=== PATIENT | male | born 1955 | race Caucasian/White ===

== ENCOUNTER 2016-09-04 14:04 | Inpatient (IN) | payer OTHER, BC ==
[~2016-09-04] VITALS: Ht 188 cm; Wt 97.8 kg
[~2016-09-04 14:04] MED LIST: ALLO1TAB51 PO; ASPI1TAB83 PO; BENZ100C7 PO; GLIM4TAB2 PO; GUAI1TAB68 PO; HYDR-3714 PO; LACT1CAP6 PO; LISI-729 PO; LVQ500 PO; METO50TA16 PO; MULT-506 PO; NPHA OP; PRD10 PO; PRLSR20 PO; SEVE800T7 PO; VNTHFA/IN INH; ZOLP10TA PO
[2016-09-04] MEDS ORDERED: METHYLPREDNISOLONE 125 MG VIAL IV STA (14:36)
[2016-09-04] MEDS ORDERED: LEVAQUIN 500MG / 100ML D5W IV ONE (14:45)
[2016-09-04] MEDS ORDERED: SODIUM CHLORIDE 0.9% 1000ML 1,000 ML IV ONE (14:45)
[2016-09-04] MEDS: ALBUT/IPRATROP 3MG/0.5MG NEB 3 ML VIAL INH SCH ×2 (16:14→20:00)
[2016-09-04 16:15] VITALS: PULSE 92; O2SAT 98
[2016-09-04] MEDS ORDERED: LEVOFLOXACIN / D5W 250 MG in PREMIXED IN D5W 50 ML IV ONE (17:30)
[2016-09-04] MEDS ORDERED: GUAI100S6 PO (17:53)
[2016-09-04] MEDS ORDERED: CALC1CAP36 PO (17:53)
[2016-09-04] MEDS ORDERED: CINA90TA PO (17:53)
[2016-09-04 18:36] LABS: COMPLETE YES; EOS % 0.3 %; HEMATOCRIT 32.1 % (42-52); IG% 0.2 %; LYMPH % 4.8 %; LYMPH ABS # 0.31 K/uL (1.2-3.4); MEAN CELL VOLUME 97.3 fL (80-100); MEAN CORPUSCULAR HEMOGLOBIN 31.5 pg (25-34); MEAN CORPUSCULAR HGB CONC 32.4 g/dl (32-36); MEAN PLATELET VOLUME 10.6 fL (7.4-10.4); MONO % 1.8 %; NEUT % 92.9 %; PLATELET COUNT 102 K/uL (130-400)
[2016-09-04 18:48] LABS: VEN BLD GAS O2 SATURATION < 60.0 %; VEN BLOOD GAS BASE EXCESS 1.6 mmol/L; VENOUS BLOOD GAS PCO2 58 mmHg (38.0-50.0); VENOUS BLOOD GAS PO2 23 mmHg
--- NOTE | 2016-09-04 18:59 | DIAGNOSTIC IMAGING REPORT ---
CHEST 2 VIEWS ROUTINE CLINICAL HISTORY: Cough. Left side crackles. ATYPICAL CHEST PAIN COMPARISON STUDY: 08/12/2016 FINDINGS: The heart is enlarged. There are improving bilateral interstitial pulmonary opacities. There is a more focal right basal airspace opacities suspicious for a pneumonitis. Clinical radiographic follow-up is recommended. There are no significant pleural fusions.[ IMPRESSION: 1. Generalized improvement in the previous described bilateral interstitial opacities 2. New 4 cm right lower lobe airspace opacity, suspicious for a pneumonitis. Clinical and imaging follow-up is recommended Electronically signed by: Ever Zamarripa M.D. 09/04/2016 6:57 PM Dictated Date/Time: 09/04/2016 6:56 PM
[2016-09-04 19:16] LABS: ALB/GLOB RATIO 0.6 (0.9-2); BUN/CREATININE RATIO 7.8 (10-20); CALCIUM 8.3 mg/dl (8.5-10.1); CREATININE 8.8 mg/dl (0.60-1.40); MAGNESIUM 1.3 mg/dl (1.8-2.4)
--- NOTE | 2016-09-04 20:15 | EMERGENCY ROOM VISIT NOTE ---
ED Visit Note First contact with patient: 14:29 I did evaluate and examine this patient myself. I did guide management for the patient. I agree with the PA's assessment as discussed. Please see the PAs dictation for further details. I did independently review the x-rays, twelve- lead EKG and blood work. The patient was assessed by Dr. Friedman who recommended patient be hospitalized.
[2016-09-04] MEDS ORDERED: POTASSIUM CHLORIDE 10 MEQ / 100ML WTR IV STA (20:18)
[2016-09-04] MEDS ORDERED: ACETAMINOPHEN 325 MG TAB PO PRN (21:00)
[2016-09-04] MEDS ORDERED: NITROGLYCERIN 0.4 MG SL PER TAB CHARGE SL PRN (21:00)
[2016-09-04] MEDS ORDERED: LEVOFLOXACIN / D5W 500 MG in PREMIXED IN D5W 100 ML IV SCH (21:15)
[2016-09-04] MEDS ORDERED: NAPHAZOLIN/PHENIRAMIN OPH SOLN 75 DROPS/5 ML BTL OP PRN (21:15)
[2016-09-04] MEDS ORDERED: POTASSIUM CHLORIDE 10 MEQ TABCR PO STA (21:16)
--- NOTE | 2016-09-04 21:50 | HISTORY & PHYSICAL EXAMINATION ---
DATE OF ADMISSION: 09/04/2016 PRIMARY CARE PHYSICIAN: Dr. Feliciano. CHIEF COMPLAINT: Cough with increasing shortness of breath and unable to sleep for the last 3 days. HISTORY OF PRESENT COMPLAINT: He is a 61-year-old male, obese with significant past medical history including diabetes type 2 with neuropathy, chronic kidney disease on peritoneal dialysis, hypertension, osteoarthritis, and also testicular hypofunction, apparently has been complaining of increasing cough for the last 3 days. The cough has been so bad that he has not been sleeping for the last 3 days. He has been using oxygen at home with some improvement of his saturation. He did have some pain in the lower chest that is most likely secondary to coughing, but the condition got worse this morning and he came to the Emergency Room for further evaluation. He denies to have any palpitations, any nausea or vomiting with it, no fever, chills, or rigors. No problem with urine and/or bowel habit. He does have leg swelling, which has been increasing. He does not have any arthritis involving any of the joint and no rash and/or enlargement of lymph nodes. He was in [facility] recently with respiratory symptoms and was evaluated by Dr Friedman. Admitted with Acute respiratory failure and CT of the chest showed diffuse interstitial and nodular changes in both the lungs.Has had a Bronchoscopy without any definite diagnosis and may need repeat bronchoscopy this time.In Er CXR showed new pneumonitis RLL PAST MEDICAL HISTORY: Significant for diabetes type 2 with neuropathy; chronic kidney disease, on peritoneal dialysis, he was on hemodialysis about 4 months ago; hypertension, past tobacco abuse without any diagnosis of COPD, gout, osteoarthritis, and testicular hypofunction. PAST SURGICAL HISTORY: Significant for AV fistula on the left forearm, tonsillectomy as a child, cataract surgery, left total hip replacement, and vasectomy. FAMILY HISTORY: Mother had macular degeneration. Father had hypertension. Mother had thyroid disorder too. SOCIAL HISTORY: He is . He has 4 children. He quit smoking in 2003 with a [id number] history of smoking. He drinks alcohol occasionally. He has been reasonably ambulant. ALLERGIES: NKDA. MEDICATIONS: He has been on Ventolin 2-4 puffs q. 6 hourly as needed, allopurinol 100 mg twice daily, aspirin 81 mg daily, calcitriol 0.25 mg daily, gabapentin as directed, lisinopril 5 mg b.i.d., Lopressor 50 mg twice daily, multivitamin 1 tablet daily, Naphcon-A 15 mL solution 1-2 drops OP q.i.d., prednisone 60 mg as directed, Ambien 10 mg daily, Sensipar 90 mg at night, glimepiride 4 mg daily, Prilosec 20 mg daily, Renvela 800 mg 2 tablets with snacks and Renvela 3 tablets p.o. b.i.d. REVIEW OF SYSTEMS: Other systemic review unremarkable. PHYSICAL EXAMINATION: GENERAL: On examination in the Emergency Room, he was having minimal shortness of breath at rest. VITAL SIGNS: Temperature 36.8, pulse was 110, blood pressure 112/71, saturation 94% on room air. HEENT: Unremarkable. NECK: Supple. No JVD, no bruit. CHEST: Decreased breath sounds at bases with crackles at both bases, more on the right than the left. HEART: S1, S2 regular, no murmur. ABDOMEN: Soft, benign, mildly tender. Bowel sounds present. PD catheter in place. EXTREMITIES: 1+ edema bilaterally. MUSCULOSKELETAL SYSTEM: Did not show any acute arthritis involving any joint. CENTRAL NERVOUS SYSTEM: Alert, awake, oriented x3, no focal sensory and/or motor deficit appreciated. LABORATORY DATA: Noted today - white count was 6.50, H\T\H 10.4/32.1, platelet was 102. Blood gas - pH 7.32, pCO2 58, pO2 23, bicarbonate was 29. Sodium 138, potassium 3.0, chloride 95, BUN 56 and creatinine 0.80, random glucose 138. Magnesium 1.3. LFTs unremarkable except alkaline phosphatase 127. Troponin was 0.182. IMAGING DATA: Chest x-ray reported as generalized improvement in the previous described bilateral interstitial opacities, but new 4 cm right lower lobe airspace opacity, suspicious for pneumonitis. EKG was in sinus rhythm, rate of 94 per minute, normal axis and minor nonspecific ST-T wave changes. IMPRESSION AND PLAN: 1. Pneumonitis/pneumoniae involving the right lower lobe. The patient has bibasilar opacities, new pneumonitis 4 cm in the right lower lobe. Blood culture has been taken. We will start with intravenous Levaquin and pulmonary consultation for further management.Recent admission to [facility] with Acute Respiratory failure ,underwent Bronchoscopy and may need Bronchoscopy during this admission 2. Past history of tobacco abuse, may have a component of chronic obstructive pulmonary disease, but not documented in the chart. Will give intravenous Solu-Medrol and nebulized bronchodilator and oxygen as needed. He has been on Home Oxygen since last hospitalization. 3. Increased troponin, may be secondary to renal failure. Does have some chest pain and shortness of breath. Will cycle cardiac enzymes and put the patient to telemetry unit. 4. End-stage renal disease of Unknown cause, on peritoneal dialysis. He was on HD before and has AV fistula in left forearm.Recently started on PD, continue with peritoneal dialysis. Nephrology consultation while in the hospital. 5. Hypertension. Continue with current medications. 6. Diabetes with neuropathy. We will hold glipizide and put him on sliding scale coverage in the hospital and continue other medications. Check hemoglobin A1c. 7. Gastrointestinal prophylaxis with proton pump inhibitor. 8. Deep venous thrombosis prophylaxis with subcutaneous heparin. 9. Code status: He will be a full code. In my clinical judgment, the beneficiary meets criteria as per CMS for 2-midnight stay in the hospital. MTDPilar
--- NOTE | 2016-09-04 22:43 | EMERGENCY ROOM VISIT NOTE ---
History First contact with patient: 14:29 Chief Complaint: RESPIRATORY PROBLEMS Stated Complaint: CHESTPAIN,COUGH Nursing Triage Summary: Pt came in today for difficulty breathing. Pt was just in for the same issue 2 weeks ago. The pt was placed on home O2 2lpm at that time. Pt states that he has been coughing nonstop since then. Pt feels SOB and his chest hurts. Pt states his cough is productive with a scant amount of white sputum. History of Present Illness The patient is a 61 year old male who presents to the Emergency Room with complaints of cough and shortness of breath worsening over the past 3 days. The patient has a history of long-standing pulmonary disease, and was admitted one month ago with similar symptoms. He is on home oxygen since that last visit and had been doing well for about 3 weeks. The patient states he has had decreased sleep because at night he has a somewhat productive cough that causes him post tussive chest pain. The patient states the pain is worse today as he is also developing some shortness of breath. He does not report fever or chills. No new dyspnea on exertion. The patient does follow with pulmonology, Dr Friedman, and he evidently had a bronchoscopy within the past month. The patient does have a history of tobacco use, but no distinct diagnosis of COPD. He is diabetic and on dialysis for chronic kidney disease. He last had peritoneal dialysis this morning. He rates his current discomfort a 7/10. Review of Systems More than 10 systems were reviewed and otherwise negative with the exception of history of present illness. Past Medical/Surgical History Medical Problems: (1) BPH (benign prostatic hyperplasia) (2) C. difficile colitis (3) Diabetes mellitus, type II (4) Dyslipidemia (5) Elevated troponin (6) ESRD (end stage renal disease) on dialysis (7) ESRD on peritoneal dialysis (8) Gout (9) HTN (hypertension) (10) Obesity (BMI 30.0-34.9) (11) Pneumonia (12) Pneumonitis (13) Respiratory failure, acute (14) Restless leg syndrome Surgical Problems: (1) H/O cataract removal with insertion of prosthetic lens (2) H/O vasectomy (3) History of tonsillectomy and adenoidectomy (4) History of total hip arthroplasty Family History Asthma Hypertension FATHER MOTHER Social History Smoking Status: Former Smoker Alcohol Use: none Housing Status: lives with family Current/Historical Medications Scheduled Allopurinol (Allopurinol), 100 MG PO BID Aspirin (Aspirin), 81 MG PO QAM Calcitriol (Calcitriol), 0.25 MG PO DAILY Cinecalcet (Sensipar), 90 MG PO HS Glimepiride (Glimepiride), 4 MG PO QAM Guaifenesin (Organ-I Nr), 200 MG PO Q8H Lisinopril (Prinivil), 5 MG PO BID Metoprolol Tartrate (Lopressor) (Lopressor), 50 MG PO BID Multivitamin (Multivitamin), 1 TAB PO QAM Omeprazole (Prilosec), 20 MG PO QAM Prednisone (Prednisone), 60 MG PO UD Sevelamer Carbonate (Renvela), 3 TAB PO BID Sevelamer Carbonate (Renvela), 2 TAB PO with snacks Scheduled PRN Albuterol Hfa (Ventolin Hfa), 2-4 PUFFS INH Q6H PRN for SOB/Wheezing Guaifenesin-Codeine (Guaifenesin/Codeine), 5-10 ML PO HS PRN for Cough Naphazoline/Pheniramine (Naphcon-A), 1-2 DROPS OP QID PRN for Itching Zolpidem Tartrate (Ambien), 10 MG PO HS PRN for Sleep Allergies Coded Allergies: No Known Allergies (Unverified , 09/04/16) Physical Exam Vital Signs Date Time Temp Pulse Resp B/P Pulse Ox O2 Delivery O2 Flow Rate FiO2 09/04/16 22:23 93 20 153/84 93 09/04/16 20:29 92 20 143/81 93 Room Air 09/04/16 18:12 110 18 112/71 94 Room Air 09/04/16 16:24 93 20 151/82 100 Nebulizer 7.0 09/04/16 16:15 92 24 98 Nasal Cannula 2.0 09/04/16 16:12 92 09/04/16 14:24 90 Room Air 09/04/16 14:06 36.8 56 19 169/93 93 Room Air Pain Rating (0-10): 4.0 Physical Exam VITALS: Vitals are noted on the nurse's note and reviewed by myself. Vital signs with tachycardia and decreased O2 saturation GENERAL: Well-developed, well-nourished, white male who is coughing throughout the examination. He is able to speak in 4-5 word sentences. HEAD: Normocephalic atraumatic. MOUTH: Mucous membranes moist. Tonsils are not enlarged. Pharynx without erythema, blood, or exudate. Uvula midline. Airway patent. NECK: Supple without nuchal rigidity. No lymphadenopathy. No thyromegaly. Cervical spine is nontender. HEART: Regular rate and rhythm without murmurs gallops or rubs. LUNGS: Diffuse wheezing and rhonchi throughout. Crackles are noted on the left side lung arnold. ABDOMEN: Positive normal bowel sounds x 4. Soft, nontender, without masses or organomegaly. No guarding or rebound tenderness. MUSCULOSKELETAL: 2+ pretibial edema bilateral. Full range of motion without joint tenderness in all extremities. NEURO: Patient was alert and oriented to person place and time. CN II through XII grossly intact. Medical Decision & Procedures ER Provider Diagnostic Interpretation: CHEST 2 VIEWS ROUTINE CLINICAL HISTORY: Cough. Left side crackles. ATYPICAL CHEST PAIN COMPARISON STUDY: 08/12/2016 FINDINGS: The heart is enlarged. There are improving bilateral interstitial pulmonary opacities. There is a more focal right basal airspace opacities suspicious for a pneumonitis. Clinical radiographic follow-up is recommended. There are no significant pleural fusions.[ IMPRESSION: 1. Generalized improvement in the previous described bilateral interstitial opacities 2. New 4 cm right lower lobe airspace opacity, suspicious for a pneumonitis. Clinical and imaging follow-up is recommended Electronically signed by: Ever Zamarripa M.D. 09/04/2016 6:57 PM Laboratory Results 09/04/16 18:25 Red Blood Count 3.30, Mean Corpuscular Volume 97.3, Mean Corpuscular Hemoglobin 31.5, Mean Corpuscular Hemoglobin Concent 32.4, Mean Platelet Volume 10.6, Neutrophils (%) (Auto) 92.9, Lymphocytes (%) (Auto) 4.8, Monocytes (%) (Auto) 1.8, Eosinophils (%) (Auto) 0.3, Basophils (%) (Auto) 0.0, Neutrophils # (Auto) 6.04, Lymphocytes # (Auto) 0.31, Monocytes # (Auto) 0.12, Eosinophils # (Auto) 0.02, Basophils # (Auto) 0.00 09/04/16 18:25 Test 09/04/16 18:25 White Blood Count 6.50 K/uL (4.8-10.8) Red Blood Count 3.30 M/uL (4.7-6.1) Hemoglobin 10.4 g/dL (14.0-18.0) Hematocrit 32.1 % (42-52) Mean Corpuscular Volume 97.3 fL (80-100) Mean Corpuscular Hemoglobin 31.5 pg (25-34) Mean Corpuscular Hemoglobin Concent 32.4 g/dl (32-36) Platelet Count 102 K/uL (130-400) Mean Platelet Volume 10.6 fL (7.4-10.4) Neutrophils (%) (Auto) 92.9 % Lymphocytes (%) (Auto) 4.8 % Monocytes (%) (Auto) 1.8 % Eosinophils (%) (Auto) 0.3 % Basophils (%) (Auto) 0.0 % Neutrophils # (Auto) 6.04 K/uL (1.4-6.5) Lymphocytes # (Auto) 0.31 K/uL (1.2-3.4) Monocytes # (Auto) 0.12 K/uL (0.11-0.59) Eosinophils # (Auto) 0.02 K/uL (0-0.5) Basophils # (Auto) 0.00 K/uL (0-0.2) RDW Standard Deviation 55.3 fL (36.4-46.3) RDW Coefficient of Variation 15.5 % (11.5-14.5) Immature Granulocyte % (Auto) 0.2 % Immature Granulocyte # (Auto) 0.01 K/uL (0.00-0.02) Venous Blood pH 7.32 (7.36-7.41) Venous Blood Partial Pressure CO2 58 mmHg (38.0-50.0) Venous Blood Partial Pressure O2 23 mmHg Venous Blood HCO3 29 mmol/L Venous Blood Oxygen Saturation < 60.0 % Venous Blood Base Excess 1.6 mmol/L Anion Gap 15.0 mmol/L (3-11) Est Creatinine Clear Calc Drug Dose 11.9 ml/min Estimated GFR () 6.8 Estimated GFR (Non- 5.8 BUN/Creatinine Ratio 7.8 (10-20) Calcium Level 8.3 mg/dl (8.5-10.1) Magnesium Level 1.3 mg/dl (1.8-2.4) Total Bilirubin 0.5 mg/dl (0.2-1) Aspartate Amino Transf (AST/SGOT) 26 U/L (15-37) Alanine Aminotransferase (ALT/SGPT) 57 U/L (12-78) Alkaline Phosphatase 127 U/L (45-117) Troponin I 0.182 ng/ml (0-0.045) Total Protein 6.1 gm/dl (6.4-8.2) Albumin 2.4 gm/dl (3.4-5.0) Globulin 3.7 gm/dl (2.5-4.0) Albumin/Globulin Ratio 0.6 (0.9-2) Medications Administered Medications (Trade) Dose Ordered Sig/Daysi Route Start Time Stop Time Status Last Admin Dose Admin Methylprednisolone Sodium Succinate 125 mg 125 mg NOW STAT IV 09/04/16 14:36 09/04/16 14:41 DC 09/04/16 16:19 125 MG Sodium Chloride (Nss 1000ml) 1,000 ml @ 200 mls/hr Q5H ONCE IV 09/04/16 14:45 09/04/16 19:44 DC 09/04/16 14:45 200 MLS/HR Albuterol/ Ipratropium (Duoneb) 12 ml QIDR INH 09/04/16 16:00 10/04/16 15:59 09/04/16 16:14 12 ML Levofloxacin 500 mg 500 mg NOW ONCE IV 09/04/16 14:45 09/04/16 14:46 DC 09/04/16 14:45 500 MG Levofloxacin/Prmx (Levaquin / D5W/ Premixed D5W) 50 ml @ 50 mls/hr NOW ONCE IV 09/04/16 17:30 09/04/16 18:29 DC 09/04/16 18:01 50 MLS/HR Potassium Chloride (Kcl 10 Meq / Wtr) 10 meq NOW STAT IV 09/04/16 20:18 09/04/16 20:19 DC 09/04/16 21:24 10 MEQ ED Course Physical exam and history were performed. Nursing notes and EMR were reviewed. Patient appears to have shortness of breath and cough with a history of pulmonary disease. The patient's O2 saturation on room air was 90 on initial presentation. The patient was immediately placed on 4 L nasal cannula, and this immediately improved his saturation to 96%. The patient does have a cough here in the department. His lungs are with diffuse wheezing and rhonchi. IV access was established and labs were obtained. Chest x-ray was ordered. The patient was given IV Solu-Medrol 125 mg, as well as a one-hour DuoNeb. He was placed on the superintendent container terminal. EKG was normal sinus rhythm at 94 bpm with incomplete right bundle branch block. No evidence of ischemia. EKG is without significant change from 07/09/2016. The patient proved to be a very difficult blood draw, and the acquisition of labs was delayed because of this. We were able to establish an IV and obtain blood cultures. X-ray was performed and the patient does have what appears to be a new pneumonitis compared to previous imaging studies. The patient did have some improvement of his breathing and decrease of his cough after steroids and a DuoNeb. I discussed the case with Dr Friedman, the patient's investor relations director. Dr Friedman was kind enough to discuss the patient with me here in the emergency department. Evidently the patient has a currently undiagnosed pulmonary issue. He has some components of sarcoidosis, but also has some components of an allergic pneumonitis. The recommendation was for 750 mg IV Levaquin as well as high-dose steroids. These were provided. Dr Friedman felt that with the patient's immunocompromise status from his dialysis as well as underlying pulmonary disease with hypoxia he will be a candidate for discharge home at this time. Dr. Friedman indicated a willingness to further evaluate the patient as an inpatient if we and the hospitalist felt this was appropriate. After some time we were able to draw labs. The patient does not have a significantly elevated white blood cell count. He is mildly anemic, however this appears stable. His potassium is 3.0 and this was repleted through the IV. His BUN/creatinine are significantly elevated, however this is felt to be consistent with his chronic kidney disease, and the labs are actually improved from previous blood draws over the past few months. The patient's troponin 1 is mildly elevated. I suspect this is also from his chronic kidney disease as his troponin is essentially always mildly elevated. I discussed the case with my attending physician, Dr. Sears, who also independently evaluated the patient. We do not feel comfortable discharging the patient as he has underlying pulmonary disease with hypoxia. He is with chronic kidney disease and an elevated troponin. He has what seems to be a new pneumonitis, which could be contributing to her symptoms. [facility] to evaluate the patient here in the department. Please see their dictation for further patient course, plan , and disposition. The chart was completed utilizing [employer] Voice Recognition Software. Grammatical errors, random word insertions, pronoun errors, and incomplete sentences are an occasional consequence of this system due to software limitations, ambient noise, and hardware issues. Any formal questions or concerns about the content, text, or information contained within the body of this dictation should be directly addressed to the provider for clarification. . Medical Decision Differential diagnosis includes, but is not limited to: Myocardial infarction, dysrhythmia, pericarditis, pneumothorax, aortic aneurysm/dissection, DVT/PE, anxiety, GERD, PUD, electrolyte imbalance, thyroid disorder, pneumonia, bronchitis, pancreatitis, and others Impression Primary Impression: Respiratory failure, acute Additional Impressions: Elevated troponin ESRD on peritoneal dialysis Departure Information Referrals Chu Feliciano MD (PCP) Patient Instructions My [facility] Problem Qualifiers
[2016-09-04 22:58] VITALS: BP 147/86; PULSE 108; TEMP 36.8; O2SAT 98; Ht 188 cm; Wt 97.8 kg
[2016-09-04] MEDS ORDERED: LEVOFLOXACIN CONSULT ACTIVE PRN (23:00)
[2016-09-04] MEDS ORDERED: MAGNESIUM SULFATE 1GM / D5W 1 GM in PREMIXED IN D5W 100 ML IV SCH (23:00)
[2016-09-04] MEDS: HYDROCODONE/HOMATROPINE SYRUP 5MG/1.5MG 5ML UDP PO PRN (23:26)
[2016-09-04] MEDS: HYDROCODONE/ACETAMOPHEN 5/325MG TAB PO PRN (23:27)
[2016-09-04] MEDS: ZOLPIDEM TARTRATE 10 MG TAB PO PRN (23:27)
[2016-09-04] MEDS: METHYLPREDNISOLONE IV 60 MG in SYRINGE 0 ML IV SCH (23:27)
[2016-09-05] VITALS (26 sets, daily range): BP systolic 135–189; BP diastolic 65–110; PULSE 89–113; TEMP 36.4–37; O2SAT 91–96
[2016-09-05] MEDS: LEVALBUTEROL 0.31MG/3 ML VIAL INH SCH ×3 (01:48→13:51)
[2016-09-05] MEDS: HEPARIN SOD 5000 UNIT/0.5 ML CARP SQ SCH ×3 (06:23→21:12)
[2016-09-05] MEDS ORDERED: SEVELAMER HYDROCH 800 MG TAB PO PRN (07:30)
[2016-09-05] MEDS: METHYLPREDNISOLONE IV 60 MG in SYRINGE 0 ML IV SCH ×2 (08:12→18:01)
[2016-09-05] MEDS: MULTIVITAMIN TAB PO SCH (08:12)
[2016-09-05] MEDS: SEVELAMER HYDROCH 800 MG TAB PO SCH ×2 (08:12→18:01)
[2016-09-05] MEDS: CALCITRIOL 0.25 MCG CAP PO SCH (08:13)
[2016-09-05] MEDS: LISINOPRIL 5 MG TAB PO SCH ×2 (08:13→21:10)
[2016-09-05] MEDS: METOPROLOL TARTRATE 50 MG TAB PO SCH ×2 (08:13→21:10)
[2016-09-05] MEDS: ALLOPURINOL 100 MG TAB PO SCH ×2 (08:14→21:10)
[2016-09-05] MEDS: ASPIRIN 81 MG ECTAB PO SCH (08:14)
[2016-09-05] MEDS: PANTOprazole SOD 40 MG TAB PO SCH (08:14)
[2016-09-05 09:29] LABS: MEAN CELL VOLUME 94.6 fL (80-100); MEAN CORPUSCULAR HEMOGLOBIN 31.5 pg (25-34); MEAN CORPUSCULAR HGB CONC 33.3 g/dl (32-36); MEAN PLATELET VOLUME 11.3 fL (7.4-10.4); PLATELET COUNT 114 K/uL (130-400); RED BLOOD COUNT 3.17 M/uL (4.7-6.1); WHITE BLOOD COUNT 5.43 K/uL (4.8-10.8)
--- NOTE | 2016-09-05 09:41 | Nephrology Consultation ---
Nephrology Consultation Date of Consultation: Sep 05, 2016. Attending Physician: Dr Pinedo Requesting Physician: Dr Franco Reason for Consultation: ESRD History of Present Illness 61 year old male w/ ESRD on PD and w/ recurrent admissions here past 3 mos for volume problems (both overload and volume depletion), respiratory issues came to ED yesterday d/t progressive edema, dyspnea. Follows w/ Dr. Friedman for suspected hypersensitivity pneumonitis, though dx not definitive; also Mycoplasma + last month. Also under the care of Dr Jimenez [facility]. He has a chronic cough which worsened w/ increased wheezing starting 72 hrs prior to presentation. He had worsening orthopnea to the point where he had to do his PD exchanges sitting up. He states that he had been doing mostly all 2.5% bags w/ PD and did one night of all 4.25% bags but then went back to 2.5%. States he did this b/c was told he was back to/ at his dry weight. No diarrhea, nausea , abd pain, decreased po, presyncopal sx. No concerns about PD exchanges. He had breathing txs here ON w/ improvement in cough; did get a few hours of rest. Does endorse some dietary indiscretion/ higher Na diet d/t food insecurity/ cost. No change in daily UOP which is small amount. Past Medical/Surgical History Medical Problems: (1) Anemia Status: Acute (2) Anemia Status: Acute (3) Chronic renal failure Status: Acute (4) Elevated troponin Status: Acute (5) Hypotension Status: Acute (6) Hypoxemia Status: Acute (7) Vomiting Status: Acute (8) Weakness Status: Acute -End-stage renal disease under care of Dr. Jimenez at [facility], does PD but has mature AVF as well -type 2 diabetes -HTN -concern for hypersensitivity pneumonitis s/p bronch 07/2016 -Mycoplasma + 08/10/16 -[facility] admission 08/01-: hypovolemia with cough -admissions [facility] w/ recurrent diarrhea (07/01-: C-diff); (06/15-: diarrhea/hypovolemia) -possible hemochromatosis -demand ischemia noted at past admissions -s/p PD catheter and tunnelled dialysis catheter and AVF creation -s/p vasectomy -s/p hip replacement -s/p tonsillectomy -s/p cataract surgery Family History Asthma Hypertension FATHER MOTHER Social History Smoking Status: Former Smoker Alcohol Use: none Drug Use: none Marital Status: Housing Status: lives with family Occupation Status: disabled Allergies Coded Allergies: No Known Allergies (Unverified , 09/04/16) Medications Current Inpatient Medications Medications (Trade) Dose Ordered Sig/Daysi Route Start Time Stop Time Status Last Admin Dose Admin Acetaminophen (Tylenol Tab) 650 mg Q4H PRN PO 09/04/16 21:00 10/04/16 20:59 Zolpidem Tartrate (Ambien Tab) 5 mg HSZ PRN PO 09/04/16 21:00 10/04/16 20:59 Nitroglycerin (Nitrostat Tab) 0.4 mg UD PRN SL 09/04/16 21:00 10/04/16 20:59 Albuterol (Ventolin Hfa Inhaler) 2 puffs Q6H PRN INH 09/04/16 21:15 10/04/16 21:14 Allopurinol (Zyloprim Tab) 100 mg BID PO 09/05/16 09:00 10/05/16 08:59 09/05/16 08:14 100 MG Aspirin (Ecotrin Tab) 81 mg QAM PO 09/05/16 09:00 10/05/16 08:59 09/05/16 08:14 81 MG Calcitriol (Rocaltrol Cap) 0.25 mcg DAILY PO 09/05/16 09:00 10/05/16 08:59 09/05/16 08:13 0.25 MCG Lisinopril (Zestril Tab) 5 mg BID PO 09/05/16 09:00 10/05/16 08:59 09/05/16 08:13 5 MG Metoprolol Tartrate (Lopressor Tab) 50 mg BID PO 09/05/16 09:00 10/05/16 08:59 09/05/16 08:13 50 MG Multivitamins (Multivitamin Tab) 1 tab QAM PO 09/05/16 09:00 10/05/16 08:59 09/05/16 08:12 1 TAB Naphazoline HCl/ Pheniramine Maleate (Visine-A Oph Soln) 2 drops QID PRN OP 09/04/16 21:15 10/04/16 21:14 Zolpidem Tartrate (Ambien Tab) 10 mg HS PRN PO 09/04/16 21:15 10/04/16 21:14 09/04/16 23:27 10 MG Cinacalcet (Sensipar) 90 mg HS PO 09/05/16 21:00 10/05/16 20:59 Pantoprazole Sodium (Protonix Tab) 40 mg QAM PO 09/05/16 09:00 10/05/16 08:59 09/05/16 08:14 40 MG Sevelamer HCl (Renagel Tab) 1,600 mg TIDM PRN PO 09/05/16 07:30 10/05/16 07:29 Sevelamer HCl 2400 mg 2,400 mg BIDM PO 09/05/16 07:30 10/05/16 07:29 09/05/16 08:12 2,400 MG Methylprednisolone Sodium Succinate/ Syringe (Solu-Medrol IV/ Syringe) 0.96 ml @ 1.5 mls/min Q8H IV 09/05/16 00:00 10/05/16 00:00 09/05/16 08:12 1.5 MLS/MIN Levalbuterol (Xopenex 0.31MG/ 3ML Neb) 0.31 mg Q6R INH 09/05/16 03:00 10/05/16 02:59 09/05/16 06:59 0.31 MG Hydrocodone Bit/ Homatropine Methylb (Hycodan Syrup) 5 ml Q6H PRN PO 09/04/16 21:15 09/18/16 21:14 09/04/16 23:26 5 ML Heparin Sodium (Porcine) (Heparin Sq 5000 Unit/0.5ml) 5,000 unit Q8 SQ 09/05/16 06:00 10/05/16 05:59 09/05/16 06:23 5,000 UNIT Levofloxacin 1 ea 1 ea UD PRN N/A 09/04/16 23:00 10/04/16 22:59 Levofloxacin/Prmx (Levaquin / D5W/ Premixed D5W) 100 ml @ 100 mls/hr Q2D@1100 IV 09/06/16 11:00 09/13/16 10:59 Acetaminophen/ Hydrocodone Bitart ([place] 5/325 Tab) 1 tab Q4H PRN PO 09/04/16 23:15 09/18/16 23:14 09/04/16 23:27 1 TAB Home Meds and Scripts Medications Dose Route/Sig Max Daily Dose Days Date Category Dose Instructions Calcitriol 0.25 Mcg Cap 0.25 Mg PO DAILY 09/04/16 Reported Sensipar (Cinecalcet) 90 Mg Tab 90 Mg PO HS 09/04/16 Reported Guaifenesin/Codeine (Guaifenesin-Codeine) 1 Tanvi Tanvi 5-10 Ml PO HS PRN 4 09/04/16 Reported Prednisone 10 Mg Tab 60 Mg PO UD 42 08/15/16 Rx Take 60 mg daily x 7 days and than taper by 10 mg every week. Organ-I Nr (Guaifenesin) 200 Mg Tab 200 Mg PO Q8H 10 08/04/16 Rx Ventolin Hfa (Albuterol) 200 Puffs/33759 Mcg Aers 2-4 Puffs INH Q6H PRN 08/01/16 Reported Prinivil (Lisinopril) 5 Mg Tab 5 Mg PO BID 07/16/16 Reported Lopressor (Metoprolol Tartrate) 50 Mg Tab 50 Mg PO BID 04/17/16 Reported Renvela (Sevelamer Carbonate) 800 Mg Tab 2 Tab PO WITH SNACKS 90 07/02/15 Reported Renvela (Sevelamer Carbonate) 800 Mg Tab 3 Tab PO BID 90 07/02/15 Reported Ambien (Zolpidem Tartrate) 10 Mg Tab 10 Mg PO HS PRN 07/02/15 Reported Naphcon-A (Naphazoline HCl/Pheniramine Maleate) 15 Ml Soln 1-2 Drops OP QID PRN 10/25/14 Reported Glimepiride 4 Mg Tab 4 Mg PO QAM 10/23/14 Reported Prilosec (Omeprazole) 20 Mg Capcr 20 Mg PO QAM 10/23/14 Reported Allopurinol 100 Mg Tab 100 Mg PO BID 10/23/14 Reported Aspirin 81 Mg Tab 81 Mg PO QAM 10/23/14 Reported Multivitamin (Multivitamins) Tab 1 Tab PO QAM 10/23/14 Reported Review of Systems Constitutional: + fatigue, + weakness, No chills, No fever Eyes: No worsening of vision ENT: No hearing loss Respiratory: + cough, + dyspnea at rest, + dyspnea on exertion, + see HPI, + wheezing, No hemoptysis Cardiac: + edema, + orthopnea, No chest pain, No palpitations Abdomen: No constipation, No diarrhea, No nausea, No pain, No vomiting Musculoskeletal: No joint pain, No muscle pain Male : + see HPI Neuro: + weakness, No balance problems Psych: No anxiety, No depression symptoms Heme: No abnormal bleeding/bruising Endo: + fatigue Skin: No rash Physical Exam Date Time Temp Pulse Resp B/P Pulse Ox O2 Delivery O2 Flow Rate FiO2 09/05/16 08:27 36.5 104 20 156/86 95 Room Air 09/05/16 08:00 Room Air 09/05/16 06:59 106 16 93 Room Air 09/05/16 04:00 Room Air 09/05/16 03:01 37.0 105 19 160/93 92 Room Air 09/05/16 01:49 108 16 91 Room Air 09/04/16 23:59 Room Air 09/04/16 22:58 36.8 108 19 147/86 98 Room Air 09/04/16 22:23 93 20 153/84 93 09/04/16 20:29 92 20 143/81 93 Room Air 09/04/16 18:12 110 18 112/71 94 Room Air 09/04/16 16:24 93 20 151/82 100 Nebulizer 7.0 09/04/16 16:15 92 24 98 Nasal Cannula 2.0 09/04/16 16:12 92 09/04/16 14:24 90 Room Air 09/04/16 14:06 36.8 56 19 169/93 93 Room Air 24-Hour Column 09/05/16 08:00 Intake Total 300 ml Balance 300 ml General Appearance: WD/WN, + mild distress (sitting up on side of bed reading newspaper; on RA; dyspneic w/ full sentence) Eyes: EOMI ENT: hearing grossly normal Neck: supple Respiratory/Chest: no accessory muscle use, + decreased breath sounds, + crackles Cardiovascular: + tachycardia (regularly spaced beats in 90s; distant), + pertinent finding (edema) Abdomen: normal bowel sounds, non tender, soft, + pertinent finding (PD cath RLQ) Extremities: + pedal edema (3+ and 3+ BLE as well), + pertinent finding (L AVF + t/b) Neurologic/Psych: alert, normal mood/affect, oriented x 3 Skin: no jaundice, warm/dry, no rash Diagnostics Last 24 Hours Test 09/04/16 18:25 09/05/16 02:56 09/05/16 08:56 09/05/16 09:13 White Blood Count 6.50 K/uL 5.43 K/uL Red Blood Count 3.30 M/uL 3.17 M/uL Hemoglobin 10.4 g/dL 10.0 g/dL Hematocrit 32.1 % 30.0 % Mean Corpuscular Volume 97.3 fL 94.6 fL Mean Corpuscular Hemoglobin 31.5 pg 31.5 pg Mean Corpuscular Hemoglobin Concent 32.4 g/dl 33.3 g/dl Platelet Count 102 K/uL 114 K/uL Mean Platelet Volume 10.6 fL 11.3 fL Neutrophils (%) (Auto) 92.9 % Lymphocytes (%) (Auto) 4.8 % Monocytes (%) (Auto) 1.8 % Eosinophils (%) (Auto) 0.3 % Basophils (%) (Auto) 0.0 % Neutrophils # (Auto) 6.04 K/uL Lymphocytes # (Auto) 0.31 K/uL Monocytes # (Auto) 0.12 K/uL Eosinophils # (Auto) 0.02 K/uL Basophils # (Auto) 0.00 K/uL RDW Standard Deviation 55.3 fL 52.8 fL RDW Coefficient of Variation 15.5 % 15.3 % Immature Granulocyte % (Auto) 0.2 % Immature Granulocyte # (Auto) 0.01 K/uL Venous Blood pH 7.32 Venous Blood Partial Pressure CO2 58 mmHg Venous Blood Partial Pressure O2 23 mmHg Venous Blood HCO3 29 mmol/L Venous Blood Oxygen Saturation < 60.0 % Venous Blood Base Excess 1.6 mmol/L Sodium Level 138 mmol/L Potassium Level 3.0 mmol/L Chloride Level 95 mmol/L Carbon Dioxide Level 28 mmol/L Anion Gap 15.0 mmol/L Blood Urea Nitrogen 69 mg/dl Creatinine 8.80 mg/dl Est Creatinine Clear Calc Drug Dose 11.9 ml/min Estimated GFR () 6.8 Estimated GFR (Non- 5.8 BUN/Creatinine Ratio 7.8 Random Glucose 138 mg/dl Calcium Level 8.3 mg/dl Magnesium Level 1.3 mg/dl Total Bilirubin 0.5 mg/dl Aspartate Amino Transf (AST/SGOT) 26 U/L Alanine Aminotransferase (ALT/SGPT) 57 U/L Alkaline Phosphatase 127 U/L Troponin I 0.182 ng/ml Total Protein 6.1 gm/dl Albumin 2.4 gm/dl Globulin 3.7 gm/dl Albumin/Globulin Ratio 0.6 Creatine Kinase MB Ratio Diagnostic Radiology: cxr which I have personally reviewed 1. Generalized improvement in bilateral interstitial opacities 2. New 4 cm right lower lobe airspace opacity, suspicious for a pneumonitis. 3. Cardiomegaly EKG: ECG > NSR, prolonged QT, unchanged from prior this admission Assessment & Plan 61 y/o M w/ ESRD and suspected hypersensitivity pneumonitis admitted with volume overload, worsening cough, presumed demand ischemia ESRD w/ HTN, volume overload hypertensive, edematous which should improve w/ HD -plan HD today and tomorrow for 2-3 L UF each tx as tolerated -mini heparin w/ txs -will hold off on PD for now; no indication to do PD fluid studies at this time -continue sevelamer, cinacalcet -ensure <2gm daily Na diet and fluid limit 1.2L Anemia of chronic disease -w/ reported hx of hemocrhomatosis, will hold off on epo or iron at this time but may need some epo this admission Hypokalemia -4k bath today; also pt had 40 mEq x 1 of K Pneumonitis, Mycoplasma IgG+ 07/2016 -on levaquin > QT prolongation noted and would monitor Demand ischemia small troponin elevation at prior admissions; troponins slightly higher this time; no events on monitor, no chest pain w/o coughing; f/u repeat troponins Appreciate consult; will follow with you
[2016-09-05] MEDS ORDERED: HEPARIN SOD (PORCINE) 1000 UNIT/ML 10 ML VIAL IV SCH (09:45)
--- NOTE | 2016-09-05 10:18 | Pulmonary Consultation ---
History General Date of Service: Sep 05, 2016. Stated Complaint: Elevated Troponin, Esrd On Peritoneal Dialysis HPI The patient is a 61 year old male who presents to [facility] with complaints of Elevated Troponin, Esrd On Peritoneal Dialysis. The patient' s primary care provider is Chu Feliciano MD. The patient was admitted to [facility] from August 08 --2015. He was admitted for acute hypoxic respiratory insufficiency possible hypersensitivity pneumonitis and elevated troponin with demand ischemia. Chronically is on dialysis for end-stage renal disease required HD in house and notably on PD at home. He presented yesterday to the ED with progressive SOB and productive cough (white sputum) over the last few days. I last him in clinic on 08/29/16 and the patient was doing well at that time. He was on a steroid elsi and off antibiotics. Current Treatment: 1. Levaquin 750mg IV QD 2. Heparin SC 5,000 Q8 3. Xopenex MEB Q6 4. Methyprednisolone 60mg IV Q8 Recent ABX Treatment 1) Levaquin 500mg Work-UP during This Admission: VBG(09/04/16) 7.32/58Convert to ABG---7.35/48 WBC 6.50 PLT: 102 D-dimer: 690 CXR (09/04/16) RLL diffuse infiltrate compared to 08/12/16 CT thorax (08/08/16) Diffuse Go with some [place] and notable consolidation for the LLL Previous Work-Up: 08/10/16: Mycoplasma Pneumonia IgG: >>2.17 08/10/16: Mycoplasma Pneumonia IgM: negative 129 08/15/16: [place] Dropping and Bird Droppings IgG positive 11/06/15: IgM16 low 08/12/16: Viral Specimen: Pending 08/10/2016: Legionella UA: not detected 08/12/16: CMV Culture Pending 08/12/16: HSV Culture Pending 08/10/16: [id number] 08/10/16: ANCA-negative 08/08/16: DVT study--negative Microbiology: Bronchoscopy (08/12/16) Cytology Brushing: Atypical Cells Tbbx: benign tissue with moderate sings of chronic inflammation/ no signs of malignancy TTNA: reactive lymphocytes/no signs of malignancy CD4/CD8 ratio: 7.6 PFT (11/13/15) FEV1/FVC: 75 FEV1: 3.09/73% (no reversibility) FVC: 4.09/77% (no reversibility) T.02/92% VC: 4.09/77% RV: 2.93/111% DLCO: 82% DL/VA: 95% CTA (10/25/14) o No PE o Scattered discoid atelectasis o Prominent mediastinal hilar adenopathy Review of Systems Constitutional: reports: malaise, weakness Eyes: reports: no symptoms ENT: reports: no symptoms Cardiovascular: reports: chest tightness, edema Respiratory: reports: SOARES, cough, shortness of breath Gastrointestinal: reports: no symptoms Genitourinary - Male: reports: no symptoms Musculoskeletal: reports: myalgias Integumentary: reports: no symptoms Neurologic: reports: no symptoms Psychiatric: reports: no symptoms Endocrine: no symptoms Hematologic / Lymphatic: no symptoms Allergic / Immunologic: no symptoms Past Medical History Past Medical History: 1) DM 2) HTN 3) Tobacco abuse 4) ESRD on PD 5) Chronic anemia 6) A-V fistula 7) Sleep disorder 8) COPD mild 9) Possible Hemochromatosis Past Surgical History: 1) HD port 2) PD abd 3) Vasectomy 4) cataract 5) tonsillectomy 6) adenoidectomy 7) hip surgery Family History Asthma Hypertension FATHER MOTHER Social History Hx Tobacco Use In Past Year?: No Smoking Status: Former Smoker Alcohol: no current use Drug Use: none Housing status: lives with significant other Immunizations History of Influenza Vaccine: Yes Influenza Vaccine Date: May 13, 2016 History of Tetanus Vaccine?: Yes Tetanus Immunization Date: Jan 29, 2011 History of Pneumococcal: Yes Pneumococcal Date: Jul 11, 2014 History of MDRO History of MDRO: No Allergies Coded Allergies: No Known Allergies (Unverified , 09/04/16) Current Medications Reported Home Medications Medications Dose Route/Sig Max Daily Dose Days Date Category Dose Instructions Calcitriol 0.25 Mcg Cap 0.25 Mg PO DAILY 09/04/16 Reported Sensipar (Cinecalcet) 90 Mg Tab 90 Mg PO HS 09/04/16 Reported Guaifenesin/Codeine (Guaifenesin-Codeine) 1 Tanvi Tanvi 5-10 Ml PO HS PRN 4 09/04/16 Reported Prednisone 10 Mg Tab 60 Mg PO UD 42 08/15/16 Rx Take 60 mg daily x 7 days and than taper by 10 mg every week. Organ-I Nr (Guaifenesin) 200 Mg Tab 200 Mg PO Q8H 10 08/04/16 Rx Ventolin Hfa (Albuterol) 200 Puffs/[id number] Mcg Aers 2-4 Puffs INH Q6H PRN 08/01/16 Reported Prinivil (Lisinopril) 5 Mg Tab 5 Mg PO BID 07/16/16 Reported Lopressor (Metoprolol Tartrate) 50 Mg Tab 50 Mg PO BID 04/17/16 Reported Renvela (Sevelamer Carbonate) 800 Mg Tab 2 Tab PO WITH SNACKS 90 07/02/15 Reported Renvela (Sevelamer Carbonate) 800 Mg Tab 3 Tab PO BID 90 07/02/15 Reported Ambien (Zolpidem Tartrate) 10 Mg Tab 10 Mg PO HS PRN 07/02/15 Reported Naphcon-A (Naphazoline HCl/Pheniramine Maleate) 15 Ml Soln 1-2 Drops OP QID PRN 10/25/14 Reported Glimepiride 4 Mg Tab 4 Mg PO QAM 10/23/14 Reported Prilosec (Omeprazole) 20 Mg Capcr 20 Mg PO QAM 10/23/14 Reported Allopurinol 100 Mg Tab 100 Mg PO BID 10/23/14 Reported Aspirin 81 Mg Tab 81 Mg PO QAM 10/23/14 Reported Multivitamin (Multivitamins) Tab 1 Tab PO QAM 10/23/14 Reported Physical Physical Exam Vital Signs: Date Time Temp Pulse Resp B/P Pulse Ox O2 Delivery O2 Flow Rate FiO2 09/05/16 08:27 36.5 104 20 156/86 95 Room Air 09/05/16 08:00 Room Air 09/05/16 06:59 106 16 93 Room Air 09/05/16 04:00 Room Air 09/05/16 03:01 37.0 105 19 160/93 92 Room Air 09/05/16 01:49 108 16 91 Room Air 09/04/16 23:59 Room Air 09/04/16 22:58 36.8 108 19 147/86 98 Room Air 09/04/16 22:23 93 20 153/84 93 09/04/16 20:29 92 20 143/81 93 Room Air 09/04/16 18:12 110 18 112/71 94 Room Air 09/04/16 16:24 93 20 151/82 100 Nebulizer 7.0 09/04/16 16:15 92 24 98 Nasal Cannula 2.0 09/04/16 16:12 92 09/04/16 14:24 90 Room Air 09/04/16 14:06 36.8 56 19 169/93 93 Room Air General Appearance: mild distress Head: NORMOCEPHALIC Eyes: PERRLA, NO DISCHARGE, EOMI ENT: NORMAL EAR EXAM, NORMAL NASAL EXAM, NORMAL MOUTH EXAM, NORMAL THROAT EXAM Neck: NORMAL RANGE OF MOTION, NO TENDERNESS, TRACHEA MIDLINE, NO STRIDOR Respiratory: rales, rhonchi, wheezing Cardiovasular: REGULAR RATE/RHYTHM, NORMAL S1S2, NO M/G/R, NO MURMUR, NO GALLOP Abdomen: NON TENDER, NORMAL BOWEL SOUNDS, NO REBOUND, NO MASSES, NO GUARDING, other (clean PD ports) Genitourinary - Male: EXTERNAL GENITALIA NORMAL Back: NORMAL INSPECTION, NO MIDLINE TENDERNESS, NO CVA TENDERNESS Lower Extremities: NO EDEMA Edema: Bilateral LE (2+) Pulses: carotid (R) (2+), carotid (L) (2+), dorsalis pedis (R) (1+), dorsalis pedis (L) (1+) Neuro: ALERT, ORIENTED x 3, NORMAL MOTOR EXAM, NORMAL SENSATION Reflexes: biceps (R) (2+), bicpes (L) (2+) Babinski Testing: right (downgoing), left (downgoing) Psychiatric: flat affect Diagnostics Labs Results Past 24 Hours Test 09/04/16 18:25 09/05/16 02:56 09/05/16 08:56 09/05/16 09:13 Range/Units White Blood Count 6.50 5.43 4.8-10.8 K/uL Red Blood Count 3.30 3.17 4.7-6.1 M/uL Hemoglobin 10.4 10.0 14.0-18.0 g/dL Hematocrit 32.1 30.0 42-52 % Mean Corpuscular Volume 97.3 94.6 80-100 fL Mean Corpuscular Hemoglobin 31.5 31.5 25-34 pg Mean Corpuscular Hemoglobin Concent 32.4 33.3 32-36 g/dl Platelet Count 102 114 130-400 K/uL Mean Platelet Volume 10.6 11.3 7.4-10.4 fL Neutrophils (%) (Auto) 92.9 % Lymphocytes (%) (Auto) 4.8 % Monocytes (%) (Auto) 1.8 % Eosinophils (%) (Auto) 0.3 % Basophils (%) (Auto) 0.0 % Neutrophils # (Auto) 6.04 1.4-6.5 K/uL Lymphocytes # (Auto) 0.31 1.2-3.4 K/uL Monocytes # (Auto) 0.12 0.11-0.59 K/uL Eosinophils # (Auto) 0.02 0-0.5 K/uL Basophils # (Auto) 0.00 0-0.2 K/uL RDW Standard Deviation 55.3 52.8 36.4-46.3 fL RDW Coefficient of Variation 15.5 15.3 11.5-14.5 % Immature Granulocyte % (Auto) 0.2 % Immature Granulocyte # (Auto) 0.01 0.00-0.02 K/uL Venous Blood pH 7.32 7.36-7.41 Venous Blood Partial Pressure CO2 58 38.0-50.0 mmHg Venous Blood Partial Pressure O2 23 mmHg Venous Blood HCO3 29 mmol/L Venous Blood Oxygen Saturation < 60.0 % Venous Blood Base Excess 1.6 mmol/L Sodium Level 138 136-145 mmol/L Potassium Level 3.0 3.5-5.1 mmol/L Chloride Level 95 98-107 mmol/L Carbon Dioxide Level 28 21-32 mmol/L Anion Gap 15.0 3-11 mmol/L Blood Urea Nitrogen 69 7-18 mg/dl Creatinine 8.80 0.60-1.40 mg/dl Est Creatinine Clear Calc Drug Dose 11.9 ml/min Estimated GFR () 6.8 Estimated GFR (Non- 5.8 BUN/Creatinine Ratio 7.8 10-20 Random Glucose 138 70-99 mg/dl Calcium Level 8.3 8.5-10.1 mg/dl Magnesium Level 1.3 1.8-2.4 mg/dl Total Bilirubin 0.5 0.2-1 mg/dl Aspartate Amino Transf (AST/SGOT) 26 15-37 U/L Alanine Aminotransferase (ALT/SGPT) 57 12-78 U/L Alkaline Phosphatase 127 45-117 U/L Troponin I 0.182 0-0.045 ng/ml Total Protein 6.1 6.4-8.2 gm/dl Albumin 2.4 3.4-5.0 gm/dl Globulin 3.7 2.5-4.0 gm/dl Albumin/Globulin Ratio 0.6 0.9-2 Creatine Kinase MB Ratio 0-3.0 Microbiology Results 09/04/16 Blood Culture, Received Pending 09/04/16 Blood Culture, Received Pending 09/04/16 MRSA DNA Surveillance Screen - Final, Complete Specimen Negative for MRSA by DNA Probe Diagnostic Radiology CXR (09/04/16) RLL diffuse infiltrate compared to 08/12/16 EKG Interpretation: NORMAL EKG Impression Assessment and Plan 61 y/o presenting with SOD/SOARES and signs of volume overload: 1) Hypersensitivity Pneumonitis: At this time definitive diagnosis of hypersensitivity pneumonitis cannot be made as the criteria for diagnosis are not meet. There are 3 different sets of criteria but as some of the studies on the recent bronchoscopies degraded only 2 out of 3 of the inclusion criteria in any one of the sets cannot be meeting at this time. It most likely will require repeat bronchoscopy or allergen testing when patient is off steroids. 2) Mycoplasma Pneumonia IgG is positive now from 08/10/16 but is IgM is negative but we need to remember he also has an overall low IgM level tested back on 11/06/15. It is possible is recent episodes of SOB are associated with undertreating mycoplasma pneumonia but his current dose of Levaquin 750mg for 5 days should cover this. 3) COPD: Per ATS criteria patient has mild OVD. We should continue our current medical regimen. Prior to D/C will start 4) CRF: Patient on PD with signs of volume overload. Nephrology to see today and decide on further treatment. His volume state is adding to his current condition.
--- NOTE | 2016-09-05 11:01 | Clinical Documentation Query ---
CLINICAL DOCUMENTATION QUERY 61 year old male who presents to the Emergency Room with complaints of cough and shortness of breath. AM 1/13 progress note from nephrology that this patient has volume overload. This is evidenced by decreased breath sounds, crackles, and edema. In your clinical opinion is this patient being managed for: ( ) Acute diastolic (preserved EF) heart failure POA ( ) Acute diastolic (preserved EF) heart failure occurring day #2 of admission. ( X ) Other explanation of clinical findings (volume overload from ESRD) ( ) Unable to determine (Please Define) ( ) Need to Discuss ( ) Not Agree The medical record reflects the following clinical findings, treatment, and risk factors. Clinical Indicators: As above, +Troponin, Treatment: Hemodialysis Risk Factors: Age, ESRD, underlying pneumonia Please clarify and document your clinical opinion in the progress notes and discharge summary. Terms such as "probable", "suspected", "likely", "questionable", "possible", or "still to be ruled out" are acceptable. IF IN AGREEMENT, YOU MUST DOCUMENT ABOVE DIAGNOSTIC STATEMENT IN DAILY PROGRESS NOTES AND DISCHARGE SUMMARY. This document is not part of the patient's record. Thank You, Juan F Lambert, RN [phone]
[2016-09-05] MEDS ORDERED: GLUCOSE 40% GEL 15 GM TUBE PO PRN (11:45)
[2016-09-05] MEDS ORDERED: DEXTROSE 50% 50 ML SYR IV PRN (11:45)
[2016-09-05] MEDS ORDERED: GLUCOSE 10 TABS/TUBE PO PRN (11:45)
[2016-09-05] MEDS ORDERED: GLUCAGON FOR INJ 1 MG VIAL SQ PRN (11:45)
[2016-09-05] MEDS: ALBUTEROL HFA 8 GM INHALER INH PRN (11:52)
[2016-09-05] MEDS ORDERED: ALBUT/IPRATROP 3MG/0.5MG NEB 3 ML VIAL INH PRN (13:00)
--- NOTE | 2016-09-05 17:50 | Progress Note ---
Medicine Progress Note Date & Time of Visit: Sep 05, 2016 at 17:37. Subjective Patient seen and examined. Feels a little worse today than yesterday. +non-productive cough. Objective Last 8 Hrs Date Time Temp Pulse Resp B/P Pulse Ox O2 Delivery O2 Flow Rate FiO2 09/05/16 16:32 98 160/88 09/05/16 16:15 96 171/95 09/05/16 16:00 96 141/94 09/05/16 15:45 96 154/95 09/05/16 15:30 96 163/100 09/05/16 15:15 97 157/90 09/05/16 15:00 98 164/93 09/05/16 14:45 93 169/83 09/05/16 14:30 94 155/92 09/05/16 14:15 95 171/98 09/05/16 14:00 94 160/96 09/05/16 13:51 106 12 93 Room Air 09/05/16 13:45 91 164/96 09/05/16 13:30 95 177/105 09/05/16 13:15 98 174/99 09/05/16 13:02 94 177/103 09/05/16 12:55 36.8 94 181/103 09/05/16 12:15 36.5 96 20 189/110 95 Room Air 09/05/16 12:00 Room Air Physical Exam: General-awake; alert; NAD Eyes-EOMI; no scleral icterus Neck-no stridor; large circumference Lungs-coarse breath sounds with rubs throughout Heart-RRR; no m/r/g Abdomen-soft; NT; nBS; PD catheter c/d/i Extremities-2+ pitting edema bilateral LE; no deformity Neuro-no gross focal deficits Laboratory Results: Last 24 Hours Test 09/04/16 18:25 09/05/16 02:56 09/05/16 07:12 09/05/16 09:13 White Blood Count 6.50 K/uL 5.43 K/uL Red Blood Count 3.30 M/uL 3.17 M/uL Hemoglobin 10.4 g/dL 10.0 g/dL Hematocrit 32.1 % 30.0 % Mean Corpuscular Volume 97.3 fL 94.6 fL Mean Corpuscular Hemoglobin 31.5 pg 31.5 pg Mean Corpuscular Hemoglobin Concent 32.4 g/dl 33.3 g/dl Platelet Count 102 K/uL 114 K/uL Mean Platelet Volume 10.6 fL 11.3 fL Neutrophils (%) (Auto) 92.9 % Lymphocytes (%) (Auto) 4.8 % Monocytes (%) (Auto) 1.8 % Eosinophils (%) (Auto) 0.3 % Basophils (%) (Auto) 0.0 % Neutrophils # (Auto) 6.04 K/uL Lymphocytes # (Auto) 0.31 K/uL Monocytes # (Auto) 0.12 K/uL Eosinophils # (Auto) 0.02 K/uL Basophils # (Auto) 0.00 K/uL RDW Standard Deviation 55.3 fL 52.8 fL RDW Coefficient of Variation 15.5 % 15.3 % Immature Granulocyte % (Auto) 0.2 % Immature Granulocyte # (Auto) 0.01 K/uL Venous Blood pH 7.32 Venous Blood Partial Pressure CO2 58 mmHg Venous Blood Partial Pressure O2 23 mmHg Venous Blood HCO3 29 mmol/L Venous Blood Oxygen Saturation < 60.0 % Venous Blood Base Excess 1.6 mmol/L Sodium Level 138 mmol/L Potassium Level 3.0 mmol/L Chloride Level 95 mmol/L Carbon Dioxide Level 28 mmol/L Anion Gap 15.0 mmol/L Blood Urea Nitrogen 69 mg/dl Creatinine 8.80 mg/dl Est Creatinine Clear Calc Drug Dose 11.9 ml/min Estimated GFR () 6.8 Estimated GFR (Non- 5.8 BUN/Creatinine Ratio 7.8 Random Glucose 138 mg/dl Calcium Level 8.3 mg/dl Magnesium Level 1.3 mg/dl Total Bilirubin 0.5 mg/dl Aspartate Amino Transf (AST/SGOT) 26 U/L Alanine Aminotransferase (ALT/SGPT) 57 U/L Alkaline Phosphatase 127 U/L Troponin I 0.182 ng/ml 0.140 ng/ml Total Protein 6.1 gm/dl Albumin 2.4 gm/dl Globulin 3.7 gm/dl Albumin/Globulin Ratio 0.6 Creatine Kinase MB Ratio 15.0 Bedside Glucose 355 mg/dl Total Creatine Kinase 22 U/L Creatine Kinase MB 3.3 ng/ml Test 09/05/16 11:38 Bedside Glucose 334 mg/dl Date/Time Source Procedure Growth Status 09/04/16 23:37 Nasal MRSA DNA Surveillance Screen - Final Specimen Negative for MRSA by DNA Probe Complete Assessment & Plan Possible mycoplasma pneumonia - Pulmonary consulted - continue renally dosed levofloxacin (monitor QTc) - continue methylprednisolone - continue nebulizers - unable to make diagnosis of hypersensitivity pneumonitis ESRD - Nephrology consulted - patient appears volume overloaded - plan for HD while inpatient - continue calcitriol, cinacalcet, sevelamer Elevated troponin - patient denies chest pain - likely related to underlying ESRD - EKG without ischemic changes - downtrended - continue aspirin Hyperglycemia - related to steroid use - SSI HTN - continue lisinopril and metoprolol DVT prophylaxis with heparin sq Consultants: Pulmonary Nephrology Current Inpatient Medications: Current Inpatient Medications Medications (Trade) Dose Ordered Sig/Daysi Route Start Time Stop Time Status Last Admin Dose Admin Acetaminophen (Tylenol Tab) 650 mg Q4H PRN PO 09/04/16 21:00 10/04/16 20:59 Zolpidem Tartrate (Ambien Tab) 5 mg HSZ PRN PO 09/04/16 21:00 10/04/16 20:59 Nitroglycerin (Nitrostat Tab) 0.4 mg UD PRN SL 09/04/16 21:00 10/04/16 20:59 Albuterol (Ventolin Hfa Inhaler) 2 puffs Q6H PRN INH 09/04/16 21:15 10/04/16 21:14 Allopurinol (Zyloprim Tab) 100 mg BID PO 09/05/16 09:00 10/05/16 08:59 09/05/16 08:14 100 MG Aspirin (Ecotrin Tab) 81 mg QAM PO 09/05/16 09:00 10/05/16 08:59 09/05/16 08:14 81 MG Calcitriol (Rocaltrol Cap) 0.25 mcg DAILY PO 09/05/16 09:00 10/05/16 08:59 09/05/16 08:13 0.25 MCG Lisinopril (Zestril Tab) 5 mg BID PO 09/05/16 09:00 10/05/16 08:59 09/05/16 08:13 5 MG Metoprolol Tartrate (Lopressor Tab) 50 mg BID PO 09/05/16 09:00 10/05/16 08:59 09/05/16 08:13 50 MG Multivitamins (Multivitamin Tab) 1 tab QAM PO 09/05/16 09:00 10/05/16 08:59 09/05/16 08:12 1 TAB Naphazoline HCl/ Pheniramine Maleate (Visine-A Oph Soln) 2 drops QID PRN OP 09/04/16 21:15 10/04/16 21:14 Zolpidem Tartrate (Ambien Tab) 10 mg HS PRN PO 09/04/16 21:15 10/04/16 21:14 09/04/16 23:27 10 MG Cinacalcet (Sensipar) 90 mg HS PO 09/05/16 21:00 10/05/16 20:59 Pantoprazole Sodium (Protonix Tab) 40 mg QAM PO 09/05/16 09:00 10/05/16 08:59 09/05/16 08:14 40 MG Sevelamer HCl (Renagel Tab) 1,600 mg TIDM PRN PO 09/05/16 07:30 10/05/16 07:29 Sevelamer HCl 2400 mg 2,400 mg BIDM PO 09/05/16 07:30 10/05/16 07:29 09/05/16 08:12 2,400 MG Methylprednisolone Sodium Succinate/ Syringe (Solu-Medrol IV/ Syringe) 0.96 ml @ 1.5 mls/min Q8H IV 09/05/16 00:00 10/05/16 00:00 09/05/16 08:12 1.5 MLS/MIN Hydrocodone Bit/ Homatropine Methylb (Hycodan Syrup) 5 ml Q6H PRN PO 09/04/16 21:15 09/18/16 21:14 09/04/16 23:26 5 ML Heparin Sodium (Porcine) (Heparin Sq 5000 Unit/0.5ml) 5,000 unit Q8 SQ 09/05/16 06:00 10/05/16 05:59 09/05/16 06:23 5,000 UNIT Levofloxacin 1 ea 1 ea UD PRN N/A 09/04/16 23:00 10/04/16 22:59 Levofloxacin/Prmx (Levaquin / D5W/ Premixed D5W) 100 ml @ 100 mls/hr Q2D@1100 IV 09/06/16 11:00 09/13/16 10:59 Acetaminophen/ Hydrocodone Bitart ([place] 5/325 Tab) 1 tab Q4H PRN PO 09/04/16 23:15 09/18/16 23:14 09/04/16 23:27 1 TAB Heparin Sodium (Porcine) (Heparin Iv Bolus) 1,000 unit TODAY@0945 IV 09/05/16 09:45 09/05/16 18:00 Heparin Sodium (Porcine) (Heparin Iv Bolus) 400 unit TODAY@0945,1045,1145 IV 09/05/16 09:45 09/05/16 18:00 Heparin Sodium (Porcine) (Heparin Iv Bolus) 1,000 unit TODAY@0800 IV 09/06/16 08:00 09/06/16 18:00 Heparin Sodium (Porcine) (Heparin Iv Bolus) 400 unit TODAY@0800,0900,1000 IV 09/06/16 08:00 09/06/16 18:00 Insulin Aspart (novoLOG ASPART) SLIDING SCALE If C... ACHS SC 09/05/16 16:15 10/05/16 16:14 Glucose (Glucose 40% Gel) 15-30 GRAMS 15 GRAMS... UD PRN PO 09/05/16 11:45 10/05/16 11:44 Glucose (Glucose Chew Tab) 4-8 Tablets 4 Tabl... UD PRN PO 09/05/16 11:45 10/05/16 11:44 Dextrose (Dextrose 50% 50ML Syringe) 25-50ML OF 50% DW IV FOR... UD PRN IV 09/05/16 11:45 10/05/16 11:44 Glucagon (Glucagon Inj) 1 mg UD PRN SQ 09/05/16 11:45 10/05/16 11:44 Docusate Sodium (coLACE CAP) 100 mg BID PO 09/05/16 21:00 10/05/16 20:59 Albuterol/ Ipratropium (Duoneb) 3 ml QIDR INH 09/05/16 16:00 10/05/16 15:59 Albuterol/ Ipratropium (Duoneb) 3 ml Q2H PRN INH 09/05/16 13:00 10/05/16 12:59
[2016-09-05] MEDS: INSULIN ASPART 100 UNITS/ML 3 ML PEN SC SCH ×2 (18:03→21:11)
[2016-09-05] MEDS: HEPARIN SOD (PORCINE) 1000 UNIT/ML 10 ML VIAL IV SCH ×2 (19:13→19:14)
[2016-09-05] MEDS: ALBUT/IPRATROP 3MG/0.5MG NEB 3 ML VIAL INH SCH (19:26)
[2016-09-05] MEDS: DOCUSATE SODIUM 100 MG CAP PO SCH (21:00)
[2016-09-05] MEDS: HYDROCODONE/HOMATROPINE SYRUP 5MG/1.5MG 5ML UDP PO PRN (21:07)
[2016-09-05] MEDS: ZOLPIDEM TARTRATE 5 MG TAB PO PRN (21:08)
[2016-09-05] MEDS: CINACALCET 30 MG TAB PO SCH (21:10)
[2016-09-05] MEDS: HYDROCODONE/ACETAMOPHEN 5/325MG TAB PO PRN (21:53)
[2016-09-06] VITALS (24 sets, daily range): BP systolic 142–177; BP diastolic 78–97; PULSE 73–104; TEMP 36.4–36.9; O2SAT 92–97
[2016-09-06] MEDS: METHYLPREDNISOLONE IV 60 MG in SYRINGE 0 ML IV SCH ×2 (00:25→09:58)
[2016-09-06] MEDS: ALBUTEROL HFA 8 GM INHALER INH PRN (00:25)
[2016-09-06] MEDS: ALBUT/IPRATROP 3MG/0.5MG NEB 3 ML VIAL INH SCH ×6 (01:44→20:47)
[2016-09-06] MEDS: HEPARIN SOD 5000 UNIT/0.5 ML CARP SQ SCH ×3 (06:23→21:17)
[2016-09-06 06:31] LABS: MEAN CELL VOLUME 97.6 fL (80-100); MEAN CORPUSCULAR HEMOGLOBIN 31.4 pg (25-34); MEAN CORPUSCULAR HGB CONC 32.1 g/dl (32-36); RED BLOOD COUNT 2.87 M/uL (4.7-6.1); WHITE BLOOD COUNT 5.82 K/uL (4.8-10.8)
[2016-09-06 06:55] LABS: MEAN PLATELET VOLUME 11.3 fL (7.4-10.4); PLATELET COUNT 85 K/uL (130-400)
[2016-09-06 06:58] LABS: PLT ESTIMATE DECREASED
[2016-09-06 07:44] LABS: BUN/CREATININE RATIO 8.2 (10-20); CALCIUM 8.2 mg/dl (8.5-10.1); CREATININE 6.3 mg/dl (0.60-1.40); MAGNESIUM 1.9 mg/dl (1.8-2.4); PHOSPHORUS 5.3 mg/dl (2.5-4.9)
[2016-09-06 07:45] LABS: POTASSIUM 4.8 mmol/L (3.5-5.1)
[2016-09-06] MEDS ORDERED: HEPARIN SOD (PORCINE) 1000 UNIT/ML 10 ML VIAL IV SCH (08:00)
[2016-09-06] MEDS: ALLOPURINOL 100 MG TAB PO SCH ×2 (08:05→21:13)
[2016-09-06] MEDS: ASPIRIN 81 MG ECTAB PO SCH (08:05)
[2016-09-06] MEDS: MULTIVITAMIN TAB PO SCH (08:06)
[2016-09-06] MEDS: METOPROLOL TARTRATE 50 MG TAB PO SCH ×2 (08:06→21:12)
[2016-09-06] MEDS: LISINOPRIL 5 MG TAB PO SCH ×2 (08:06→21:12)
[2016-09-06] MEDS: SEVELAMER HYDROCH 800 MG TAB PO SCH ×2 (08:06→21:11)
[2016-09-06] MEDS: PANTOprazole SOD 40 MG TAB PO SCH (08:07)
[2016-09-06] MEDS: CALCITRIOL 0.25 MCG CAP PO SCH (08:07)
[2016-09-06] MEDS: INSULIN ASPART 100 UNITS/ML 3 ML PEN SC SCH ×4 (08:12→21:19)
[2016-09-06] MEDS: DOCUSATE SODIUM 100 MG CAP PO SCH ×2 (09:58→20:40)
[2016-09-06] MEDS: LEVOFLOXACIN 500MG / D5W IV SCH (09:58)
[2016-09-06] MEDS ORDERED: EPOETIN ALFA 10,000 UNITS/ML VIAL IV. ONE (10:00)
--- NOTE | 2016-09-06 10:09 | Nephrology Progress Note ---
Nephrology Progress Note Date of Service: Sep 06, 2016. Subjective 61 yo male with esrd and volume overload who was on pd for the last couple of months but has had a tumultuous course. has had four hospitilizations of varying reasons from cdiff, to volume depletion to bronchitis and now with volume overload. pt is on the cycler at home but does not completely understand how to measure the uf removed. pt starting to feel better. had dialysis treatment yesterday and trying to remove fluid aggressively. Objective Date Time Temp Pulse Resp B/P Pulse Ox O2 Delivery O2 Flow Rate FiO2 09/06/16 08:00 Room Air 09/06/16 07:55 36.7 104 18 147/81 94 Room Air 09/06/16 07:20 94 16 94 Room Air 09/06/16 04:00 Room Air 09/06/16 03:17 36.7 95 20 172/96 96 Room Air 09/06/16 01:44 90 16 96 Room Air 09/06/16 00:00 Room Air 09/05/16 23:34 36.7 89 20 135/65 94 Room Air 09/05/16 20:00 Room Air 09/05/16 19:26 112 18 96 Room Air 09/05/16 19:24 36.8 113 20 168/85 93 Room Air 09/05/16 17:46 Room Air 09/05/16 17:14 36.4 97 172/97 09/05/16 16:32 98 160/88 09/05/16 16:15 96 171/95 09/05/16 16:00 96 141/94 09/05/16 15:45 96 154/95 09/05/16 15:30 96 163/100 09/05/16 15:15 97 157/90 09/05/16 15:00 98 164/93 09/05/16 14:45 93 169/83 09/05/16 14:30 94 155/92 09/05/16 14:15 95 171/98 09/05/16 14:00 94 160/96 09/05/16 13:51 106 12 93 Room Air 09/05/16 13:45 91 164/96 09/05/16 13:30 95 177/105 09/05/16 13:15 98 174/99 09/05/16 13:02 94 177/103 09/05/16 12:55 36.8 94 181/103 09/05/16 12:15 36.5 96 20 189/110 95 Room Air 09/05/16 12:00 Room Air Physical Exam: General-aaox3 Eyes-no scleral icterus ENT-mmm Neck-supple Lungs-decreased breath sounds Heart-rrr Abdomen-bs+, s/nt/nd Extremities-+3 edema Neuro-nonfocal Current Inpatient Medications Medications (Trade) Dose Ordered Sig/Daysi Route Start Time Stop Time Status Last Admin Dose Admin Acetaminophen (Tylenol Tab) 650 mg Q4H PRN PO 09/04/16 21:00 10/04/16 20:59 Zolpidem Tartrate (Ambien Tab) 5 mg HSZ PRN PO 09/04/16 21:00 10/04/16 20:59 09/05/16 21:08 5 MG Nitroglycerin (Nitrostat Tab) 0.4 mg UD PRN SL 09/04/16 21:00 10/04/16 20:59 Albuterol (Ventolin Hfa Inhaler) 2 puffs Q6H PRN INH 09/04/16 21:15 10/04/16 21:14 09/06/16 00:25 2 PUFFS Allopurinol (Zyloprim Tab) 100 mg BID PO 09/05/16 09:00 10/05/16 08:59 09/06/16 08:05 100 MG Aspirin (Ecotrin Tab) 81 mg QAM PO 09/05/16 09:00 10/05/16 08:59 09/06/16 08:05 81 MG Calcitriol (Rocaltrol Cap) 0.25 mcg DAILY PO 09/05/16 09:00 10/05/16 08:59 09/06/16 08:07 0.25 MCG Lisinopril (Zestril Tab) 5 mg BID PO 09/05/16 09:00 10/05/16 08:59 09/06/16 08:06 5 MG Metoprolol Tartrate (Lopressor Tab) 50 mg BID PO 09/05/16 09:00 10/05/16 08:59 09/06/16 08:06 50 MG Multivitamins (Multivitamin Tab) 1 tab QAM PO 09/05/16 09:00 10/05/16 08:59 09/06/16 08:06 1 TAB Naphazoline HCl/ Pheniramine Maleate (Visine-A Oph Soln) 2 drops QID PRN OP 09/04/16 21:15 10/04/16 21:14 Zolpidem Tartrate (Ambien Tab) 10 mg HS PRN PO 09/04/16 21:15 10/04/16 21:14 09/04/16 23:27 10 MG Cinacalcet (Sensipar) 90 mg HS PO 09/05/16 21:00 10/05/16 20:59 09/05/16 21:10 90 MG Pantoprazole Sodium (Protonix Tab) 40 mg QAM PO 09/05/16 09:00 10/05/16 08:59 09/06/16 08:07 40 MG Sevelamer HCl (Renagel Tab) 1,600 mg TIDM PRN PO 09/05/16 07:30 10/05/16 07:29 Sevelamer HCl 2400 mg 2,400 mg BIDM PO 09/05/16 07:30 10/05/16 07:29 09/06/16 08:06 2,400 MG Methylprednisolone Sodium Succinate/ Syringe (Solu-Medrol IV/ Syringe) 0.96 ml @ 1.5 mls/min Q8H IV 09/05/16 00:00 10/05/16 00:00 09/06/16 09:58 1.5 MLS/MIN Hydrocodone Bit/ Homatropine Methylb (Hycodan Syrup) 5 ml Q6H PRN PO 09/04/16 21:15 09/18/16 21:14 09/05/16 21:07 5 ML Heparin Sodium (Porcine) (Heparin Sq 5000 Unit/0.5ml) 5,000 unit Q8 SQ 09/05/16 06:00 10/05/16 05:59 09/06/16 06:23 5,000 UNIT Levofloxacin 1 ea 1 ea UD PRN N/A 09/04/16 23:00 10/04/16 22:59 Levofloxacin/Prmx (Levaquin / D5W/ Premixed D5W) 100 ml @ 100 mls/hr Q2D@1100 IV 09/06/16 11:00 09/13/16 10:59 09/06/16 09:58 100 MLS/HR Acetaminophen/ Hydrocodone Bitart ([place] 5/325 Tab) 1 tab Q4H PRN PO 09/04/16 23:15 09/18/16 23:14 09/05/16 21:53 1 TAB Heparin Sodium (Porcine) (Heparin Iv Bolus) 1,000 unit TODAY@0800 IV 09/06/16 08:00 09/06/16 18:00 Heparin Sodium (Porcine) (Heparin Iv Bolus) 400 unit TODAY@0800,0900,1000 IV 09/06/16 08:00 09/06/16 18:00 Insulin Aspart (novoLOG ASPART) SLIDING SCALE If C... ACHS SC 09/05/16 16:15 10/05/16 16:14 09/06/16 08:12 8 UNITS Glucose (Glucose 40% Gel) 15-30 GRAMS 15 GRAMS... UD PRN PO 09/05/16 11:45 10/05/16 11:44 Glucose (Glucose Chew Tab) 4-8 Tablets 4 Tabl... UD PRN PO 09/05/16 11:45 10/05/16 11:44 Dextrose (Dextrose 50% 50ML Syringe) 25-50ML OF 50% DW IV FOR... UD PRN IV 09/05/16 11:45 10/05/16 11:44 Glucagon (Glucagon Inj) 1 mg UD PRN SQ 09/05/16 11:45 10/05/16 11:44 Docusate Sodium (coLACE CAP) 100 mg BID PO 09/05/16 21:00 10/05/16 20:59 09/06/16 09:58 100 MG Albuterol/ Ipratropium (Duoneb) 3 ml QIDR INH 09/05/16 16:00 10/05/16 15:59 09/06/16 07:20 3 ML Albuterol/ Ipratropium (Duoneb) 3 ml Q2H PRN INH 09/05/16 13:00 10/05/16 12:59 Insulin Glargine (Lantus Solostar Pen) 10 unit QPM SC 09/06/16 21:00 10/06/16 20:59 UNV Last 24 Hours Test 09/05/16 11:38 09/05/16 17:58 09/05/16 20:08 09/06/16 05:16 Bedside Glucose 334 mg/dl 233 mg/dl 282 mg/dl White Blood Count 5.82 K/uL Red Blood Count 2.87 M/uL Hemoglobin 9.0 g/dL Hematocrit 28.0 % Mean Corpuscular Volume 97.6 fL Mean Corpuscular Hemoglobin 31.4 pg Mean Corpuscular Hemoglobin Concent 32.1 g/dl RDW Standard Deviation 55.3 fL RDW Coefficient of Variation 15.5 % Platelet Count 85 K/uL Mean Platelet Volume 11.3 fL Platelet Estimate DECREASED Sodium Level 137 mmol/L Potassium Level 4.8 mmol/L Chloride Level 97 mmol/L Carbon Dioxide Level 27 mmol/L Anion Gap 13.0 mmol/L Blood Urea Nitrogen 52 mg/dl Creatinine 6.30 mg/dl Est Creatinine Clear Calc Drug Dose 16.4 ml/min Estimated GFR () 10.1 Estimated GFR (Non- 8.7 BUN/Creatinine Ratio 8.2 Random Glucose 244 mg/dl Calcium Level 8.2 mg/dl Phosphorus Level 5.3 mg/dl Magnesium Level 1.9 mg/dl Test 09/06/16 06:54 Bedside Glucose 266 mg/dl Assessment & Plan ESRD-pt has not been doing well on pd. will currently switch to hemodialysis. plan on dialysis daily to help remove fluid. have contacted dialysis unit-will switch from pd to hd. pt grossly volume overloaded.
--- NOTE | 2016-09-06 16:43 | Progress Note ---
Medicine Progress Note Date & Time of Visit: Sep 06, 2016 at 16:39. Subjective Patient seen and examined in dialysis unit. Feeling better today. Feels that his breathing has improved. Objective Last 8 Hrs Date Time Temp Pulse Resp B/P Pulse Ox O2 Delivery O2 Flow Rate FiO2 09/06/16 16:03 36.7 96 20 163/88 96 Room Air 09/06/16 15:33 76 16 92 Room Air 09/06/16 12:00 Room Air 09/06/16 11:48 36.6 84 18 165/97 95 Room Air 09/06/16 11:26 94 16 96 Room Air Physical Exam: General-awake; alert; NAD Eyes-EOMI; no scleral icterus Neck-no stridor; large circumference Lungs-coarse breath sounds anteriorly but improved from yesterday Heart-RRR; no m/r/g Abdomen-soft; NT; nBS; PD catheter c/d/i Extremities-2+ pitting edema bilateral LE; no deformity Neuro-no gross focal deficits Laboratory Results: Last 24 Hours Test 09/05/16 17:58 09/05/16 20:08 09/06/16 05:16 09/06/16 06:54 Bedside Glucose 233 mg/dl 282 mg/dl 266 mg/dl White Blood Count 5.82 K/uL Red Blood Count 2.87 M/uL Hemoglobin 9.0 g/dL Hematocrit 28.0 % Mean Corpuscular Volume 97.6 fL Mean Corpuscular Hemoglobin 31.4 pg Mean Corpuscular Hemoglobin Concent 32.1 g/dl RDW Standard Deviation 55.3 fL RDW Coefficient of Variation 15.5 % Platelet Count 85 K/uL Mean Platelet Volume 11.3 fL Platelet Estimate DECREASED Sodium Level 137 mmol/L Potassium Level 4.8 mmol/L Chloride Level 97 mmol/L Carbon Dioxide Level 27 mmol/L Anion Gap 13.0 mmol/L Blood Urea Nitrogen 52 mg/dl Creatinine 6.30 mg/dl Est Creatinine Clear Calc Drug Dose 16.4 ml/min Estimated GFR () 10.1 Estimated GFR (Non- 8.7 BUN/Creatinine Ratio 8.2 Random Glucose 244 mg/dl Calcium Level 8.2 mg/dl Phosphorus Level 5.3 mg/dl Magnesium Level 1.9 mg/dl Test 09/06/16 11:18 Bedside Glucose 356 mg/dl Assessment & Plan Possible mycoplasma pneumonia - Pulmonary consulted - continue renally dosed levofloxacin (monitor QTc) - start date 09/06; for 5 days - transition methylprednisolone to prednisone and plan for slow taper over 10- 14 days - continue nebulizers - unable to definitively make diagnosis of hypersensitivity pneumonitis ESRD - Nephrology consulted - patient appears volume overloaded - HD while inpatient - plan for HD upon discharge as well - continue calcitriol, cinacalcet, sevelamer Elevated troponin - patient denies chest pain - likely related to underlying ESRD - EKG without ischemic changes - downtrended - continue aspirin Hyperglycemia - related to steroid use - continue insulin therapy HTN - continue lisinopril and metoprolol DVT prophylaxis with heparin sq Consultants: Pulmonary Nephrology Current Inpatient Medications: Current Inpatient Medications Medications (Trade) Dose Ordered Sig/Daysi Route Start Time Stop Time Status Last Admin Dose Admin Acetaminophen (Tylenol Tab) 650 mg Q4H PRN PO 09/04/16 21:00 10/04/16 20:59 Zolpidem Tartrate (Ambien Tab) 5 mg HSZ PRN PO 09/04/16 21:00 10/04/16 20:59 09/05/16 21:08 5 MG Nitroglycerin (Nitrostat Tab) 0.4 mg UD PRN SL 09/04/16 21:00 10/04/16 20:59 Albuterol (Ventolin Hfa Inhaler) 2 puffs Q6H PRN INH 09/04/16 21:15 10/04/16 21:14 09/06/16 00:25 2 PUFFS Allopurinol (Zyloprim Tab) 100 mg BID PO 09/05/16 09:00 10/05/16 08:59 09/06/16 08:05 100 MG Aspirin (Ecotrin Tab) 81 mg QAM PO 09/05/16 09:00 10/05/16 08:59 09/06/16 08:05 81 MG Calcitriol (Rocaltrol Cap) 0.25 mcg DAILY PO 09/05/16 09:00 10/05/16 08:59 09/06/16 08:07 0.25 MCG Lisinopril (Zestril Tab) 5 mg BID PO 09/05/16 09:00 10/05/16 08:59 09/06/16 08:06 5 MG Metoprolol Tartrate (Lopressor Tab) 50 mg BID PO 09/05/16 09:00 10/05/16 08:59 09/06/16 08:06 50 MG Multivitamins (Multivitamin Tab) 1 tab QAM PO 09/05/16 09:00 10/05/16 08:59 09/06/16 08:06 1 TAB Naphazoline HCl/ Pheniramine Maleate (Visine-A Oph Soln) 2 drops QID PRN OP 09/04/16 21:15 10/04/16 21:14 Zolpidem Tartrate (Ambien Tab) 10 mg HS PRN PO 09/04/16 21:15 10/04/16 21:14 09/04/16 23:27 10 MG Cinacalcet (Sensipar) 90 mg HS PO 09/05/16 21:00 10/05/16 20:59 09/05/16 21:10 90 MG Pantoprazole Sodium (Protonix Tab) 40 mg QAM PO 09/05/16 09:00 10/05/16 08:59 09/06/16 08:07 40 MG Sevelamer HCl (Renagel Tab) 1,600 mg TIDM PRN PO 09/05/16 07:30 10/05/16 07:29 Sevelamer HCl 2400 mg 2,400 mg BIDM PO 09/05/16 07:30 10/05/16 07:29 09/06/16 08:06 2,400 MG Methylprednisolone Sodium Succinate/ Syringe (Solu-Medrol IV/ Syringe) 0.96 ml @ 1.5 mls/min Q8H IV 09/05/16 00:00 10/05/16 00:00 09/06/16 09:58 1.5 MLS/MIN Hydrocodone Bit/ Homatropine Methylb (Hycodan Syrup) 5 ml Q6H PRN PO 09/04/16 21:15 09/18/16 21:14 09/05/16 21:07 5 ML Heparin Sodium (Porcine) (Heparin Sq 5000 Unit/0.5ml) 5,000 unit Q8 SQ 09/05/16 06:00 10/05/16 05:59 09/06/16 06:23 5,000 UNIT Levofloxacin 1 ea 1 ea UD PRN N/A 09/04/16 23:00 10/04/16 22:59 Levofloxacin/Prmx (Levaquin / D5W/ Premixed D5W) 100 ml @ 100 mls/hr Q2D@1100 IV 09/06/16 11:00 09/13/16 10:59 09/06/16 09:58 100 MLS/HR Acetaminophen/ Hydrocodone Bitart ([place] 5/325 Tab) 1 tab Q4H PRN PO 09/04/16 23:15 09/18/16 23:14 09/05/16 21:53 1 TAB Heparin Sodium (Porcine) (Heparin Iv Bolus) 1,000 unit TODAY@0800 IV 09/06/16 08:00 09/06/16 18:00 Heparin Sodium (Porcine) (Heparin Iv Bolus) 400 unit TODAY@0800,0900,1000 IV 09/06/16 08:00 09/06/16 18:00 Insulin Aspart (novoLOG ASPART) SLIDING SCALE If C... ACHS SC 09/05/16 16:15 10/05/16 16:14 09/06/16 11:53 12 UNITS Glucose (Glucose 40% Gel) 15-30 GRAMS 15 GRAMS... UD PRN PO 09/05/16 11:45 10/05/16 11:44 Glucose (Glucose Chew Tab) 4-8 Tablets 4 Tabl... UD PRN PO 09/05/16 11:45 10/05/16 11:44 Dextrose (Dextrose 50% 50ML Syringe) 25-50ML OF 50% DW IV FOR... UD PRN IV 09/05/16 11:45 10/05/16 11:44 Glucagon (Glucagon Inj) 1 mg UD PRN SQ 09/05/16 11:45 10/05/16 11:44 Docusate Sodium (coLACE CAP) 100 mg BID PO 09/05/16 21:00 10/05/16 20:59 09/06/16 09:58 100 MG Albuterol/ Ipratropium (Duoneb) 3 ml QIDR INH 09/05/16 16:00 10/05/16 15:59 09/06/16 15:33 3 ML Albuterol/ Ipratropium (Duoneb) 3 ml Q2H PRN INH 09/05/16 13:00 10/05/16 12:59 Insulin Glargine (Lantus Solostar Pen) 10 unit QPM SC 09/06/16 21:00 10/06/16 20:59
[2016-09-06] MEDS: HEPARIN SOD (PORCINE) 1000 UNIT/ML 10 ML VIAL IV SCH ×3 (17:15→18:29)
[2016-09-06] MEDS: HYDROCODONE/ACETAMOPHEN 5/325MG TAB PO PRN ×3 (17:50→21:09)
[2016-09-06] MEDS: HYDROCODONE/HOMATROPINE SYRUP 5MG/1.5MG 5ML UDP PO PRN (21:08)
[2016-09-06] MEDS: ZOLPIDEM TARTRATE 5 MG TAB PO PRN (21:09)
[2016-09-06] MEDS: CINACALCET 30 MG TAB PO SCH (21:13)
[2016-09-06] MEDS: INSULIN GLARGINE SOLOSTAR 100 UNITS/ML 3 ML PEN SC SCH (21:18)
[2016-09-07] VITALS (24 sets, daily range): BP systolic 124–163; BP diastolic 70–94; PULSE 71–102; TEMP 36.4–36.7; O2SAT 94–99
[2016-09-07] MEDS ORDERED: COUGH DROP (SUGAR FREE) LOZ 24 LOZ/1 BOX ONE (00:52)
[2016-09-07] MEDS: HEPARIN SOD 5000 UNIT/0.5 ML CARP SQ SCH ×3 (06:00→21:29)
[2016-09-07 06:10] LABS: HEMATOCRIT 28.9 % (42-52); MEAN CELL VOLUME 97.6 fL (80-100); MEAN CORPUSCULAR HEMOGLOBIN 30.4 pg (25-34); MEAN CORPUSCULAR HGB CONC 31.1 g/dl (32-36); MEAN PLATELET VOLUME 10.9 fL (7.4-10.4); PLATELET COUNT 114 K/uL (130-400); RED BLOOD COUNT 2.96 M/uL (4.7-6.1); WHITE BLOOD COUNT 7.25 K/uL (4.8-10.8)
[2016-09-07 06:55] LABS: BUN/CREATININE RATIO 8.6 (10-20); CREATININE 5.4 mg/dl (0.60-1.40); MAGNESIUM 1.9 mg/dl (1.8-2.4); PHOSPHORUS 4.5 mg/dl (2.5-4.9); POTASSIUM 4.1 mmol/L (3.5-5.1)
[2016-09-07] MEDS: ALBUT/IPRATROP 3MG/0.5MG NEB 3 ML VIAL INH SCH ×5 (07:14→23:57)
[2016-09-07] MEDS: LISINOPRIL 5 MG TAB PO SCH ×2 (08:00→21:21)
[2016-09-07] MEDS: SEVELAMER HYDROCH 800 MG TAB PO SCH ×2 (08:01→16:44)
[2016-09-07] MEDS: METOPROLOL TARTRATE 50 MG TAB PO SCH ×2 (08:01→21:20)
[2016-09-07] MEDS: PANTOprazole SOD 40 MG TAB PO SCH (08:01)
[2016-09-07] MEDS: DOCUSATE SODIUM 100 MG CAP PO SCH ×2 (08:02→21:19)
[2016-09-07] MEDS: CALCITRIOL 0.25 MCG CAP PO SCH (08:02)
[2016-09-07] MEDS: ALLOPURINOL 100 MG TAB PO SCH ×2 (08:02→21:22)
[2016-09-07] MEDS: MULTIVITAMIN TAB PO SCH (08:02)
[2016-09-07] MEDS: ASPIRIN 81 MG ECTAB PO SCH (08:02)
[2016-09-07] MEDS: INSULIN ASPART 100 UNITS/ML 3 ML PEN SC SCH ×4 (08:14→21:29)
[2016-09-07] MEDS: HYDROCODONE/HOMATROPINE SYRUP 5MG/1.5MG 5ML UDP PO PRN ×3 (09:01→23:31)
[2016-09-07] MEDS: HYDROCODONE/ACETAMOPHEN 5/325MG TAB PO PRN ×2 (09:01→18:38)
--- NOTE | 2016-09-07 12:10 | Dialysis Progress Note ---
Nephrology Dialysis Note Date of Service: Sep 07, 2016. Subjective 61 yo male with esrd and volume overload who was on pd for the last couple of months but has had a tumultuous course. has had four hospitilizations of varying reasons from cdiff, to volume depletion to bronchitis and now with volume overload. pt seen on hemodialysis today. tolerated dialysis well yesterday and tolerating it well today. bp is stable. access working well. no cramping. Objective Date Time Temp Pulse Resp B/P Pulse Ox O2 Delivery O2 Flow Rate FiO2 09/07/16 10:45 71 124/78 09/07/16 10:30 80 141/81 09/07/16 10:15 79 139/79 09/07/16 10:00 85 147/87 09/07/16 09:47 88 138/80 09/07/16 09:41 36.6 85 145/84 09/07/16 08:00 Room Air 09/07/16 07:37 36.6 88 18 163/94 94 Room Air 09/07/16 07:12 88 16 97 Room Air 09/07/16 04:26 36.7 90 18 138/93 95 Room Air 09/07/16 04:00 Room Air 09/07/16 00:00 Room Air 09/06/16 23:26 36.8 95 18 145/78 95 Room Air 09/06/16 20:47 91 18 95 Room Air 09/06/16 20:00 Room Air 09/06/16 19:46 36.9 99 22 166/93 97 Room Air 09/06/16 19:46 36.5 92 154/95 09/06/16 19:00 73 177/93 09/06/16 18:45 90 160/90 09/06/16 18:30 93 148/82 09/06/16 18:15 93 150/86 09/06/16 18:00 96 154/90 09/06/16 17:45 94 142/82 09/06/16 17:30 100 150/93 09/06/16 17:15 95 153/82 09/06/16 17:00 97 149/85 09/06/16 16:45 95 158/80 09/06/16 16:30 97 153/85 09/06/16 16:15 99 162/90 09/06/16 16:03 36.7 96 20 163/88 96 Room Air 09/06/16 16:00 Room Air 09/06/16 15:59 36.4 101 162/91 09/06/16 15:33 76 16 92 Room Air Physical Exam: General-aaox3 Eyes-no scleral icterus ENT-mmm Neck-supple Lungs-decreased breath sounds Heart-regular Abdomen-bs+, s/nt/nd Extremities-+3 edema Neuro-nonfocal Current Inpatient Medications Medications (Trade) Dose Ordered Sig/Daysi Route Start Time Stop Time Status Last Admin Dose Admin Acetaminophen (Tylenol Tab) 650 mg Q4H PRN PO 09/04/16 21:00 10/04/16 20:59 Zolpidem Tartrate (Ambien Tab) 5 mg HSZ PRN PO 09/04/16 21:00 10/04/16 20:59 09/06/16 21:09 5 MG Nitroglycerin (Nitrostat Tab) 0.4 mg UD PRN SL 09/04/16 21:00 10/04/16 20:59 Albuterol (Ventolin Hfa Inhaler) 2 puffs Q6H PRN INH 09/04/16 21:15 10/04/16 21:14 09/06/16 00:25 2 PUFFS Allopurinol (Zyloprim Tab) 100 mg BID PO 09/05/16 09:00 10/05/16 08:59 09/07/16 08:02 100 MG Aspirin (Ecotrin Tab) 81 mg QAM PO 09/05/16 09:00 10/05/16 08:59 09/07/16 08:02 81 MG Calcitriol (Rocaltrol Cap) 0.25 mcg DAILY PO 09/05/16 09:00 10/05/16 08:59 09/07/16 08:02 0.25 MCG Lisinopril (Zestril Tab) 5 mg BID PO 09/05/16 09:00 10/05/16 08:59 09/07/16 08:00 5 MG Metoprolol Tartrate (Lopressor Tab) 50 mg BID PO 09/05/16 09:00 10/05/16 08:59 09/07/16 08:01 50 MG Multivitamins (Multivitamin Tab) 1 tab QAM PO 09/05/16 09:00 10/05/16 08:59 09/07/16 08:02 1 TAB Naphazoline HCl/ Pheniramine Maleate (Visine-A Oph Soln) 2 drops QID PRN OP 09/04/16 21:15 10/04/16 21:14 Zolpidem Tartrate (Ambien Tab) 10 mg HS PRN PO 09/04/16 21:15 10/04/16 21:14 09/04/16 23:27 10 MG Cinacalcet (Sensipar) 90 mg HS PO 09/05/16 21:00 10/05/16 20:59 09/06/16 21:13 90 MG Pantoprazole Sodium (Protonix Tab) 40 mg QAM PO 09/05/16 09:00 10/05/16 08:59 09/07/16 08:01 40 MG Sevelamer HCl (Renagel Tab) 1,600 mg TIDM PRN PO 09/05/16 07:30 10/05/16 07:29 Sevelamer HCl (Renagel Tab) 2,400 mg BIDM PO 09/05/16 07:30 10/05/16 07:29 09/07/16 08:01 2,400 MG Hydrocodone Bit/ Homatropine Methylb (Hycodan Syrup) 5 ml Q6H PRN PO 09/04/16 21:15 09/18/16 21:14 09/07/16 09:01 5 ML Heparin Sodium (Porcine) (Heparin Sq 5000 Unit/0.5ml) 5,000 unit Q8 SQ 09/05/16 06:00 10/05/16 05:59 09/06/16 21:17 5,000 UNIT Levofloxacin 1 ea 1 ea UD PRN N/A 09/04/16 23:00 10/04/16 22:59 Levofloxacin/Prmx (Levaquin / D5W/ Premixed D5W) 100 ml @ 100 mls/hr Q2D@1100 IV 09/06/16 11:00 09/13/16 10:59 09/06/16 09:58 100 MLS/HR Acetaminophen/ Hydrocodone Bitart ([place] 5/325 Tab) 1 tab Q4H PRN PO 09/04/16 23:15 09/18/16 23:14 09/07/16 09:01 1 TAB Insulin Aspart (novoLOG ASPART) SLIDING SCALE If C... ACHS SC 09/05/16 16:15 10/05/16 16:14 09/07/16 08:14 3 UNITS Glucose (Glucose 40% Gel) 15-30 GRAMS 15 GRAMS... UD PRN PO 09/05/16 11:45 10/05/16 11:44 Glucose (Glucose Chew Tab) 4-8 Tablets 4 Tabl... UD PRN PO 09/05/16 11:45 10/05/16 11:44 Dextrose (Dextrose 50% 50ML Syringe) 25-50ML OF 50% DW IV FOR... UD PRN IV 09/05/16 11:45 10/05/16 11:44 Glucagon (Glucagon Inj) 1 mg UD PRN SQ 09/05/16 11:45 10/05/16 11:44 Docusate Sodium (coLACE CAP) 100 mg BID PO 09/05/16 21:00 10/05/16 20:59 09/07/16 08:02 100 MG Albuterol/ Ipratropium (Duoneb) 3 ml QIDR INH 09/05/16 16:00 10/05/16 15:59 09/07/16 07:14 3 ML Albuterol/ Ipratropium (Duoneb) 3 ml Q2H PRN INH 09/05/16 13:00 10/05/16 12:59 Insulin Glargine (Lantus Solostar Pen) 10 unit QPM SC 09/06/16 21:00 10/06/16 20:59 09/06/16 21:18 10 UNIT Prednisone (PredniSONE TAB) 50 mg DAILY PO 09/07/16 09:00 10/07/16 08:59 09/07/16 08:03 50 MG Last 24 Hours Test 09/06/16 19:41 09/07/16 05:25 09/07/16 06:36 Bedside Glucose 190 mg/dl 87 mg/dl White Blood Count 7.25 K/uL Red Blood Count 2.96 M/uL Hemoglobin 9.0 g/dL Hematocrit 28.9 % Mean Corpuscular Volume 97.6 fL Mean Corpuscular Hemoglobin 30.4 pg Mean Corpuscular Hemoglobin Concent 31.1 g/dl RDW Standard Deviation 55.6 fL RDW Coefficient of Variation 15.6 % Platelet Count 114 K/uL Mean Platelet Volume 10.9 fL Sodium Level 140 mmol/L Potassium Level 4.1 mmol/L Chloride Level 99 mmol/L Carbon Dioxide Level 30 mmol/L Anion Gap 11.0 mmol/L Blood Urea Nitrogen 47 mg/dl Creatinine 5.40 mg/dl Est Creatinine Clear Calc Drug Dose 19.1 ml/min Estimated GFR () 12.2 Estimated GFR (Non- 10.5 BUN/Creatinine Ratio 8.6 Random Glucose 92 mg/dl Calcium Level 8.0 mg/dl Phosphorus Level 4.5 mg/dl Magnesium Level 1.9 mg/dl Assessment & Plan ESRD-switching to hemodialysis as an outpt and spoke to outpt unit yesterday. will continue dialysis daily to help remove fluid. despite daily dialysis, pt still has significant volume issues. also found to have chicken feather pillows which he got 4 months ago which raises possibility of hypersentitivity pneumonitis. greatly appreciate pulmonary help. would like to remove a significant amount of fluid prior to discharge which will take several days of daily dialysis.
--- NOTE | 2016-09-07 14:13 | Pulmonology Progress Note ---
Pulmonary Progress Note Date of Service Sep 07, 2016. Attending Dr. Hugo Friedman Subjective Patient is doing better today less dyspnea on exertion and no shortness of breath at rest Objective Had a full conversation with the patient is he showed no signs of increased work of breathing: Vital signs reviewed: I/O: -6.7L SaO2: 94-97 on room air Respiratory: Patient gave minimal effort clear to auscultation Cardiac: S1-S2 regular rate and rhythm Patient and noted there were multiple. Feathers throughout their house: Pillows, dream catchers, and other objects Assessment & Plan 61-year-old gentleman with chronic renal disease admitted for increasing respiratory insufficiency with volume overload: #1: Respiratory: Previous hypersensitivity panel was elevated and notably positive for bird feathers. At this time the patient and his noted to have multiple heard feathers throughout the house ranging from pillows to drinking catchers. Per his all this has been removed. Also patient has been diuresed via hemodialysis 6.7 L. I believe at this time patient's most likely etiologies for shortness of breath or volume overload from inadequate. 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 Most importantly in the future for patient's respiratory status and only pertinent that we control volume status and decrease exposure to bird feathers. I suggest we taper his steroids over the next 2 weeks. #2: ID: Patient is currently treated with Levaquin for community-acquired pneumonia. He recently has had mycoplasma pneumonia positive findings but also treated with Levaquin in the past. At this time patient's respiratory insufficiency most likely's from etiology stated above. I suggest though as the patient is mildly immunosuppressed secondary to dialysis dependent that we finish off 5 day course of Levaquin. #3: Follow-up: Patient will be followed up in the [place] pulmonary [facility] 2 weeks after his discharge. #4 sign off: I do not believe pulmonary can add anymore to the patient at this time. We will sign off Dr. Daniel Vizcaino will be in the hospital next week please reconsult if necessary. Data Medications: Current Inpatient Medications Medications (Trade) Dose Ordered Sig/Daysi Route Start Time Stop Time Status Last Admin Dose Admin Acetaminophen (Tylenol Tab) 650 mg Q4H PRN PO 09/04/16 21:00 10/04/16 20:59 Zolpidem Tartrate (Ambien Tab) 5 mg HSZ PRN PO 09/04/16 21:00 10/04/16 20:59 09/06/16 21:09 5 MG Nitroglycerin (Nitrostat Tab) 0.4 mg UD PRN SL 09/04/16 21:00 10/04/16 20:59 Albuterol (Ventolin Hfa Inhaler) 2 puffs Q6H PRN INH 09/04/16 21:15 10/04/16 21:14 09/06/16 00:25 2 PUFFS Allopurinol (Zyloprim Tab) 100 mg BID PO 09/05/16 09:00 10/05/16 08:59 09/07/16 08:02 100 MG Aspirin (Ecotrin Tab) 81 mg QAM PO 09/05/16 09:00 10/05/16 08:59 09/07/16 08:02 81 MG Calcitriol (Rocaltrol Cap) 0.25 mcg DAILY PO 09/05/16 09:00 10/05/16 08:59 09/07/16 08:02 0.25 MCG Lisinopril (Zestril Tab) 5 mg BID PO 09/05/16 09:00 10/05/16 08:59 09/07/16 08:00 5 MG Metoprolol Tartrate (Lopressor Tab) 50 mg BID PO 09/05/16 09:00 10/05/16 08:59 09/07/16 08:01 50 MG Multivitamins (Multivitamin Tab) 1 tab QAM PO 09/05/16 09:00 10/05/16 08:59 09/07/16 08:02 1 TAB Naphazoline HCl/ Pheniramine Maleate (Visine-A Oph Soln) 2 drops QID PRN OP 09/04/16 21:15 10/04/16 21:14 Zolpidem Tartrate (Ambien Tab) 10 mg HS PRN PO 09/04/16 21:15 10/04/16 21:14 09/04/16 23:27 10 MG Cinacalcet (Sensipar) 90 mg HS PO 09/05/16 21:00 10/05/16 20:59 09/06/16 21:13 90 MG Pantoprazole Sodium (Protonix Tab) 40 mg QAM PO 09/05/16 09:00 10/05/16 08:59 09/07/16 08:01 40 MG Sevelamer HCl (Renagel Tab) 1,600 mg TIDM PRN PO 09/05/16 07:30 10/05/16 07:29 09/07/16 13:35 1,600 MG Sevelamer HCl (Renagel Tab) 2,400 mg BIDM PO 09/05/16 07:30 10/05/16 07:29 09/07/16 08:01 2,400 MG Hydrocodone Bit/ Homatropine Methylb (Hycodan Syrup) 5 ml Q6H PRN PO 09/04/16 21:15 09/18/16 21:14 09/07/16 09:01 5 ML Heparin Sodium (Porcine) (Heparin Sq 5000 Unit/0.5ml) 5,000 unit Q8 SQ 09/05/16 06:00 10/05/16 05:59 09/06/16 21:17 5,000 UNIT Levofloxacin 1 ea 1 ea UD PRN N/A 09/04/16 23:00 10/04/16 22:59 Levofloxacin/Prmx (Levaquin / D5W/ Premixed D5W) 100 ml @ 100 mls/hr Q2D@1100 IV 09/06/16 11:00 09/13/16 10:59 09/06/16 09:58 100 MLS/HR Acetaminophen/ Hydrocodone Bitart ([place] 5/325 Tab) 1 tab Q4H PRN PO 09/04/16 23:15 09/18/16 23:14 09/07/16 09:01 1 TAB Insulin Aspart (novoLOG ASPART) SLIDING SCALE If C... ACHS SC 09/05/16 16:15 10/05/16 16:14 09/07/16 08:14 3 UNITS Glucose (Glucose 40% Gel) 15-30 GRAMS 15 GRAMS... UD PRN PO 09/05/16 11:45 10/05/16 11:44 Glucose (Glucose Chew Tab) 4-8 Tablets 4 Tabl... UD PRN PO 09/05/16 11:45 10/05/16 11:44 Dextrose (Dextrose 50% 50ML Syringe) 25-50ML OF 50% DW IV FOR... UD PRN IV 09/05/16 11:45 10/05/16 11:44 Glucagon (Glucagon Inj) 1 mg UD PRN SQ 09/05/16 11:45 10/05/16 11:44 Docusate Sodium (coLACE CAP) 100 mg BID PO 09/05/16 21:00 10/05/16 20:59 09/07/16 08:02 100 MG Albuterol/ Ipratropium (Duoneb) 3 ml QIDR INH 09/05/16 16:00 10/05/16 15:59 09/07/16 07:14 3 ML Albuterol/ Ipratropium (Duoneb) 3 ml Q2H PRN INH 09/05/16 13:00 10/05/16 12:59 Insulin Glargine (Lantus Solostar Pen) 10 unit QPM SC 09/06/16 21:00 10/06/16 20:59 09/06/16 21:18 10 UNIT Prednisone (PredniSONE TAB) 50 mg DAILY PO 09/07/16 09:00 10/07/16 08:59 09/07/16 08:03 50 MG I & O: 24-Hour Column 09/07/16 08:00 Intake Total 1040 ml Output Total 3000 ml Balance -1960 ml Vital Signs: Date Time Temp Pulse Resp B/P Pulse Ox O2 Delivery O2 Flow Rate FiO2 09/07/16 13:28 36.5 76 127/73 09/07/16 12:30 73 126/77 09/07/16 12:15 73 125/83 09/07/16 12:00 Room Air 09/07/16 12:00 77 154/91 09/07/16 11:45 75 141/81 09/07/16 11:30 73 131/79 09/07/16 11:15 73 132/70 09/07/16 11:00 78 147/88 09/07/16 10:45 71 124/78 09/07/16 10:30 80 141/81 09/07/16 10:15 79 139/79 09/07/16 10:00 85 147/87 09/07/16 09:47 88 138/80 09/07/16 09:41 36.6 85 145/84 09/07/16 08:00 Room Air 09/07/16 07:37 36.6 88 18 163/94 94 Room Air 09/07/16 07:12 88 16 97 Room Air 09/07/16 04:26 36.7 90 18 138/93 95 Room Air 09/07/16 04:00 Room Air 09/07/16 00:00 Room Air 09/06/16 23:26 36.8 95 18 145/78 95 Room Air 09/06/16 20:47 91 18 95 Room Air 09/06/16 20:00 Room Air 09/06/16 19:46 36.9 99 22 166/93 97 Room Air 09/06/16 19:46 36.5 92 154/95 09/06/16 19:00 73 177/93 09/06/16 18:45 90 160/90 09/06/16 18:30 93 148/82 09/06/16 18:15 93 150/86 09/06/16 18:00 96 154/90 09/06/16 17:45 94 142/82 09/06/16 17:30 100 150/93 09/06/16 17:15 95 153/82 09/06/16 17:00 97 149/85 09/06/16 16:45 95 158/80 09/06/16 16:30 97 153/85 09/06/16 16:15 99 162/90 09/06/16 16:03 36.7 96 20 163/88 96 Room Air 09/06/16 16:00 Room Air 09/06/16 15:59 36.4 101 162/91 09/06/16 15:33 76 16 92 Room Air Laboratory Results: Last 24 Hours Test 09/06/16 19:41 09/07/16 05:25 09/07/16 06:36 09/07/16 13:29 Bedside Glucose 190 mg/dl 87 mg/dl 127 mg/dl White Blood Count 7.25 K/uL Red Blood Count 2.96 M/uL Hemoglobin 9.0 g/dL Hematocrit 28.9 % Mean Corpuscular Volume 97.6 fL Mean Corpuscular Hemoglobin 30.4 pg Mean Corpuscular Hemoglobin Concent 31.1 g/dl RDW Standard Deviation 55.6 fL RDW Coefficient of Variation 15.6 % Platelet Count 114 K/uL Mean Platelet Volume 10.9 fL Sodium Level 140 mmol/L Potassium Level 4.1 mmol/L Chloride Level 99 mmol/L Carbon Dioxide Level 30 mmol/L Anion Gap 11.0 mmol/L Blood Urea Nitrogen 47 mg/dl Creatinine 5.40 mg/dl Est Creatinine Clear Calc Drug Dose 19.1 ml/min Estimated GFR () 12.2 Estimated GFR (Non- 10.5 BUN/Creatinine Ratio 8.6 Random Glucose 92 mg/dl Calcium Level 8.0 mg/dl Phosphorus Level 4.5 mg/dl Magnesium Level 1.9 mg/dl
--- NOTE | 2016-09-07 17:31 | Progress Note ---
Medicine Progress Note Date & Time of Visit: Sep 07, 2016 at 17:27. Subjective Patient seen and examined. Still with non-productive cough. Breathing slowly improving. Objective Last 8 Hrs Date Time Temp Pulse Resp B/P Pulse Ox O2 Delivery O2 Flow Rate FiO2 09/07/16 16:00 Room Air 09/07/16 15:38 36.6 85 22 125/73 99 Room Air 09/07/16 15:26 36.4 81 18 139/82 95 Room Air 09/07/16 15:17 102 18 94 Room Air 09/07/16 13:28 36.5 76 127/73 09/07/16 12:30 73 126/77 09/07/16 12:15 73 125/83 09/07/16 12:00 Room Air 09/07/16 12:00 77 154/91 09/07/16 11:45 75 141/81 09/07/16 11:30 73 131/79 09/07/16 11:15 73 132/70 09/07/16 11:00 78 147/88 09/07/16 10:45 71 124/78 09/07/16 10:30 80 141/81 09/07/16 10:15 79 139/79 09/07/16 10:00 85 147/87 09/07/16 09:47 88 138/80 09/07/16 09:41 36.6 85 145/84 Physical Exam: General-awake; alert; NAD Eyes-EOMI; no scleral icterus Neck-no stridor; large circumference Lungs-coarse breath sounds and scattered rubs throughout Heart-RRR; no m/r/g Abdomen-soft; NT; nBS; PD catheter c/d/i Extremities-2+ pitting edema bilateral LE; no deformity Neuro-no gross focal deficits Laboratory Results: Last 24 Hours Test 09/06/16 19:41 09/07/16 05:25 09/07/16 06:36 09/07/16 13:29 Bedside Glucose 190 mg/dl 87 mg/dl 127 mg/dl White Blood Count 7.25 K/uL Red Blood Count 2.96 M/uL Hemoglobin 9.0 g/dL Hematocrit 28.9 % Mean Corpuscular Volume 97.6 fL Mean Corpuscular Hemoglobin 30.4 pg Mean Corpuscular Hemoglobin Concent 31.1 g/dl RDW Standard Deviation 55.6 fL RDW Coefficient of Variation 15.6 % Platelet Count 114 K/uL Mean Platelet Volume 10.9 fL Sodium Level 140 mmol/L Potassium Level 4.1 mmol/L Chloride Level 99 mmol/L Carbon Dioxide Level 30 mmol/L Anion Gap 11.0 mmol/L Blood Urea Nitrogen 47 mg/dl Creatinine 5.40 mg/dl Est Creatinine Clear Calc Drug Dose 19.1 ml/min Estimated GFR () 12.2 Estimated GFR (Non- 10.5 BUN/Creatinine Ratio 8.6 Random Glucose 92 mg/dl Calcium Level 8.0 mg/dl Phosphorus Level 4.5 mg/dl Magnesium Level 1.9 mg/dl Test 09/07/16 16:04 Bedside Glucose 283 mg/dl Assessment & Plan Possible mycoplasma pneumonia - Pulmonary consulted - continue renally dosed levofloxacin (monitor QTc) - start date 09/06; for 5 days - transitioned methylprednisolone to prednisone and plan for slow taper over 10- 14 days - continue nebulizers - unable to definitively make diagnosis of hypersensitivity pneumonitis ESRD - Nephrology consulted - patient appears volume overloaded - HD while inpatient - plan for HD upon discharge as well - continue calcitriol, cinacalcet, sevelamer Elevated troponin - patient denies chest pain - likely related to underlying ESRD - EKG without ischemic changes - downtrended - continue aspirin Hyperglycemia - related to steroid use - continue insulin therapy HTN - continue lisinopril and metoprolol DVT prophylaxis with heparin sq Consultants: Pulmonary Nephrology Current Inpatient Medications: Current Inpatient Medications Medications (Trade) Dose Ordered Sig/Daysi Route Start Time Stop Time Status Last Admin Dose Admin Acetaminophen (Tylenol Tab) 650 mg Q4H PRN PO 09/04/16 21:00 10/04/16 20:59 Zolpidem Tartrate (Ambien Tab) 5 mg HSZ PRN PO 09/04/16 21:00 10/04/16 20:59 09/06/16 21:09 5 MG Nitroglycerin (Nitrostat Tab) 0.4 mg UD PRN SL 09/04/16 21:00 10/04/16 20:59 Albuterol (Ventolin Hfa Inhaler) 2 puffs Q6H PRN INH 09/04/16 21:15 10/04/16 21:14 09/06/16 00:25 2 PUFFS Allopurinol (Zyloprim Tab) 100 mg BID PO 09/05/16 09:00 10/05/16 08:59 09/07/16 08:02 100 MG Aspirin (Ecotrin Tab) 81 mg QAM PO 09/05/16 09:00 10/05/16 08:59 09/07/16 08:02 81 MG Calcitriol (Rocaltrol Cap) 0.25 mcg DAILY PO 09/05/16 09:00 10/05/16 08:59 09/07/16 08:02 0.25 MCG Lisinopril (Zestril Tab) 5 mg BID PO 09/05/16 09:00 10/05/16 08:59 09/07/16 08:00 5 MG Metoprolol Tartrate (Lopressor Tab) 50 mg BID PO 09/05/16 09:00 10/05/16 08:59 09/07/16 08:01 50 MG Multivitamins (Multivitamin Tab) 1 tab QAM PO 09/05/16 09:00 10/05/16 08:59 09/07/16 08:02 1 TAB Naphazoline HCl/ Pheniramine Maleate (Visine-A Oph Soln) 2 drops QID PRN OP 09/04/16 21:15 10/04/16 21:14 Zolpidem Tartrate (Ambien Tab) 10 mg HS PRN PO 09/04/16 21:15 10/04/16 21:14 09/04/16 23:27 10 MG Cinacalcet (Sensipar) 90 mg HS PO 09/05/16 21:00 10/05/16 20:59 09/06/16 21:13 90 MG Pantoprazole Sodium (Protonix Tab) 40 mg QAM PO 09/05/16 09:00 10/05/16 08:59 09/07/16 08:01 40 MG Sevelamer HCl (Renagel Tab) 1,600 mg TIDM PRN PO 09/05/16 07:30 10/05/16 07:29 09/07/16 13:35 1,600 MG Sevelamer HCl (Renagel Tab) 2,400 mg BIDM PO 09/05/16 07:30 10/05/16 07:29 09/07/16 16:44 2,400 MG Hydrocodone Bit/ Homatropine Methylb (Hycodan Syrup) 5 ml Q6H PRN PO 09/04/16 21:15 09/18/16 21:14 09/07/16 16:43 5 ML Heparin Sodium (Porcine) (Heparin Sq 5000 Unit/0.5ml) 5,000 unit Q8 SQ 09/05/16 06:00 10/05/16 05:59 09/06/16 21:17 5,000 UNIT Levofloxacin 1 ea 1 ea UD PRN N/A 09/04/16 23:00 10/04/16 22:59 Levofloxacin/Prmx (Levaquin / D5W/ Premixed D5W) 100 ml @ 100 mls/hr Q2D@1100 IV 09/06/16 11:00 09/13/16 10:59 09/06/16 09:58 100 MLS/HR Acetaminophen/ Hydrocodone Bitart ([place] 5/325 Tab) 1 tab Q4H PRN PO 09/04/16 23:15 09/18/16 23:14 09/07/16 09:01 1 TAB Insulin Aspart (novoLOG ASPART) SLIDING SCALE If C... ACHS SC 09/05/16 16:15 10/05/16 16:14 09/07/16 16:51 10 UNITS Glucose (Glucose 40% Gel) 15-30 GRAMS 15 GRAMS... UD PRN PO 09/05/16 11:45 10/05/16 11:44 Glucose (Glucose Chew Tab) 4-8 Tablets 4 Tabl... UD PRN PO 09/05/16 11:45 10/05/16 11:44 Dextrose (Dextrose 50% 50ML Syringe) 25-50ML OF 50% DW IV FOR... UD PRN IV 09/05/16 11:45 10/05/16 11:44 Glucagon (Glucagon Inj) 1 mg UD PRN SQ 09/05/16 11:45 10/05/16 11:44 Docusate Sodium (coLACE CAP) 100 mg BID PO 09/05/16 21:00 10/05/16 20:59 09/07/16 08:02 100 MG Albuterol/ Ipratropium (Duoneb) 3 ml QIDR INH 09/05/16 16:00 10/05/16 15:59 09/07/16 15:17 3 ML Albuterol/ Ipratropium (Duoneb) 3 ml Q2H PRN INH 09/05/16 13:00 10/05/16 12:59 Insulin Glargine (Lantus Solostar Pen) 10 unit QPM SC 09/06/16 21:00 10/06/16 20:59 09/06/16 21:18 10 UNIT Prednisone (PredniSONE TAB) 50 mg DAILY PO 09/07/16 09:00 10/07/16 08:59 09/07/16 08:03 50 MG
[2016-09-07] MEDS: CINACALCET 30 MG TAB PO SCH (21:21)
[2016-09-07] MEDS: INSULIN GLARGINE SOLOSTAR 100 UNITS/ML 3 ML PEN SC SCH (21:27)
[2016-09-07] MEDS: ZOLPIDEM TARTRATE 5 MG TAB PO PRN (23:32)
[2016-09-08] VITALS (29 sets, daily range): BP systolic 122–170; BP diastolic 68–98; PULSE 76–103; TEMP 36.6–36.8; O2SAT 93–98
[2016-09-08] MEDS: HEPARIN SOD 5000 UNIT/0.5 ML CARP SQ SCH ×3 (05:11→20:06)
[2016-09-08] MEDS: ALBUT/IPRATROP 3MG/0.5MG NEB 3 ML VIAL INH SCH ×7 (05:19→21:51)
[2016-09-08 05:50] LABS: HEMATOCRIT 29.9 % (42-52); MEAN CELL VOLUME 97.1 fL (80-100); MEAN CORPUSCULAR HEMOGLOBIN 30.8 pg (25-34); MEAN CORPUSCULAR HGB CONC 31.8 g/dl (32-36); MEAN PLATELET VOLUME 10.9 fL (7.4-10.4); PLATELET COUNT 108 K/uL (130-400); RED BLOOD COUNT 3.08 M/uL (4.7-6.1); WHITE BLOOD COUNT 6.12 K/uL (4.8-10.8)
[2016-09-08 06:28] LABS: BUN/CREATININE RATIO 7.6 (10-20); CALCIUM 7.4 mg/dl (8.5-10.1); POTASSIUM 4.1 mmol/L (3.5-5.1)
[2016-09-08] MEDS ORDERED: EPOETIN ALFA 10,000 UNITS/ML VIAL IV. SCH (07:15)
[2016-09-08] MEDS: ASPIRIN 81 MG ECTAB PO SCH (07:27)
[2016-09-08] MEDS: PANTOprazole SOD 40 MG TAB PO SCH (07:27)
[2016-09-08] MEDS: SEVELAMER HYDROCH 800 MG TAB PO SCH ×2 (07:27→17:41)
[2016-09-08] MEDS: ALLOPURINOL 100 MG TAB PO SCH ×2 (07:27→20:00)
[2016-09-08] MEDS: LISINOPRIL 5 MG TAB PO SCH ×2 (07:28→20:07)
[2016-09-08] MEDS: CALCITRIOL 0.25 MCG CAP PO SCH (07:29)
[2016-09-08] MEDS: MULTIVITAMIN TAB PO SCH (07:29)
[2016-09-08] MEDS: METOPROLOL TARTRATE 50 MG TAB PO SCH ×2 (07:30→20:07)
[2016-09-08] MEDS: DOCUSATE SODIUM 100 MG CAP PO SCH ×2 (07:30→20:00)
[2016-09-08] MEDS: INSULIN ASPART 100 UNITS/ML 3 ML PEN SC SCH ×4 (07:37→20:05)
--- NOTE | 2016-09-08 07:39 | Nephrology Progress Note ---
Nephrology Progress Note Date of Service: Sep 08, 2016. Subjective 61 yo male with esrd and volume overload who was on pd for the last couple of months but has had a tumultuous course. has had four hospitilizations of varying reasons from cdiff, to volume depletion to bronchitis and now with volume overload. pt is thirsty and eating ice but trying to restrict fluids. removing about 3 liters with each dialysis treatment. however still with sob and rales and edema in legs. Objective Date Time Temp Pulse Resp B/P Pulse Ox O2 Delivery O2 Flow Rate FiO2 09/08/16 05:19 93 18 93 Room Air 09/08/16 04:04 94 Room Air 09/08/16 03:41 36.6 89 18 145/78 94 Room Air 09/08/16 00:08 94 Room Air 09/08/16 00:00 36.8 91 18 164/84 96 09/07/16 23:57 87 16 97 Room Air 09/07/16 20:00 94 Room Air 09/07/16 19:40 36.7 98 20 140/90 94 Room Air 09/07/16 19:05 97 16 96 Room Air 09/07/16 16:00 Room Air 09/07/16 15:38 36.6 85 22 125/73 99 Room Air 09/07/16 15:26 36.4 81 18 139/82 95 Room Air 09/07/16 15:17 102 18 94 Room Air 09/07/16 13:28 36.5 76 127/73 09/07/16 12:30 73 126/77 09/07/16 12:15 73 125/83 09/07/16 12:00 Room Air 09/07/16 12:00 77 154/91 09/07/16 11:45 75 141/81 09/07/16 11:30 73 131/79 09/07/16 11:15 73 132/70 09/07/16 11:00 78 147/88 09/07/16 10:45 71 124/78 09/07/16 10:30 80 141/81 09/07/16 10:15 79 139/79 09/07/16 10:00 85 147/87 09/07/16 09:47 88 138/80 09/07/16 09:41 36.6 85 145/84 09/07/16 08:00 Room Air 09/07/16 07:37 36.6 88 18 163/94 94 Room Air Physical Exam: General-aaox3 Eyes-no scleral icterus ENT-mmm Neck-supple Lungs-basilar rales Heart-regular Abdomen-bs+, s/nt/nd Extremities-+3 edema Neuro-nonfocal Current Inpatient Medications Medications (Trade) Dose Ordered Sig/Daysi Route Start Time Stop Time Status Last Admin Dose Admin Acetaminophen (Tylenol Tab) 650 mg Q4H PRN PO 09/04/16 21:00 10/04/16 20:59 Zolpidem Tartrate (Ambien Tab) 5 mg HSZ PRN PO 09/04/16 21:00 10/04/16 20:59 09/07/16 23:32 5 MG Nitroglycerin (Nitrostat Tab) 0.4 mg UD PRN SL 09/04/16 21:00 10/04/16 20:59 Albuterol (Ventolin Hfa Inhaler) 2 puffs Q6H PRN INH 09/04/16 21:15 10/04/16 21:14 09/06/16 00:25 2 PUFFS Allopurinol (Zyloprim Tab) 100 mg BID PO 09/05/16 09:00 10/05/16 08:59 09/08/16 07:27 100 MG Aspirin (Ecotrin Tab) 81 mg QAM PO 09/05/16 09:00 10/05/16 08:59 09/08/16 07:27 81 MG Calcitriol (Rocaltrol Cap) 0.25 mcg DAILY PO 09/05/16 09:00 10/05/16 08:59 09/08/16 07:29 0.25 MCG Lisinopril (Zestril Tab) 5 mg BID PO 09/05/16 09:00 10/05/16 08:59 09/08/16 07:28 5 MG Metoprolol Tartrate (Lopressor Tab) 50 mg BID PO 09/05/16 09:00 10/05/16 08:59 09/08/16 07:30 50 MG Multivitamins (Multivitamin Tab) 1 tab QAM PO 09/05/16 09:00 10/05/16 08:59 09/08/16 07:29 1 TAB Naphazoline HCl/ Pheniramine Maleate (Visine-A Oph Soln) 2 drops QID PRN OP 09/04/16 21:15 10/04/16 21:14 Zolpidem Tartrate (Ambien Tab) 10 mg HS PRN PO 09/04/16 21:15 10/04/16 21:14 09/04/16 23:27 10 MG Pantoprazole Sodium (Protonix Tab) 40 mg QAM PO 09/05/16 09:00 10/05/16 08:59 09/08/16 07:27 40 MG Sevelamer HCl (Renagel Tab) 1,600 mg TIDM PRN PO 09/05/16 07:30 10/05/16 07:29 09/07/16 13:35 1,600 MG Sevelamer HCl (Renagel Tab) 2,400 mg BIDM PO 09/05/16 07:30 10/05/16 07:29 09/08/16 07:27 2,400 MG Hydrocodone Bit/ Homatropine Methylb (Hycodan Syrup) 5 ml Q6H PRN PO 09/04/16 21:15 09/18/16 21:14 09/07/16 23:31 5 ML Heparin Sodium (Porcine) (Heparin Sq 5000 Unit/0.5ml) 5,000 unit Q8 SQ 09/05/16 06:00 10/05/16 05:59 09/08/16 05:11 5,000 UNIT Levofloxacin 1 ea 1 ea UD PRN N/A 09/04/16 23:00 10/04/16 22:59 Levofloxacin/Prmx (Levaquin / D5W/ Premixed D5W) 100 ml @ 100 mls/hr Q2D@1100 IV 09/06/16 11:00 09/13/16 10:59 09/06/16 09:58 100 MLS/HR Acetaminophen/ Hydrocodone Bitart ([place] 5/325 Tab) 1 tab Q4H PRN PO 09/04/16 23:15 09/18/16 23:14 09/07/16 18:38 1 TAB Insulin Aspart (novoLOG ASPART) SLIDING SCALE If C... ACHS SC 09/05/16 16:15 10/05/16 16:14 09/07/16 21:29 2 UNITS Glucose (Glucose 40% Gel) 15-30 GRAMS 15 GRAMS... UD PRN PO 09/05/16 11:45 10/05/16 11:44 Glucose (Glucose Chew Tab) 4-8 Tablets 4 Tabl... UD PRN PO 09/05/16 11:45 10/05/16 11:44 Dextrose (Dextrose 50% 50ML Syringe) 25-50ML OF 50% DW IV FOR... UD PRN IV 09/05/16 11:45 10/05/16 11:44 Glucagon (Glucagon Inj) 1 mg UD PRN SQ 09/05/16 11:45 10/05/16 11:44 Docusate Sodium (coLACE CAP) 100 mg BID PO 09/05/16 21:00 10/05/16 20:59 09/08/16 07:30 100 MG Albuterol/ Ipratropium (Duoneb) 3 ml QIDR INH 09/05/16 16:00 10/05/16 15:59 09/08/16 05:19 3 ML Albuterol/ Ipratropium (Duoneb) 3 ml Q2H PRN INH 09/05/16 13:00 10/05/16 12:59 Insulin Glargine (Lantus Solostar Pen) 10 unit QPM SC 09/06/16 21:00 10/06/16 20:59 09/07/16 21:27 10 UNIT Prednisone (PredniSONE TAB) 40 mg DAILY PO 09/08/16 09:00 10/08/16 08:59 09/08/16 07:29 40 MG Epoetin Ruiz (Procrit Inj) 10,000 units TODAY@0715 IV. 09/08/16 07:15 09/08/16 18:00 Last 24 Hours Test 09/07/16 13:29 09/07/16 16:04 09/07/16 20:11 09/08/16 05:26 Bedside Glucose 127 mg/dl 283 mg/dl 210 mg/dl White Blood Count 6.12 K/uL Red Blood Count 3.08 M/uL Hemoglobin 9.5 g/dL Hematocrit 29.9 % Mean Corpuscular Volume 97.1 fL Mean Corpuscular Hemoglobin 30.8 pg Mean Corpuscular Hemoglobin Concent 31.8 g/dl RDW Standard Deviation 54.8 fL RDW Coefficient of Variation 15.6 % Platelet Count 108 K/uL Mean Platelet Volume 10.9 fL Sodium Level 140 mmol/L Potassium Level 4.1 mmol/L Chloride Level 101 mmol/L Carbon Dioxide Level 29 mmol/L Anion Gap 10.0 mmol/L Blood Urea Nitrogen 46 mg/dl Creatinine 6.00 mg/dl Est Creatinine Clear Calc Drug Dose 17.2 ml/min Estimated GFR () 10.7 Estimated GFR (Non- 9.3 BUN/Creatinine Ratio 7.6 Random Glucose 134 mg/dl Calcium Level 7.4 mg/dl Test 09/08/16 06:49 Bedside Glucose 128 mg/dl Assessment & Plan ESRD-switching to hemodialysis as an outpt and spoke to outpt unit. plan on daily dialysis to help remove fluid. believe he may be drinking and eating liquids "ice", so not making much headway with fluid removal. will continue to diurese but will need more uf on dialysis. will plan on four liters today and see how he tolerates it. hypocalcemia-calcium levels are trending down. will stop the sensipar for now.
[2016-09-08] MEDS: HYDROCODONE/ACETAMOPHEN 5/325MG TAB PO PRN ×2 (07:44→19:57)
[2016-09-08] MEDS: LEVOFLOXACIN 500MG / D5W IV SCH (12:45)
[2016-09-08] MEDS: HYDROCODONE/HOMATROPINE SYRUP 5MG/1.5MG 5ML UDP PO PRN ×2 (14:44→19:57)
--- NOTE | 2016-09-08 15:43 | Progress Note ---
Medicine Progress Note Date & Time of Visit: Sep 08, 2016 at 15:39. Subjective Patient seen and examined. Still with cough, worse with lying down. Breathing stable. Excited to take a shower today. Objective Last 8 Hrs Date Time Temp Pulse Resp B/P Pulse Ox O2 Delivery O2 Flow Rate FiO2 09/08/16 14:16 99 18 96 Room Air 09/08/16 13:05 36.8 97 18 122/68 95 Room Air 09/08/16 13:00 Room Air 09/08/16 12:30 36.7 91 137/74 09/08/16 11:45 89 139/86 09/08/16 11:30 81 138/86 09/08/16 11:15 83 128/80 09/08/16 11:00 76 122/74 09/08/16 10:45 79 148/86 09/08/16 10:30 87 146/85 09/08/16 10:15 76 151/79 09/08/16 10:00 76 144/84 09/08/16 09:56 36.6 92 18 94 09/08/16 09:45 78 148/82 09/08/16 09:30 89 135/81 09/08/16 09:15 83 127/73 09/08/16 09:00 84 139/78 09/08/16 08:44 92 149/83 09/08/16 08:30 36.6 85 145/84 09/08/16 08:00 36.7 92 18 170/98 94 Room Air 09/08/16 08:00 94 Room Air 09/08/16 07:40 92 18 95 Room Air Physical Exam: General-awake; alert; NAD Eyes-EOMI; no scleral icterus Neck-no stridor; large circumference Lungs-coarse breath sounds and scattered rubs throughout Heart-RRR; no m/r/g Abdomen-soft; NT; nBS; PD catheter c/d/i Extremities-2+ pitting edema bilateral LE; no deformity Neuro-no gross focal deficits Laboratory Results: Last 24 Hours Test 09/07/16 16:04 09/07/16 20:11 09/08/16 05:26 09/08/16 06:49 Bedside Glucose 283 mg/dl 210 mg/dl 128 mg/dl White Blood Count 6.12 K/uL Red Blood Count 3.08 M/uL Hemoglobin 9.5 g/dL Hematocrit 29.9 % Mean Corpuscular Volume 97.1 fL Mean Corpuscular Hemoglobin 30.8 pg Mean Corpuscular Hemoglobin Concent 31.8 g/dl RDW Standard Deviation 54.8 fL RDW Coefficient of Variation 15.6 % Platelet Count 108 K/uL Mean Platelet Volume 10.9 fL Sodium Level 140 mmol/L Potassium Level 4.1 mmol/L Chloride Level 101 mmol/L Carbon Dioxide Level 29 mmol/L Anion Gap 10.0 mmol/L Blood Urea Nitrogen 46 mg/dl Creatinine 6.00 mg/dl Est Creatinine Clear Calc Drug Dose 17.2 ml/min Estimated GFR () 10.7 Estimated GFR (Non- 9.3 BUN/Creatinine Ratio 7.6 Random Glucose 134 mg/dl Calcium Level 7.4 mg/dl Test 09/08/16 12:38 Bedside Glucose 196 mg/dl Assessment & Plan Possible mycoplasma pneumonia - Pulmonary consulted - continue renally dosed levofloxacin (monitor QTc) - start date 09/06; for 5 days - transitioned methylprednisolone to prednisone and plan for slow taper over 10- 14 days (currently on prednisone 40mg which started 09/08/16) - continue nebulizers - unable to definitively make diagnosis of hypersensitivity pneumonitis ESRD - Nephrology consulted - patient appears volume overloaded - HD while inpatient --> plan for daily HD until possibly Thursday - plan for HD upon discharge as well - continue calcitriol, sevelamer - cinacalcet on hold given hypocalcemia Elevated troponin - patient denies chest pain - likely related to underlying ESRD - EKG without ischemic changes - downtrended - continue aspirin Hyperglycemia - related to steroid use - continue insulin therapy HTN - continue lisinopril and metoprolol DVT prophylaxis with heparin sq Consultants: Pulmonary Nephrology Current Inpatient Medications: Current Inpatient Medications Medications (Trade) Dose Ordered Sig/Daysi Route Start Time Stop Time Status Last Admin Dose Admin Acetaminophen (Tylenol Tab) 650 mg Q4H PRN PO 09/04/16 21:00 10/04/16 20:59 Zolpidem Tartrate (Ambien Tab) 5 mg HSZ PRN PO 09/04/16 21:00 10/04/16 20:59 09/07/16 23:32 5 MG Nitroglycerin (Nitrostat Tab) 0.4 mg UD PRN SL 09/04/16 21:00 10/04/16 20:59 Albuterol (Ventolin Hfa Inhaler) 2 puffs Q6H PRN INH 09/04/16 21:15 10/04/16 21:14 09/06/16 00:25 2 PUFFS Allopurinol (Zyloprim Tab) 100 mg BID PO 09/05/16 09:00 10/05/16 08:59 09/08/16 07:27 100 MG Aspirin (Ecotrin Tab) 81 mg QAM PO 09/05/16 09:00 10/05/16 08:59 09/08/16 07:27 81 MG Calcitriol (Rocaltrol Cap) 0.25 mcg DAILY PO 09/05/16 09:00 10/05/16 08:59 09/08/16 07:29 0.25 MCG Lisinopril (Zestril Tab) 5 mg BID PO 09/05/16 09:00 10/05/16 08:59 09/08/16 07:28 5 MG Metoprolol Tartrate (Lopressor Tab) 50 mg BID PO 09/05/16 09:00 10/05/16 08:59 09/08/16 07:30 50 MG Multivitamins (Multivitamin Tab) 1 tab QAM PO 09/05/16 09:00 10/05/16 08:59 09/08/16 07:29 1 TAB Naphazoline HCl/ Pheniramine Maleate (Visine-A Oph Soln) 2 drops QID PRN OP 09/04/16 21:15 10/04/16 21:14 Zolpidem Tartrate (Ambien Tab) 10 mg HS PRN PO 09/04/16 21:15 10/04/16 21:14 09/04/16 23:27 10 MG Pantoprazole Sodium (Protonix Tab) 40 mg QAM PO 09/05/16 09:00 10/05/16 08:59 09/08/16 07:27 40 MG Sevelamer HCl (Renagel Tab) 1,600 mg TIDM PRN PO 09/05/16 07:30 10/05/16 07:29 09/07/16 13:35 1,600 MG Sevelamer HCl (Renagel Tab) 2,400 mg BIDM PO 09/05/16 07:30 10/05/16 07:29 09/08/16 07:27 2,400 MG Hydrocodone Bit/ Homatropine Methylb (Hycodan Syrup) 5 ml Q6H PRN PO 09/04/16 21:15 09/18/16 21:14 09/08/16 14:44 5 ML Heparin Sodium (Porcine) (Heparin Sq 5000 Unit/0.5ml) 5,000 unit Q8 SQ 09/05/16 06:00 10/05/16 05:59 09/08/16 14:55 5,000 UNIT Levofloxacin 1 ea 1 ea UD PRN N/A 09/04/16 23:00 09/08/16 23:59 Levofloxacin/Prmx (Levaquin / D5W/ Premixed D5W) 100 ml @ 100 mls/hr Q2D@1100 IV 09/06/16 11:00 09/08/16 23:59 09/08/16 12:45 100 MLS/HR Acetaminophen/ Hydrocodone Bitart ([place] 5/325 Tab) 1 tab Q4H PRN PO 09/04/16 23:15 09/18/16 23:14 09/08/16 07:44 1 TAB Insulin Aspart (novoLOG ASPART) SLIDING SCALE If C... ACHS SC 09/05/16 16:15 10/05/16 16:14 09/08/16 12:44 7 UNITS Glucose (Glucose 40% Gel) 15-30 GRAMS 15 GRAMS... UD PRN PO 09/05/16 11:45 10/05/16 11:44 Glucose (Glucose Chew Tab) 4-8 Tablets 4 Tabl... UD PRN PO 09/05/16 11:45 10/05/16 11:44 Dextrose (Dextrose 50% 50ML Syringe) 25-50ML OF 50% DW IV FOR... UD PRN IV 09/05/16 11:45 10/05/16 11:44 Glucagon (Glucagon Inj) 1 mg UD PRN SQ 09/05/16 11:45 10/05/16 11:44 Docusate Sodium (coLACE CAP) 100 mg BID PO 09/05/16 21:00 10/05/16 20:59 09/08/16 07:30 100 MG Albuterol/ Ipratropium (Duoneb) 3 ml QIDR INH 09/05/16 16:00 10/05/16 15:59 09/08/16 14:15 3 ML Albuterol/ Ipratropium (Duoneb) 3 ml Q2H PRN INH 09/05/16 13:00 10/05/16 12:59 Insulin Glargine (Lantus Solostar Pen) 10 unit QPM SC 09/06/16 21:00 10/06/16 20:59 09/07/16 21:27 10 UNIT Prednisone (PredniSONE TAB) 40 mg DAILY PO 09/08/16 09:00 10/08/16 08:59 09/08/16 07:29 40 MG Epoetin Ruiz (Procrit Inj) 10,000 units TODAY@0715 IV. 09/08/16 07:15 09/08/16 18:00 09/08/16 11:01 10,000 UNITS
[2016-09-08] MEDS: INSULIN GLARGINE SOLOSTAR 100 UNITS/ML 3 ML PEN SC SCH (20:05)
[2016-09-08] MEDS: ZOLPIDEM TARTRATE 5 MG TAB PO PRN (22:18)
[2016-09-09] VITALS (29 sets, daily range): BP systolic 92–159; BP diastolic 56–96; PULSE 85–120; TEMP 36.4–37; O2SAT 91–97
[2016-09-09] MEDS: ALBUT/IPRATROP 3MG/0.5MG NEB 3 ML VIAL INH SCH ×6 (04:24→23:25)
[2016-09-09] MEDS: HEPARIN SOD 5000 UNIT/0.5 ML CARP SQ SCH ×3 (06:00→21:02)
[2016-09-09 07:22] LABS: MEAN CELL VOLUME 98.1 fL (80-100); MEAN CORPUSCULAR HEMOGLOBIN 31.1 pg (25-34); MEAN CORPUSCULAR HGB CONC 31.7 g/dl (32-36); MEAN PLATELET VOLUME 10.9 fL (7.4-10.4); PLATELET COUNT 132 K/uL (130-400); RED BLOOD COUNT 3.67 M/uL (4.7-6.1); WHITE BLOOD COUNT 6.82 K/uL (4.8-10.8)
[2016-09-09 08:00] LABS: BUN/CREATININE RATIO 6.9 (10-20); CALCIUM 8.4 mg/dl (8.5-10.1); CREATININE 5.9 mg/dl (0.60-1.40); MAGNESIUM 1.8 mg/dl (1.8-2.4); PHOSPHORUS 4.4 mg/dl (2.5-4.9); POTASSIUM 3.7 mmol/L (3.5-5.1)
[2016-09-09] MEDS ORDERED: EPOETIN ALFA 10,000 UNITS/ML VIAL IV. SCH (08:30)
[2016-09-09] MEDS: INSULIN ASPART 100 UNITS/ML 3 ML PEN SC SCH ×4 (09:00→21:07)
[2016-09-09] MEDS: HYDROCODONE/ACETAMOPHEN 5/325MG TAB PO PRN ×2 (09:02→22:01)
[2016-09-09] MEDS: DOCUSATE SODIUM 100 MG CAP PO SCH ×2 (14:04→21:03)
[2016-09-09] MEDS: METOPROLOL TARTRATE 50 MG TAB PO SCH ×2 (14:05→21:02)
[2016-09-09] MEDS: ASPIRIN 81 MG ECTAB PO SCH (14:05)
[2016-09-09] MEDS: MULTIVITAMIN TAB PO SCH (14:05)
[2016-09-09] MEDS: CALCITRIOL 0.25 MCG CAP PO SCH (14:06)
[2016-09-09] MEDS: SEVELAMER HYDROCH 800 MG TAB PO SCH ×2 (14:06→18:17)
[2016-09-09] MEDS: PANTOprazole SOD 40 MG TAB PO SCH (14:06)
[2016-09-09] MEDS: ALLOPURINOL 100 MG TAB PO SCH ×2 (14:07→21:00)
[2016-09-09] MEDS: LISINOPRIL 5 MG TAB PO SCH ×2 (14:07→21:02)
--- NOTE | 2016-09-09 14:33 | Nephrology Progress Note ---
Nephrology Progress Note Date of Service: Sep 09, 2016. Subjective 61 yo male with esrd and volume overload who was on pd for the last couple of months but has had a tumultuous course. Has had four hospitalizations of varying reasons from c. diff, volume depletion, and bronchitis and now with volume overload. Patient is on fluid restriction. still eating a lot of ice. reports feeling thirsty but trying to restrict fluids. Unable to dialyze off intended UF today at dialysis and got 2.4L. Still with SOB, rales and edema in legs. patient states that he is feeling better. Appetite is poor per patient. no chest pain. no nausea/vomiting. Objective Date Time Temp Pulse Resp B/P Pulse Ox O2 Delivery O2 Flow Rate FiO2 09/09/16 14:14 36.6 120 20 143/90 95 09/09/16 11:45 103 126/76 09/09/16 11:30 104 124/75 09/09/16 11:15 111 133/82 09/09/16 11:00 110 126/79 09/09/16 10:53 109 18 92 Room Air 09/09/16 10:45 105 134/81 09/09/16 10:30 105 138/85 09/09/16 10:23 110 129/78 09/09/16 10:14 36.7 106 129/62 09/09/16 08:32 36.8 106 20 159/96 94 09/09/16 08:00 Room Air 09/09/16 06:33 101 18 95 Room Air 09/09/16 04:24 88 18 91 Room Air 09/09/16 00:22 36.8 91 18 145/88 96 Room Air 09/09/16 00:05 97 Room Air 09/08/16 21:51 91 18 95 Room Air 09/08/16 20:05 103 125/86 09/08/16 20:05 97 Room Air 09/08/16 18:22 101 18 97 Room Air 09/08/16 15:40 36.8 102 16 124/78 98 Room Air Physical Exam: General-aaox3 Eyes-no scleral icterus ENT-mmm Neck-supple Lungs-basilar rales +wheezing Heart-regular Abdomen-bs+, s/nt/nd Extremities-+2 edema Neuro-nonfocal Current Inpatient Medications Medications (Trade) Dose Ordered Sig/Daysi Route Start Time Stop Time Status Last Admin Dose Admin Acetaminophen (Tylenol Tab) 650 mg Q4H PRN PO 09/04/16 21:00 10/04/16 20:59 Zolpidem Tartrate (Ambien Tab) 5 mg HSZ PRN PO 09/04/16 21:00 10/04/16 20:59 09/08/16 22:18 5 MG Nitroglycerin (Nitrostat Tab) 0.4 mg UD PRN SL 09/04/16 21:00 10/04/16 20:59 Albuterol (Ventolin Hfa Inhaler) 2 puffs Q6H PRN INH 09/04/16 21:15 10/04/16 21:14 09/06/16 00:25 2 PUFFS Allopurinol (Zyloprim Tab) 100 mg BID PO 09/05/16 09:00 10/05/16 08:59 09/09/16 14:07 100 MG Aspirin (Ecotrin Tab) 81 mg QAM PO 09/05/16 09:00 10/05/16 08:59 09/09/16 14:05 81 MG Calcitriol (Rocaltrol Cap) 0.25 mcg DAILY PO 09/05/16 09:00 10/05/16 08:59 09/09/16 14:06 0.25 MCG Lisinopril (Zestril Tab) 5 mg BID PO 09/05/16 09:00 10/05/16 08:59 09/09/16 14:07 5 MG Metoprolol Tartrate (Lopressor Tab) 50 mg BID PO 09/05/16 09:00 10/05/16 08:59 09/09/16 14:05 50 MG Multivitamins (Multivitamin Tab) 1 tab QAM PO 09/05/16 09:00 10/05/16 08:59 09/09/16 14:05 1 TAB Naphazoline HCl/ Pheniramine Maleate (Visine-A Oph Soln) 2 drops QID PRN OP 09/04/16 21:15 10/04/16 21:14 Zolpidem Tartrate (Ambien Tab) 10 mg HS PRN PO 09/04/16 21:15 10/04/16 21:14 09/04/16 23:27 10 MG Pantoprazole Sodium (Protonix Tab) 40 mg QAM PO 09/05/16 09:00 10/05/16 08:59 09/09/16 14:06 40 MG Sevelamer HCl (Renagel Tab) 1,600 mg TIDM PRN PO 09/05/16 07:30 10/05/16 07:29 09/07/16 13:35 1,600 MG Sevelamer HCl (Renagel Tab) 2,400 mg BIDM PO 09/05/16 07:30 10/05/16 07:29 09/09/16 14:06 2,400 MG Hydrocodone Bit/ Homatropine Methylb (Hycodan Syrup) 5 ml Q6H PRN PO 09/04/16 21:15 09/18/16 21:14 09/08/16 19:57 5 ML Heparin Sodium (Porcine) (Heparin Sq 5000 Unit/0.5ml) 5,000 unit Q8 SQ 09/05/16 06:00 10/05/16 05:59 09/08/16 20:06 5,000 UNIT Acetaminophen/ Hydrocodone Bitart ([place] 5/325 Tab) 1 tab Q4H PRN PO 09/04/16 23:15 09/18/16 23:14 09/09/16 09:02 1 TAB Insulin Aspart (novoLOG ASPART) SLIDING SCALE If C... ACHS SC 09/05/16 16:15 10/05/16 16:14 09/09/16 09:00 3 UNITS Glucose (Glucose 40% Gel) 15-30 GRAMS 15 GRAMS... UD PRN PO 09/05/16 11:45 10/05/16 11:44 Glucose (Glucose Chew Tab) 4-8 Tablets 4 Tabl... UD PRN PO 09/05/16 11:45 10/05/16 11:44 Dextrose (Dextrose 50% 50ML Syringe) 25-50ML OF 50% DW IV FOR... UD PRN IV 09/05/16 11:45 10/05/16 11:44 Glucagon (Glucagon Inj) 1 mg UD PRN SQ 09/05/16 11:45 10/05/16 11:44 Docusate Sodium (coLACE CAP) 100 mg BID PO 09/05/16 21:00 10/05/16 20:59 09/09/16 14:04 100 MG Albuterol/ Ipratropium (Duoneb) 3 ml QIDR INH 09/05/16 16:00 10/05/16 15:59 09/09/16 10:53 3 ML Albuterol/ Ipratropium (Duoneb) 3 ml Q2H PRN INH 09/05/16 13:00 10/05/16 12:59 Insulin Glargine (Lantus Solostar Pen) 10 unit QPM SC 09/06/16 21:00 10/06/16 20:59 09/08/16 20:05 10 UNIT Prednisone (PredniSONE TAB) 40 mg DAILY PO 09/08/16 09:00 10/08/16 08:59 09/09/16 14:05 40 MG Epoetin Ruiz (Procrit Inj) 10,000 units 0830 IV. 09/09/16 08:30 09/09/16 23:59 09/09/16 12:03 10,000 UNITS Last 24 Hours Test 09/08/16 16:46 09/08/16 19:57 09/09/16 06:52 09/09/16 08:19 Bedside Glucose 265 mg/dl 176 mg/dl 98 mg/dl White Blood Count 6.82 K/uL Red Blood Count 3.67 M/uL Hemoglobin 11.4 g/dL Hematocrit 36.0 % Mean Corpuscular Volume 98.1 fL Mean Corpuscular Hemoglobin 31.1 pg Mean Corpuscular Hemoglobin Concent 31.7 g/dl RDW Standard Deviation 55.3 fL RDW Coefficient of Variation 15.6 % Platelet Count 132 K/uL Mean Platelet Volume 10.9 fL Sodium Level 139 mmol/L Potassium Level 3.7 mmol/L Chloride Level 99 mmol/L Carbon Dioxide Level 30 mmol/L Anion Gap 10.0 mmol/L Blood Urea Nitrogen 40 mg/dl Creatinine 5.90 mg/dl Est Creatinine Clear Calc Drug Dose 17.1 ml/min Estimated GFR () 11.0 Estimated GFR (Non- 9.5 BUN/Creatinine Ratio 6.9 Random Glucose 107 mg/dl Calcium Level 8.4 mg/dl Phosphorus Level 4.4 mg/dl Magnesium Level 1.8 mg/dl Other Studies: 09/07/16 09/08/16 09/09/16 08:00 08:00 08:00 Intake Total 1040 ml 1115 ml 825 ml Output Total 3000 ml 3300 ml 4000 ml Balance -1960 ml -2185 ml -3175 ml Assessment & Plan ESRD-Plan is to continue with hemodialysis as an outpt. outpt unit aware. continue with daily dialysis to help with removal of fluid. may add on albumin to help mobilize fluid in legs. He is still consuming enough ice with fluid restriction to maintain high IDWG between treatments but may be getting close to intended dry weight. potassium is good at 3.7. Encouraged patient to restrict fluids and avoid ice. hypocalcemia-Improved at 8.4. continue to hold sensipar and monitor for now. This patient was seen and treated with direct collaboration with Dr. Jimenez. Thank you for the opportunity to participate in this patient's care. Appreciate the Consult. ATTENDING NOTE: I performed a history and physical examination of the patient, including specifically on history- pt continues to have cough and sob, on physical exam-+ 1 edema and end expiratory wheeze, and my impression and plan are ESRD-continue dialysis, will use albumin tomorrow. I have discussed the patient's management with Nikki Slade PA-C, Please refer to above note for the documented findings and plan of care. Herbert Jimenez DO
[2016-09-09] MEDS: HYDROCODONE/HOMATROPINE SYRUP 5MG/1.5MG 5ML UDP PO PRN (16:21)
--- NOTE | 2016-09-09 18:43 | Progress Note ---
Medicine Progress Note Date & Time of Visit: Sep 09, 2016 at 18:33. Subjective Pt was seen and examined Lying in bed comfortable watching TV with no distress Pt said that his breathing slightly improved he said that he still having sob on exertion denies any chest pain, palpitation and dizziness Objective Last 8 Hrs Date Time Temp Pulse Resp B/P Pulse Ox O2 Delivery O2 Flow Rate FiO2 09/09/16 18:29 102 18 93 Room Air 09/09/16 15:30 85 18 93 Room Air 09/09/16 14:58 36.4 107 18 126/59 96 09/09/16 14:14 36.6 120 20 143/90 95 09/09/16 13:45 37.0 116 136/95 09/09/16 13:15 104 128/83 09/09/16 13:00 105 124/85 09/09/16 12:45 104 130/84 09/09/16 12:30 102 110/72 09/09/16 12:19 104 117/65 09/09/16 12:15 86 92/56 09/09/16 12:00 104 110/73 09/09/16 11:45 103 126/76 09/09/16 11:30 104 124/75 09/09/16 11:15 111 133/82 09/09/16 11:00 110 126/79 09/09/16 10:53 109 18 92 Room Air 09/09/16 10:45 105 134/81 Physical Exam: General- No acute distress Head- atraumatic Eyes- PERRL, EOMI ENT- oropharynx clear Neck- supple, no JVD Lungs- clear to auscultation and percussion Heart- no murmur Abdomen- normal bowel sounds, sof Extremities- no calf tenderness, + edema Neuro- alert, oriented x 3; PERRL, EOMI Skin- warm & dry Laboratory Results: Last 24 Hours Test 09/08/16 19:57 09/09/16 06:52 09/09/16 08:19 09/09/16 14:06 Bedside Glucose 176 mg/dl 98 mg/dl 123 mg/dl White Blood Count 6.82 K/uL Red Blood Count 3.67 M/uL Hemoglobin 11.4 g/dL Hematocrit 36.0 % Mean Corpuscular Volume 98.1 fL Mean Corpuscular Hemoglobin 31.1 pg Mean Corpuscular Hemoglobin Concent 31.7 g/dl RDW Standard Deviation 55.3 fL RDW Coefficient of Variation 15.6 % Platelet Count 132 K/uL Mean Platelet Volume 10.9 fL Sodium Level 139 mmol/L Potassium Level 3.7 mmol/L Chloride Level 99 mmol/L Carbon Dioxide Level 30 mmol/L Anion Gap 10.0 mmol/L Blood Urea Nitrogen 40 mg/dl Creatinine 5.90 mg/dl Est Creatinine Clear Calc Drug Dose 17.1 ml/min Estimated GFR () 11.0 Estimated GFR (Non- 9.5 BUN/Creatinine Ratio 6.9 Random Glucose 107 mg/dl Calcium Level 8.4 mg/dl Phosphorus Level 4.4 mg/dl Magnesium Level 1.8 mg/dl Test 09/09/16 16:06 Bedside Glucose 198 mg/dl Assessment & Plan Possible mycoplasma pneumonia - Pulmonary consulted - continue renally dosed levofloxacin (monitor QTc) - start date 09/06; for 5 days - Continue prednisone and will taper slowly over 10-14 days (currently on prednisone 40mg which started 09/08/16) - continue breathing treatment ESRD - Nephrology consulted -HD done today - As per nephro might consider to continue HD daily until Thursday - Nephro will arrange for HD as an outpatient - cinacalcet on hold given hypocalcemia Elevated troponin - likely related to underlying ESRD - EKG did not show any significant ST changes - Asymptomatic - continue aspirin Hyperglycemia - related to steroid use - continue insulin therapy HTN - continue lisinopril and metoprolol DVT prophylaxis with heparin sq Disposition Possible discharge on Thursday Daily HD Nephro will arrange for outpatient HD Consultants: Pulmonary Nephrology Current Inpatient Medications: Current Inpatient Medications Medications (Trade) Dose Ordered Sig/Daysi Route Start Time Stop Time Status Last Admin Dose Admin Acetaminophen (Tylenol Tab) 650 mg Q4H PRN PO 09/04/16 21:00 10/04/16 20:59 Zolpidem Tartrate (Ambien Tab) 5 mg HSZ PRN PO 09/04/16 21:00 10/04/16 20:59 09/08/16 22:18 5 MG Nitroglycerin (Nitrostat Tab) 0.4 mg UD PRN SL 09/04/16 21:00 10/04/16 20:59 Albuterol (Ventolin Hfa Inhaler) 2 puffs Q6H PRN INH 09/04/16 21:15 10/04/16 21:14 09/06/16 00:25 2 PUFFS Allopurinol (Zyloprim Tab) 100 mg BID PO 09/05/16 09:00 10/05/16 08:59 09/09/16 14:07 100 MG Aspirin (Ecotrin Tab) 81 mg QAM PO 09/05/16 09:00 10/05/16 08:59 09/09/16 14:05 81 MG Calcitriol (Rocaltrol Cap) 0.25 mcg DAILY PO 09/05/16 09:00 10/05/16 08:59 09/09/16 14:06 0.25 MCG Lisinopril (Zestril Tab) 5 mg BID PO 09/05/16 09:00 10/05/16 08:59 09/09/16 14:07 5 MG Metoprolol Tartrate (Lopressor Tab) 50 mg BID PO 09/05/16 09:00 10/05/16 08:59 09/09/16 14:05 50 MG Multivitamins (Multivitamin Tab) 1 tab QAM PO 09/05/16 09:00 10/05/16 08:59 09/09/16 14:05 1 TAB Naphazoline HCl/ Pheniramine Maleate (Visine-A Oph Soln) 2 drops QID PRN OP 09/04/16 21:15 10/04/16 21:14 Zolpidem Tartrate (Ambien Tab) 10 mg HS PRN PO 09/04/16 21:15 10/04/16 21:14 09/04/16 23:27 10 MG Pantoprazole Sodium (Protonix Tab) 40 mg QAM PO 09/05/16 09:00 10/05/16 08:59 09/09/16 14:06 40 MG Sevelamer HCl (Renagel Tab) 1,600 mg TIDM PRN PO 09/05/16 07:30 10/05/16 07:29 09/07/16 13:35 1,600 MG Sevelamer HCl (Renagel Tab) 2,400 mg BIDM PO 09/05/16 07:30 10/05/16 07:29 09/09/16 18:17 2,400 MG Hydrocodone Bit/ Homatropine Methylb (Hycodan Syrup) 5 ml Q6H PRN PO 09/04/16 21:15 09/18/16 21:14 09/09/16 16:21 5 ML Heparin Sodium (Porcine) (Heparin Sq 5000 Unit/0.5ml) 5,000 unit Q8 SQ 09/05/16 06:00 10/05/16 05:59 09/08/16 20:06 5,000 UNIT Acetaminophen/ Hydrocodone Bitart ([place] 5/325 Tab) 1 tab Q4H PRN PO 09/04/16 23:15 09/18/16 23:14 09/09/16 09:02 1 TAB Insulin Aspart (novoLOG ASPART) SLIDING SCALE If C... ACHS SC 09/05/16 16:15 10/05/16 16:14 09/09/16 18:15 6 UNITS Glucose (Glucose 40% Gel) 15-30 GRAMS 15 GRAMS... UD PRN PO 09/05/16 11:45 10/05/16 11:44 Glucose (Glucose Chew Tab) 4-8 Tablets 4 Tabl... UD PRN PO 09/05/16 11:45 10/05/16 11:44 Dextrose (Dextrose 50% 50ML Syringe) 25-50ML OF 50% DW IV FOR... UD PRN IV 09/05/16 11:45 10/05/16 11:44 Glucagon (Glucagon Inj) 1 mg UD PRN SQ 09/05/16 11:45 10/05/16 11:44 Docusate Sodium (coLACE CAP) 100 mg BID PO 09/05/16 21:00 10/05/16 20:59 09/09/16 14:04 100 MG Albuterol/ Ipratropium (Duoneb) 3 ml QIDR INH 09/05/16 16:00 10/05/16 15:59 09/09/16 18:30 3 ML Albuterol/ Ipratropium (Duoneb) 3 ml Q2H PRN INH 09/05/16 13:00 10/05/16 12:59 Insulin Glargine (Lantus Solostar Pen) 10 unit QPM SC 09/06/16 21:00 10/06/16 20:59 09/08/16 20:05 10 UNIT Prednisone (PredniSONE TAB) 40 mg DAILY PO 09/08/16 09:00 2/15/17 08:59 09/09/16 14:05 40 MG Epoetin Ruiz (Procrit Inj) 10,000 units 0830 IV. 09/09/16 08:30 09/09/16 23:59 09/09/16 12:03 10,000 UNITS Epoetin Ruiz (Procrit Inj) 10,000 units TODAY@0800 IV. 09/10/16 08:00 09/10/16 23:59 Albumin Human (Albumin 25%) 12.5 gm TODAY@0800,0900 IV 09/10/16 08:00 09/10/16 23:59
[2016-09-09 19:28] LABS: HEMATOCRIT 32.4 % (42-52); MEAN CELL VOLUME 100.9 fL (80-100); MEAN CORPUSCULAR HEMOGLOBIN 31.2 pg (25-34); MEAN CORPUSCULAR HGB CONC 30.9 g/dl (32-36); MEAN PLATELET VOLUME 11.5 fL (7.4-10.4); PLATELET COUNT 111 K/uL (130-400); RED BLOOD COUNT 3.21 M/uL (4.7-6.1); WHITE BLOOD COUNT 5.37 K/uL (4.8-10.8)
[2016-09-09 20:08] LABS: BUN/CREATININE RATIO 5.1 (10-20); CALCIUM 8.4 mg/dl (8.5-10.1)
[2016-09-09 20:09] LABS: POTASSIUM 5.1 mmol/L (3.5-5.1)
[2016-09-09 20:29] LABS: BETA-HYDROXYBUTYRATE 1.49 mg/dL (0.2-2.81)
[2016-09-09] MEDS: INSULIN GLARGINE SOLOSTAR 100 UNITS/ML 3 ML PEN SC SCH (21:07)
[2016-09-09] MEDS: ZOLPIDEM TARTRATE 5 MG TAB PO PRN (22:01)
[2016-09-10] VITALS (7 sets, daily range): BP systolic 127–167; BP diastolic 66–85; PULSE 87–107; TEMP 36.7–36.9; O2SAT 91–96
[2016-09-10] MEDS: HEPARIN SOD 5000 UNIT/0.5 ML CARP SQ SCH ×4 (05:57→21:27)
[2016-09-10] MEDS: ALBUT/IPRATROP 3MG/0.5MG NEB 3 ML VIAL INH SCH ×4 (07:58→19:35)
[2016-09-10] MEDS ORDERED: EPOETIN ALFA 10,000 UNITS/ML VIAL IV. SCH (08:00)
[2016-09-10] MEDS: CALCITRIOL 0.25 MCG CAP PO SCH (08:22)
[2016-09-10] MEDS: MULTIVITAMIN TAB PO SCH (08:22)
[2016-09-10] MEDS: PANTOprazole SOD 40 MG TAB PO SCH (08:23)
[2016-09-10] MEDS: SEVELAMER HYDROCH 800 MG TAB PO SCH ×2 (08:23→17:41)
[2016-09-10] MEDS: DOCUSATE SODIUM 100 MG CAP PO SCH ×2 (08:23→20:29)
[2016-09-10] MEDS: LISINOPRIL 5 MG TAB PO SCH ×2 (08:23→20:29)
[2016-09-10] MEDS: ASPIRIN 81 MG ECTAB PO SCH (08:23)
[2016-09-10] MEDS: ALLOPURINOL 100 MG TAB PO SCH ×2 (08:23→20:29)
[2016-09-10] MEDS: METOPROLOL TARTRATE 50 MG TAB PO SCH ×2 (08:24→20:29)
[2016-09-10] MEDS: INSULIN ASPART 100 UNITS/ML 3 ML PEN SC SCH ×4 (08:29→21:47)
[2016-09-10 08:31] LABS: HEMATOCRIT 32.5 % (42-52); MEAN CELL VOLUME 97.9 fL (80-100); MEAN CORPUSCULAR HGB CONC 31.7 g/dl (32-36); MEAN PLATELET VOLUME 11.4 fL (7.4-10.4); PLATELET COUNT 127 K/uL (130-400); RED BLOOD COUNT 3.32 M/uL (4.7-6.1); WHITE BLOOD COUNT 5.26 K/uL (4.8-10.8)
[2016-09-10 09:11] LABS: BUN/CREATININE RATIO 6.2 (10-20); CALCIUM 8.9 mg/dl (8.5-10.1); CREATININE 6.1 mg/dl (0.60-1.40); POTASSIUM 4.3 mmol/L (3.5-5.1)
--- NOTE | 2016-09-10 09:25 | Nephrology Progress Note ---
Nephrology Progress Note Date of Service: Sep 10, 2016. Subjective 61 yo male with esrd and volume overload who was on pd for the last couple of months but has had a tumultuous course. Has had four hospitalizations of varying reasons from c. diff, volume depletion, and bronchitis and now with volume overload. Patient is on fluid restriction. Patient has requested to not have dialysis today. He states that he feels exhausted and would like a break for today. continues to be thirsty and eats a lot of ice. states that breathing has improved and was able to sit back without coughing last night. edema is worsened from yesterday. appetite is improved. no chest pain. no nausea/ vomiting. Objective Date Time Temp Pulse Resp B/P Pulse Ox O2 Delivery O2 Flow Rate FiO2 09/10/16 07:58 107 18 96 Room Air 09/10/16 07:41 36.8 96 20 167/85 Room Air 92.0 09/10/16 00:00 Room Air 09/09/16 23:35 37.0 86 20 142/82 94 Room Air 09/09/16 23:25 94 18 95 Room Air 09/09/16 18:29 102 18 93 Room Air 09/09/16 16:02 93 Room Air 09/09/16 15:30 85 18 93 Room Air 09/09/16 14:58 36.4 107 18 126/59 96 09/09/16 14:14 36.6 120 20 143/90 95 09/09/16 13:45 37.0 116 136/95 09/09/16 13:15 104 128/83 09/09/16 13:00 105 124/85 09/09/16 12:45 104 130/84 09/09/16 12:30 102 110/72 09/09/16 12:19 104 117/65 09/09/16 12:15 86 92/56 09/09/16 12:00 104 110/73 09/09/16 11:45 103 126/76 09/09/16 11:30 104 124/75 09/09/16 11:15 111 133/82 09/09/16 11:00 110 126/79 09/09/16 10:53 109 18 92 Room Air 09/09/16 10:45 105 134/81 09/09/16 10:30 105 138/85 1/17/17 10:23 110 129/78 09/09/16 10:14 36.7 106 129/62 Physical Exam: General-aaox3 Eyes-no scleral icterus ENT-mmm Neck-supple Lungs-crackles/rales Left Base>right base Heart-regular Abdomen-bs+, s/nt/nd Extremities-+2 edema b/l LE from foot to knee Neuro-nonfocal Current Inpatient Medications Medications (Trade) Dose Ordered Sig/Daysi Route Start Time Stop Time Status Last Admin Dose Admin Acetaminophen (Tylenol Tab) 650 mg Q4H PRN PO 09/04/16 21:00 10/04/16 20:59 Zolpidem Tartrate (Ambien Tab) 5 mg HSZ PRN PO 09/04/16 21:00 10/04/16 20:59 09/09/16 22:01 5 MG Nitroglycerin (Nitrostat Tab) 0.4 mg UD PRN SL 09/04/16 21:00 10/04/16 20:59 Albuterol (Ventolin Hfa Inhaler) 2 puffs Q6H PRN INH 09/04/16 21:15 10/04/16 21:14 09/06/16 00:25 2 PUFFS Allopurinol (Zyloprim Tab) 100 mg BID PO 09/05/16 09:00 10/05/16 08:59 09/10/16 08:23 100 MG Aspirin (Ecotrin Tab) 81 mg QAM PO 09/05/16 09:00 10/05/16 08:59 09/10/16 08:23 81 MG Calcitriol (Rocaltrol Cap) 0.25 mcg DAILY PO 09/05/16 09:00 10/05/16 08:59 09/10/16 08:22 0.25 MCG Lisinopril (Zestril Tab) 5 mg BID PO 09/05/16 09:00 10/05/16 08:59 09/10/16 08:23 5 MG Metoprolol Tartrate (Lopressor Tab) 50 mg BID PO 09/05/16 09:00 10/05/16 08:59 09/10/16 08:24 50 MG Multivitamins (Multivitamin Tab) 1 tab QAM PO 09/05/16 09:00 10/05/16 08:59 09/10/16 08:22 1 TAB Naphazoline HCl/ Pheniramine Maleate (Visine-A Oph Soln) 2 drops QID PRN OP 09/04/16 21:15 10/04/16 21:14 Zolpidem Tartrate (Ambien Tab) 10 mg HS PRN PO 09/04/16 21:15 10/04/16 21:14 09/04/16 23:27 10 MG Pantoprazole Sodium (Protonix Tab) 40 mg QAM PO 09/05/16 09:00 10/05/16 08:59 09/10/16 08:23 40 MG Sevelamer HCl (Renagel Tab) 1,600 mg TIDM PRN PO 09/05/16 07:30 10/05/16 07:29 09/07/16 13:35 1,600 MG Sevelamer HCl (Renagel Tab) 2,400 mg BIDM PO 09/05/16 07:30 10/05/16 07:29 09/10/16 08:23 2,400 MG Hydrocodone Bit/ Homatropine Methylb (Hycodan Syrup) 5 ml Q6H PRN PO 09/04/16 21:15 09/18/16 21:14 09/09/16 16:21 5 ML Heparin Sodium (Porcine) (Heparin Sq 5000 Unit/0.5ml) 5,000 unit Q8 SQ 09/05/16 06:00 10/05/16 05:59 09/08/16 20:06 5,000 UNIT Acetaminophen/ Hydrocodone Bitart ([place] 5/325 Tab) 1 tab Q4H PRN PO 09/04/16 23:15 09/18/16 23:14 09/09/16 22:01 1 TAB Insulin Aspart (novoLOG ASPART) SLIDING SCALE If C... ACHS SC 09/05/16 16:15 10/05/16 16:14 09/10/16 08:29 6 UNITS Glucose (Glucose 40% Gel) 15-30 GRAMS 15 GRAMS... UD PRN PO 09/05/16 11:45 10/05/16 11:44 Glucose (Glucose Chew Tab) 4-8 Tablets 4 Tabl... UD PRN PO 09/05/16 11:45 10/05/16 11:44 Dextrose (Dextrose 50% 50ML Syringe) 25-50ML OF 50% DW IV FOR... UD PRN IV 09/05/16 11:45 10/05/16 11:44 Glucagon (Glucagon Inj) 1 mg UD PRN SQ 09/05/16 11:45 10/05/16 11:44 Docusate Sodium (coLACE CAP) 100 mg BID PO 09/05/16 21:00 10/05/16 20:59 09/10/16 08:23 100 MG Albuterol/ Ipratropium (Duoneb) 3 ml QIDR INH 09/05/16 16:00 10/05/16 15:59 09/10/16 07:58 3 ML Albuterol/ Ipratropium (Duoneb) 3 ml Q2H PRN INH 09/05/16 13:00 10/05/16 12:59 Insulin Glargine (Lantus Solostar Pen) 10 unit QPM SC 09/06/16 21:00 10/06/16 20:59 09/09/16 21:07 10 UNIT Prednisone (PredniSONE TAB) 40 mg DAILY PO 09/08/16 09:00 10/08/16 08:59 09/10/16 08:23 40 MG Epoetin Ruiz (Procrit Inj) 10,000 units TODAY@0800 IV. 09/10/16 08:00 09/10/16 23:59 Albumin Human (Albumin 25%) 12.5 gm TODAY@0800,0900 IV 09/10/16 08:00 09/10/16 23:59 Last 24 Hours Test 09/09/16 14:06 09/09/16 16:06 09/09/16 19:00 09/09/16 20:52 Bedside Glucose 123 mg/dl 198 mg/dl 307 mg/dl White Blood Count 5.37 K/uL Red Blood Count 3.21 M/uL Hemoglobin 10.0 g/dL Hematocrit 32.4 % Mean Corpuscular Volume 100.9 fL Mean Corpuscular Hemoglobin 31.2 pg Mean Corpuscular Hemoglobin Concent 30.9 g/dl RDW Standard Deviation 58.3 fL RDW Coefficient of Variation 16.0 % Platelet Count 111 K/uL Mean Platelet Volume 11.5 fL Sodium Level 137 mmol/L Potassium Level 5.1 mmol/L Chloride Level 99 mmol/L Carbon Dioxide Level 28 mmol/L Anion Gap 10.0 mmol/L Blood Urea Nitrogen 26 mg/dl Creatinine 5.00 mg/dl Est Creatinine Clear Calc Drug Dose 19.9 ml/min Estimated GFR () 13.4 Estimated GFR (Non- 11.6 BUN/Creatinine Ratio 5.1 Random Glucose 333 mg/dl Calcium Level 8.4 mg/dl Beta-Hydroxybutyric Acid 1.49 mg/dL Chemistry Specimen Hemolysis Test 09/10/16 07:58 09/10/16 08:12 Bedside Glucose 182 mg/dl White Blood Count 5.26 K/uL Red Blood Count 3.32 M/uL Hemoglobin 10.3 g/dL Hematocrit 32.5 % Mean Corpuscular Volume 97.9 fL Mean Corpuscular Hemoglobin 31.0 pg Mean Corpuscular Hemoglobin Concent 31.7 g/dl RDW Standard Deviation 55.4 fL RDW Coefficient of Variation 15.7 % Platelet Count 127 K/uL Mean Platelet Volume 11.4 fL Sodium Level 139 mmol/L Potassium Level 4.3 mmol/L Chloride Level 101 mmol/L Carbon Dioxide Level 26 mmol/L Anion Gap 12.0 mmol/L Blood Urea Nitrogen 38 mg/dl Creatinine 6.10 mg/dl Est Creatinine Clear Calc Drug Dose 16.3 ml/min Estimated GFR () 10.5 Estimated GFR (Non- 9.1 BUN/Creatinine Ratio 6.2 Random Glucose 182 mg/dl Calcium Level 8.9 mg/dl Other Studies: 09/08/16 09/09/16 09/10/16 08:00 08:00 08:00 Intake Total 1115 ml 825 ml 860 ml Output Total 3300 ml 4000 ml 2728 ml Balance -2185 ml -3175 ml -1868 ml Assessment & Plan ESRD-will hold on dialysis today and restart tomorrow. strongly cautioned patient to restrict fluids and amount of ice he is eating. may benefit from albumin to help mobilize fluid in legs. potassium ok at 4.7. will have patient continue hd as outpt. hypocalcemia-Improved at 8.9. continue to hold sensipar and monitor. This patient was seen and treated with direct collaboration with Dr. Jimenez. Thank you for the opportunity to participate in this patient's care. Appreciate the Consult. ATTENDING NOTE: I performed a history and physical examination of the patient, including specifically on history- pt is tired and exhausted. wants a day off from dialysis, on physical exam-continues to have significant edema, and my impression and plan are ESRD-continues to be fluid overloaded but did have cramping yesterday on dialysis. was tentatively going to use albumin today but pt is tired and needs a day off from dialysis. I have discussed the patient's management with Nikki Slade PA-C, Please refer to above note for the documented findings and plan of care. Herbert Oncu DO
[2016-09-10] MEDS: ALBUMIN HUMAN 25% 12.5 GM/50 ML VIAL IV SCH ×2 (09:40→10:45)
--- NOTE | 2016-09-10 15:36 | Progress Note ---
Medicine Progress Note Date & Time of Visit: Sep 10, 2016 at 15:26. Subjective Pt was seen and examined sitting in bed comfortable with no distress with at beside Pt said that he is feeling a little better he said that this morning he was feeling tired and exhausted that was the reason he did not want to HD he said that he feels his breathing his getting better denies any chest pain, palpitation, dizziness an sob Objective Last 8 Hrs Date Time Temp Pulse Resp B/P Pulse Ox O2 Delivery O2 Flow Rate FiO2 09/10/16 15:24 36.9 102 20 150/80 91 Room Air 09/10/16 11:19 93 18 92 Room Air 09/10/16 08:00 Room Air 09/10/16 07:58 107 18 96 Room Air 09/10/16 07:41 36.8 96 20 167/85 Room Air 92.0 Physical Exam: General- No acute distress Head- atraumatic Eyes- PERRL, EOMI ENT- oropharynx clear Neck- supple, no JVD Lungs- clear to auscultation and percussion Heart- no murmur Abdomen- normal bowel sounds, soft Extremities- no calf tenderness, + edema Neuro- alert, oriented x 3; PERRL, EOMI Skin- warm & dry Laboratory Results: Last 24 Hours Test 09/09/16 16:06 09/09/16 19:00 09/09/16 20:52 09/10/16 07:58 Bedside Glucose 198 mg/dl 307 mg/dl 182 mg/dl White Blood Count 5.37 K/uL Red Blood Count 3.21 M/uL Hemoglobin 10.0 g/dL Hematocrit 32.4 % Mean Corpuscular Volume 100.9 fL Mean Corpuscular Hemoglobin 31.2 pg Mean Corpuscular Hemoglobin Concent 30.9 g/dl RDW Standard Deviation 58.3 fL RDW Coefficient of Variation 16.0 % Platelet Count 111 K/uL Mean Platelet Volume 11.5 fL Sodium Level 137 mmol/L Potassium Level 5.1 mmol/L Chloride Level 99 mmol/L Carbon Dioxide Level 28 mmol/L Anion Gap 10.0 mmol/L Blood Urea Nitrogen 26 mg/dl Creatinine 5.00 mg/dl Est Creatinine Clear Calc Drug Dose 19.9 ml/min Estimated GFR () 13.4 Estimated GFR (Non- 11.6 BUN/Creatinine Ratio 5.1 Random Glucose 333 mg/dl Calcium Level 8.4 mg/dl Beta-Hydroxybutyric Acid 1.49 mg/dL Chemistry Specimen Hemolysis Test 09/10/16 08:12 09/10/16 11:33 White Blood Count 5.26 K/uL Red Blood Count 3.32 M/uL Hemoglobin 10.3 g/dL Hematocrit 32.5 % Mean Corpuscular Volume 97.9 fL Mean Corpuscular Hemoglobin 31.0 pg Mean Corpuscular Hemoglobin Concent 31.7 g/dl RDW Standard Deviation 55.4 fL RDW Coefficient of Variation 15.7 % Platelet Count 127 K/uL Mean Platelet Volume 11.4 fL Sodium Level 139 mmol/L Potassium Level 4.3 mmol/L Chloride Level 101 mmol/L Carbon Dioxide Level 26 mmol/L Anion Gap 12.0 mmol/L Blood Urea Nitrogen 38 mg/dl Creatinine 6.10 mg/dl Est Creatinine Clear Calc Drug Dose 16.3 ml/min Estimated GFR () 10.5 Estimated GFR (Non- 9.1 BUN/Creatinine Ratio 6.2 Random Glucose 182 mg/dl Calcium Level 8.9 mg/dl Bedside Glucose 151 mg/dl Assessment & Plan Possible mycoplasma pneumonia - Pulmonary consulted - continue renally dosed levofloxacin (monitor QTc) - start date 09/06; for 5 days - Continue prednisone and will taper slowly over 10-14 days (currently on prednisone 40mg which started 09/08/16) - Will taper to 30mg tomorrow - continue breathing treatment ESRD - Nephrology consulted -refuse HD today because he was feeling tired due to daily HD - As per nephro will resume HD tomorrow. - Anticipate last day of HD on Thursday - Nephro will arrange for HD as an outpatient - cinacalcet on hold given hypocalcemia Elevated troponin - likely related to underlying ESRD - EKG did not show any significant ST changes - Asymptomatic - continue aspirin Hyperglycemia - related to steroid use - continue insulin therapy - continue monitor BS HTN - continue lisinopril and metoprolol - Continue monitor BP DVT prophylaxis with heparin sq Disposition Possible discharge on Thursday Daily HD Nephro will arrange for outpatient HD Consultants: Pulmonary Nephrology Current Inpatient Medications: Current Inpatient Medications Medications (Trade) Dose Ordered Sig/Daysi Route Start Time Stop Time Status Last Admin Dose Admin Acetaminophen (Tylenol Tab) 650 mg Q4H PRN PO 09/04/16 21:00 10/04/16 20:59 Zolpidem Tartrate (Ambien Tab) 5 mg HSZ PRN PO 09/04/16 21:00 10/04/16 20:59 09/09/16 22:01 5 MG Nitroglycerin (Nitrostat Tab) 0.4 mg UD PRN SL 09/04/16 21:00 10/04/16 20:59 Albuterol (Ventolin Hfa Inhaler) 2 puffs Q6H PRN INH 09/04/16 21:15 10/04/16 21:14 09/06/16 00:25 2 PUFFS Allopurinol (Zyloprim Tab) 100 mg BID PO 09/05/16 09:00 10/05/16 08:59 09/10/16 08:23 100 MG Aspirin (Ecotrin Tab) 81 mg QAM PO 09/05/16 09:00 10/05/16 08:59 09/10/16 08:23 81 MG Calcitriol (Rocaltrol Cap) 0.25 mcg DAILY PO 09/05/16 09:00 10/05/16 08:59 09/10/16 08:22 0.25 MCG Lisinopril (Zestril Tab) 5 mg BID PO 09/05/16 09:00 10/05/16 08:59 09/10/16 08:23 5 MG Metoprolol Tartrate (Lopressor Tab) 50 mg BID PO 09/05/16 09:00 10/05/16 08:59 09/10/16 08:24 50 MG Multivitamins (Multivitamin Tab) 1 tab QAM PO 09/05/16 09:00 10/05/16 08:59 09/10/16 08:22 1 TAB Naphazoline HCl/ Pheniramine Maleate (Visine-A Oph Soln) 2 drops QID PRN OP 09/04/16 21:15 10/04/16 21:14 Zolpidem Tartrate (Ambien Tab) 10 mg HS PRN PO 09/04/16 21:15 10/04/16 21:14 09/04/16 23:27 10 MG Pantoprazole Sodium (Protonix Tab) 40 mg QAM PO 09/05/16 09:00 10/05/16 08:59 09/10/16 08:23 40 MG Sevelamer HCl (Renagel Tab) 1,600 mg TIDM PRN PO 09/05/16 07:30 10/05/16 07:29 09/07/16 13:35 1,600 MG Sevelamer HCl (Renagel Tab) 2,400 mg BIDM PO 09/05/16 07:30 10/05/16 07:29 09/10/16 08:23 2,400 MG Hydrocodone Bit/ Homatropine Methylb (Hycodan Syrup) 5 ml Q6H PRN PO 09/04/16 21:15 09/18/16 21:14 09/09/16 16:21 5 ML Heparin Sodium (Porcine) (Heparin Sq 5000 Unit/0.5ml) 5,000 unit Q8 SQ 09/05/16 06:00 10/05/16 05:59 09/08/16 20:06 5,000 UNIT Acetaminophen/ Hydrocodone Bitart ([place] 5/325 Tab) 1 tab Q4H PRN PO 09/04/16 23:15 09/18/16 23:14 09/09/16 22:01 1 TAB Insulin Aspart (novoLOG ASPART) SLIDING SCALE If C... ACHS SC 09/05/16 16:15 10/05/16 16:14 09/10/16 13:15 4 UNITS Glucose (Glucose 40% Gel) 15-30 GRAMS 15 GRAMS... UD PRN PO 09/05/16 11:45 10/05/16 11:44 Glucose (Glucose Chew Tab) 4-8 Tablets 4 Tabl... UD PRN PO 09/05/16 11:45 10/05/16 11:44 Dextrose (Dextrose 50% 50ML Syringe) 25-50ML OF 50% DW IV FOR... UD PRN IV 09/05/16 11:45 10/05/16 11:44 Glucagon (Glucagon Inj) 1 mg UD PRN SQ 09/05/16 11:45 10/05/16 11:44 Docusate Sodium (coLACE CAP) 100 mg BID PO 09/05/16 21:00 10/05/16 20:59 09/10/16 08:23 100 MG Albuterol/ Ipratropium (Duoneb) 3 ml QIDR INH 09/05/16 16:00 10/05/16 15:59 09/10/16 11:18 3 ML Albuterol/ Ipratropium (Duoneb) 3 ml Q2H PRN INH 09/05/16 13:00 10/05/16 12:59 Insulin Glargine (Lantus Solostar Pen) 10 unit QPM SC 09/06/16 21:00 10/06/16 20:59 09/09/16 21:07 10 UNIT Prednisone (PredniSONE TAB) 40 mg DAILY PO 09/08/16 09:00 10/08/16 08:59 09/10/16 08:23 40 MG Epoetin Ruiz (Procrit Inj) 10,000 units TODAY@0800 IV. 09/10/16 08:00 09/10/16 23:59 Albumin Human (Albumin 25%) 12.5 gm TODAY@0800,0900 IV 09/10/16 08:00 09/10/16 23:59
[2016-09-10] MEDS: HYDROCODONE/ACETAMOPHEN 5/325MG TAB PO PRN (21:29)
[2016-09-10] MEDS: INSULIN GLARGINE SOLOSTAR 100 UNITS/ML 3 ML PEN SC SCH (21:45)
[2016-09-10] MEDS: ZOLPIDEM TARTRATE 10 MG TAB PO PRN (22:09)
[2016-09-10] MEDS: HYDROCODONE/HOMATROPINE SYRUP 5MG/1.5MG 5ML UDP PO PRN (22:09)
[2016-09-11] VITALS (25 sets, daily range): BP systolic 116–183; BP diastolic 56–94; PULSE 62–106; TEMP 36–37.1; O2SAT 91–97
[2016-09-11] MEDS: ALBUT/IPRATROP 3MG/0.5MG NEB 3 ML VIAL INH SCH ×7 (00:07→20:18)
[2016-09-11 06:14] LABS: HEMATOCRIT 30.4 % (42-52); MEAN CELL VOLUME 98.7 fL (80-100); MEAN CORPUSCULAR HEMOGLOBIN 30.8 pg (25-34); MEAN CORPUSCULAR HGB CONC 31.3 g/dl (32-36); MEAN PLATELET VOLUME 10.3 fL (7.4-10.4); PLATELET COUNT 127 K/uL (130-400); RED BLOOD COUNT 3.08 M/uL (4.7-6.1); WHITE BLOOD COUNT 5.64 K/uL (4.8-10.8)
[2016-09-11 06:53] LABS: BUN/CREATININE RATIO 6.8 (10-20); CALCIUM 8.5 mg/dl (8.5-10.1); CARBON DIOXIDE 26 mmol/L (21-32); CHLORIDE 102 mmol/L (98-107); GLUCOSE 134 mg/dl (70-99); PHOSPHORUS 6.3 mg/dl (2.5-4.9); SODIUM 140 mmol/L (136-145)
[2016-09-11 07:05] LABS: BLOOD UREA NITROGEN 59 mg/dl (7-18)
[2016-09-11] MEDS ORDERED: EPOETIN ALFA 10,000 UNITS/ML VIAL IV. SCH (08:00)
[2016-09-11] MEDS: PANTOprazole SOD 40 MG TAB PO SCH (08:05)
[2016-09-11] MEDS: DOCUSATE SODIUM 100 MG CAP PO SCH ×2 (08:05→20:00)
[2016-09-11] MEDS: ASPIRIN 81 MG ECTAB PO SCH (08:05)
[2016-09-11] MEDS: SEVELAMER HYDROCH 800 MG TAB PO SCH ×2 (08:05→17:05)
[2016-09-11] MEDS: MULTIVITAMIN TAB PO SCH (08:05)
[2016-09-11] MEDS: ALLOPURINOL 100 MG TAB PO SCH ×2 (08:05→20:43)
[2016-09-11] MEDS: LISINOPRIL 5 MG TAB PO SCH ×2 (08:06→20:43)
[2016-09-11] MEDS: METOPROLOL TARTRATE 50 MG TAB PO SCH ×2 (08:06→20:44)
[2016-09-11] MEDS: CALCITRIOL 0.25 MCG CAP PO SCH (08:06)
[2016-09-11 08:40] LABS: POTASSIUM 4.7 mmol/L (3.5-5.1)
[2016-09-11] MEDS: INSULIN ASPART 100 UNITS/ML 3 ML PEN SC SCH ×4 (09:00→20:41)
[2016-09-11] MEDS: HYDROCODONE/HOMATROPINE SYRUP 5MG/1.5MG 5ML UDP PO PRN ×2 (09:13→21:35)
[2016-09-11] MEDS: ALBUMIN HUMAN 25% 12.5 GM/50 ML VIAL IV SCH ×2 (10:00→11:00)
[2016-09-11] MEDS: HEPARIN SOD 5000 UNIT/0.5 ML CARP SQ SCH ×2 (13:07→20:43)
--- NOTE | 2016-09-11 16:15 | Nephrology Progress Note ---
Nephrology Progress Note Date of Service: Sep 11, 2016. Subjective 61 yo male with esrd and volume overload who was on pd for the last couple of months but has had a tumultuous course. Has had four hospitalizations of varying reasons from c. diff, volume depletion, and bronchitis and now with volume overload. Patient is on fluid restriction. Patient had dialysis earlier today and tolerated it well. volume status looks unchanged since last seen. tolerated 4L UF today. states that SOB/cough is unchanged for now. Edema is the same. no chest pain. no nausea/vomiting. Objective Date Time Temp Pulse Resp B/P Pulse Ox O2 Delivery O2 Flow Rate FiO2 09/11/16 15:26 37.0 106 16 116/56 93 09/11/16 14:14 106 16 92 Room Air 09/11/16 12:58 36.0 88 131/76 09/11/16 12:15 83 132/74 09/11/16 12:00 78 124/75 09/11/16 11:45 83 134/80 09/11/16 11:30 87 128/78 09/11/16 11:15 87 136/69 09/11/16 11:00 78 142/77 09/11/16 10:45 86 135/86 09/11/16 10:37 36.9 89 162/89 09/11/16 10:30 79 132/81 09/11/16 10:23 162/ 09/11/16 10:15 80 129/76 09/11/16 10:00 82 140/82 09/11/16 09:45 85 148/82 09/11/16 09:30 80 139/87 09/11/16 09:00 91 Room Air 09/11/16 07:47 106 16 92 Room Air 09/11/16 07:16 37.1 103 20 183/94 91 Room Air 09/11/16 05:11 94 18 95 Room Air 09/11/16 00:07 94 18 95 Room Air 09/11/16 00:00 Room Air 09/10/16 23:53 36.7 87 20 127/66 95 Room Air 09/10/16 20:00 Room Air 09/10/16 19:35 101 18 93 Room Air Physical Exam: General-aaox3 Eyes-no scleral icterus ENT-mmm Neck-supple Lungs-crackles/rales Left Base>right base Heart-regular Abdomen-bs+, s/nt/nd Extremities-+2 edema b/l LE from foot to knee Neuro-nonfocal Current Inpatient Medications Medications (Trade) Dose Ordered Sig/Daysi Route Start Time Stop Time Status Last Admin Dose Admin Acetaminophen (Tylenol Tab) 650 mg Q4H PRN PO 09/04/16 21:00 10/04/16 20:59 Zolpidem Tartrate (Ambien Tab) 5 mg HSZ PRN PO 09/04/16 21:00 10/04/16 20:59 09/09/16 22:01 5 MG Nitroglycerin (Nitrostat Tab) 0.4 mg UD PRN SL 09/04/16 21:00 10/04/16 20:59 Albuterol (Ventolin Hfa Inhaler) 2 puffs Q6H PRN INH 09/04/16 21:15 10/04/16 21:14 09/06/16 00:25 2 PUFFS Allopurinol (Zyloprim Tab) 100 mg BID PO 09/05/16 09:00 10/05/16 08:59 09/11/16 08:05 100 MG Aspirin (Ecotrin Tab) 81 mg QAM PO 09/05/16 09:00 10/05/16 08:59 09/11/16 08:05 81 MG Calcitriol (Rocaltrol Cap) 0.25 mcg DAILY PO 09/05/16 09:00 10/05/16 08:59 09/11/16 08:06 0.25 MCG Lisinopril (Zestril Tab) 5 mg BID PO 09/05/16 09:00 10/05/16 08:59 09/11/16 08:06 5 MG Metoprolol Tartrate (Lopressor Tab) 50 mg BID PO 09/05/16 09:00 10/05/16 08:59 09/11/16 08:06 50 MG Multivitamins (Multivitamin Tab) 1 tab QAM PO 09/05/16 09:00 10/05/16 08:59 09/11/16 08:05 1 TAB Naphazoline HCl/ Pheniramine Maleate (Visine-A Oph Soln) 2 drops QID PRN OP 09/04/16 21:15 10/04/16 21:14 Zolpidem Tartrate (Ambien Tab) 10 mg HS PRN PO 09/04/16 21:15 10/04/16 21:14 09/10/16 22:09 10 MG Pantoprazole Sodium (Protonix Tab) 40 mg QAM PO 09/05/16 09:00 10/05/16 08:59 09/11/16 08:05 40 MG Sevelamer HCl (Renagel Tab) 1,600 mg TIDM PRN PO 09/05/16 07:30 10/05/16 07:29 09/07/16 13:35 1,600 MG Sevelamer HCl (Renagel Tab) 2,400 mg BIDM PO 09/05/16 07:30 10/05/16 07:29 09/11/16 08:05 2,400 MG Hydrocodone Bit/ Homatropine Methylb (Hycodan Syrup) 5 ml Q6H PRN PO 09/04/16 21:15 09/18/16 21:14 09/11/16 09:13 5 ML Heparin Sodium (Porcine) (Heparin Sq 5000 Unit/0.5ml) 5,000 unit Q8 SQ 09/05/16 06:00 10/05/16 05:59 09/08/16 20:06 5,000 UNIT Acetaminophen/ Hydrocodone Bitart ([place] 5/325 Tab) 1 tab Q4H PRN PO 09/04/16 23:15 09/18/16 23:14 09/10/16 21:29 1 TAB Insulin Aspart (novoLOG ASPART) SLIDING SCALE If C... ACHS SC 09/05/16 16:15 10/05/16 16:14 09/11/16 13:09 6 UNITS Glucose (Glucose 40% Gel) 15-30 GRAMS 15 GRAMS... UD PRN PO 09/05/16 11:45 10/05/16 11:44 Glucose (Glucose Chew Tab) 4-8 Tablets 4 Tabl... UD PRN PO 09/05/16 11:45 10/05/16 11:44 Dextrose (Dextrose 50% 50ML Syringe) 25-50ML OF 50% DW IV FOR... UD PRN IV 09/05/16 11:45 10/05/16 11:44 Glucagon (Glucagon Inj) 1 mg UD PRN SQ 09/05/16 11:45 10/05/16 11:44 Docusate Sodium (coLACE CAP) 100 mg BID PO 09/05/16 21:00 10/05/16 20:59 09/11/16 08:05 100 MG Albuterol/ Ipratropium (Duoneb) 3 ml QIDR INH 09/05/16 16:00 10/05/16 15:59 09/11/16 14:14 3 ML Albuterol/ Ipratropium (Duoneb) 3 ml Q2H PRN INH 09/05/16 13:00 10/05/16 12:59 Insulin Glargine (Lantus Solostar Pen) 10 unit QPM SC 09/06/16 21:00 10/06/16 20:59 09/10/16 21:45 10 UNIT Prednisone (PredniSONE TAB) 40 mg DAILY PO 09/08/16 09:00 10/08/16 08:59 09/11/16 08:05 40 MG Epoetin Ruiz (Procrit Inj) 10,000 units TODAY@0800 IV. 09/11/16 08:00 09/11/16 23:59 09/11/16 11:45 10,000 UNITS Albumin Human (Albumin 25%) 12.5 gm TODAY@1000,1100 IV 09/11/16 10:00 09/11/16 23:59 Last 24 Hours Test 09/10/16 16:50 09/10/16 20:15 09/11/16 06:04 09/11/16 07:04 Bedside Glucose 327 mg/dl 282 mg/dl White Blood Count 5.64 K/uL Red Blood Count 3.08 M/uL Hemoglobin 9.5 g/dL Hematocrit 30.4 % Mean Corpuscular Volume 98.7 fL Mean Corpuscular Hemoglobin 30.8 pg Mean Corpuscular Hemoglobin Concent 31.3 g/dl RDW Standard Deviation 56.5 fL RDW Coefficient of Variation 16.0 % Platelet Count 127 K/uL Mean Platelet Volume 10.3 fL Sodium Level 140 mmol/L Potassium Level mmol/L 4.7 mmol/L Chloride Level 102 mmol/L Carbon Dioxide Level 26 mmol/L Anion Gap 12.0 mmol/L Blood Urea Nitrogen 59 mg/dl Creatinine 8.60 mg/dl Est Creatinine Clear Calc Drug Dose 11.6 ml/min Estimated GFR () 7.0 Estimated GFR (Non- 6.0 BUN/Creatinine Ratio 6.8 Random Glucose 134 mg/dl Calcium Level 8.5 mg/dl Phosphorus Level 6.3 mg/dl Magnesium Level mg/dl 2.0 mg/dl Test 09/11/16 07:58 09/11/16 13:05 Bedside Glucose 113 mg/dl 250 mg/dl Assessment & Plan ESRD-Patient tolerated dialysis well today. no cramping. potassium adequate at 4.7. plan to dialyze tomorrow with albumin to help with fluid mobilization. will have patient continue hd as outpt. hypocalcemia-last calcium 8.5. continue to hold sensipar and monitor. Hyperphosphatemia: Phosphorus increased. to give phosphate binders with meals. This patient was seen and treated with direct collaboration with Dr. Jimenez. Thank you for the opportunity to participate in this patient's care. Appreciate the Consult. ATTENDING NOTE: I performed a history and physical examination of the patient, including specifically on history- continues to have cough and swelling but wants to go home tomorrow, on physical exam-+2 edema, and my impression and plan are ESRD- appears to tolerate fluid removal with albumin and will plan on dialysis again tomorrow with albumin to try to help mobilize the extra fluid to help with his breathing. I have discussed the patient's management with Nikki Slade PA-C, Please refer to above note for the documented findings and plan of care. Herbert Jimenez DO
[2016-09-11] MEDS: HYDROCODONE/ACETAMOPHEN 5/325MG TAB PO PRN (18:49)
--- NOTE | 2016-09-11 19:09 | Progress Note ---
Medicine Progress Note Date & Time of Visit: Sep 11, 2016 at 19:03. Subjective Pt was seen and examined Sitting in bed with mild respiratory distress Pt said that today after HD he feels very weak and tired He said that he developed SOB he had a breathing treatment and was placed on oxygen he denies any chest pain and palpitation Objective Last 8 Hrs Date Time Temp Pulse Resp B/P Pulse Ox O2 Delivery O2 Flow Rate FiO2 09/11/16 15:26 37.0 106 16 116/56 93 09/11/16 14:14 106 16 92 Room Air 09/11/16 12:58 36.0 88 131/76 09/11/16 12:15 83 132/74 09/11/16 12:00 78 124/75 09/11/16 11:45 83 134/80 09/11/16 11:30 87 128/78 09/11/16 11:15 87 136/69 Physical Exam: General- No acute distress Head- atraumatic Eyes- PERRL, EOMI ENT- oropharynx clear Neck- supple, no JVD Lungs- clear to auscultation and percussion Heart- no murmur Abdomen- normal bowel sounds, soft Extremities- no calf tenderness, + edema Neuro- alert, oriented x 3; PERRL, EOMI Skin- warm & dry Laboratory Results: Last 24 Hours Test 09/10/16 20:15 09/11/16 06:04 09/11/16 07:04 09/11/16 07:58 Bedside Glucose 282 mg/dl 113 mg/dl White Blood Count 5.64 K/uL Red Blood Count 3.08 M/uL Hemoglobin 9.5 g/dL Hematocrit 30.4 % Mean Corpuscular Volume 98.7 fL Mean Corpuscular Hemoglobin 30.8 pg Mean Corpuscular Hemoglobin Concent 31.3 g/dl RDW Standard Deviation 56.5 fL RDW Coefficient of Variation 16.0 % Platelet Count 127 K/uL Mean Platelet Volume 10.3 fL Sodium Level 140 mmol/L Potassium Level mmol/L 4.7 mmol/L Chloride Level 102 mmol/L Carbon Dioxide Level 26 mmol/L Anion Gap 12.0 mmol/L Blood Urea Nitrogen 59 mg/dl Creatinine 8.60 mg/dl Est Creatinine Clear Calc Drug Dose 11.6 ml/min Estimated GFR () 7.0 Estimated GFR (Non- 6.0 BUN/Creatinine Ratio 6.8 Random Glucose 134 mg/dl Calcium Level 8.5 mg/dl Phosphorus Level 6.3 mg/dl Magnesium Level mg/dl 2.0 mg/dl Test 09/11/16 13:05 09/11/16 17:06 Bedside Glucose 250 mg/dl 312 mg/dl Assessment & Plan Possible mycoplasma pneumonia - Pulmonary consulted - continue renally dosed levofloxacin (monitor QTc) - start date 09/06; for 5 days - Continue prednisone and will taper slowly over 10-14 days (currently on prednisone 40mg which started 09/08/16) - Prednisone taper to 30mg - continue breathing treatment -continue oxygen supplement ESRD - Nephrology consulted - HD today - Anticipate last day of HD tomorrow - Nephro will arrange for HD as an outpatient - cinacalcet on hold given hypocalcemia Elevated troponin - likely related to underlying ESRD - EKG did not show any significant ST changes - Asymptomatic - continue aspirin Hyperglycemia - related to steroid use - continue insulin therapy - continue monitor BS HTN - continue lisinopril and metoprolol - Continue monitor BP - Table DVT prophylaxis with heparin sq Disposition Possible discharge on Thursday Daily HD Nephro will arrange for outpatient HD Consultants: Pulmonary Nephrology Current Inpatient Medications: Current Inpatient Medications Medications (Trade) Dose Ordered Sig/Daysi Route Start Time Stop Time Status Last Admin Dose Admin Acetaminophen (Tylenol Tab) 650 mg Q4H PRN PO 09/04/16 21:00 10/04/16 20:59 Zolpidem Tartrate (Ambien Tab) 5 mg HSZ PRN PO 09/04/16 21:00 10/04/16 20:59 09/09/16 22:01 5 MG Nitroglycerin (Nitrostat Tab) 0.4 mg UD PRN SL 09/04/16 21:00 10/04/16 20:59 Albuterol (Ventolin Hfa Inhaler) 2 puffs Q6H PRN INH 09/04/16 21:15 10/04/16 21:14 09/06/16 00:25 2 PUFFS Allopurinol (Zyloprim Tab) 100 mg BID PO 09/05/16 09:00 10/05/16 08:59 09/11/16 08:05 100 MG Aspirin (Ecotrin Tab) 81 mg QAM PO 09/05/16 09:00 10/05/16 08:59 09/11/16 08:05 81 MG Calcitriol (Rocaltrol Cap) 0.25 mcg DAILY PO 09/05/16 09:00 10/05/16 08:59 09/11/16 08:06 0.25 MCG Lisinopril (Zestril Tab) 5 mg BID PO 09/05/16 09:00 10/05/16 08:59 09/11/16 08:06 5 MG Metoprolol Tartrate (Lopressor Tab) 50 mg BID PO 09/05/16 09:00 10/05/16 08:59 09/11/16 08:06 50 MG Multivitamins (Multivitamin Tab) 1 tab QAM PO 09/05/16 09:00 10/05/16 08:59 09/11/16 08:05 1 TAB Naphazoline HCl/ Pheniramine Maleate (Visine-A Oph Soln) 2 drops QID PRN OP 09/04/16 21:15 10/04/16 21:14 Zolpidem Tartrate (Ambien Tab) 10 mg HS PRN PO 09/04/16 21:15 10/04/16 21:14 09/10/16 22:09 10 MG Pantoprazole Sodium (Protonix Tab) 40 mg QAM PO 09/05/16 09:00 10/05/16 08:59 09/11/16 08:05 40 MG Sevelamer HCl (Renagel Tab) 1,600 mg TIDM PRN PO 09/05/16 07:30 10/05/16 07:29 09/07/16 13:35 1,600 MG Sevelamer HCl (Renagel Tab) 2,400 mg BIDM PO 09/05/16 07:30 10/05/16 07:29 09/11/16 17:05 2,400 MG Hydrocodone Bit/ Homatropine Methylb (Hycodan Syrup) 5 ml Q6H PRN PO 09/04/16 21:15 09/18/16 21:14 09/11/16 09:13 5 ML Heparin Sodium (Porcine) (Heparin Sq 5000 Unit/0.5ml) 5,000 unit Q8 SQ 09/05/16 06:00 10/05/16 05:59 09/08/16 20:06 5,000 UNIT Acetaminophen/ Hydrocodone Bitart ([place] 5/325 Tab) 1 tab Q4H PRN PO 09/04/16 23:15 09/18/16 23:14 09/11/16 18:49 1 TAB Insulin Aspart (novoLOG ASPART) SLIDING SCALE If C... ACHS SC 09/05/16 16:15 10/05/16 16:14 09/11/16 18:36 11 UNITS Glucose (Glucose 40% Gel) 15-30 GRAMS 15 GRAMS... UD PRN PO 09/05/16 11:45 10/05/16 11:44 Glucose (Glucose Chew Tab) 4-8 Tablets 4 Tabl... UD PRN PO 09/05/16 11:45 10/05/16 11:44 Dextrose (Dextrose 50% 50ML Syringe) 25-50ML OF 50% DW IV FOR... UD PRN IV 09/05/16 11:45 10/05/16 11:44 Glucagon (Glucagon Inj) 1 mg UD PRN SQ 09/05/16 11:45 10/05/16 11:44 Docusate Sodium (coLACE CAP) 100 mg BID PO 09/05/16 21:00 10/05/16 20:59 09/11/16 08:05 100 MG Albuterol/ Ipratropium (Duoneb) 3 ml QIDR INH 09/05/16 16:00 10/05/16 15:59 09/11/16 14:14 3 ML Albuterol/ Ipratropium (Duoneb) 3 ml Q2H PRN INH 09/05/16 13:00 10/05/16 12:59 Insulin Glargine (Lantus Solostar Pen) 10 unit QPM SC 09/06/16 21:00 10/06/16 20:59 09/10/16 21:45 10 UNIT Prednisone (PredniSONE TAB) 40 mg DAILY PO 09/08/16 09:00 10/08/16 08:59 09/11/16 08:05 40 MG Epoetin Ruiz (Procrit Inj) 10,000 units TODAY@0800 IV. 09/11/16 08:00 09/11/16 23:59 09/11/16 11:45 10,000 UNITS Albumin Human (Albumin 25%) 12.5 gm TODAY@1000,1100 IV 09/11/16 10:00 09/11/16 23:59 Epoetin Ruiz (Procrit Inj) 10,000 units TODAY@0800 IV. 09/12/16 08:00 09/12/16 18:00 Albumin Human (Albumin 25%) 12.5 gm TODAY@0800,0900 IV 09/12/16 08:00 09/12/16 18:00
[2016-09-11] MEDS: INSULIN GLARGINE SOLOSTAR 100 UNITS/ML 3 ML PEN SC SCH (20:42)
[2016-09-11] MEDS: ZOLPIDEM TARTRATE 10 MG TAB PO PRN (20:47)
[2016-09-12] VITALS (23 sets, daily range): BP systolic 112–171; BP diastolic 73–87; PULSE 81–111; TEMP 36.5–36.7; O2SAT 91–98
[2016-09-12] MEDS: ALBUT/IPRATROP 3MG/0.5MG NEB 3 ML VIAL INH SCH ×4 (00:18→11:23)
[2016-09-12] MEDS: HEPARIN SOD 5000 UNIT/0.5 ML CARP SQ SCH ×2 (05:14→13:33)
[2016-09-12 06:30] LABS: HEMATOCRIT 33.9 % (42-52); MEAN CELL VOLUME 99.1 fL (80-100); MEAN CORPUSCULAR HGB CONC 31.3 g/dl (32-36); MEAN PLATELET VOLUME 10.8 fL (7.4-10.4); PLATELET COUNT 126 K/uL (130-400); RED BLOOD COUNT 3.42 M/uL (4.7-6.1); WHITE BLOOD COUNT 5.52 K/uL (4.8-10.8)
[2016-09-12 07:12] LABS: BUN/CREATININE RATIO 6.7 (10-20); CALCIUM 9.5 mg/dl (8.5-10.1); CREATININE 7.5 mg/dl (0.60-1.40); PHOSPHORUS 5.5 mg/dl (2.5-4.9); POTASSIUM 4.8 mmol/L (3.5-5.1)
[2016-09-12] MEDS: INSULIN ASPART 100 UNITS/ML 3 ML PEN SC SCH ×2 (07:26→13:35)
[2016-09-12] MEDS: ASPIRIN 81 MG ECTAB PO SCH (07:27)
[2016-09-12] MEDS: ALLOPURINOL 100 MG TAB PO SCH (07:27)
[2016-09-12] MEDS: PANTOprazole SOD 40 MG TAB PO SCH (07:28)
[2016-09-12] MEDS: SEVELAMER HYDROCH 800 MG TAB PO SCH (07:28)
[2016-09-12] MEDS: DOCUSATE SODIUM 100 MG CAP PO SCH (07:28)
[2016-09-12] MEDS: LISINOPRIL 5 MG TAB PO SCH (07:29)
[2016-09-12] MEDS: MULTIVITAMIN TAB PO SCH (07:29)
[2016-09-12] MEDS: CALCITRIOL 0.25 MCG CAP PO SCH (07:29)
[2016-09-12] MEDS: METOPROLOL TARTRATE 50 MG TAB PO SCH (07:31)
[2016-09-12] MEDS: HYDROCODONE/HOMATROPINE SYRUP 5MG/1.5MG 5ML UDP PO PRN ×2 (07:38→13:31)
[2016-09-12] MEDS ORDERED: EPOETIN ALFA 10,000 UNITS/ML VIAL IV. SCH (08:00)
[2016-09-12] MEDS: ALBUMIN HUMAN 25% 12.5 GM/50 ML VIAL IV SCH ×3 (08:00→13:25)
--- NOTE | 2016-09-12 10:52 | Dialysis Progress Note ---
Nephrology Dialysis Note Date of Service: Sep 12, 2016. Subjective 61 yo male with esrd and volume overload who was on pd for the last couple of months but has had a tumultuous course. Has had four hospitalizations of varying reasons from c. diff, volume depletion, and bronchitis and now with volume overload. Patient was seen and examined while on dialysis today. He denies any nausea, vomiting, chest pain, SOB, cramping, or other symptoms that may be related to dialysis. overall, patient states that he is breathing better with nebulizer treatments but is concerned that breathing symptoms may return upon discharge. access working well. Objective Date Time Temp Pulse Resp B/P Pulse Ox O2 Delivery O2 Flow Rate FiO2 09/12/16 09:49 36.5 90 161/87 09/12/16 09:45 100 130/80 09/12/16 09:30 99 135/81 09/12/16 09:15 99 159/86 09/12/16 08:00 Room Air 09/12/16 07:49 81 16 92 Room Air 09/12/16 07:31 36.7 102 20 171/87 91 Room Air 09/12/16 03:30 100 20 92 Room Air 09/12/16 00:42 36.6 87 16 140/81 97 2.0 09/12/16 00:18 110 20 92 Room Air 09/12/16 00:00 Room Air 09/11/16 20:30 103 20 143/80 97 Nasal Cannula 2.0 09/11/16 20:18 99 18 91 Room Air 09/11/16 16:00 96 Nasal Cannula 2.0 09/11/16 15:26 37.0 106 16 116/56 93 09/11/16 14:14 106 16 92 Room Air 09/11/16 12:58 36.0 88 131/76 09/11/16 12:15 83 132/74 09/11/16 12:00 78 124/75 09/11/16 11:45 83 134/80 09/11/16 11:30 87 128/78 09/11/16 11:15 87 136/69 09/11/16 11:00 78 142/77 09/11/16 10:45 86 135/86 Physical Exam: General-aaox3 Eyes-no scleral icterus ENT-mmm Neck-supple Lungs-crackles/rales Left Base>right base-improved today. +cough Heart-regular Abdomen-bs+, s/nt/nd Extremities-+2 edema b/l LE from foot to knee Neuro-nonfocal Current Inpatient Medications Medications (Trade) Dose Ordered Sig/Daysi Route Start Time Stop Time Status Last Admin Dose Admin Acetaminophen (Tylenol Tab) 650 mg Q4H PRN PO 09/04/16 21:00 10/04/16 20:59 Zolpidem Tartrate (Ambien Tab) 5 mg HSZ PRN PO 09/04/16 21:00 10/04/16 20:59 09/09/16 22:01 5 MG Nitroglycerin (Nitrostat Tab) 0.4 mg UD PRN SL 09/04/16 21:00 10/04/16 20:59 Albuterol (Ventolin Hfa Inhaler) 2 puffs Q6H PRN INH 09/04/16 21:15 10/04/16 21:14 09/06/16 00:25 2 PUFFS Allopurinol (Zyloprim Tab) 100 mg BID PO 09/05/16 09:00 10/05/16 08:59 09/12/16 07:27 100 MG Aspirin (Ecotrin Tab) 81 mg QAM PO 09/05/16 09:00 10/05/16 08:59 09/12/16 07:27 81 MG Calcitriol (Rocaltrol Cap) 0.25 mcg DAILY PO 09/05/16 09:00 10/05/16 08:59 09/12/16 07:29 0.25 MCG Lisinopril (Zestril Tab) 5 mg BID PO 09/05/16 09:00 10/05/16 08:59 09/12/16 07:29 5 MG Metoprolol Tartrate (Lopressor Tab) 50 mg BID PO 09/05/16 09:00 10/05/16 08:59 09/12/16 07:31 50 MG Multivitamins (Multivitamin Tab) 1 tab QAM PO 09/05/16 09:00 10/05/16 08:59 09/12/16 07:29 1 TAB Naphazoline HCl/ Pheniramine Maleate (Visine-A Oph Soln) 2 drops QID PRN OP 09/04/16 21:15 10/04/16 21:14 Zolpidem Tartrate (Ambien Tab) 10 mg HS PRN PO 09/04/16 21:15 10/04/16 21:14 09/11/16 20:47 10 MG Pantoprazole Sodium (Protonix Tab) 40 mg QAM PO 09/05/16 09:00 10/05/16 08:59 09/12/16 07:28 40 MG Sevelamer HCl (Renagel Tab) 1,600 mg TIDM PRN PO 09/05/16 07:30 10/05/16 07:29 09/07/16 13:35 1,600 MG Sevelamer HCl (Renagel Tab) 2,400 mg BIDM PO 09/05/16 07:30 10/05/16 07:29 09/12/16 07:28 2,400 MG Hydrocodone Bit/ Homatropine Methylb (Hycodan Syrup) 5 ml Q6H PRN PO 09/04/16 21:15 09/18/16 21:14 09/12/16 07:38 5 ML Heparin Sodium (Porcine) (Heparin Sq 5000 Unit/0.5ml) 5,000 unit Q8 SQ 09/05/16 06:00 10/05/16 05:59 09/08/16 20:06 5,000 UNIT Acetaminophen/ Hydrocodone Bitart ([place] 5/325 Tab) 1 tab Q4H PRN PO 09/04/16 23:15 09/18/16 23:14 09/11/16 18:49 1 TAB Insulin Aspart (novoLOG ASPART) SLIDING SCALE If C... ACHS SC 09/05/16 16:15 10/05/16 16:14 09/12/16 07:26 4 UNITS Glucose (Glucose 40% Gel) 15-30 GRAMS 15 GRAMS... UD PRN PO 09/05/16 11:45 10/05/16 11:44 Glucose (Glucose Chew Tab) 4-8 Tablets 4 Tabl... UD PRN PO 09/05/16 11:45 10/05/16 11:44 Dextrose (Dextrose 50% 50ML Syringe) 25-50ML OF 50% DW IV FOR... UD PRN IV 09/05/16 11:45 10/05/16 11:44 Glucagon (Glucagon Inj) 1 mg UD PRN SQ 09/05/16 11:45 10/05/16 11:44 Docusate Sodium (coLACE CAP) 100 mg BID PO 09/05/16 21:00 10/05/16 20:59 09/12/16 07:28 100 MG Albuterol/ Ipratropium (Duoneb) 3 ml QIDR INH 09/05/16 16:00 10/05/16 15:59 09/12/16 07:49 3 ML Albuterol/ Ipratropium (Duoneb) 3 ml Q2H PRN INH 09/05/16 13:00 10/05/16 12:59 Insulin Glargine (Lantus Solostar Pen) 10 unit QPM SC 09/06/16 21:00 10/06/16 20:59 09/11/16 20:42 10 UNIT Prednisone (PredniSONE TAB) 40 mg DAILY PO 09/08/16 09:00 10/08/16 08:59 09/12/16 07:28 40 MG Epoetin Ruiz (Procrit Inj) 10,000 units TODAY@0800 IV. 09/12/16 08:00 09/12/16 18:00 Albumin Human (Albumin 25%) 12.5 gm TODAY@0800,0900 IV 09/12/16 08:00 09/12/16 18:00 Last 24 Hours Test 09/11/16 13:05 09/11/16 17:06 09/11/16 20:20 09/12/16 06:00 Bedside Glucose 250 mg/dl 312 mg/dl 244 mg/dl White Blood Count 5.52 K/uL Red Blood Count 3.42 M/uL Hemoglobin 10.6 g/dL Hematocrit 33.9 % Mean Corpuscular Volume 99.1 fL Mean Corpuscular Hemoglobin 31.0 pg Mean Corpuscular Hemoglobin Concent 31.3 g/dl RDW Standard Deviation 57.8 fL RDW Coefficient of Variation 16.1 % Platelet Count 126 K/uL Mean Platelet Volume 10.8 fL Sodium Level 139 mmol/L Potassium Level 4.8 mmol/L Chloride Level 103 mmol/L Carbon Dioxide Level 23 mmol/L Anion Gap 13.0 mmol/L Blood Urea Nitrogen 50 mg/dl Creatinine 7.50 mg/dl Est Creatinine Clear Calc Drug Dose 13.3 ml/min Estimated GFR () 8.2 Estimated GFR (Non- 7.1 BUN/Creatinine Ratio 6.7 Random Glucose 127 mg/dl Calcium Level 9.5 mg/dl Phosphorus Level 5.5 mg/dl Test 09/12/16 06:47 Bedside Glucose 126 mg/dl Assessment & Plan ESRD-Patient was seen and examined while on dialysis. Denies any cramping or chest pain. lungs sound better but edema in legs are unchanged. potassium 4.8. patient is scheduled to undergo outpt dialysis tomorrow at the [facility] unit. will continue with HD until volume status improves and then switch back to PD. hypocalcemia-last calcium 9.5. continue to hold sensipar and monitor. Hyperphosphatemia: continue with phosphate binders with meals and snacks. This patient was seen and treated with direct collaboration with Dr. Jimenez. Thank you for the opportunity to participate in this patient's care. Appreciate the Consult. ATTENDING NOTE: I performed a history and physical examination of the patient, including specifically on history- pt is ready to go home, on physical exam-continues to have edema, and my impression and plan are ESRD-plan on doing hemodialysis t/h/ s and for dialysis tomorrow at the unit-my fear is that he will become fluid overloaded since his mouth is dry and continues to drink liquids. I have discussed the patient's management with Nikki Slade PA-C, Please refer to above note for the documented findings and plan of care. Herbert Jimenez DO
--- NOTE | 2016-09-12 14:39 | Progress Note ---
Medicine Progress Note Date & Time of Visit: Sep 12, 2016 at 14:27. Subjective Pt was seen and examined sitting in bed with no distress Pt just had HD today he said that he feels tired he said that he is breathing at baseline he denies any chest pain, palpitation, dizziness and diarrhea Objective Last 8 Hrs Date Time Temp Pulse Resp B/P Pulse Ox O2 Delivery O2 Flow Rate FiO2 09/12/16 12:28 36.6 97 112/73 09/12/16 12:15 99 09/12/16 12:00 87 121/79 09/12/16 11:45 87 121/79 09/12/16 11:30 87 121/79 09/12/16 11:23 88 16 98 Nasal Cannula 2.0 09/12/16 11:15 87 119/86 09/12/16 11:00 82 126/80 09/12/16 10:45 82 138/75 09/12/16 10:30 84 127/76 09/12/16 10:15 88 126/79 09/12/16 10:00 100 134/78 09/12/16 09:49 36.5 90 161/87 09/12/16 09:45 100 130/80 09/12/16 09:30 99 135/81 09/12/16 09:15 99 159/86 09/12/16 08:00 Room Air 09/12/16 07:49 81 16 92 Room Air 09/12/16 07:31 36.7 102 20 171/87 91 Room Air Physical Exam: General- No acute distress Head- atraumatic Eyes- PERRL, EOMI ENT- oropharynx clear Neck- supple, no JVD Lungs- clear to auscultation and percussion Heart- no murmur Abdomen- normal bowel sounds, soft Extremities- no calf tenderness, + edema in right leg Neuro- alert, oriented x 3; PERRL, EOMI Skin- warm & dry Laboratory Results: Last 24 Hours Test 09/11/16 17:06 09/11/16 20:20 09/12/16 06:00 09/12/16 06:47 Bedside Glucose 312 mg/dl 244 mg/dl 126 mg/dl White Blood Count 5.52 K/uL Red Blood Count 3.42 M/uL Hemoglobin 10.6 g/dL Hematocrit 33.9 % Mean Corpuscular Volume 99.1 fL Mean Corpuscular Hemoglobin 31.0 pg Mean Corpuscular Hemoglobin Concent 31.3 g/dl RDW Standard Deviation 57.8 fL RDW Coefficient of Variation 16.1 % Platelet Count 126 K/uL Mean Platelet Volume 10.8 fL Sodium Level 139 mmol/L Potassium Level 4.8 mmol/L Chloride Level 103 mmol/L Carbon Dioxide Level 23 mmol/L Anion Gap 13.0 mmol/L Blood Urea Nitrogen 50 mg/dl Creatinine 7.50 mg/dl Est Creatinine Clear Calc Drug Dose 13.3 ml/min Estimated GFR () 8.2 Estimated GFR (Non- 7.1 BUN/Creatinine Ratio 6.7 Random Glucose 127 mg/dl Calcium Level 9.5 mg/dl Phosphorus Level 5.5 mg/dl Test 09/12/16 12:45 Bedside Glucose 207 mg/dl Assessment & Plan Possible mycoplasma pneumonia - Pulmonary consulted - continue renally dosed levofloxacin (monitor QTc) - start date 09/06; for 5 days - Continue prednisone and will taper slowly over 10-14 days (currently on prednisone 40mg which started 09/08/16) - continue breathing treatment -continue oxygen supplement - will discharge on prednisone taper -script written for neb ESRD - Nephrology consulted - HD was done today - HD arranged tomorrow as an outpatient - cinacalcet on hold given hypocalcemia Elevated troponin - likely related to underlying ESRD - EKG did not show any significant ST changes - Asymptomatic - continue aspirin Hyperglycemia - related to steroid use - continue insulin therapy - continue monitor BS HTN - continue lisinopril and metoprolol - Continue monitor BP - Table DVT prophylaxis with heparin sq Disposition scheduled tomorrow morning for HD Follow up with pulmonary in 2 weeks. Consultants: Pulmonary Nephrology Current Inpatient Medications: Current Inpatient Medications Medications (Trade) Dose Ordered Sig/Daysi Route Start Time Stop Time Status Last Admin Dose Admin Acetaminophen (Tylenol Tab) 650 mg Q4H PRN PO 09/04/16 21:00 10/04/16 20:59 Zolpidem Tartrate (Ambien Tab) 5 mg HSZ PRN PO 09/04/16 21:00 10/04/16 20:59 09/09/16 22:01 5 MG Nitroglycerin (Nitrostat Tab) 0.4 mg UD PRN SL 09/04/16 21:00 10/04/16 20:59 Albuterol (Ventolin Hfa Inhaler) 2 puffs Q6H PRN INH 09/04/16 21:15 10/04/16 21:14 09/06/16 00:25 2 PUFFS Allopurinol (Zyloprim Tab) 100 mg BID PO 09/05/16 09:00 10/05/16 08:59 09/12/16 07:27 100 MG Aspirin (Ecotrin Tab) 81 mg QAM PO 09/05/16 09:00 10/05/16 08:59 09/12/16 07:27 81 MG Calcitriol (Rocaltrol Cap) 0.25 mcg DAILY PO 09/05/16 09:00 10/05/16 08:59 09/12/16 07:29 0.25 MCG Lisinopril (Zestril Tab) 5 mg BID PO 09/05/16 09:00 10/05/16 08:59 09/12/16 07:29 5 MG Metoprolol Tartrate (Lopressor Tab) 50 mg BID PO 09/05/16 09:00 10/05/16 08:59 09/12/16 07:31 50 MG Multivitamins (Multivitamin Tab) 1 tab QAM PO 09/05/16 09:00 10/05/16 08:59 09/12/16 07:29 1 TAB Naphazoline HCl/ Pheniramine Maleate (Visine-A Oph Soln) 2 drops QID PRN OP 09/04/16 21:15 10/04/16 21:14 Zolpidem Tartrate (Ambien Tab) 10 mg HS PRN PO 09/04/16 21:15 10/04/16 21:14 09/11/16 20:47 10 MG Pantoprazole Sodium (Protonix Tab) 40 mg QAM PO 09/05/16 09:00 10/05/16 08:59 09/12/16 07:28 40 MG Sevelamer HCl (Renagel Tab) 1,600 mg TIDM PRN PO 09/05/16 07:30 10/05/16 07:29 09/07/16 13:35 1,600 MG Sevelamer HCl (Renagel Tab) 2,400 mg BIDM PO 09/05/16 07:30 10/05/16 07:29 09/12/16 07:28 2,400 MG Hydrocodone Bit/ Homatropine Methylb (Hycodan Syrup) 5 ml Q6H PRN PO 09/04/16 21:15 09/18/16 21:14 09/12/16 13:31 5 ML Heparin Sodium (Porcine) (Heparin Sq 5000 Unit/0.5ml) 5,000 unit Q8 SQ 09/05/16 06:00 10/05/16 05:59 09/08/16 20:06 5,000 UNIT Acetaminophen/ Hydrocodone Bitart (Locust 5/325 Tab) 1 tab Q4H PRN PO 09/04/16 23:15 09/18/16 23:14 09/11/16 18:49 1 TAB Insulin Aspart (novoLOG ASPART) SLIDING SCALE If C... ACHS SC 09/05/16 16:15 10/05/16 16:14 09/12/16 13:35 7 UNITS Glucose (Glucose 40% Gel) 15-30 GRAMS 15 GRAMS... UD PRN PO 09/05/16 11:45 10/05/16 11:44 Glucose (Glucose Chew Tab) 4-8 Tablets 4 Tabl... UD PRN PO 09/05/16 11:45 10/05/16 11:44 Dextrose (Dextrose 50% 50ML Syringe) 25-50ML OF 50% DW IV FOR... UD PRN IV 09/05/16 11:45 10/05/16 11:44 Glucagon (Glucagon Inj) 1 mg UD PRN SQ 09/05/16 11:45 10/05/16 11:44 Docusate Sodium (coLACE CAP) 100 mg BID PO 09/05/16 21:00 10/05/16 20:59 09/12/16 07:28 100 MG Albuterol/ Ipratropium (Duoneb) 3 ml QIDR INH 09/05/16 16:00 10/05/16 15:59 09/12/16 11:23 3 ML Albuterol/ Ipratropium (Duoneb) 3 ml Q2H PRN INH 09/05/16 13:00 10/05/16 12:59 09/12/16 14:25 3 ML Insulin Glargine (Lantus Solostar Pen) 10 unit QPM SC 09/06/16 21:00 10/06/16 20:59 09/11/16 20:42 10 UNIT Prednisone (PredniSONE TAB) 40 mg DAILY PO 09/08/16 09:00 10/08/16 08:59 09/12/16 07:28 40 MG Epoetin Ruiz (Procrit Inj) 10,000 units TODAY@0800 IV. 09/12/16 08:00 09/12/16 18:00 Albumin Human (Albumin 25%) 12.5 gm TODAY@0800,0900 IV 09/12/16 08:00 09/12/16 18:00 09/12/16 13:25 12.5 GM
[2016-09-12] MEDS ORDERED: PRED10TA PO ×3 (15:00→15:42)
[2016-09-12] MEDS ORDERED: IPRASOL4 INH ×2 (15:00→17:08)
--- NOTE | 2016-09-12 15:15 | Discharge Instructions ---
Discharge Instructions Admission Reason for Admission: Elevated Troponin, Esrd On Peritoneal Dialysis Discharge Discharge Diagnosis / Problem: ESRD on HR, Elevated troponin, Pneumonia Discharge Goals Goal(s): Decrease discomfort, Improve function, Improve disease control Activity Recommendations Activity Limitations: resume your previous activity (as tolerated) . Instructions / Follow-Up Instructions / Follow-Up Follow up appointment with your primary care provider Dr. Feliciano on Sep 16 at 10:50 am Schedule Follow up appointment with [place] [facility] in 2 weeks Schedule for hemodialysis tomorrow morning (09/13/16) at the [facility]. Complete taper prednisone course script written for nebulizer machine Hold Sensipar for now until resume by nephrology. Current Hospital Diet Patient's current hospital diet: Diabetes Type 2 Diet Discharge Diet Recommended Diet: Diabetes Type 2 Diet, Renal Diet Pending Studies Studies pending at discharge: no Laboratory Results Hemoglobin A1c Test 07/02/16 05:42 Range/Units Estimated Average Glucose 140 mg/dl Hemoglobin A1c 6.5 H 4.5-5.6 % Medical Emergencies . Who to Call and When: Medical Emergencies: If at any time you feel your situation is an emergency, please call 911 immediately. . Non-Emergent Contact Non-Emergency issues call your: Primary Care Provider Call Non-Emergent contact if: you have any medication questions . . "Provider Documentation" section prepared by Cheri Duncan. VTE Core Measure Inpt VTE Proph given/why not?: Unfractionated heparin SQ
--- NOTE | 2016-09-19 14:03 | Discharge Summary ---
Discharge Summary Admission Date: Sep 04, 2016 at 21:39 Discharge Date: Sep 12, 2016 Discharge Disposition: Home Principal Diagnosis: Shortness of breath Secondary Diagnoses/Problems: Elevated Troponin ESRD On Peritoneal Dialysis Pneumonia HTN Hyperglycemia Procedures: CHEST 2 VIEWS ROUTINE CLINICAL HISTORY: Cough. Left side crackles. ATYPICAL CHEST PAIN COMPARISON STUDY: 08/12/2016 FINDINGS: The heart is enlarged. There are improving bilateral interstitial pulmonary opacities. There is a more focal right basal airspace opacities suspicious for a pneumonitis. Clinical radiographic follow-up is recommended. There are no significant pleural fusions.[ IMPRESSION: 1. Generalized improvement in the previous described bilateral interstitial opacities 2. New 4 cm right lower lobe airspace opacity, suspicious for a pneumonitis. Clinical and imaging follow-up is recommended Consultations: Pulmonary Nephrology Medication Reconciliation New Medications: Ipratropium-Albuterol (Duoneb) 3 Ml Nebu 3 ML INH QIDR PRN for SOB/Wheezing for 30 Days, #360 ML Dx SOB/Pneumonia/ Pneumonitis Continued Medications: Albuterol Hfa (Ventolin Hfa) 200 Puffs/82890 Mcg Aers 2-4 PUFFS INH Q6H PRN for SOB/Wheezing, #1 INHALER Allopurinol (Allopurinol) 100 Mg Tab 100 MG PO BID Aspirin (Aspirin) 81 Mg Tab 81 MG PO QAM Calcitriol (Calcitriol) 0.25 Mcg Cap 0.25 MG PO DAILY, #90 Glimepiride (Glimepiride) 4 Mg Tab 4 MG PO QAM Guaifenesin-Codeine (Guaifenesin/Codeine) 1 Tanvi Tanvi 5-10 ML PO HS PRN for Cough for 4 Days, #240 ML Lisinopril (Prinivil) 5 Mg Tab 5 MG PO BID, TAB Metoprolol Tartrate (Lopressor) (Lopressor) 50 Mg Tab 50 MG PO BID, TAB Multivitamin (Multivitamin) Tab 1 TAB PO QAM Naphazoline/Pheniramine (Naphcon-A) 15 Ml Soln 1-2 DROPS OP QID PRN for Itching Omeprazole (Prilosec) 20 Mg Capcr 20 MG PO QAM Sevelamer Carbonate (Renvela) 800 Mg Tab 3 TAB PO BID for 90 Days, #810 TAB 3 Refills Sevelamer Carbonate (Renvela) 800 Mg Tab 2 TAB PO with snacks for 90 Days, #540 TAB 3 Refills Zolpidem Tartrate (Ambien) 10 Mg Tab 10 MG PO HS PRN for Sleep, TAB Discontinued Medications: Cinecalcet (Sensipar) 90 Mg Tab 90 MG PO HS, #30 Guaifenesin (Organ-I Nr) 200 Mg Tab 200 MG PO Q8H for Cough for 10 Days, #30 Prednisone (Prednisone) 10 Mg Tab 60 MG PO UD for 42 Days Take 60 mg daily x 7 days and than taper by 10 mg every week. Admission Information HPI (per Admitting provider): CHIEF COMPLAINT: Cough with increasing shortness of breath and unable to sleep for the last 3 days. HISTORY OF PRESENT COMPLAINT: He is a 61-year-old male, obese with significant past medical history including diabetes type 2 with neuropathy, chronic kidney disease on peritoneal dialysis, hypertension, osteoarthritis, and also testicular hypofunction, apparently has been complaining of increasing cough for the last 3 days. The cough has been so bad that he has not been sleeping for the last 3 days. He has been using oxygen at home with some improvement of his saturation. He did have some pain in the lower chest that is most likely secondary to coughing, but the condition got worse this morning and he came to the Emergency Room for further evaluation. He denies to have any palpitations, any nausea or vomiting with it, no fever, chills, or rigors. No problem with urine and/or bowel habit. He does have leg swelling, which has been increasing. He does not have any arthritis involving any of the joint and no rash and/or enlargement of lymph nodes. He was in [facility] recently with respiratory symptoms and was evaluated by Dr Friedman. Admitted with Acute respiratory failure and CT of the chest showed diffuse interstitial and nodular changes in both the lungs.Has had a Bronchoscopy without any definite diagnosis and may need repeat bronchoscopy this time.In Er CXR showed new pneumonitis RLL Physical Exam (per Admitting): PHYSICAL EXAMINATION: GENERAL: On examination in the Emergency Room, he was having minimal shortness of breath at rest. VITAL SIGNS: Temperature 36.8, pulse was 110, blood pressure 112/71, saturation 94% on room air. HEENT: Unremarkable. NECK: Supple. No JVD, no bruit. CHEST: Decreased breath sounds at bases with crackles at both bases, more on the right than the left. HEART: S1, S2 regular, no murmur. ABDOMEN: Soft, benign, mildly tender. Bowel sounds present. PD catheter in place. EXTREMITIES: 1+ edema bilaterally. MUSCULOSKELETAL SYSTEM: Did not show any acute arthritis involving any joint. CENTRAL NERVOUS SYSTEM: Alert, awake, oriented x3, no focal sensory and/or motor deficit appreciated. Hospital Course Possible mycoplasma pneumonia - Pulmonary consulted - continue renally dosed levofloxacin (monitor QTc) - start date 09/06; for 5 days - Continue prednisone and will taper slowly over 10-14 days (currently on prednisone 40mg which started 09/08/16) - continue breathing treatment -continue oxygen supplement - will discharge on prednisone taper -script written for neb ESRD - Nephrology consulted - HD was done today - HD arranged tomorrow as an outpatient - cinacalcet on hold given hypocalcemia Elevated troponin - likely related to underlying ESRD - EKG did not show any significant ST changes - Asymptomatic - continue aspirin Hyperglycemia - related to steroid use - continue insulin therapy - continue monitor BS HTN - continue lisinopril and metoprolol - Continue monitor BP - Table DVT prophylaxis with heparin sq Disposition scheduled tomorrow morning for HD Follow up with pulmonary in 2 weeks. Total time spent on discharge = 35 minutes This includes examination of the patient, discharge planning, medication reconciliation, and communication with other providers. Discharge Instructions Discharge Instructions Admission Reason for Admission: Elevated Troponin, Esrd On Peritoneal Dialysis Discharge Discharge Diagnosis / Problem: ESRD on HR, Elevated troponin, Pneumonia Discharge Goals Goal(s): Decrease discomfort, Improve function, Improve disease control Activity Recommendations Activity Limitations: resume your previous activity (as tolerated) . Instructions / Follow-Up Instructions / Follow-Up Follow up appointment with your primary care provider Dr. Feliciano on Sep 16 at 10:50 am Schedule Follow up appointment with [place] [facility] in 2 weeks Schedule for hemodialysis tomorrow morning (09/13/16) at the [facility]. Complete taper prednisone course script written for nebulizer machine Hold Sensipar for now until resume by nephrology. Current Hospital Diet Patient's current hospital diet: Diabetes Type 2 Diet Discharge Diet Recommended Diet: Diabetes Type 2 Diet, Renal Diet Pending Studies Studies pending at discharge: no Laboratory Results Hemoglobin A1c Test 07/02/16 05:42 Range/Units Estimated Average Glucose 140 mg/dl Hemoglobin A1c 6.5 H 4.5-5.6 % Medical Emergencies . Who to Call and When: Medical Emergencies: If at any time you feel your situation is an emergency, please call 911 immediately. . Non-Emergent Contact Non-Emergency issues call your: Primary Care Provider Call Non-Emergent contact if: you have any medication questions . . "Provider Documentation" section prepared by Cheri Duncan. VTE Core Measure Inpt VTE Proph given/why not?: Unfractionated heparin SQ Additional Copies To Chu Feliciano MD
[2016-09-20] MEDS ORDERED: ZFRI4 IV (13:25)
[2016-09-20] MEDS ORDERED: RBTUDL10 PO (13:25)
[2016-09-20] MEDS ORDERED: AMB5 PO (13:25)
[2016-09-20] MEDS ORDERED: HPRIS5M SQ (13:25)
[2016-09-20] MEDS ORDERED: METO50TA16 PO (13:25)
[2016-09-20] MEDS ORDERED: HYDR-5688 PO (13:25)
[2016-09-20] MEDS ORDERED: NUTR-1049 PO (13:25)
[2016-09-20] MEDS ORDERED: [UNRECOGNIZED DRUG - CODE] IV (13:25)
[2016-09-20] MEDS ORDERED: NVLGIPEN SC (13:25)
[2016-09-20] MEDS ORDERED: NTRSLP4 SL (13:25)
[2016-09-20] MEDS ORDERED: IPRASOL4 INH (13:25)
[2016-09-20] MEDS ORDERED: FAMO20TA12 PO (13:25)
[2016-09-20] MEDS ORDERED: TYL325X PO (13:25)
[2016-10-16] MEDS ORDERED: ATOR-26 PO (09:49)
[2016-10-16] MEDS ORDERED: WARF-237 PO (09:50)
[2016-10-16] MEDS ORDERED: INSDGI SC (09:52)
[2016-10-16] MEDS ORDERED: PRED10TA PO (09:56)
[2016-10-16] MEDS ORDERED: SPRIN/30 INH (09:57)
[2016-10-16] MEDS ORDERED: ADVIN25/60 INH (09:59)
[2016-10-16] MEDS ORDERED: BUME2TAB3 PO (10:01)
[2016-10-16] MEDS ORDERED: DOCU-94 PO (10:03)
[2016-10-16] MEDS ORDERED: lovenox SQ (10:04)
[2016-10-16] MEDS ORDERED: METO50TA16 PO (10:05)
[2016-10-16] MEDS ORDERED: saline nasal spray NAE (10:08)
[2016-10-16] MEDS ORDERED: IPRASOL4 INH (10:13)
[2016-10-16] MEDS ORDERED: ACET-1311 PO (10:15)
[2016-10-16] MEDS ORDERED: ZOLP10TA6 PO (10:20)
[2016-10-16] MEDS ORDERED: NTRGSL/4 UT (10:23)
[2016-10-16] MEDS ORDERED: OXYCODONE HCL PO (12:52)
== END 2016-09-12 16:10 | disposition home or self-care (01) | DRG 193 ==
LOC: ENRESERVDT → ENRESERVTM → C.EDB 14:05 → C.2E 21:39 → UNDOADMIN 21:39 → C.MS4W 09-08 10:30
PROVIDERS: ADMIT Internal Medicine; ATTEND Internal Medicine
DX: J15.7 Pneumonia due to Mycoplasma pneumoniae (principal); N18.6 End stage renal disease; J96.00 Acute respiratory failure, unspecified whether with hypoxia or hypercapnia; I24.8 Other forms of acute ischemic heart disease; I12.0 Hypertensive chronic kidney disease with stage 5 chronic kidney disease or end stage renal disease; Z68.27 Body mass index [BMI] 27.0-27.9, adult; E66.9 Obesity, unspecified; E11.40 Type 2 diabetes mellitus with diabetic neuropathy, unspecified; E11.22 Type 2 diabetes mellitus with diabetic chronic kidney disease; Z99.2 Dependence on renal dialysis; M19.90 Unspecified osteoarthritis, unspecified site; E29.1 Testicular hypofunction; J44.9 Chronic obstructive pulmonary disease, unspecified; Z87.891 Personal history of nicotine dependence; M10.9 Gout, unspecified; Z96.642 Presence of left artificial hip joint; Z98.52 Vasectomy status; Z84.89 Family history of other specified conditions; Z82.49 Family history of ischemic heart disease and other diseases of the circulatory system; Z79.82 Long term (current) use of aspirin; Z79.899 Other long term (current) drug therapy; Z79.52 Long term (current) use of systemic steroids; Z82.5 Family history of asthma and other chronic lower respiratory diseases; E87.6 Hypokalemia; D63.8 Anemia in other chronic diseases classified elsewhere; E11.65 Type 2 diabetes mellitus with hyperglycemia; E83.51 Hypocalcemia; E83.39 Other disorders of phosphorus metabolism

== ENCOUNTER 2016-09-17 15:49 | Inpatient (IN) | payer OTHER, BC ==
[2016-09-17] VITALS (13 sets, daily range): BP systolic 98–142; BP diastolic 55–70; PULSE 72–111; TEMP 36.6–37.1; O2SAT 90–96; Ht 188 cm; Wt 93.5 kg
[~2016-09-17] VITALS: Ht 188 cm; Wt 93.5 kg
[~2016-09-17 15:49] MED LIST changes: -BENZ100C7 PO; +CALC1CAP36 PO; +GUAI100S6 PO; -GUAI1TAB68 PO; -HYDR-3714 PO; +IPRASOL4 INH; -LACT1CAP6 PO; -LVQ500 PO; -PRD10 PO; +PRED10TA PO
--- NOTE | 2016-09-17 16:30 | EMERGENCY ROOM VISIT NOTE ---
History Report prepared by Winston: Yusef Ferrer Under the Supervision of: Dr. Franklyn Tavares M.D. First contact with patient: 16:04 Chief Complaint: SHORTNESS OF BREATH Stated Complaint: FALL, BACK & LEG PAIN, SOB History of Present Illness The patient is a 61 year old male who presents to the Emergency Room via ambulance with complaints of constant bilateral hip pain due to a fall beginning one day prior to arrival. He states he was coming out of his dialysis appointment yesterday, when he went to bend down and on the way up he fell to his knees. The patient notes two nurses helped him get up. He associates a cough and fatigue with today's symptoms. The patient states his hip pain worsens with walking. He notes he could not get off of his recliner since he was brought home yesterday. The patient states he is on oxygen at home as needed and has puffers and a nebulizer, as well. He notes he is currently on steroids for pneumonia he was diagnosed with on September 12. The patient states he makes little urine on his own. He notes he did not take his morning medication today but did take a few Tylenol. The patient denies hitting his head during his fall. He denies fever, vomiting, and diarrhea. As per nurse, the patient's initial stat was in the 70s on room air. She notes the patient received one Duoneb in the ambulance. Source of History: patient Onset: one day [employer] Position: pelvis Timing: constant Modifying Factors (Worsening): other (walking) Associated Symptoms: + cough, + fatigue, No diarrhea, No fevers, No vomiting Review of Systems See HPI for pertinent positives & negatives. A total of 10 systems reviewed and were otherwise negative. Past Medical & Surgical Medical Problems: (1) BPH (benign prostatic hyperplasia) (2) C. difficile colitis (3) Diabetes mellitus, type II (4) Dyslipidemia (5) ESRD (end stage renal disease) on dialysis (6) Gout (7) HTN (hypertension) (8) Obesity (BMI 30.0-34.9) (9) Restless leg syndrome Surgical Problems: (1) H/O cataract removal with insertion of prosthetic lens (2) H/O vasectomy (3) History of tonsillectomy and adenoidectomy (4) History of total hip arthroplasty Family History Asthma Hypertension FATHER MOTHER Social History Smoking Status: Former Smoker Alcohol Use: none Drug Use: none Marital Status: Housing Status: lives with family Occupation Status: disabled Current/Historical Medications Scheduled Allopurinol (Allopurinol), 100 MG PO BID Aspirin (Aspirin), 81 MG PO QAM Calcitriol (Calcitriol), 0.25 MG PO DAILY Glimepiride (Glimepiride), 4 MG PO QAM Lisinopril (Prinivil), 5 MG PO BID Metoprolol Tartrate (Lopressor) (Lopressor), 50 MG PO BID Multivitamin (Multivitamin), 1 TAB PO QAM Omeprazole (Prilosec), 20 MG PO QAM Prednisone Tab (Prednisone), 10 MG PO UD Sevelamer Carbonate (Renvela), 3 TAB PO BID Sevelamer Carbonate (Renvela), 2 TAB PO with snacks Scheduled PRN Albuterol Hfa (Ventolin Hfa), 2-4 PUFFS INH Q6H PRN for SOB/Wheezing Guaifenesin-Codeine (Guaifenesin/Codeine), 5-10 ML PO HS PRN for Cough Ipratropium-Albuterol (Duoneb), 3 ML INH QIDR PRN for SOB/Wheezing Naphazoline/Pheniramine (Naphcon-A), 1-2 DROPS OP QID PRN for Itching Zolpidem Tartrate (Ambien), 10 MG PO HS PRN for Sleep Allergies Coded Allergies: Chicken Feathers (Unverified Allergy, Intermediate, BREATHING PROBLEMS, ) Physical Exam Vital Signs Date Time Temp Pulse Resp B/P Pulse Ox O2 Delivery O2 Flow Rate FiO2 09/17/16 18:09 100 20 90 Nasal Cannula 4.0 09/17/16 17:52 103 18 117/73 92 Nasal Cannula 4.0 09/17/16 16:55 108 09/17/16 16:44 Nasal Cannula 4.0 09/17/16 16:44 93 Nasal Cannula 4.0 09/17/16 16:10 108 18 120/70 92 Nasal Cannula 4.0 09/17/16 16:04 75 Room Air Physical Exam GENERAL: Patient is in no acute distress. HEENT: No acute trauma, normocephalic atraumatic, mucous membranes moist, no nasal congestion, no scleral icterus. NECK: No stridor, no adenopathy, no meningismus, trachea is midline. LUNGS: Rhonchi bilaterally. No wheezing. Diminished breath sounds bilaterally. HEART: Tachycardic with a regular rhythm, no murmurs. ABDOMEN: Soft, nontender, bowel sounds positive, no hernias, no peritonitis. EXTREMITIES: Patient appears to have no pain with movement of either hip. No cyanosis or edema, full range of motion of all the joints without pain or difficulty, no signs for acute trauma. NEUROLOGIC: Oriented x 3, no acute motor or sensory deficits, no focal weakness. SKIN: No rash, no jaundice, no diaphoresis. Medical Decision & Procedures ER Provider Diagnostic Interpretation: X ray results and stated below per my interpretation and radiologist interpretation. Other radiology results and stated below per my review and radiologist interpretation: SINGLE VIEW PELVIS CLINICAL HISTORY: Fall with leg pain. FINDINGS: 2 AP pelvic radiographs are correlated with pelvic CT dated 08/08/2016. The skeletal structures are osteopenic. Bilateral hip arthroplasties are in near-anatomic alignment. No fracture is identified in the hips or pelvis. Overlying soft tissues are within normal limits. Atherosclerotic calcification is present within the femoral arteries. There is a nonobstructed abdominal bowel gas pattern noting colonic fecal retention. The catheter projects over the pelvis. IMPRESSION: There is no radiographic evidence of fracture in the hips or bony pelvis. Electronically signed by: Franklyn Wallis M.D. 09/17/2016 5:33 PM RIGHT FEMUR 3 VIEWS CLINICAL HISTORY: Fall with right leg pain. FINDINGS: AP, frog-leg, and lateral views of the right femur are correlated with pelvic radiograph performed concurrently on 09/17/2016. The skeletal structures are osteopenic. No right femoral fracture is seen. A right hip arthroplasty is in near-anatomic alignment. No periprosthetic lucency is seen. The imaged right hemipelvis appears preserved. Mild heterotopic bone formation is seen adjacent to the arthroplasty. The overlying soft tissues are within normal limits. There is mild atherosclerotic calcification of the right femoral artery. IMPRESSION: There is no radiographic evidence of right femoral fracture. See above. Electronically signed by: Franklyn Wallis M.D. 09/17/2016 5:56 PM LEFT FEMUR 3 VIEWS CLINICAL HISTORY: Fall with left leg pain. FINDINGS: AP, frog-leg, and lateral views of the left femur are correlated with pelvic radiograph performed concurrently on 09/17/2016. The skeletal structures are osteopenic. No left femoral fracture is seen. A left hip arthroplasty is in near-anatomic alignment. No periprosthetic lucency is seen. The imaged left hemipelvis appears preserved. The overlying soft tissues are within normal limits. There is mild atherosclerotic calcification of the femoral artery. IMPRESSION: There is no radiographic evidence of left femoral fracture. See above. Electronically signed by: Franklyn Wallis M.D. 09/17/2016 5:58 PM SINGLE VIEW CHEST CLINICAL HISTORY: Weakness. Change in mental status. FINDINGS: An AP, portable, upright chest radiograph is compared to study dated 09/04/2016 and correlated with chest CT dated 08/08/2016. The examination is degraded by portable technique and patient rotation. The heart is mildly enlarged and there is atherosclerotic calcification of the thoracic aorta. There is mild prominence of the central pulmonary vessels. Mild diffuse patchy groundglass change and nodularity is similar to prior studies. No lobar consolidation or large pleural effusion is identified. No pneumothorax is seen. The skeletal structures appear osteopenic. The bony thorax is grossly intact. IMPRESSION: 1. Cardiomegaly with prominence of the central pulmonary vessels. Correlate clinically for evidence of mild congestive failure. 2. Diffuse groundglass change and nodularity is similar to prior studies. This likely represents a chronic infectious or inflammatory pneumonitis. Clinical correlation will be required. 3. There is no lobar consolidation or large pleural effusion. Electronically signed by: Franklyn Wallis M.D. 09/17/2016 6:05 PM Laboratory Results 09/17/16 16:36 Red Blood Count 3.38, Mean Corpuscular Volume 96.7, Mean Corpuscular Hemoglobin 30.8, Mean Corpuscular Hemoglobin Concent 31.8, Mean Platelet Volume 11.1, Neutrophils (%) (Auto) 84.5, Lymphocytes (%) (Auto) 9.4, Monocytes (%) (Auto) 4.3, Eosinophils (%) (Auto) 1.0, Basophils (%) (Auto) 0.2, Neutrophils # (Auto) 4.11, Lymphocytes # (Auto) 0.46, Monocytes # (Auto) 0.21, Eosinophils # (Auto) 0.05, Basophils # (Auto) 0.01 09/17/16 16:36 Test 09/17/16 16:36 White Blood Count 4.87 K/uL (4.8-10.8) Red Blood Count 3.38 M/uL (4.7-6.1) Hemoglobin 10.4 g/dL (14.0-18.0) Hematocrit 32.7 % (42-52) Mean Corpuscular Volume 96.7 fL (80-100) Mean Corpuscular Hemoglobin 30.8 pg (25-34) Mean Corpuscular Hemoglobin Concent 31.8 g/dl (32-36) Platelet Count 161 K/uL (130-400) Mean Platelet Volume 11.1 fL (7.4-10.4) Neutrophils (%) (Auto) 84.5 % Lymphocytes (%) (Auto) 9.4 % Monocytes (%) (Auto) 4.3 % Eosinophils (%) (Auto) 1.0 % Basophils (%) (Auto) 0.2 % Neutrophils # (Auto) 4.11 K/uL (1.4-6.5) Lymphocytes # (Auto) 0.46 K/uL (1.2-3.4) Monocytes # (Auto) 0.21 K/uL (0.11-0.59) Eosinophils # (Auto) 0.05 K/uL (0-0.5) Basophils # (Auto) 0.01 K/uL (0-0.2) RDW Standard Deviation 55.5 fL (36.4-46.3) RDW Coefficient of Variation 15.6 % (11.5-14.5) Immature Granulocyte % (Auto) 0.6 % Immature Granulocyte # (Auto) 0.03 K/uL (0.00-0.02) Prothrombin Time 11.1 SECONDS (9.0-12.0) Prothromb Time International Ratio 1.0 (0.9-1.1) Activated Partial Thromboplast Time 25.4 SECONDS (21.0-31.0) Partial Thromboplastin Ratio 1.0 Anion Gap 13.0 mmol/L (3-11) Est Creatinine Clear Calc Drug Dose 13.4 ml/min Estimated GFR () 8.5 Estimated GFR (Non- 7.3 BUN/Creatinine Ratio 7.4 (10-20) Calcium Level 9.8 mg/dl (8.5-10.1) Total Bilirubin 0.7 mg/dl (0.2-1) Aspartate Amino Transf (AST/SGOT) 27 U/L (15-37) Alanine Aminotransferase (ALT/SGPT) 31 U/L (12-78) Alkaline Phosphatase 145 U/L (45-117) Total Creatine Kinase 117 U/L (39-308) Total Protein 6.4 gm/dl (6.4-8.2) Albumin 2.4 gm/dl (3.4-5.0) Globulin 4.0 gm/dl (2.5-4.0) Albumin/Globulin Ratio 0.6 (0.9-2) Thyroid Stimulating Hormone (TSH) 0.286 uIu/ml (0.300-4.500) Laboratory results reviewed by me. Medications Administered Medications (Trade) Dose Ordered Sig/Daysi Route Start Time Stop Time Status Last Admin Dose Admin Levalbuterol (Xopenex 1.25MG/ 0.5ML Neb) 1.25 mg NOW STAT INH 09/17/16 17:50 09/17/16 17:51 DC 09/17/16 18:07 1.25 MG Ipratropium [place] (Atrovent 0.02% 0.5MG/2.5ML Neb) 0.5 mg NOW STAT INH 09/17/16 17:50 09/17/16 17:51 DC 09/17/16 18:07 0.5 MG ECG Indication: SOB/dyspnea Rate (beats per minute): 95 Rhythm: normal sinus Findings: T-wave inversion (Anterior), no ectopy Comparison ECG Date: 09/07/2016 Change: T wave inversions are new. ED Course 1605: The patient was evaluated in room B3B. A complete history and physical exam was performed. 1749: Ordered Ipratropium [place] 0.5 mg INH, Levalbuterol 1.25 mg INH. 1814: I spoke to Destiny Mcclain PA-C, [facility] (Hospitalist) about the patient's case, and she will follow the patient for further evaluation. 1816: Reevaluated the patient at this time, and updated the patient and his . Medical Decision The differential diagnoses include but are not limited to: hip or pelvic fracture, anemia, electrolyte imbalance, CHF, pneumonia, bronchitis, cardiac ischemia. There is no leukocytosis. A mild anemia is present. Renal panel testing demonstrates the need for dialysis--he has a mildly elevated potassium, his creatinine is high. There is no hepatitis. EKG shows a sinus rhythm with some T-wave changes in the anterior leads. These changes were thought new. Cardiac enzyme testing does show an elevation to the cardiac troponin, this elevation is concerning for cardiac strain/injury. Chest film shows some fluid overload, no pneumonia. Bilateral femur films show no fractures. Pelvis film shows no fracture. The patient was given a Xopenex Atrovent neb, he does require O2 to keep his oxygen level above 90%. He had presented hypoxic. The patient is fluid overloaded. I do think admission/observation is warranted. He will likely require dialysis here in the hospital. I talked with the patient, I talked with case management. The on-call hospitalist was consulted. Consults Time Called: 1807 Consulting Physician: Destiny Mcclain PA-C, [facility] (Hospitalist) Returned Call: 1814 I spoke to Destiny Mcclain PA-C, [facility] (Hospitalist) about the patient's case, and she will follow the patient for further evaluation. Impression Primary Impression: Hypoxia Additional Impressions: Elevated troponin Acute electrocardiogram changes Fluid overload Hip pain Fall Scribe Attestation The scribe's documentation has been prepared under my direction and personally reviewed by me in its entirety. I confirm that the note above accurately reflects all work, treatment, procedures, and medical decision making performed by me. Departure Information Dispostion Being Evaluated By Hospitalist (Destiny Mcclain PA-C, [facility] (Hospitalist)) Prescriptions Prednisone Tab (PREDNISONE) 10 Mg Tab 10 MG PO UD for 10 Days, TAB on taper - 3 tabs x 1 day, 2 tabs x 3 days, then 1 tab x 3 days Prov: Destiny Mcclain .USMAN 09/17/16 Referrals Chu Feliciano MD (PCP) Problem Qualifiers
[2016-09-17 17:01] LABS: BASO % 0.2 %; BASO ABS # 0.01 K/uL (0-0.2); COMPLETE YES; HEMATOCRIT 32.7 % (42-52); IG% 0.6 %; LYMPH % 9.4 %; LYMPH ABS # 0.46 K/uL (1.2-3.4); MEAN CELL VOLUME 96.7 fL (80-100); MEAN CORPUSCULAR HEMOGLOBIN 30.8 pg (25-34); MEAN CORPUSCULAR HGB CONC 31.8 g/dl (32-36); MEAN PLATELET VOLUME 11.1 fL (7.4-10.4); MONO % 4.3 %; NEUT % 84.5 %; PLATELET COUNT 161 K/uL (130-400); RED BLOOD COUNT 3.38 M/uL (4.7-6.1); WHITE BLOOD COUNT 4.87 K/uL (4.8-10.8)
[2016-09-17 17:19] LABS: PROTHROMBIN TIME (PATIENT) 11.1 SECONDS (9.0-12.0)
[2016-09-17 17:33] LABS: ALB/GLOB RATIO 0.6 (0.9-2); BUN/CREATININE RATIO 7.4 (10-20); CALCIUM 9.8 mg/dl (8.5-10.1); CREATININE 7.3 mg/dl (0.60-1.40); POTASSIUM 5.7 mmol/L (3.5-5.1); THYROID STIMULATING HORMONE 0.286 uIu/ml (0.300-4.500)
--- NOTE | 2016-09-17 17:35 | DIAGNOSTIC IMAGING REPORT ---
SINGLE VIEW PELVIS CLINICAL HISTORY: Fall with leg pain. FINDINGS: 2 AP pelvic radiographs are correlated with pelvic CT dated 08/08/2016. The skeletal structures are osteopenic. Bilateral hip arthroplasties are in near-anatomic alignment. No fracture is identified in the hips or pelvis. Overlying soft tissues are within normal limits. Atherosclerotic calcification is present within the femoral arteries. There is a nonobstructed abdominal bowel gas pattern noting colonic fecal retention. The catheter projects over the pelvis. IMPRESSION: There is no radiographic evidence of fracture in the hips or bony pelvis. Electronically signed by: Franklyn Wallis M.D. 09/17/2016 5:33 PM Dictated Date/Time: 09/17/2016 5:31 PM
[2016-09-17] MEDS ORDERED: IPRATROPIUM BROMIDE NEB SOLN 0.02% 2.5 ML VIAL INH STA (17:50)
[2016-09-17] MEDS ORDERED: LEVALBUTEROL 1.25MG/0.5ML NEB INH STA (17:50)
--- NOTE | 2016-09-17 17:58 | DIAGNOSTIC IMAGING REPORT ---
RIGHT FEMUR 3 VIEWS CLINICAL HISTORY: Fall with right leg pain. FINDINGS: AP, frog-leg, and lateral views of the right femur are correlated with pelvic radiograph performed concurrently on 09/17/2016. The skeletal structures are osteopenic. No right femoral fracture is seen. A right hip arthroplasty is in near-anatomic alignment. No periprosthetic lucency is seen. The imaged right hemipelvis appears preserved. Mild heterotopic bone formation is seen adjacent to the arthroplasty. The overlying soft tissues are within normal limits. There is mild atherosclerotic calcification of the right femoral artery. IMPRESSION: There is no radiographic evidence of right femoral fracture. See above. Electronically signed by: Franklyn Wallis M.D. 09/17/2016 5:56 PM Dictated Date/Time: 09/17/2016 5:55 PM
--- NOTE | 2016-09-17 17:59 | DIAGNOSTIC IMAGING REPORT ---
LEFT FEMUR 3 VIEWS CLINICAL HISTORY: Fall with left leg pain. FINDINGS: AP, frog-leg, and lateral views of the left femur are correlated with pelvic radiograph performed concurrently on 09/17/2016. The skeletal structures are osteopenic. No left femoral fracture is seen. A left hip arthroplasty is in near-anatomic alignment. No periprosthetic lucency is seen. The imaged left hemipelvis appears preserved. The overlying soft tissues are within normal limits. There is mild atherosclerotic calcification of the femoral artery. IMPRESSION: There is no radiographic evidence of left femoral fracture. See above. Electronically signed by: Franklyn Wallis M.D. 09/17/2016 5:58 PM Dictated Date/Time: 09/17/2016 5:56 PM
--- NOTE | 2016-09-17 18:07 | DIAGNOSTIC IMAGING REPORT ---
SINGLE VIEW CHEST CLINICAL HISTORY: Weakness. Change in mental status. FINDINGS: An AP, portable, upright chest radiograph is compared to study dated 09/04/2016 and correlated with chest CT dated 08/08/2016. The examination is degraded by portable technique and patient rotation. The heart is mildly enlarged and there is atherosclerotic calcification of the thoracic aorta. There is mild prominence of the central pulmonary vessels. Mild diffuse patchy groundglass change and nodularity is similar to prior studies. No lobar consolidation or large pleural effusion is identified. No pneumothorax is seen. The skeletal structures appear osteopenic. The bony thorax is grossly intact. IMPRESSION: 1. Cardiomegaly with prominence of the central pulmonary vessels. Correlate clinically for evidence of mild congestive failure. 2. Diffuse groundglass change and nodularity is similar to prior studies. This likely represents a chronic infectious or inflammatory pneumonitis. Clinical correlation will be required. 3. There is no lobar consolidation or large pleural effusion. Electronically signed by: Franklyn Wallis M.D. 09/17/2016 6:05 PM Dictated Date/Time: 09/17/2016 6:03 PM
[2016-09-17] MEDS ORDERED: ONDANSETRON INJ 2 MG/ML 2 ML VIAL IV PRN (19:00)
[2016-09-17] MEDS ORDERED: NITROGLYCERIN 0.4 MG SL PER TAB CHARGE SL PRN (19:00)
[2016-09-17] MEDS ORDERED: ACETAMINOPHEN 325 MG TAB PO PRN (19:00)
[2016-09-17] MEDS ORDERED: PRED10TA PO (19:04)
[2016-09-17] MEDS ORDERED: GLUCOSE 10 TABS/TUBE PO PRN (19:30)
[2016-09-17] MEDS ORDERED: GLUCAGON FOR INJ 1 MG VIAL SQ PRN (19:30)
[2016-09-17] MEDS ORDERED: GLUCOSE 40% GEL 15 GM TUBE PO PRN (19:30)
[2016-09-17] MEDS ORDERED: DEXTROSE 50% 50 ML SYR IV PRN (19:30)
[2016-09-17 19:31] LABS: ARTERIAL BLD GAS O2 SATURATION 91.1 % (90-95); ARTERIAL BLOOD GAS BASE EXCESS 3.9 mEq/L (-9-1.8); ARTERIAL BLOOD GAS HCO3 30 mmol/L (19-24); ARTERIAL BLOOD GAS PO2 69 mm/Hg (80-95); ARTERIAL BLOOD GAS pH 7.36 (7.35-7.45)
[2016-09-17 19:32] LABS: ALLEN TEST POS (POS); O2 ADMINISTRATION 4 L
[2016-09-17] MEDS: HYDROCODONE/ACETAMOPHEN 5/325MG TAB PO PRN (19:36)
[2016-09-17] MEDS ORDERED: SEVELAMER HYDROCH 800 MG TAB PO PRN (20:30)
--- NOTE | 2016-09-17 20:44 | Progress Note ---
Progress Note Patient presented after a fall during HD yesterday. Notes that he dropped onto his knees. Denied any proceeding symptoms. Did not feel well today and so called his HD center and said that he likely would not be coming into HD tomorrow. He was advised to go to the ED. In the ED, patient was noted to be profoundly hypoxic, saturating in the 70's on room air. Vitals notable for hypoxia. PE: General- awake; alert Eyes- EOMI; no scleral icterus Neck- no stridor; trachea midline Lungs- bilateral crackles; conversational dyspnea Heart- RRR; no m/r/g Abdomen- soft; NTND; nBS; PD catheter c/d/i Back- no gross abnormalities Extremities- no c/c/e; no deformity Neuro- no gross focal deficits Skin- excoriations Labs, imaging and EKG reviewed. Acute hypoxic respiratory failure: Likely multifactorial. Possible volume overload (bilateral crackles) vs underlying pulmonary etiology. Pulmonary consulted. No indication for antibiotics at this time (patient recently completed course of Levofloxacin). Patient had been on steroid taper from recent discharge. Change to methylprednisolone for now. Nebulizers. Continue supplemental oxygen. Renal consulted and plans for HD tonight. Elevated troponin: Denies chest pain. Believe this is related to underlying hypoxia. EKG with new TWI. Trend enzymes. Cardiology consult. Hold on heparin drip at this time. Continue aspirin. ESRD on dialysis: Renal consulted for inpatient HD.
[2016-09-17] MEDS: ALBUT/IPRATROP 3MG/0.5MG NEB 3 ML VIAL INH SCH (20:54)
[2016-09-17] MEDS: METOPROLOL TARTRATE 50 MG TAB PO SCH (21:00)
[2016-09-17] MEDS: LISINOPRIL 5 MG TAB PO SCH (21:00)
[2016-09-17] MEDS ORDERED: HEPARIN SOD 5000 UNIT/0.5 ML CARP SQ SCH (21:00)
--- NOTE | 2016-09-17 21:44 | History and Physical ---
History & Physical Date & Time of Service: Sep 17, 2016 at 21:13 Chief Complaint: Shortness of Breath, Weakness Primary Care Physician: Chu Feliciano MD History of Present Illness 61 year old male who presents to the ER with shortness of breath and generalized weakness. Patient was recently admitted to [facility] 09/04 - 09/12 for shortness of breath which was felt to be multifactorial due to volume overload and possible mycoplasma pneumonia. Patient was treated with dialysis, a course of Levaquin, and steroids. He was discharged on a tapering dose of prednisone. Patient reports feeling unchanged since his discharged. His shortness of breath and cough have continued. His symptoms seem to wax and wane. Yesterday while at dialysis patient suffered a fall. He reports he was bending forward to put his bag down when he fell onto his knees. He denies any associated lightheadedness, dizziness, diaphoresis, or syncope. He then had his complete dialysis treatment. He reports feeling generally weak since that time. He denies chest pain. No abdominal pain, nausea, vomiting, or diarrhea. He denies fever and chills. He spoke with the nurse at dialysis today who advised him to call EMS. When EMS arrived, he was 75% on room air. In the ER, he is requiring 4L to maintain saturations. CXR is showing mild CHF and chronic pneumonitis. Patient was given a neb treatment. Past Medical/Surgical History Medical Problems: (1) BPH (benign prostatic hyperplasia) Permanent Comment: no obstruction Status: Chronic (2) C. difficile colitis Status: Resolved (3) Diabetes mellitus, type II Status: Chronic (4) Dyslipidemia Status: Chronic (5) ESRD (end stage renal disease) on dialysis Status: Chronic (6) Gout Status: Chronic (7) HTN (hypertension) Status: Chronic (8) Obesity (BMI 30.0-34.9) Status: Chronic (9) Restless leg syndrome Status: Chronic Surgical Problems: (1) H/O cataract removal with insertion of prosthetic lens Permanent Comment: R side; 1989 Status: Resolved (2) H/O vasectomy Status: Resolved (3) History of tonsillectomy and adenoidectomy Status: Resolved (4) History of total hip arthroplasty Permanent Comment: bilat; performed by Dr.Dean Torres in 2010 Status: Resolved Family History Asthma Hypertension FATHER MOTHER Social History Smoking Status: Former Smoker Alcohol Use: none Marital Status: Housing status: lives with significant other Immunizations History of Influenza Vaccine: Yes Influenza Vaccine Date: May 13, 2016 History of Tetanus Vaccine?: Yes Tetanus Immunization Date: Jan 29, 2011 History of Pneumococcal: Yes Pneumococcal Date: Jul 11, 2014 Multi-Drug Resistant Organisms History of MDRO: No Allergies Coded Allergies: Chicken Feathers (Unverified Allergy, Intermediate, BREATHING PROBLEMS, ) Home Medications Scheduled Allopurinol (Allopurinol), 100 MG PO BID Aspirin (Aspirin), 81 MG PO QAM Calcitriol (Calcitriol), 0.25 MG PO DAILY Glimepiride (Glimepiride), 4 MG PO QAM Lisinopril (Prinivil), 5 MG PO BID Metoprolol Tartrate (Lopressor) (Lopressor), 50 MG PO BID Multivitamin (Multivitamin), 1 TAB PO QAM Omeprazole (Prilosec), 20 MG PO QAM Prednisone Tab (Prednisone), 10 MG PO UD Sevelamer Carbonate (Renvela), 3 TAB PO BID Sevelamer Carbonate (Renvela), 2 TAB PO with snacks Scheduled PRN Albuterol Hfa (Ventolin Hfa), 2-4 PUFFS INH Q6H PRN for SOB/Wheezing Guaifenesin-Codeine (Guaifenesin/Codeine), 5-10 ML PO HS PRN for Cough Ipratropium-Albuterol (Duoneb), 3 ML INH QIDR PRN for SOB/Wheezing Naphazoline/Pheniramine (Naphcon-A), 1-2 DROPS OP QID PRN for Itching Zolpidem Tartrate (Ambien), 10 MG PO HS PRN for Sleep Review of Systems 10 point review of systems was completed with the pertinent positives and negatives noted per the HPI Physical Exam Vital Signs Date Time Temp Pulse Resp B/P Pulse Ox O2 Delivery O2 Flow Rate FiO2 09/17/16 20:05 94 18 119/75 95 09/17/16 18:09 100 20 90 Nasal Cannula 4.0 09/17/16 17:52 103 18 117/73 92 Nasal Cannula 4.0 09/17/16 16:55 108 09/17/16 16:44 Nasal Cannula 4.0 09/17/16 16:44 93 Nasal Cannula 4.0 09/17/16 16:10 108 18 120/70 92 Nasal Cannula 4.0 09/17/16 16:04 75 Room Air General Appearance: + mild distress (tachypnea, conversational dyspnea) Head: normocephalic Eyes: normal inspection ENT: hearing grossly normal Neck: supple, no JVD Respiratory/Chest: + respiratory distress (mild tachypnea, conversational dyspnea), + decreased breath sounds, + crackles (BL, noted fro mid lungs to bases) Cardiovascular: regular rate, rhythm, + pertinent finding (trace edema BLLE) Abdomen/GI: normal bowel sounds, non tender, soft Extremities/Musculoskelatal: normal inspection, no calf tenderness Neurologic/Psych: no motor/sensory deficits, alert, normal mood/affect, oriented x 3 Skin: normal color, warm/dry Diagnostics Laboratory Results Results Past 24 Hours Test 09/17/16 16:36 09/17/16 19:12 Range/Units White Blood Count 4.87 4.8-10.8 K/uL Red Blood Count 3.38 4.7-6.1 M/uL Hemoglobin 10.4 14.0-18.0 g/dL Hematocrit 32.7 42-52 % Mean Corpuscular Volume 96.7 80-100 fL Mean Corpuscular Hemoglobin 30.8 25-34 pg Mean Corpuscular Hemoglobin Concent 31.8 32-36 g/dl Platelet Count 161 130-400 K/uL Mean Platelet Volume 11.1 7.4-10.4 fL Neutrophils (%) (Auto) 84.5 % Lymphocytes (%) (Auto) 9.4 % Monocytes (%) (Auto) 4.3 % Eosinophils (%) (Auto) 1.0 % Basophils (%) (Auto) 0.2 % Neutrophils # (Auto) 4.11 1.4-6.5 K/uL Lymphocytes # (Auto) 0.46 1.2-3.4 K/uL Monocytes # (Auto) 0.21 0.11-0.59 K/uL Eosinophils # (Auto) 0.05 0-0.5 K/uL Basophils # (Auto) 0.01 0-0.2 K/uL RDW Standard Deviation 55.5 36.4-46.3 fL RDW Coefficient of Variation 15.6 11.5-14.5 % Immature Granulocyte % (Auto) 0.6 % Immature Granulocyte # (Auto) 0.03 0.00-0.02 K/uL Prothrombin Time 11.1 9.0-12.0 SECONDS Prothromb Time International Ratio 1.0 0.9-1.1 Activated Partial Thromboplast Time 25.4 21.0-31.0 SECONDS Partial Thromboplastin Ratio 1.0 Sodium Level 133 136-145 mmol/L Potassium Level 5.7 3.5-5.1 mmol/L Chloride Level 92 98-107 mmol/L Carbon Dioxide Level 28 21-32 mmol/L Anion Gap 13.0 3-11 mmol/L Blood Urea Nitrogen 54 7-18 mg/dl Creatinine 7.30 0.60-1.40 mg/dl Est Creatinine Clear Calc Drug Dose 13.4 ml/min Estimated GFR () 8.5 Estimated GFR (Non- 7.3 BUN/Creatinine Ratio 7.4 10-20 Random Glucose 213 70-99 mg/dl Calcium Level 9.8 8.5-10.1 mg/dl Total Bilirubin 0.7 0.2-1 mg/dl Aspartate Amino Transf (AST/SGOT) 27 15-37 U/L Alanine Aminotransferase (ALT/SGPT) 31 12-78 U/L Alkaline Phosphatase 145 45-117 U/L Total Creatine Kinase 117 39-308 U/L Troponin I 0.343 0-0.045 ng/ml Total Protein 6.4 6.4-8.2 gm/dl Albumin 2.4 3.4-5.0 gm/dl Globulin 4.0 2.5-4.0 gm/dl Albumin/Globulin Ratio 0.6 0.9-2 Thyroid Stimulating Hormone (TSH) 0.286 0.300-4.500 uIu/ml Arterial Blood pH 7.36 7.35-7.45 Arterial Blood Partial Pressure CO2 54 35-46 mmHg Arterial Blood Partial Pressure O2 69 80-95 mm/Hg Arterial Blood HCO3 30 19-24 mmol/L Arterial Blood Oxygen Saturation 91.1 90-95 % Arterial Blood Base Excess 3.9 -9-1.8 mEq/L Arterial Blood Gas Delivery 4 L Sonu Test POS POS Microbiology Results 09/17/16 Blood Culture, Received Pending 09/17/16 Blood Culture, Received Pending Diagnostic Radiology HIP/PELVIS XR IMPRESSION: There is no radiographic evidence of fracture in the hips or bony pelvis. CXR IMPRESSION: 1. Cardiomegaly with prominence of the central pulmonary vessels. Correlate clinically for evidence of mild congestive failure. 2. Diffuse groundglass change and nodularity is similar to prior studies. This likely represents a chronic infectious or inflammatory pneumonitis. Clinical correlation will be required. 3. There is no lobar consolidation or large pleural effusion. Impression Assessment and Plan ACUTE ON CHRONIC HYPOXIC RESPIRATORY FAILURE, LIKELY MULTIFACTORIAL - admit to tele - symptoms likely multifactorial due to volume overload vs chronic underlying pulmonary process - recently admitted for the same; completed Levaquin course and was discharged on steroid taper - check ABG - will get emergent dialysis tonight - hold on antibiotics - currently afebrile, no leukocytosis - will change PO prednisone to IV solu-medrol - consider PE - will re-evaluate once volume removed; had negative BLLE dopplers 07/2016 - pulmonary consult, input appreciated ELEVATED TROP, EKG CHANGES - no reports of chest pain - profound hypoxia and underlying renal disease likely contributing - T-wave inversions noted inferiorly and anteriorly - noted negative dobutamine stress - continue to cycle cardiac enzymes, resting echo - continue beta lance and ASA - cardio consult, input appreciated ESRD ON HD - on HD TuThSa - receiving emergent dialysis tonight for volume overload - continue routine renal meds - nephro consult HTN - BP controlled, continue lisinopril and metoprolol DM - hold oral agents and utilize SSI while hospitalized DVT PROPHYLAXIS - SQ Heparin DISPO - In my clinical judgment this beneficiary meets acute admission criteria, established by [facility], that includes being hospitalized through two midnights. I have seen, examined and discussed this patient with Destiny Mcclain and I agree with the above note. Please see brief progress note for any additional details. VTE Prophylaxis VTE Risk Assessment Done? Y/N: Yes Risk Level: Moderate
[2016-09-17] MEDS: ALLOPURINOL 100 MG TAB PO SCH (23:38)
[2016-09-17] MEDS: METHYLPREDNISOLONE IV 40 MG in SYRINGE 0 ML IV SCH (23:39)
[2016-09-17] MEDS: HEPARIN SOD 5000 UNIT/0.5 ML CARP SQ SCH (23:42)
[2016-09-17] MEDS: INSULIN ASPART 100 UNITS/ML 3 ML PEN SC SCH (23:46)
[2016-09-17] MEDS: ZOLPIDEM TARTRATE 5 MG TAB PO PRN (23:50)
[2016-09-18] VITALS (31 sets, daily range): BP systolic 80–124; BP diastolic 44–86; PULSE 69–119; TEMP 36.3–37.4; O2SAT 79–97
[2016-09-18] MEDS ORDERED: NURSING VERBAL MED ORDER ONE (03:30)
[2016-09-18] MEDS: GUAIFENESIN SUGAR FREE 200 MG/10 ML UDC PO PRN ×2 (04:44→17:47)
[2016-09-18] MEDS: HEPARIN SOD 5000 UNIT/0.5 ML CARP SQ SCH ×3 (05:24→21:15)
[2016-09-18] MEDS: ALBUT/IPRATROP 3MG/0.5MG NEB 3 ML VIAL INH SCH ×4 (07:23→19:30)
[2016-09-18] MEDS: METHYLPREDNISOLONE IV 40 MG in SYRINGE 0 ML IV SCH ×2 (08:04→20:15)
[2016-09-18] MEDS: PANTOprazole SOD 40 MG TAB PO SCH (08:05)
[2016-09-18] MEDS: SEVELAMER HYDROCH 800 MG TAB PO SCH ×2 (08:05→16:29)
[2016-09-18] MEDS: ASPIRIN 81 MG ECTAB PO SCH (08:05)
[2016-09-18] MEDS: MULTIVITAMIN TAB PO SCH (08:06)
[2016-09-18] MEDS: METOPROLOL TARTRATE 50 MG TAB PO SCH (08:06)
[2016-09-18] MEDS: LISINOPRIL 5 MG TAB PO SCH (08:06)
[2016-09-18] MEDS: ALLOPURINOL 100 MG TAB PO SCH ×2 (08:07→20:13)
[2016-09-18] MEDS: INSULIN ASPART 100 UNITS/ML 3 ML PEN SC SCH ×4 (08:09→21:14)
[2016-09-18 08:48] LABS: HEMATOCRIT 34.1 % (42-52); MEAN CELL VOLUME 98.3 fL (80-100); MEAN CORPUSCULAR HEMOGLOBIN 30.8 pg (25-34); MEAN CORPUSCULAR HGB CONC 31.4 g/dl (32-36); MEAN PLATELET VOLUME 10.9 fL (7.4-10.4); PLATELET COUNT 202 K/uL (130-400); RED BLOOD COUNT 3.47 M/uL (4.7-6.1); WHITE BLOOD COUNT 5.98 K/uL (4.8-10.8)
[2016-09-18] MEDS ORDERED: CALCITRIOL 0.25 MCG CAP PO SCH (09:00)
[2016-09-18 09:26] LABS: BLOOD UREA NITROGEN 55 mg/dl (7-18); BUN/CREATININE RATIO 8.1 (10-20); CALCIUM 10.1 mg/dl (8.5-10.1); CARBON DIOXIDE 29 mmol/L (21-32); CHLORIDE 94 mmol/L (98-107); CHOLESTEROL 155 mg/dl (0-200); CHOLESTEROL/HDL RATIO 3.5; GLUCOSE 243 mg/dl (70-99); HDL CHOLESTEROL 44 mg/dl; LDL CHOLESTEROL CALCULATED 79 mg/dl; POTASSIUM 5.7 mmol/L (3.5-5.1); SODIUM 136 mmol/L (136-145); TRIGLYCERIDES 161 mg/dl (0-150); VERY LOW DENSITY LIPOPROT CALC 32 mg/dl
--- NOTE | 2016-09-18 10:51 | PULMONARY CONSULTATION ---
DATE OF CONSULTATION: 09/18/2016 TIME: 09:20 a.m. HISTORY OF PRESENT ILLNESS: The patient was seen in room 244, bed 1. He is a 61-year-old male who is being seen because of hypoxia. He presented to the Emergency Room yesterday. He suffered a fall on September 16. This was outside of dialysis. He went down to his knees. He did not pass out. He has had recurring pain in his hips and legs since then. He has been very weak. The patient has had increasing shortness of breath. He has been found to be hypoxic with oxygen saturations in the 70s on room air when he first presented to the ER yesterday. The patient has been having ongoing pulmonary problems. This has been dating back for almost 2 years. In 2014, he was hospitalized for pneumonia in August and again in October. In June of 2015, he had respiratory failure and sepsis. He was on mechanical ventilation at that time. He was hospitalized for over 2 weeks. In 2015, he has had a number of hospital stays. He was hospitalized from July 01 until July 06 with a C. diff infection. He then was hospitalized with hypotension from July 16 to July 19. In July, he was hospitalized from August 08 to August 15. He had at least 1 bronchoscopy during that hospital stay and the patient states he had 2 bronchoscopies. The first may have been an EBUS and the second a bronchoalveolar lavage. These were done by Dr. Friedman. These were done because of progressive symptoms and CAT scan findings. A CAT scan of the chest done without contrast on 08/08/2016 showed diffuse interstitial and reticular nodular changes especially in the lower lung arnold. Dr. Friedman did biopsies that were negative for acid fast bacilli or for malignancy. He also did lavage that apparently was negative for cultures. His reports stated that the only thing positive was an elevated CD4/CD8 ratio. The patient has had numerous courses of antibiotics and steroids. He will improve somewhat, but not improved to baseline. He had some testing for hypersensitivity reactions that showed positive for pigeon and bird droppings with positive IgG. The patient did have chicken feathers in pillows and some other items at home. These have been removed, but in spite of that, he has not clinically resolved. The other question is could his volume overload from his end-stage renal disease be contributing to his x-ray findings and symptoms. The patient remains hypoxic this morning. This has been getting progressive. He takes his oxygen off to eat. When I came in to see him, his saturations were about 75% on room air. We did put his oxygen back in place. The patient has some cough. The cough is productive of scant mucus. It may be clear and sometimes, it will be slightly brown. He states he has noticed shortness of breath dating back to April of last year. He does have oxygen at home recently and he also was at nebulizer at home recently. He has not had any chills, fevers or sweats. His weight has been stable. SOCIAL HISTORY: The patient smoked over the course of about 25 years, but he had quit for 3 or more years during that interval. His average smoking was a pack per day. He quit smoking in 2000. Alcohol use is none. PAST SURGICAL HISTORY: 1. Right and left total hip replacement. 2. Tonsillectomy and adenoidectomy. 3. Vasectomy. 4. Cataract surgeries on the right eye. PAST MEDICAL HISTORY: 1. Gout. 2. Restless leg syndrome. 3. Hypertension. 4. Obesity. 5. C. diff infection. 6. BPH. 7. End-stage renal disease. 8. Diabetes. 9. Hyperlipidemia. 10. Insomnia. MEDICATIONS: At home, 1. Ventolin inhaler p.r.n. 2. Allopurinol 100 mg b.i.d. 3. Aspirin 81 mg daily. 4. Calcitriol 0.25 mg daily. 5. Glimepiride 4 mg daily. 6. Guaifenesin with codeine p.r.n. 7. DuoNeb q.i.d. p.r.n. 8. Lisinopril 5 mg b.i.d. 9. Metoprolol 50 mg b.i.d. 10. Naphcon-A drops for itch. 11. Omeprazole 20 mg daily. 12. Prednisone 10 mg daily, still working on a taper from previous. 13. Renvela 3 tabs b.i.d. 14. Zolpidem 10 mg at bedtime p.r.n. REVIEW OF SYSTEMS: The patient's energy level is low. He has had a recent fall as noted. He denies syncope or near syncope. The patient states his vision out of the eye that had a prior cataract surgery has not been as good as normal. Denies ENT symptoms. Denies GI symptoms. He has generalized weakness. He is having pain in the pelvis and hip areas. He has very little urine output. No acute rashes. The remainder of review of systems is otherwise negative. Ten systems were reviewed. FAMILY HISTORY: Positive for father being at age 84 and he had COPD. Mother at age 78, had thyroid problems and kidney problems. ALLERGIES: No known medication allergies. PHYSICAL EXAMINATION: GENERAL: The patient is a 61-year-old male who was cooperative, alert and oriented. VITAL SIGNS: He appeared mildly short of breath at rest. Maximum temperature since admission is 37.1. Current temperature 36.9. Blood pressure 102/63. HEENT: Eye exam showed evidence of prior surgery. Nares were mildly congested. Mouth exam showed no acute findings of exudate or erythema. NECK: Palpation of the neck reveals no lymph nodes. Neck veins were not overly distended. HEART: Rate 92 per minute. Extrasystoles were heard periodically. LUNGS: Lung arnold reveals rales bilaterally, greater on the left than the right. This was heard posteriorly and anteriorly. Respiratory rate was 24. Saturations were low as noted above. ABDOMEN: Inspection of the abdomen reveals ecchymosis, which appears to be related to prior subcutaneous injections. Bowel sounds were present. There was no focal tenderness. EXTREMITIES: Showed no cyanosis, clubbing or edema. LABORATORY DATA: White count is 5.98. Hemoglobin 10.7. Platelets 202,000. Coags were normal. Blood gas last evening showed a pH of 7.36 with a pCO2 of 54 and a pO2 of 69 done on 4 liters of oxygen. This reflects a compensated respiratory acidosis. Sodium was 133, potassium was 5.7, chloride 92, and bicarbonate 28. His BUN was 54 with a creatinine of 7.3. Random blood sugar was 213. AST was 27 and ALT was 31. Alkaline phosphatase was 145. Troponin was elevated as high as 0.343. Albumin was 2.4 and globulin was 4.0 with a total protein of 6.4. TSH was 0.286. This would be slightly low. Blood cultures are pending. IMPRESSION: 1. Acute respiratory failure with hypoxia and hypercarbia. 2. Interstitial lung disease of undetermined origin. 3. Chronic obstructive pulmonary disease. 4. End-stage renal disease. RECOMMENDATIONS: The patient is a very complex case. He has had ongoing respiratory problems for 2 years. They have been progressive and more frequent. Bronchoscopy was nondiagnostic. Dr. Friedman had felt that the patient may have hypersensitivity pneumonitis. This was because of the exposure to chicken feathers and the abnormal findings on laboratory for pigeon and bird droppings. However, I think it is unlikely that that is the main problem or even the only problem. His symptoms seemed to have worsened in general since he has gone off of hemodialysis and on to peritoneal dialysis. This occurred a few months ago. Perhaps the peritoneal dialysis is just not effective enough for him. Out suggestion would be to get him reasonably as dry as possible. He did have dialysis last evening, but he only tolerated it for about 2 hours. Apparently, he complained of a lot of pain. He is currently on methylprednisolone 40 mg IV b.i.d. I would certainly continue that. He is on neb treatments q.i.d. He likely needs p.r.n. nebs treatments as well. It appears he is not on an antibiotic at present. I agree with that in light of lack of a focal pneumonic process and that he has had C. diff infection in the relatively recent past. We will attempt to obtain sputum culture if he can bring something up. He has been nondiagnostic after 2 bronchoscopies and I am doubtful another one would be definitively helpful. His blood gases certainly would not make one to do an open lung biopsy for definitive diagnosis at present. I will see how his course proceeds. Thank you for asking me to assist in his care. DENISE
--- NOTE | 2016-09-18 11:40 | NEPHROLOGY CONSULTATION ---
DATE OF CONSULTATION: 09/18/2016 DATE OF CONSULTATION: 09/18/2016. REASON FOR CONSULT: Dialysis patient admitted following a fall and is complaining of shortness of breath. HISTORY OF PRESENT ILLNESS: The patient is a 61-year-old male who has multiple medical problems who presented to the Emergency Department yesterday complaining of knee pain and hip pain following a fall in the dialysis unit earlier in the week. On further questioning, he also was complaining of increasing shortness of breath, generalized weakness. In fact, he was hypoxic with 75% on room air at the time of presentation. He was requiring 5 liters of oxygen to maintain oxygen saturation at 95%. Chest x-ray as well as clinical findings suggested pulmonary edema and we did do about 2 hours of dialysis yesterday. In fact, we wanted to do 3 hours of dialysis but patient shortened the treatment at 2 hours against our medical advice. His normal dialysis days are Thursday, and Thursday. The patient was recently admitted to [facility] on 09/04/2016 to 09/12/2016 for shortness of breath which was felt to be multifactorial due to volume overload as well as mycoplasma pneumonia. The patient was treated with aggressive dialysis, antibiotic and steroid course. He was discharged on a tapering dose of prednisone; however, patient has not been feeling significantly better. His shortness of breath as well as cough has persisted. The patient was also given nebulizer treatment. After dialysis yesterday he does feel slightly better but he is still hypoxic with oxygen saturation of 89-90% on 3 liters oxygen; however, his only complaint is pain in his knee and hip. PAST MEDICAL AND SURGICAL HISTORY: BPH, C. diff colitis, type 2 diabetes, dyslipidemia, end-stage renal disease on dialysis Thursday, , Thursday, gout, hypertension, obesity, restless leg syndrome, cataract surgery, vasectomy, tonsillectomy, adenoidectomy, total hip arthroplasty. FAMILY HISTORY: Asthma and hypertension in father and mother. SOCIAL HISTORY: Former smoker. No alcohol. He is and lives with his significant other. ALLERGIES: CHICKEN FEATHERS. HOME MEDICATION LIST: Was reviewed in detail and includes allopurinol, aspirin, calcitriol, glimepiride, lisinopril, metoprolol, multivitamins, omeprazole, prednisone taper, Renvela with meals. REVIEW OF SYSTEMS: Listed in HPI, all other pertinent positives and negatives. A total of 14 systems was reviewed. PHYSICAL EXAMINATION: GENERAL: Elderly white male who actually looks older than his stated age. He appears to be in mild to moderate respiratory distress. VITAL SIGNS: Blood pressure is 102/63. He is 90% on room air, on 2 liter oxygen pulse rate 92 per minute, temperature 36.9. HEAD, EYES, EARS, NOSE, AND THROAT: Mucous membrane is moist. NECK: Jugular venous distention is not present. CHEST: He does appear to be in mild to moderate respiratory distress, decreased breath sounds and crackles and wheezing bilaterally. CARDIOVASCULAR: Regular rate and rhythm. ABDOMEN: He does have trace to 1+ edema bilateral lower extremities. Abdomen soft, nontender. EXTREMITIES: Shows no calf tenderness. Trace edema. NEUROLOGICAL AND PSYCHIATRIC: No motor sensory deficit noted. He is awake, alert, oriented x3. Normal orientation. Moving all 4 extremities. SKIN: Normal color, no rash noted. LABORATORY TESTS: From this morning shows a hemoglobin of 10.7, platelet count 202. WBC count 5.98. Sodium 136, potassium 5.7, BUN 55, creatinine 6.8. Troponin was also positive. In fact, at the time of admission his troponins were positive at 0.343. ASSESSMENT AND PLAN: A 61-year-old male with end-stage renal disease on hemodialysis Thursday, , Thursday, admitted with complaint of the knee and hip pain following a fall; however, he was noted to have significant medical problems. 1. Shortness of breath. He does have acute on chronic hypoxic respiratory failure multifactorial in etiology. At this time it is both infectious as well as fluid overload related. He did have dialysis yesterday, but we could not do for more than 2 hours. We will do again for today 3-1/2 hours. Will try to take 3-4 kilo off as tolerated by his blood pressure which is already on the lower side. 2. Elevated troponin as per primary service. Hypertension. His blood pressure is in fact somewhat low. I would stop the metoprolol at this time to allow for more aggressive dialysis. I am not sure why he needs calcitriol hemodialysis, patient usually gets hecotral during dialysis. I will stop calcitriol. [facility]
--- NOTE | 2016-09-18 15:12 | CARDIOLOGY CONSULTATION ---
DATE OF CONSULTATION: 09/18/2016 REFERRING PHYSICIAN: Dr. Hawkins. INDICATIONS: Abnormal EKG and cardiac enzymes. HISTORY OF PRESENT ILLNESS: The patient is a complex 61-year-old male whose history is notable for end-stage renal disease, on chronic dialysis replacement, previously on peritoneal dialysis, currently on hemodialysis. His underlying medical problems include diabetes mellitus, hypertension, polyneuropathy, and most recently difficulties with progressive interstitial lung disease. This is his 6th hospitalization since June. Laboratory studies and x-rays have demonstrated progressively worsening hypoxia and increasing interstitial markings. He presents now this admission noting having presented for dialysis yesterday with increasing shortness of breath and a mechanical fall when bending down. He was found to be significantly hypoxic. He is referred for hospitalization. Chest x-ray once again demonstrated diffuse interstitial markings. Concerns were raised regarding the congestive heart failure and volume overload superimposed on chronic interstitial changes. He notes no specific chest pains. Notes no overt dizziness. There was lightheaded last night prior to his fall. Notes no melena, hematochezia, dysuria or hematuria. Weight has been generally trending downward per his own description. Notes no fevers, chills or productive cough. Notes no headache or visual changes. The patient is examined on dialysis, currently is dyspneic by discussion and specifically denies any history of chest pain or discomfort or prior history of cardiac disease. ALLERGIES: CHICKEN FEATHERS. MEDICATIONS PRIOR TO HOSPITALIZATION: Albuterol inhaler, allopurinol 100 mg b.i.d., aspirin 81 mg p.o. every day, calcitriol 0.25 mg p.o. every day, glimepiride 4 mg p.o. every day, DuoNeb nebulizer, lisinopril 5 mg b.i.d., metoprolol tartrate 50 mg b.i.d., multivitamin per day, omeprazole 20 mg q.a.m., prednisone taper, Renvela and Ambien p.r.n. PAST SURGICAL HISTORY: Notable for prior cataract extraction, vasectomy, tonsillectomy, past bilateral total hip arthroplasties. FAMILY HISTORY: Not notable for cardiac disease. SOCIAL HISTORY: The patient is a prior smoker, discontinued greater than 5 years past. He uses no significant alcoholic beverages. He is a retired worker previously at [employer] PHYSICAL EXAMINATION: VITAL SIGNS: Heart rate 69, blood pressure is 105/68. HEENT: Normocephalic, atraumatic. Nares without discharge. Throat was clear. NECK: Supple without thyromegaly, lymphadenopathy, JVD or bruit. The patient examined on dialysis. LUNGS: Reveal scattered crackles basilar. CARDIOVASCULAR: Regular. There is no S3 gallop. ABDOMEN: Mildly obese, soft, nontender. EXTREMITIES: Without cyanosis or clubbing. There are intact distal pulses 2/4. There is no edema on exam. LABORATORY STUDIES: Sodium is 136, potassium is 5.7, chloride is 94, bicarbonate is 29, BUN is 55, creatinine 6.8 this morning. Troponins since admission have been elevated. They are not diagnostic in the setting of chronic renal insufficiency. CK and MB fractions were normal. Cholesterol was 155, LDL was 79. EKG reveals new T-wave inversions across the anterior precordial leads with biphasic lead T waves V2, V3 and V4 suggestive of anterior ischemia. Echocardiogram today demonstrates a very hyperdynamic and severely hypertrophied left ventricle, EF greater than 70% without wall motion abnormality or significant valvular disease. IMPRESSION AND PLAN: Complex 61-year-old male with end-stage renal disease, evidence of progressive interstitial lung disease, currently been evaluated by pulmonology, presents now for worsening respiratory status and fall. EKGs since admission demonstrates concerning ST segment changes suggestive of anterior ischemia, though echocardiogram demonstrates hyperdynamic LV function and no wall motion abnormalities. Troponins are mildly elevated; however, of nondiagnostic significance and have been remaining elevated since October 2014. Discussed findings in detail with the patient, will follow the patient in the hospital as clinical course progresses. The patient will likely benefit from right and left heart catheterization as part of diagnostic testing though at this point in time no indications for proceeding acutely. He is on beta blockers currently on metoprolol 50 mg twice per day. We will titrate that up slightly higher to control heart rate and hopefully increase diastolic filling times given very small hypertrophied left ventricle. Lisinopril has been stopped MTDD
--- NOTE | 2016-09-18 19:44 | Progress Note ---
Medicine Progress Note Date & Time of Visit: Sep 18, 2016 at 19:33. Subjective Patient seen and examined. Still with intermittent SOB. Tolerated a partial session of HD last night and a full session today. Objective Last 8 Hrs Date Time Temp Pulse Resp B/P Pulse Ox O2 Delivery O2 Flow Rate FiO2 09/18/16 19:30 119 16 89 Room Air 09/18/16 19:08 36.3 98 18 95/63 95 Nasal Cannula 3.0 09/18/16 16:05 78 20 97 Room Air 3.0 09/18/16 16:00 90 Room Air 2.0 09/18/16 15:14 37.4 86 102/64 09/18/16 15:13 36.3 85 20 103/71 93 Nasal Cannula 3.0 09/18/16 14:30 79 94/44 09/18/16 14:20 75 80/49 09/18/16 14:15 69 105/68 09/18/16 14:00 74 120/67 09/18/16 13:45 82 109/71 09/18/16 13:30 76 118/62 09/18/16 13:15 70 115/60 09/18/16 13:00 75 110/71 09/18/16 12:45 80 99/65 09/18/16 12:30 69 102/71 09/18/16 12:00 75 110/68 09/18/16 12:00 90 Room Air 2.0 09/18/16 11:45 82 109/77 Physical Exam: General-awake; alert; NAD Eyes-EOMI; no scleral icterus Neck-no stridor; trachea midline Lungs-crackles from bases to mid-lungs bilaterally, improved from yesterday; conversational dyspnea Heart-RRR; no m/r/g Abdomen-soft; NTND; nBS; PD catheter c/d/i Extremities-no c/c/e; no deformity Neuro-no gross focal deficits Laboratory Results: Last 24 Hours Test 09/17/16 22:00 09/17/16 23:42 09/18/16 01:12 09/18/16 04:00 Creatine Kinase MB Ratio Bedside Glucose 258 mg/dl Creatine Kinase MB 1.7 ng/ml Troponin I 0.248 ng/ml Test 09/18/16 06:34 09/18/16 08:40 09/18/16 10:40 09/18/16 16:12 Bedside Glucose 229 mg/dl 249 mg/dl 292 mg/dl White Blood Count 5.98 K/uL Red Blood Count 3.47 M/uL Hemoglobin 10.7 g/dL Hematocrit 34.1 % Mean Corpuscular Volume 98.3 fL Mean Corpuscular Hemoglobin 30.8 pg Mean Corpuscular Hemoglobin Concent 31.4 g/dl RDW Standard Deviation 56.4 fL RDW Coefficient of Variation 15.6 % Platelet Count 202 K/uL Mean Platelet Volume 10.9 fL Sodium Level 136 mmol/L Potassium Level 5.7 mmol/L Chloride Level 94 mmol/L Carbon Dioxide Level 29 mmol/L Anion Gap 13.0 mmol/L Blood Urea Nitrogen 55 mg/dl Creatinine 6.80 mg/dl Est Creatinine Clear Calc Drug Dose 13.3 ml/min Estimated GFR () 9.2 Estimated GFR (Non- 8.0 BUN/Creatinine Ratio 8.1 Random Glucose 243 mg/dl Calcium Level 10.1 mg/dl Creatine Kinase MB 1.4 ng/ml Troponin I 0.194 ng/ml Triglycerides Level 161 mg/dl Cholesterol Level 155 mg/dl HDL Cholesterol 44 mg/dl LDL Cholesterol, Calculated 79 mg/dl VLDL Cholesterol, Calculated 32 mg/dl Cholesterol/HDL Ratio 3.5 Chemistry Specimen Hemolysis Assessment & Plan ACUTE ON CHRONIC HYPOXIC RESPIRATORY FAILURE, LIKELY MULTIFACTORIAL - symptoms likely multifactorial due to volume overload vs chronic underlying pulmonary process - recently admitted for the same; completed Levaquin course and was discharged on steroid taper - hold on antibiotics - currently afebrile, no leukocytosis - continue methylprednisolone and nebulizers - pulmonary consulted ELEVATED TROP, EKG CHANGES - no reports of chest pain - profound hypoxia and underlying renal disease likely contributing - T-wave inversions noted inferiorly and anteriorly - noted negative dobutamine stress 05/2016 - troponin downtrended - TTE pending - continue beta lance and ASA - cardio consulted - possible cardiac catheterization ESRD ON HD - on HD TuThSa - continue sevelamer - discontinue calcitriol - nephro consulted HTN - BP low-normotensive - continue metoprolol - discontinue lisinopril DM - hold oral agents and utilize SSI while hospitalized DVT PROPHYLAXIS - SQ Heparin Consultants: Cardiology Pulmonary Nephrology Current Inpatient Medications: Current Inpatient Medications Medications (Trade) Dose Ordered Sig/Daysi Route Start Time Stop Time Status Last Admin Dose Admin Acetaminophen (Tylenol Tab) 650 mg Q4H PRN PO 09/17/16 19:00 10/17/16 18:59 Ondansetron HCl (Zofran Inj) 4 mg Q6H PRN IV 09/17/16 19:00 10/17/16 18:59 Nitroglycerin (Nitrostat Tab) 0.4 mg UD PRN SL 09/17/16 19:00 10/17/16 18:59 Insulin Aspart (novoLOG ASPART) SLIDING SCALE If C... ACHS SC 09/17/16 21:00 10/17/16 20:59 09/18/16 16:28 6 UNITS Glucose (Glucose 40% Gel) 15-30 GRAMS 15 GRAMS... UD PRN PO 09/17/16 19:30 10/17/16 19:29 Glucose (Glucose Chew Tab) 4-8 Tablets 4 Tabl... UD PRN PO 09/17/16 19:30 10/17/16 19:29 Dextrose (Dextrose 50% 50ML Syringe) 25-50ML OF 50% DW IV FOR... UD PRN IV 09/17/16 19:30 10/17/16 19:29 Glucagon (Glucagon Inj) 1 mg UD PRN SQ 09/17/16 19:30 10/17/16 19:29 Acetaminophen/ Hydrocodone Bitart 1 tab 1 tab Q6H PRN PO 09/17/16 19:30 10/01/16 19:29 09/17/16 19:36 1 TAB Methylprednisolone Sodium Succinate/ Syringe (Solu-Medrol IV/ Syringe) 0.64 ml @ 1.5 mls/min BID IV 09/17/16 21:00 10/17/16 20:59 09/18/16 08:04 1.5 MLS/MIN Albuterol/ Ipratropium (Duoneb) 3 ml QIDR INH 09/17/16 20:00 10/17/16 19:59 09/18/16 19:30 3 ML Allopurinol (Zyloprim Tab) 100 mg BID PO 09/17/16 21:00 10/17/16 20:59 09/18/16 08:07 100 MG Aspirin (Ecotrin Tab) 81 mg QAM PO 09/18/16 09:00 10/18/16 08:59 09/18/16 08:05 81 MG Multivitamins (Multivitamin Tab) 1 tab QAM PO 09/18/16 09:00 10/18/16 08:59 09/18/16 08:06 1 TAB Pantoprazole Sodium (Protonix Tab) 40 mg QAM PO 09/18/16 09:00 10/18/16 08:59 09/18/16 08:05 40 MG Sevelamer HCl (Renagel Tab) 1,600 mg BID PRN PO 09/17/16 20:30 10/17/16 20:29 Sevelamer HCl (Renagel Tab) 2,400 mg BIDM PO 09/18/16 07:30 10/18/16 07:29 09/18/16 16:29 2,400 MG Heparin Sodium (Porcine) (Heparin Sq 5000 Unit/0.5ml) 5,000 unit Q8 SQ 09/17/16 22:00 10/17/16 21:59 09/18/16 14:00 5,000 UNIT Zolpidem Tartrate (Ambien Tab) 5 mg HS PRN PO 09/17/16 23:45 10/17/16 23:44 09/17/16 23:50 5 MG Guaifenesin (Robitussin Sugar Free Syrup) 200 mg Q6H PRN PO 09/18/16 04:15 10/18/16 04:14 09/18/16 17:47 200 MG Metoprolol Tartrate (Lopressor Tab) 75 mg BID PO 09/18/16 21:00 10/18/16 20:59 Enteral Nutritional Formula (Prosource No Carb) 30 ml BID PO 09/18/16 21:00 10/18/16 20:59
[2016-09-18] MEDS: HYDROCODONE/ACETAMOPHEN 5/325MG TAB PO PRN (20:12)
[2016-09-18] MEDS: PROSOURCE NOCARB 30ML/PKT PO SCH (20:14)
[2016-09-18] MEDS: METOPROLOL TARTRATE 25 MG TAB PO SCH (20:19)
[2016-09-18] MEDS: ZOLPIDEM TARTRATE 5 MG TAB PO PRN (21:15)
[2016-09-19] VITALS (13 sets, daily range): BP systolic 97–117; BP diastolic 63–76; PULSE 73–114; TEMP 36.4–37; O2SAT 84–97
[2016-09-19] MEDS: HEPARIN SOD 5000 UNIT/0.5 ML CARP SQ SCH ×4 (06:00→20:22)
[2016-09-19] MEDS: ALBUT/IPRATROP 3MG/0.5MG NEB 3 ML VIAL INH SCH ×4 (07:04→20:30)
[2016-09-19 07:12] LABS: HEMATOCRIT 34.7 % (42-52); MEAN CORPUSCULAR HEMOGLOBIN 30.8 pg (25-34); MEAN CORPUSCULAR HGB CONC 31.4 g/dl (32-36); PLATELET COUNT 285 K/uL (130-400); RED BLOOD COUNT 3.54 M/uL (4.7-6.1); WHITE BLOOD COUNT 8.65 K/uL (4.8-10.8)
[2016-09-19 07:58] LABS: BUN/CREATININE RATIO 9.4 (10-20); CALCIUM 10.7 mg/dl (8.5-10.1); MAGNESIUM 2.5 mg/dl (1.8-2.4); PHOSPHORUS 8.4 mg/dl (2.5-4.9); POTASSIUM 5.1 mmol/L (3.5-5.1)
[2016-09-19] MEDS ORDERED: ALBUMIN HUMAN 25% 12.5 GM/50 ML VIAL IV SCH (08:00)
[2016-09-19] MEDS ORDERED: EPOETIN ALFA 10,000 UNITS/ML VIAL IV. SCH (08:00)
--- NOTE | 2016-09-19 08:00 | ECHOCARDIOGRAM REPORT ---
*NOTICE TO RECEIVING CONSTITUTION PARTY AGENCY This information is strictly Confidential and protected under [place] law. [place] law prohibits you from making any further disclosure of this information unless further disclosure is expressly permitted by the written consent of the person to whom it pertains or is authorized by law. A general authorization for the release of medical or other information is not sufficient for this purpose. Hospital accepts no responsibility if the information is made available to any other person, INCLUDING THE PATIENT. Interpretation Summary * Name: SONY WEAVER Study Date: 09/18/2016 10:07 AM BP: 101/62 mmHg * Patient Location: [facility] HR: 96 * : 1955 (M/d/yyyy) Gender: Male Height: 74 in * Age: 61 yrs Ethnicity: CA Weight: 220 lb * Ordering Physician: Destiny Mcclain CRNP * Performed By: ADM * * Reason For Study: Abnormal EKG, Elevated Troponin * BSA: 2.3 m2 * -- Conclusions -- * The left ventricular cavity is small. * There is severe concentric left ventricular hypertrophy. * The left ventricular wall motion is normal. * Ejection Fraction = >70 %. * Grade I diastolic dysfunction, (abnormal relaxation pattern). * Aortic valve sclerosis moderate, without significant aortic valvular stenosis. * The mitral valve leaflets are moderately thickened * There is trace mitral regurgitation. * There is trace tricuspid regurgitation. * Right ventricular systolic pressure is elevated at 40-50mmHg. Procedure Details * A complete two-dimensional transthoracic echocardiogram was performed (2D, M-mode, Doppler and color flow Doppler). Left Ventricle * The left ventricular cavity is small. * There is severe concentric left ventricular hypertrophy. * Ejection Fraction = >70 %. * The left ventricular wall motion is normal. Right Ventricle * The right ventricle is moderately dilated. Atria * The left atrium is mildly dilated. * The right atrium is mildly dilated. Mitral Valve * There is moderate mitral annular calcification. * The mitral valve leaflets are moderately thickened * There is no mitral valve stenosis. * There is trace mitral regurgitation. Tricuspid Valve * The tricuspid valve is not well visualized, but is grossly normal. * There is trace tricuspid regurgitation. * Right ventricular systolic pressure is elevated at 40-50mmHg. Aortic Valve * The aortic valve is trileaflet. * Aortic valve sclerosis moderate, without significant aortic valvular stenosis. Pulmonic Valve * The pulmonic valve is not well visualized. Great Vessels * The aortic root is normal size. Pericardium/Pleural * There is no pericardial effusion. Great Vessels * Normal inferior vena cava diameter and respiratory variation suggests normal central venous pressure. Left Ventricular Diastolic Function * Grade I diastolic dysfunction, (abnormal relaxation pattern). MMode 2D Measurements and Calculations IVSd 1.2 cm IVSs 1.7 cm LVIDd 3.9 cm LVIDs 2.5 cm LVPWd 1.3 cm LVPWs 1.6 cm IVS/LVPW 0.89 FS 36.3 % EDV(Teich) 67.8 ml ESV(Teich) 22.6 ml EF(Teich) 66.7 % EDV(cubed) 61.5 ml ESV(cubed) 15.9 ml EF(cubed) 74.2 % % IVS thick 46.2 % % LVPW thick 22.1 % LV mass(C)d 170.4 grams LV mass(C)dI 75.3 grams/m\S\2 LV mass(C)s 151.6 grams LV mass(C)sI 67.0 grams/m\S\2 SV(Teich) 45.2 ml SI(Teich) 20.0 ml/m\S\2 SV(cubed) 45.6 ml SI(cubed) 20.2 ml/m\S\2 Ao root diam 3.5 cm Ao root area 9.7 cm\S\2 ACS 1.6 cm LA dimension 4.2 cm LA/Ao 1.2 LVAd ap4 21.2 cm\S\2 LVLd ap4 7.6 cm EDV(MOD-sp4) 51.1 ml EDV(sp4-el) 50.4 ml LVAs ap4 12.1 cm\S\2 LVLs ap4 7.0 cm ESV(MOD-sp4) 20.1 ml ESV(sp4-el) 17.7 ml EF(MOD-sp4) 60.6 % EF(sp4-el) 64.9 % LVAd ap2 33.6 cm\S\2 LVLd ap2 9.4 cm EDV(MOD-sp2) 107.5 ml EDV(sp2-el) 102.4 ml LVAs ap2 16.9 cm\S\2 LVLs ap2 7.5 cm ESV(MOD-sp2) 36.2 ml ESV(sp2-el) 32.6 ml EF(MOD-sp2) 66.4 % EF(sp2-el) 68.2 % LVLd %diff 19.2 % EDV(MOD-bp) 82.0 ml LVLs %diff 5.8 % ESV(MOD-bp) 27.1 ml EF(MOD-bp) 67.0 % SV(MOD-sp4) 31.0 ml SI(MOD-sp4) 13.7 ml/m\S\2 SV(MOD-sp2) 71.4 ml SI(MOD-sp2) 31.5 ml/m\S\2 SV(MOD-bp) 54.9 ml SI(MOD-bp) 24.3 ml/m\S\2 SV(sp4-el) 32.7 ml SI(sp4-el) 14.4 ml/m\S\2 SV(sp2-el) 69.8 ml SI(sp2-el) 30.9 ml/m\S\2 Doppler Measurements and Calculations MV E max nikos 95.3 cm/sec MV A max nikos 158.8 cm/sec MV E/A 0.60 MV dec time 0.21 sec Ao V2 max 174.9 cm/sec Ao max PG 12.2 mmHg Ao max PG (full) 7.6 mmHg LV V1 max PG 4.7 mmHg LV V1 max 108.1 cm/sec PA V2 max 93.7 cm/sec PA max PG 3.5 mmHg TR max nikos 270.5 cm/sec
[2016-09-19] MEDS: METHYLPREDNISOLONE IV 40 MG in SYRINGE 0 ML IV SCH ×2 (08:47→20:12)
[2016-09-19] MEDS: MULTIVITAMIN TAB PO SCH (08:48)
[2016-09-19] MEDS: ASPIRIN 81 MG ECTAB PO SCH (08:49)
[2016-09-19] MEDS: METOPROLOL TARTRATE 25 MG TAB PO SCH ×2 (08:49→20:12)
[2016-09-19] MEDS: PROSOURCE NOCARB 30ML/PKT PO SCH ×2 (08:49→20:12)
[2016-09-19] MEDS: PANTOprazole SOD 40 MG TAB PO SCH (08:51)
[2016-09-19] MEDS: ALLOPURINOL 100 MG TAB PO SCH ×2 (08:54→20:12)
[2016-09-19] MEDS: SEVELAMER HYDROCH 800 MG TAB PO SCH ×2 (08:55→16:53)
[2016-09-19] MEDS ORDERED: CALCITRIOL 0.25 MCG CAP PO SCH (09:00)
[2016-09-19] MEDS: INSULIN ASPART 100 UNITS/ML 3 ML PEN SC SCH ×4 (09:30→20:21)
--- NOTE | 2016-09-19 09:52 | PROGRESS NOTE ---
DATE: 09/19/2016 The patient seen and examined. Chart, medications, telemetry reviewed. SUBJECTIVE: The patient still has cough and dyspnea with severe coughing on attempting to lie recombinant. Notes no chest pains. Notes no dizziness. Notes no lightheadedness. Notes no complaints. OBJECTIVE: VITAL SIGNS: Heart rate is 97, blood pressure 103/71. NECK: Thin. There is no distinct jugular venous distention. LUNGS: Reveal fine and coarse crackles throughout all lung arnold. CARDIOVASCULAR: Regular. There is no S3 gallop. ABDOMEN: Soft. EXTREMITIES: Without cyanosis or clubbing. There is no edema. LABORATORY DATA: Sodium is 134, potassium is 5.1, chloride is 96, bicarbonate 27, BUN 57, creatinine 6. EKG reveals sinus tachycardia, rate 99 with T-wave inversion across the anterior precordial leads. IMPRESSION: A 61-year-old male a very complex history with multiple hospitalizations in the last 4 months, presents now with once again worsening pulmonary status with cough, wheezing, mild volume overload. EKGs during this admission have demonstrated new onset T-wave inversion across the anterior precordial leads. Troponins are chronically elevated secondary to underlying end-stage renal disease. Echocardiogram demonstrates extremely small left ventricle with severe left ventricular hypertrophy with hyperdynamic left ventricular function. Overall impression, suspect we may have exposed underlying ischemic heart disease. Due to patient's underlying severe illness, do not think this was a primary cardiology presentation. A diagnostic cardiac catheterization may be helpful in managing patient in the future, those not urgently indicated at this time, especially as the patient will be poorly tolerating the procedure, inability to lie flat due to cough. PLAN: We will continue increased dose of metoprolol at 75 mg twice per day given small left ventricular chamber size. Underlying interstitial lung disease will need to be managed. He is currently on corticosteroids if pulmonary status is improved to the point where he would be able to recline, we would consider direct right and left diagnostic cardiac catheterization to aid in management.
--- NOTE | 2016-09-19 09:53 | Nephrology Progress Note ---
Nephrology Progress Note Date of Service: Sep 19, 2016. Subjective 61 yo male with continued sob with significant rhonchi on prednisone for possible pneumonitis with severe concentric lvh with ef of >70% who did not tolerate aggressive uf on dialysis yesterday. pt still with cough and is fatigued and would prefer to rest instead of doing dialysis today. Objective Date Time Temp Pulse Resp B/P Pulse Ox O2 Delivery O2 Flow Rate FiO2 09/19/16 07:31 37.0 101 20 97/63 92 Nasal Cannula 2.0 09/19/16 07:04 96 16 97 Nasal Cannula 4.0 09/19/16 04:05 36.7 114 20 117/76 94 Nasal Cannula 3.5 09/19/16 04:00 94 Room Air 2.0 09/19/16 00:01 93 Room Air 2.0 09/18/16 23:01 36.6 95 18 101/67 93 Nasal Cannula 2.0 09/18/16 20:00 93 Room Air 2.0 09/18/16 19:30 119 16 89 Room Air 09/18/16 19:08 36.3 98 18 95/63 95 Nasal Cannula 3.0 09/18/16 16:05 78 20 97 Room Air 3.0 09/18/16 16:00 90 Room Air 2.0 09/18/16 15:14 37.4 86 102/64 09/18/16 15:13 36.3 85 20 103/71 93 Nasal Cannula 3.0 09/18/16 14:30 79 94/44 09/18/16 14:20 75 80/49 09/18/16 14:15 69 105/68 09/18/16 14:00 74 120/67 09/18/16 13:45 82 109/71 09/18/16 13:30 76 118/62 09/18/16 13:15 70 115/60 09/18/16 13:00 75 110/71 09/18/16 12:45 80 99/65 09/18/16 12:30 69 102/71 09/18/16 12:00 75 110/68 09/18/16 12:00 90 Room Air 2.0 09/18/16 11:45 82 109/77 09/18/16 11:30 76 118/81 09/18/16 11:15 81 124/78 09/18/16 11:00 80 119/86 09/18/16 10:45 37.2 81 116/64 Physical Exam: General-aaox3 Eyes-no scleral icterus ENT-mmm Neck-supple Lungs-+rhonchi Heart-tachy Abdomen-bs+, +pd catheter Extremities-no edema Neuro-nonfocal Current Inpatient Medications Medications (Trade) Dose Ordered Sig/Daysi Route Start Time Stop Time Status Last Admin Dose Admin Acetaminophen (Tylenol Tab) 650 mg Q4H PRN PO 09/17/16 19:00 10/17/16 18:59 Ondansetron HCl (Zofran Inj) 4 mg Q6H PRN IV 09/17/16 19:00 10/17/16 18:59 Nitroglycerin (Nitrostat Tab) 0.4 mg UD PRN SL 09/17/16 19:00 10/17/16 18:59 Insulin Aspart (novoLOG ASPART) SLIDING SCALE If C... ACHS SC 09/17/16 21:00 10/17/16 20:59 09/18/16 21:14 2 UNITS Glucose (Glucose 40% Gel) 15-30 GRAMS 15 GRAMS... UD PRN PO 09/17/16 19:30 10/17/16 19:29 Glucose (Glucose Chew Tab) 4-8 Tablets 4 Tabl... UD PRN PO 09/17/16 19:30 10/17/16 19:29 Dextrose (Dextrose 50% 50ML Syringe) 25-50ML OF 50% DW IV FOR... UD PRN IV 09/17/16 19:30 10/17/16 19:29 Glucagon (Glucagon Inj) 1 mg UD PRN SQ 09/17/16 19:30 10/17/16 19:29 Acetaminophen/ Hydrocodone Bitart 1 tab 1 tab Q6H PRN PO 09/17/16 19:30 10/01/16 19:29 09/18/16 20:12 1 TAB Methylprednisolone Sodium Succinate/ Syringe (Solu-Medrol IV/ Syringe) 0.64 ml @ 1.5 mls/min BID IV 09/17/16 21:00 10/17/16 20:59 09/19/16 08:47 1.5 MLS/MIN Albuterol/ Ipratropium (Duoneb) 3 ml QIDR INH 09/17/16 20:00 10/17/16 19:59 09/19/16 07:04 3 ML Allopurinol (Zyloprim Tab) 100 mg BID PO 09/17/16 21:00 10/17/16 20:59 09/19/16 08:54 100 MG Aspirin (Ecotrin Tab) 81 mg QAM PO 09/18/16 09:00 10/18/16 08:59 09/18/16 08:05 81 MG Multivitamins (Multivitamin Tab) 1 tab QAM PO 09/18/16 09:00 10/18/16 08:59 09/18/16 08:06 1 TAB Pantoprazole Sodium (Protonix Tab) 40 mg QAM PO 09/18/16 09:00 10/18/16 08:59 09/18/16 08:05 40 MG Sevelamer HCl (Renagel Tab) 1,600 mg BID PRN PO 09/17/16 20:30 10/17/16 20:29 Sevelamer HCl (Renagel Tab) 2,400 mg BIDM PO 09/18/16 07:30 10/18/16 07:29 09/19/16 08:55 2,400 MG Heparin Sodium (Porcine) (Heparin Sq 5000 Unit/0.5ml) 5,000 unit Q8 SQ 09/17/16 22:00 10/17/16 21:59 09/18/16 14:00 5,000 UNIT Zolpidem Tartrate (Ambien Tab) 5 mg HS PRN PO 09/17/16 23:45 10/17/16 23:44 09/18/16 21:15 5 MG Guaifenesin (Robitussin Sugar Free Syrup) 200 mg Q6H PRN PO 09/18/16 04:15 10/18/16 04:14 09/18/16 17:47 200 MG Metoprolol Tartrate (Lopressor Tab) 75 mg BID PO 09/18/16 21:00 10/18/16 20:59 09/19/16 08:49 75 MG Enteral Nutritional Formula (Prosource No Carb) 30 ml BID PO 09/18/16 21:00 10/18/16 20:59 09/18/16 20:14 30 ML Calcitriol (Rocaltrol Cap) 0.25 mcg QAM PO 09/19/16 09:00 10/19/16 08:59 09/19/16 08:52 0.25 MCG Epoetin Ruiz (Procrit Inj) 10,000 units TODAY@0800 IV. 09/19/16 08:00 09/19/16 16:00 Albumin Human (Albumin 25%) 12.5 gm TODAY@0800 IV 09/19/16 08:00 09/19/16 16:00 Last 24 Hours Test 09/18/16 10:40 09/18/16 16:12 09/18/16 20:09 09/19/16 06:57 Bedside Glucose 249 mg/dl 292 mg/dl 179 mg/dl White Blood Count 8.65 K/uL Red Blood Count 3.54 M/uL Hemoglobin 10.9 g/dL Hematocrit 34.7 % Mean Corpuscular Volume 98.0 fL Mean Corpuscular Hemoglobin 30.8 pg Mean Corpuscular Hemoglobin Concent 31.4 g/dl RDW Standard Deviation 56.3 fL RDW Coefficient of Variation 15.6 % Platelet Count 285 K/uL Mean Platelet Volume 11.0 fL Sodium Level 134 mmol/L Potassium Level 5.1 mmol/L Chloride Level 96 mmol/L Carbon Dioxide Level 27 mmol/L Anion Gap 11.0 mmol/L Blood Urea Nitrogen 57 mg/dl Creatinine 6.00 mg/dl Est Creatinine Clear Calc Drug Dose 15.0 ml/min Estimated GFR () 10.7 Estimated GFR (Non- 9.3 BUN/Creatinine Ratio 9.4 Random Glucose 212 mg/dl Calcium Level 10.7 mg/dl Phosphorus Level 8.4 mg/dl Magnesium Level 2.5 mg/dl Hepatitis B Surface Antigen NEG Hepatitis B Surface Antibody NEG Test 09/19/16 06:59 Bedside Glucose 205 mg/dl Assessment & Plan ESRD-no indication for dialysis today. does not appear volume overloaded and was unable to be aggressive with uf yesterday. bp wouldn't tolerate it. plan on dialysis again on thursday unless issues with high potassium. would not take off much fluid on dialysis if needed over the weekend. Anemia of Renal Failure-has had continued elevated ferritin for past two years with presumed diagnosis of hemochromatosis but not confirmed with genetic testing. has not had iron for past two years and ferritin levels continue to be elevated. question if he may have other etiology for the elevate ferritin besides hemochromatosis. continue procrit to keep hg levels up. no iron. pt is not clinically improving and would benefit from transfer to tertiary care center for possible right and left sided caths, possible cardiac biopsy- question any amyloidosis involvement, possible rebronch.
--- NOTE | 2016-09-19 11:51 | PULMONARY PROGRESS NOTE ---
DATE: 09/19/2016 DATE: 09/19/2016. TIME: 11:05 a.m. SUBJECTIVE: The patient feels a little less short of breath today. His cough is a little less. He has been expectorating up some phlegm, but he thinks most of it is saliva. He is not having any chest pains. The patient's was present during this evaluation. OBJECTIVE: GENERAL: The patient appeared less short of breath. He is afebrile and has been afebrile for about 24 hours. VITAL SIGNS: Maximum temperature yesterday was 37.4. HEAD, EYES, EARS, NOSE, AND THROAT: Mouth exam was unremarkable. NECK: Palpation of the neck reveals no lymph nodes. HEART: Rate is 92 beats per minute. The rhythm is regular. Blood pressure 97/63. Oxygen saturation is 90% on room air. LUNGS: Mild rales and rhonchi were heard posteriorly bilaterally. These are decreased from yesterday. ABDOMEN: Soft and nontender. Bowel sounds were normal. EXTREMITIES: Showed no cyanosis, clubbing or edema. The EKG showed evidence of some T-wave inversions in V1, V2 and V3. The patient had an echocardiogram done yesterday. The echo shows ejection fraction greater than 70%. There is severe concentric left ventricular hypertrophy. Grade 1 diastolic dysfunction was noted. There is moderate aortic valve sclerosis without stenosis. Right ventricular systolic pressure was elevated at between 40 and 50. LABORATORY DATA: White count today is 8.65. Hemoglobin 10.9. Platelets 285,000. Coags are normal. Electrolytes show a sodium of 134, potassium 5.1, chloride 96, bicarbonate 27. BUN is 57 with a creatinine of 6.0. Blood sugar was 205. Phosphorus was 8.4 and magnesium was 2.5. Calcium was 10.7. This is despite the fact his albumin was low at 2.4. IMPRESSIONS: 1. Respiratory failure with hypoxia and hypercarbia. 2. Interstitial lung disease. 3. Chronic obstructive pulmonary disease. 4. End-stage renal disease. 5. Hypercalcemia. 6. Abnormal electrocardiogram -- rule out coronary artery disease. COMMENTS AND RECOMMENDATIONS: The patient is clinically improved. From a pulmonary perspective he seems more comfortable. As noted on prior exams and reports his blood gases were abnormal with an elevation of carbon dioxide. Presumably this is due to COPD. Considerations could be given to evaluating for sleep apnea. Hypothyroidism should be checked. I think it is very reasonable for the patient to be transferred to a tertiary care center considering his complex problems which include not only pulmonary but cardiac and renal situations as well. The possibility of transfer has been suggested by cardiology. Would continue with his other treatments as present.
--- NOTE | 2016-09-19 18:00 | Progress Note ---
Medicine Progress Note Date & Time of Visit: Sep 19, 2016 at 17:51. Subjective Patient seen and examined. Breathing and cough still unchanged. Objective Last 8 Hrs Date Time Temp Pulse Resp B/P Pulse Ox O2 Delivery O2 Flow Rate FiO2 09/19/16 16:00 93 Room Air 09/19/16 15:51 36.7 94 20 105/70 91 2.0 09/19/16 15:25 93 16 90 Nasal Cannula 2.0 09/19/16 12:00 Room Air 09/19/16 11:14 36.6 88 20 104/72 96 Nasal Cannula 2.0 09/19/16 11:06 73 16 84 Room Air Physical Exam: General-awake; alert; NAD Eyes-EOMI; no scleral icterus Neck-no stridor; trachea midline Lungs-crackles/rubs from bases to mid-lungs bilaterally; conversational dyspnea Heart-RRR; no m/r/g Abdomen-soft; NTND; nBS; PD catheter c/d/i Extremities-no c/c/e; no deformity Neuro-no gross focal deficits Laboratory Results: Last 24 Hours Test 09/18/16 20:09 09/19/16 06:57 09/19/16 06:59 09/19/16 11:59 Bedside Glucose 179 mg/dl 205 mg/dl 216 mg/dl White Blood Count 8.65 K/uL Red Blood Count 3.54 M/uL Hemoglobin 10.9 g/dL Hematocrit 34.7 % Mean Corpuscular Volume 98.0 fL Mean Corpuscular Hemoglobin 30.8 pg Mean Corpuscular Hemoglobin Concent 31.4 g/dl RDW Standard Deviation 56.3 fL RDW Coefficient of Variation 15.6 % Platelet Count 285 K/uL Mean Platelet Volume 11.0 fL Sodium Level 134 mmol/L Potassium Level 5.1 mmol/L Chloride Level 96 mmol/L Carbon Dioxide Level 27 mmol/L Anion Gap 11.0 mmol/L Blood Urea Nitrogen 57 mg/dl Creatinine 6.00 mg/dl Est Creatinine Clear Calc Drug Dose 15.0 ml/min Estimated GFR () 10.7 Estimated GFR (Non- 9.3 BUN/Creatinine Ratio 9.4 Random Glucose 212 mg/dl Calcium Level 10.7 mg/dl Phosphorus Level 8.4 mg/dl Magnesium Level 2.5 mg/dl Hepatitis B Surface Antigen NEG Hepatitis B Surface Antibody NEG Test 09/19/16 16:18 Bedside Glucose 236 mg/dl Assessment & Plan ACUTE ON CHRONIC HYPOXIC RESPIRATORY FAILURE, LIKELY MULTIFACTORIAL - symptoms likely multifactorial, but overall etiology is unclear - recently admitted for the same; completed Levaquin course and was discharged on steroid taper - hold on antibiotics - currently afebrile, no leukocytosis - continue methylprednisolone and nebulizers - pulmonary consulted - low clinical suspicion for VTE as cause - unable to do CT angio as patient still urinates and renal does not want to compromise any residual renal function ; recent LE dopplers in July were negative; feel that V/Q scan would be nondiagnostic given underlying abnormal imaging ELEVATED TROP, EKG CHANGES - no reports of chest pain - profound hypoxia and underlying renal disease likely contributing - T-wave inversions noted inferiorly and anteriorly - noted negative dobutamine stress 05/2016 - troponin downtrended - TTE with severe LVH - continue beta lance and ASA - cardio consulted - possible cardiac catheterization but patient unable to lie flat at this time ESRD ON HD - on HD TuThSa as outpatient - continue sevelamer - discontinued calcitriol - nephro consulted HTN - BP low-normotensive - continue metoprolol - discontinued lisinopril DM - hold oral agents and utilize SSI while hospitalized DVT PROPHYLAXIS - SQ Heparin Consultants: Cardiology Pulmonary Nephrology Procedures: TTE * The left ventricular cavity is small. * There is severe concentric left ventricular hypertrophy. * The left ventricular wall motion is normal. * Ejection Fraction = >70 %. * Grade I diastolic dysfunction, (abnormal relaxation pattern). * Aortic valve sclerosis moderate, without significant aortic valvular stenosis. * The mitral valve leaflets are moderately thickened * There is trace mitral regurgitation. * There is trace tricuspid regurgitation. * Right ventricular systolic pressure is elevated at 40-50mmHg. Current Inpatient Medications: Current Inpatient Medications Medications (Trade) Dose Ordered Sig/Daysi Route Start Time Stop Time Status Last Admin Dose Admin Acetaminophen (Tylenol Tab) 650 mg Q4H PRN PO 09/17/16 19:00 10/17/16 18:59 Ondansetron HCl (Zofran Inj) 4 mg Q6H PRN IV 09/17/16 19:00 10/17/16 18:59 Nitroglycerin (Nitrostat Tab) 0.4 mg UD PRN SL 09/17/16 19:00 10/17/16 18:59 Insulin Aspart (novoLOG ASPART) SLIDING SCALE If C... ACHS SC 09/17/16 21:00 10/17/16 20:59 09/19/16 16:52 6 UNITS Glucose (Glucose 40% Gel) 15-30 GRAMS 15 GRAMS... UD PRN PO 09/17/16 19:30 10/17/16 19:29 Glucose (Glucose Chew Tab) 4-8 Tablets 4 Tabl... UD PRN PO 09/17/16 19:30 10/17/16 19:29 Dextrose (Dextrose 50% 50ML Syringe) 25-50ML OF 50% DW IV FOR... UD PRN IV 09/17/16 19:30 10/17/16 19:29 Glucagon (Glucagon Inj) 1 mg UD PRN SQ 09/17/16 19:30 10/17/16 19:29 Acetaminophen/ Hydrocodone Bitart 1 tab 1 tab Q6H PRN PO 09/17/16 19:30 10/01/16 19:29 09/18/16 20:12 1 TAB Methylprednisolone Sodium Succinate/ Syringe (Solu-Medrol IV/ Syringe) 0.64 ml @ 1.5 mls/min BID IV 09/17/16 21:00 10/17/16 20:59 09/19/16 08:47 1.5 MLS/MIN Albuterol/ Ipratropium (Duoneb) 3 ml QIDR INH 09/17/16 20:00 10/17/16 19:59 09/19/16 15:25 3 ML Allopurinol (Zyloprim Tab) 100 mg BID PO 09/17/16 21:00 10/17/16 20:59 09/19/16 08:54 100 MG Aspirin (Ecotrin Tab) 81 mg QAM PO 09/18/16 09:00 10/18/16 08:59 09/18/16 08:05 81 MG Multivitamins (Multivitamin Tab) 1 tab QAM PO 09/18/16 09:00 10/18/16 08:59 09/18/16 08:06 1 TAB Pantoprazole Sodium (Protonix Tab) 40 mg QAM PO 09/18/16 09:00 10/18/16 08:59 09/18/16 08:05 40 MG Sevelamer HCl (Renagel Tab) 1,600 mg BID PRN PO 09/17/16 20:30 10/17/16 20:29 Sevelamer HCl (Renagel Tab) 2,400 mg BIDM PO 09/18/16 07:30 10/18/16 07:29 09/19/16 16:53 2,400 MG Heparin Sodium (Porcine) (Heparin Sq 5000 Unit/0.5ml) 5,000 unit Q8 SQ 09/17/16 22:00 10/17/16 21:59 09/18/16 14:00 5,000 UNIT Zolpidem Tartrate (Ambien Tab) 5 mg HS PRN PO 09/17/16 23:45 10/17/16 23:44 09/18/16 21:15 5 MG Guaifenesin (Robitussin Sugar Free Syrup) 200 mg Q6H PRN PO 09/18/16 04:15 10/18/16 04:14 09/18/16 17:47 200 MG Metoprolol Tartrate (Lopressor Tab) 75 mg BID PO 09/18/16 21:00 10/18/16 20:59 09/19/16 08:49 75 MG Enteral Nutritional Formula (Prosource No Carb) 30 ml BID PO 09/18/16 21:00 10/18/16 20:59 09/18/16 20:14 30 ML
[2016-09-19] MEDS: HYDROCODONE/ACETAMOPHEN 5/325MG TAB PO PRN (20:13)
[2016-09-19] MEDS ORDERED: PANTOprazole SOD 40 MG TAB PO STA (21:42)
[2016-09-19] MEDS: ZOLPIDEM TARTRATE 5 MG TAB PO PRN (21:47)
[2016-09-19] MEDS: GUAIFENESIN SUGAR FREE 200 MG/10 ML UDC PO PRN (21:48)
[2016-09-20] VITALS (21 sets, daily range): BP systolic 74–118; BP diastolic 39–71; PULSE 78–100; TEMP 36.3–36.8; O2SAT 69–94
[2016-09-20] MEDS: HEPARIN SOD 5000 UNIT/0.5 ML CARP SQ SCH ×2 (06:00→14:00)
[2016-09-20 06:59] LABS: HEMATOCRIT 32.9 % (42-52); MEAN CELL VOLUME 95.1 fL (80-100); MEAN CORPUSCULAR HEMOGLOBIN 30.3 pg (25-34); MEAN CORPUSCULAR HGB CONC 31.9 g/dl (32-36); MEAN PLATELET VOLUME 10.8 fL (7.4-10.4); PLATELET COUNT 242 K/uL (130-400); RED BLOOD COUNT 3.46 M/uL (4.7-6.1); WHITE BLOOD COUNT 8.56 K/uL (4.8-10.8)
[2016-09-20] MEDS: ALBUT/IPRATROP 3MG/0.5MG NEB 3 ML VIAL INH SCH (07:07)
[2016-09-20 07:40] LABS: BUN/CREATININE RATIO 11.3 (10-20); CALCIUM 10.2 mg/dl (8.5-10.1); CREATININE 8.4 mg/dl (0.60-1.40)
[2016-09-20] MEDS: METHYLPREDNISOLONE IV 40 MG in SYRINGE 0 ML IV SCH (08:06)
[2016-09-20] MEDS: MULTIVITAMIN TAB PO SCH (08:07)
[2016-09-20] MEDS: PANTOprazole SOD 40 MG TAB PO SCH (08:07)
[2016-09-20] MEDS: SEVELAMER HYDROCH 800 MG TAB PO SCH (08:08)
[2016-09-20] MEDS: ALLOPURINOL 100 MG TAB PO SCH (08:08)
[2016-09-20] MEDS: PROSOURCE NOCARB 30ML/PKT PO SCH (08:08)
[2016-09-20 08:12] LABS: PHOSPHORUS 9.2 mg/dl (2.5-4.9)
[2016-09-20] MEDS: ASPIRIN 81 MG ECTAB PO SCH (08:12)
[2016-09-20] MEDS: INSULIN ASPART 100 UNITS/ML 3 ML PEN SC SCH ×2 (08:20→14:22)
[2016-09-20] MEDS: METOPROLOL TARTRATE 25 MG TAB PO SCH (09:00)
[2016-09-20] MEDS ORDERED: HEPARIN SOD (PORCINE) 1000 UNIT/ML 10 ML VIAL IV SCH ×2 (09:45)
--- NOTE | 2016-09-20 10:00 | CARDIOLOGY PROGRESS NOTE ---
DATE: 09/20/2016 DATE: 09/20/2016. SUBJECTIVE: The patient is seen and examined at the bedside. Chart reviewed. The patient continues to note cough and dyspnea. Particularly notes worsening cough when lying supine. Denies chest pain. No lightheadedness, dizziness. Offers no complaints and resting comfortably upon my arrival to the room. LABORATORY DATA: White blood cell count 8.56, hemoglobin 10.5, platelet count 242. Sodium 132, potassium 6.0. CO2 is 91, BUN is 95, creatinine is 8.40. PHYSICAL EXAMINATION: VITAL SIGNS: Temperature is 36.6 degrees centigrade, pulse 70 beats per minute and regular, respiratory rate 16 breaths per minute, blood pressure 95/57. SaO2 94% on 3 liters. GENERAL: NAD, chronically ill. NECK: Thin. There is no JVD. LUNGS: Reveal scattered crackles and expiratory wheezing throughout all lung arnold. CARDIOVASCULAR EXAMINATION: Regular rhythm with normal S1, S2, no murmur. ABDOMEN: Soft, nontender. No rebound or guarding. EXTREMITIES: Warm and dry without cyanosis, edema, or clubbing. NEUROLOGIC EXAMINATION: Demonstrates no focal deficit. FINAL IMPRESSION: 1. Respiratory insufficiency secondary to underlying interstitial lung disease and mild volume overload. 2. Abnormal ECG in the setting of hypoxia likely unmasking underlying coronary disease. 3. Hyperdynamic left ventricular function without regional wall motion abnormality. PLAN AND RECOMMENDATIONS: Metoprolol increased to 75 mg twice daily given underlying LV hyperdynamic function. He is tentatively planned for left and right catheterization next week. Corticosteroids will be managed per the pulmonary service. The patient's heart rate has improved with titration of beta-lance therapy. Will continue current cardiovascular medications at this time.
--- NOTE | 2016-09-20 11:21 | PULMONARY PROGRESS NOTE ---
DATE: 09/20/2016 DATE: 09/20/2016. TIME: 10:35 a.m. SUBJECTIVE: The patient feels about the same. He complained that he had problems during the nighttime. He was having heartburn. He has been getting pantoprazole here. He states he takes Prilosec at home and never has any problems. It could be that the increased steroids here are contributing to the heartburn. He wanted Tums, but could not have them because of his calcium levels. The patient remains somewhat short of breath. Reportedly, his oxygen saturations went into the 60s overnight. The patient is somewhat reluctant to wear nasal cannula oxygen. He feels it makes him nauseated a bit. I asked him if he ever had sleep apnea. He has never had a sleep test. He states that other hospital stays they tried CPAP on him and he could not tolerate it. He would absolutely refuse. He does have a history of snoring somewhat. There has been no observed apneas that he admits to. He states he does not have daytime sleepiness. The number of times he awakens at night is variable. OBJECTIVE: GENERAL: The patient looks slightly short of breath at rest. He has been afebrile. EARS, NOSE, THROAT EXAMINATION: Unremarkable. VITAL SIGNS: Heart rate is 78 beats per minute. Blood pressure 95/57. Respiratory rate 22 breaths per minute. Most recent saturation 93% on 3 liters. CHEST: Rhonchi and rales are heard in the left mid and lower lung arnold posteriorly. It is more rales than rhonchi. ABDOMEN: Soft. Bowel sounds were present. There was no tenderness to palpation. EXTREMITIES: Showed no edema. LABORATORY DATA: White count today is 8.56. Hemoglobin 10.5. Platelets 242,000. Sodium is 132, potassium today is 6.0, chloride 91 and bicarbonate 27. BUN is 95 with a creatinine of 8.4. Calcium today is 10.2. Phosphorus is 9.2. Magnesium is 3. IMPRESSIONS: 1. Respiratory failure with hypoxia and hypercarbia. 2. Interstitial lung disease. 3. Chronic obstructive pulmonary disease. 4. End-stage renal disease. 5. Hypercalcemia. 6. Rule out coronary artery disease. COMMENTS AND RECOMMENDATIONS: Apparently plans are still to try and get the patient to [facility]. He will be getting dialysis this morning, however. He has been on metoprolol for the past 2 days. His breathing seems no worse with that. He remains on methylprednisolone 40 mg IV b.i.d. He is getting the DuoNebs q.i.d.
[2016-09-20] MEDS ORDERED: SUCRALFATE 1 GM/10 ML UDC PO ONE (11:45)
--- NOTE | 2016-09-20 12:20 | Dialysis Progress Note ---
Nephrology Dialysis Note Date of Service: Sep 20, 2016. Subjective c/o heartburn; still quite sob; also marked L hip pain w/ palpation. for transfer today to [facility] for further pulm / cardiology/ heme/ (?autoimmune/ rheum) w/u. K high today and for extra tx Objective Date Time Temp Pulse Resp B/P Pulse Ox O2 Delivery O2 Flow Rate FiO2 09/20/16 11:57 36.3 94 18 92/60 90 Nasal Cannula 3.0 09/20/16 11:45 94 82/55 09/20/16 11:30 97 89/59 09/20/16 11:15 94 98/68 09/20/16 11:06 94 106/71 09/20/16 10:53 36.3 88 99/68 09/20/16 08:00 Nasal Cannula 3.0 09/20/16 07:49 36.6 78 16 95/57 93 Nasal Cannula 09/20/16 07:07 91 18 94 Nasal Cannula 3.0 09/20/16 04:00 92 Nasal Cannula 3.0 09/20/16 03:25 87 92 Nasal Cannula 3.0 09/20/16 03:20 36.6 88 22 102/64 69 Room Air 09/20/16 00:00 91 Room Air 09/20/16 00:00 36.5 91 24 108/59 91 Nasal Cannula 2.0 09/19/16 20:30 95 18 90 Nasal Cannula 2.0 09/19/16 20:00 Room Air 09/19/16 19:27 36.4 95 18 112/73 96 09/19/16 16:00 93 Room Air 09/19/16 15:51 36.7 94 20 105/70 91 2.0 09/19/16 15:25 93 16 90 Nasal Cannula 2.0 Physical Exam: General-aaox3, on 02nc, dyspneic w/ speech and frequent dry cough Eyes-no scleral icterus ENT-mmm Neck-supple Lungs-+rhonchi Heart-tachy in 90s Abdomen-bs+, +pd catheter Extremities-no edema, L hip tender to palpation; L prox AVF Neuro-rich, fluent speech Current Inpatient Medications Medications (Trade) Dose Ordered Sig/Daysi Route Start Time Stop Time Status Last Admin Dose Admin Acetaminophen (Tylenol Tab) 650 mg Q4H PRN PO 09/17/16 19:00 10/17/16 18:59 Ondansetron HCl (Zofran Inj) 4 mg Q6H PRN IV 09/17/16 19:00 10/17/16 18:59 09/20/16 01:50 4 MG Nitroglycerin (Nitrostat Tab) 0.4 mg UD PRN SL 09/17/16 19:00 10/17/16 18:59 Insulin Aspart (novoLOG ASPART) SLIDING SCALE If C... ACHS SC 09/17/16 21:00 10/17/16 20:59 09/20/16 08:20 6 UNITS Glucose (Glucose 40% Gel) 15-30 GRAMS 15 GRAMS... UD PRN PO 09/17/16 19:30 10/17/16 19:29 Glucose (Glucose Chew Tab) 4-8 Tablets 4 Tabl... UD PRN PO 09/17/16 19:30 10/17/16 19:29 Dextrose (Dextrose 50% 50ML Syringe) 25-50ML OF 50% DW IV FOR... UD PRN IV 09/17/16 19:30 10/17/16 19:29 Glucagon (Glucagon Inj) 1 mg UD PRN SQ 09/17/16 19:30 10/17/16 19:29 Acetaminophen/ Hydrocodone Bitart 1 tab 1 tab Q6H PRN PO 09/17/16 19:30 10/01/16 19:29 09/19/16 20:13 1 TAB Methylprednisolone Sodium Succinate/ Syringe (Solu-Medrol IV/ Syringe) 0.64 ml @ 1.5 mls/min BID IV 09/17/16 21:00 10/17/16 20:59 09/20/16 08:06 1.5 MLS/MIN Albuterol/ Ipratropium (Duoneb) 3 ml QIDR INH 09/17/16 20:00 10/17/16 19:59 09/20/16 07:07 3 ML Allopurinol (Zyloprim Tab) 100 mg BID PO 09/17/16 21:00 10/17/16 20:59 09/20/16 08:08 100 MG Aspirin (Ecotrin Tab) 81 mg QAM PO 09/18/16 09:00 10/18/16 08:59 09/20/16 08:12 81 MG Multivitamins (Multivitamin Tab) 1 tab QAM PO 09/18/16 09:00 10/18/16 08:59 09/20/16 08:07 1 TAB Pantoprazole Sodium (Protonix Tab) 40 mg QAM PO 09/18/16 09:00 10/18/16 08:59 09/20/16 08:07 40 MG Sevelamer HCl (Renagel Tab) 1,600 mg BID PRN PO 09/17/16 20:30 10/17/16 20:29 Sevelamer HCl (Renagel Tab) 2,400 mg BIDM PO 09/18/16 07:30 10/18/16 07:29 09/20/16 08:08 2,400 MG Heparin Sodium (Porcine) (Heparin Sq 5000 Unit/0.5ml) 5,000 unit Q8 SQ 09/17/16 22:00 10/17/16 21:59 09/18/16 14:00 5,000 UNIT Zolpidem Tartrate (Ambien Tab) 5 mg HS PRN PO 09/17/16 23:45 10/17/16 23:44 09/19/16 21:47 5 MG Guaifenesin (Robitussin Sugar Free Syrup) 200 mg Q6H PRN PO 09/18/16 04:15 10/18/16 04:14 09/19/16 21:48 200 MG Metoprolol Tartrate (Lopressor Tab) 75 mg BID PO 09/18/16 21:00 10/18/16 20:59 09/19/16 20:12 75 MG Enteral Nutritional Formula (Prosource No Carb) 30 ml BID PO 09/18/16 21:00 10/18/16 20:59 09/20/16 08:08 30 ML Heparin Sodium (Porcine) (Heparin Iv Bolus) 500 unit Q1H IV 09/20/16 09:45 09/20/16 15:00 Famotidine (Pepcid Tab) 20 mg HS PO 09/20/16 21:00 10/20/16 20:59 Last 24 Hours Test 09/19/16 16:18 09/19/16 20:16 09/20/16 06:31 09/20/16 07:06 Bedside Glucose 236 mg/dl 199 mg/dl 239 mg/dl White Blood Count 8.56 K/uL Red Blood Count 3.46 M/uL Hemoglobin 10.5 g/dL Hematocrit 32.9 % Mean Corpuscular Volume 95.1 fL Mean Corpuscular Hemoglobin 30.3 pg Mean Corpuscular Hemoglobin Concent 31.9 g/dl RDW Standard Deviation 53.9 fL RDW Coefficient of Variation 15.7 % Platelet Count 242 K/uL Mean Platelet Volume 10.8 fL Sodium Level 132 mmol/L Potassium Level 6.0 mmol/L Chloride Level 91 mmol/L Carbon Dioxide Level 27 mmol/L Anion Gap 14.0 mmol/L Blood Urea Nitrogen 95 mg/dl Creatinine 8.40 mg/dl Est Creatinine Clear Calc Drug Dose 10.7 ml/min Estimated GFR () 7.2 Estimated GFR (Non- 6.2 BUN/Creatinine Ratio 11.3 Random Glucose 244 mg/dl Calcium Level 10.2 mg/dl Phosphorus Level 9.2 mg/dl Magnesium Level 3.0 mg/dl Test 09/20/16 11:09 Bedside Glucose 264 mg/dl Assessment & Plan 61 yo male with continued sob with significant rhonchi on prednisone for possible pneumonitis with severe concentric lvh with ef of >70% who did not tolerate aggressive uf on dialysis yesterday. pt still with cough and is fatigued and would prefer to rest instead of doing dialysis today. ESRD w/ hyperkalemia -for HD today; tolerated only minimal UF so far > not likely to get off even 500 mL. plan on dialysis again on thursday unless issues with high potassium. does not tolerate much UF on recent txs Anemia of Renal Failure-has had continued elevated ferritin for past two years with presumed diagnosis of hemochromatosis but not confirmed with genetic testing. has not had iron for past two years and ferritin levels continue to be elevated. question if he may have other etiology for the elevated ferritin besides hemochromatosis. continue procrit to keep hg levels up. no iron. hypercalcemia-calcitriol on hold for now given high calcium levels. pt is on calcitriol at outpt unit as part of an oral calcitriol program. does not get hectoral or zemplar. heartburn > defer to primary service to monitor/ evaluate more if needed (seems prominent sx) but will give one time sucralfate dose and add hs H2 lance; cont PPI q AM; avoid ca and mag based meds d/t comorbidities not clinically improving and for transfer to tertiary care center for possible right and left sided caths, possible cardiac biopsy-question any amyloidosis involvement, possible rebronch. overall question if pt has an infiltrative pulmonary, cardiac, renal issue that has not been determined yet and may warrant further investigation at a tertiary care center. care coordinated w/ Dr. Pinedo. Appreciate consult; will follow with you
[2016-09-20] MEDS ORDERED: FAMO20TA12 PO (13:25)
[2016-09-20] MEDS ORDERED: NTRSLP4 SL (13:25)
[2016-09-20] MEDS ORDERED: HPRIS5M SQ (13:25)
[2016-09-20] MEDS ORDERED: ZFRI4 IV (13:25)
[2016-09-20] MEDS ORDERED: RBTUDL10 PO (13:25)
[2016-09-20] MEDS ORDERED: [UNRECOGNIZED DRUG - CODE] IV (13:25)
[2016-09-20] MEDS ORDERED: METO50TA16 PO (13:25)
[2016-09-20] MEDS ORDERED: AMB5 PO (13:25)
[2016-09-20] MEDS ORDERED: HYDR-5688 PO (13:25)
[2016-09-20] MEDS ORDERED: IPRASOL4 INH (13:25)
[2016-09-20] MEDS ORDERED: TYL325X PO (13:25)
[2016-09-20] MEDS ORDERED: NVLGIPEN SC (13:25)
[2016-09-20] MEDS ORDERED: NUTR-1049 PO (13:25)
--- NOTE | 2016-09-20 13:27 | Discharge Instructions ---
Discharge Instructions Admission Reason for Admission: Acute Respiratory Failure With Hypoxia Discharge Discharge Diagnosis / Problem: Acute on chronic respiratory failure Discharge Goals Goal(s): Improve disease control Activity Recommendations Activity Level: Up Ad Marcella Therapies: Physical Therapy, Occupational Therapy . Additional Information Patient informed of condition: Yes Advance Directives: No DNR: No Level of Care: Other ([facility]) Communicable Disease: No Prognosis: Stable Oxygen at (LPM): 4 Huang Catheter: No Current Hospital Diet Patient's current hospital diet: Renal Diet, Diabetes Type 2 Diet Discharge Diet Recommended Diet: Diabetes Type 2 Diet, Renal Diet Pending Studies Studies pending at discharge: no Physician Orders On Transfer POLST Discussion: Not Applicable Laboratory Results Hemoglobin A1c Test 07/02/16 05:42 Range/Units Estimated Average Glucose 140 mg/dl Hemoglobin A1c 6.5 H 4.5-5.6 % Lipid Panel Test 09/18/16 08:40 Range/Units Triglycerides Level 161 H 0-150 mg/dl Cholesterol Level 155 0-200 mg/dl HDL Cholesterol 44 mg/dl Cholesterol/HDL Ratio 3.5 LDL Cholesterol, Calculated 79 mg/dl Medical Emergencies . Who to Call and When: Medical Emergencies: If at any time you feel your situation is an emergency, please call 911 immediately. . Non-Emergent Contact Non-Emergency issues call your: Primary Care Provider . . "Provider Documentation" section prepared by Jenn Chau. Core Measure Problem Core Measures: None
--- NOTE | 2016-09-20 16:44 | Discharge Summary ---
Discharge Summary Admission Date: Sep 17, 2016 at 18:55 Discharge Date: Sep 20, 2016 Discharge Disposition: Acute care facility Principal Diagnosis: Acute on chronic respiratory failure Secondary Diagnoses/Problems: ESRD on dialysis Procedures: CXR 1. Cardiomegaly with prominence of the central pulmonary vessels. Correlate clinically for evidence of mild congestive failure. 2. Diffuse groundglass change and nodularity is similar to prior studies. This likely represents a chronic infectious or inflammatory pneumonitis. Clinical correlation will be required. 3. There is no lobar consolidation or large pleural effusion. TTE * The left ventricular cavity is small. * There is severe concentric left ventricular hypertrophy. * The left ventricular wall motion is normal. * Ejection Fraction = >70 %. * Grade I diastolic dysfunction, (abnormal relaxation pattern). * Aortic valve sclerosis moderate, without significant aortic valvular stenosis. * The mitral valve leaflets are moderately thickened * There is trace mitral regurgitation. * There is trace tricuspid regurgitation. * Right ventricular systolic pressure is elevated at 40-50mmHg. Consultations: Cardiology Pulmonary Nephrology Medication Reconciliation New Medications: Methylprednisolone Acetate (Methylprednisolone Acetat) 40 Mg/Ml Inj 40 MG IV BID for 14 Days Acetaminophen (Tylenol) 325 Mg Tab 650 MG PO Q4H PRN for Pain or Fever for 30 Days, TAB Famotidine (Famotidine) 20 Mg Tab 20 MG PO HS for 30 Days, TAB Guaifenesin (Guaifenesin) 200 Mg/10 Ml Syrp 200 MG PO Q6H PRN for Cough for 30 Days Heparin Sod (Porcine) (Heparin Sodium) 5,000 Unit/0.5 Ml Inj 5000 UNIT SQ Q8 for 7 Days Hydrocodone/Acetaminophen 5MG/325MG ([place] 5MG/325MG) Tab 1 TAB PO Q6H PRN for Pain for 14 Days, TAB PRN PAIN Insulin Aspart (Novolog Flexpen) 100 Units/Ml Inj 0 UNITS SC ACHS for 30 Days Nitroglycerin (Nitrostat) 0.4 Mg/1 Tab Subl 0.4 MG SL UD PRN for Chest Pain for 30 Days Nutritional Supplements (Prosource No Carb) 1 Liq Liq 30 ML PO BID for 30 Days Ondansetron (Ondansetron Hcl) 2 Mg/Ml Inj 4 MG IV Q6H PRN for Nausea for 14 Days Zolpidem Tartrate (Zolpidem Tartrate) 5 Mg Tab 5 MG PO HS PRN for Sleep for 30 Days, TAB Changed Medications: Metoprolol Tartrate (Lopressor) (Lopressor) 50 Mg Tab 75 MG PO BID for 30 Days, TAB (Changed from: 50 MG) Continued Medications: Allopurinol (Allopurinol) 100 Mg Tab 100 MG PO BID Aspirin (Aspirin) 81 Mg Tab 81 MG PO QAM Ipratropium-Albuterol (Duoneb) 3 Ml Nebu 3 ML INH QIDR for 30 Days, #360 ML (This prescription has been renewed) Dx SOB/Pneumonia/ Pneumonitis Multivitamin (Multivitamin) Tab 1 TAB PO QAM Naphazoline/Pheniramine (Naphcon-A) 15 Ml Soln 1-2 DROPS OP QID PRN for Itching Omeprazole (Prilosec) 20 Mg Capcr 20 MG PO QAM Sevelamer Carbonate (Renvela) 800 Mg Tab 3 TAB PO BID for 90 Days, #810 TAB 3 Refills Sevelamer Carbonate (Renvela) 800 Mg Tab 2 TAB PO with snacks for 90 Days, #540 TAB 3 Refills Discontinued Medications: Albuterol Hfa (Ventolin Hfa) 200 Puffs/00101 Mcg Aers 2-4 PUFFS INH Q6H PRN for SOB/Wheezing, #1 INHALER Calcitriol (Calcitriol) 0.25 Mcg Cap 0.25 MG PO DAILY, #90 Glimepiride (Glimepiride) 4 Mg Tab 4 MG PO QAM Guaifenesin-Codeine (Guaifenesin/Codeine) 1 Tanvi Tanvi 5-10 ML PO HS PRN for Cough for 4 Days, #240 ML Lisinopril (Prinivil) 5 Mg Tab 5 MG PO BID, TAB Prednisone Tab (Prednisone) 10 Mg Tab 10 MG PO UD for 10 Days, TAB on taper - 3 tabs x 1 day, 2 tabs x 3 days, then 1 tab x 3 days Zolpidem Tartrate (Ambien) 10 Mg Tab 10 MG PO HS PRN for Sleep, TAB Admission Information HPI (per Admitting provider): 61 year old male who presents to the ER with shortness of breath and generalized weakness. Patient was recently admitted to [facility] 09/04 - 09/12 for shortness of breath which was felt to be multifactorial due to volume overload and possible mycoplasma pneumonia. Patient was treated with dialysis, a course of Levaquin, and steroids. He was discharged on a tapering dose of prednisone. Patient reports feeling unchanged since his discharged. His shortness of breath and cough have continued. His symptoms seem to wax and wane. Yesterday while at dialysis patient suffered a fall. He reports he was bending forward to put his bag down when he fell onto his knees. He denies any associated lightheadedness, dizziness, diaphoresis, or syncope. He then had his complete dialysis treatment. He reports feeling generally weak since that time. He denies chest pain. No abdominal pain, nausea, vomiting, or diarrhea. He denies fever and chills. He spoke with the nurse at dialysis today who advised him to call EMS. When EMS arrived, he was 75% on room air. In the ER, he is requiring 4L to maintain saturations. CXR is showing mild CHF and chronic pneumonitis. Patient was given a neb treatment. Physical Exam (per Admitting): General Appearance: + mild distress (tachypnea, conversational dyspnea) Head: normocephalic Eyes: normal inspection ENT: hearing grossly normal Neck: supple, no JVD Respiratory/Chest: + respiratory distress (mild tachypnea, conversational dyspnea), + decreased breath sounds, + crackles (BL, noted fro mid lungs to bases) Cardiovascular: regular rate, rhythm, + pertinent finding (trace edema BLLE) Abdomen/GI: normal bowel sounds, non tender, soft Extremities/Musculoskelatal: normal inspection, no calf tenderness Neurologic/Psych: no motor/sensory deficits, alert, normal mood/affect, oriented x 3 Skin: normal color, warm/dry Hospital Course Patient was admitted with acute on chronic hypoxic respiratory failure, possibly multifactorial in etiology. Patient has had 3 admission since July for this very issue. Pulmonary has been consulted. Initially, consideration was given to possible hypersensitivity pneumonitis. However bronchoscopy was nondiagnostic. Consideration was given to possible mycoplasma pneumonia given mildly elevated mycoplasma IgG. Patient received 2 courses of levofloxacin, but there has been no change in respiratory symptoms. Patient has also been on varying doses of steroid, due to tapers and hospitalizations, all without improvement in respiratory symptoms. With patient's most recent previous hospitalization, it was thought that perhaps patient's respiratory issues were due to volume overload; at that time, patient also had significant LE edema. Patient had been dialyzed daily and was continued on HD as an outpatient. However, again, there had been no significant change in respiratory symptoms. Patient was found to be profoundly hypoxic on presentation this hospitalization. He has been on methylprednisolone and nebulizers without significant improvement. Hemodialysis also did not significantly improve patient 's respiratory status, and volume removal with dialysis is now limited by low blood pressures. There is low clinical suspicion for VTE as a cause of patient' s respiratory symptoms, especially in light of patient's recent history and grossly abnormal lung imaging. LE dopplers one month ago were negative for DVT. V/Q scan would be nondiagnostic due to patient's abnormal imaging. We are unable to do CT angio given that patient still urinates and Nephrology does not want to affect any residual renal function. Cardiology was consulted for elevated troponin and new TWI noted on admission EKG. Patient did not have any chest pain. Patient has had a negative dobutamine stress test in 05/2016. TTE showed severe LVH. Patient's beta lance was uptitrated to slow heart rate down and help improve cardiac filling. Cardiology felt that patient would likely benefit from heart catheterization at some point for diagnostic purposes; however at this time patient is unable to lie flat due to respiratory status. Lisinopril was discontinued due to low-normal blood pressures. The decision was made to transfer the patient to a tertiary care center for further workup of patient's respiratory issues - possible cardiac biopsy, possible re-bronchoscopy, possible catheterization. There is a question as to whether the patient may have an undiagnosed infiltrative pulmonary, cardiac and renal issue that has not yet been determined and warrants investigation. Patient deemed stable for transfer to [facility]. PE on discharge: General- awake; alert; NAD Eyes- EOMI; no scleral icterus; pupils reactive Neck- no stridor; trachea midline Lungs- diffuse wheezes and crackles throughout; conversational dyspnea Heart- RRR; no m/r/g Abdomen- soft; NTND; nBS; PD catheter c/d/i Back- no gross abnormalities Extremities- no c/c/e; no deformity; left fistula Neuro- no gross focal deficits Skin- bronze coloration of skin with healed excoriations . Total time spent on discharge = This includes examination of the patient, discharge planning, medication reconciliation, and communication with other providers. Discharge Instructions Discharge Instructions Admission Reason for Admission: Acute Respiratory Failure With Hypoxia Discharge Discharge Diagnosis / Problem: Acute on chronic respiratory failure Discharge Goals Goal(s): Improve disease control Activity Recommendations Activity Level: Up Ad Marcella Therapies: Physical Therapy, Occupational Therapy . Additional Information Patient informed of condition: Yes Advance Directives: No DNR: No Level of Care: Other ([facility]) Communicable Disease: No Prognosis: Stable Oxygen at (LPM): 4 Huang Catheter: No Current Hospital Diet Patient's current hospital diet: Renal Diet, Diabetes Type 2 Diet Discharge Diet Recommended Diet: Diabetes Type 2 Diet, Renal Diet Pending Studies Studies pending at discharge: no Physician Orders On Transfer POLST Discussion: Not Applicable Laboratory Results Hemoglobin A1c Test 07/02/16 05:42 Range/Units Estimated Average Glucose 140 mg/dl Hemoglobin A1c 6.5 H 4.5-5.6 % Lipid Panel Test 09/18/16 08:40 Range/Units Triglycerides Level 161 H 0-150 mg/dl Cholesterol Level 155 0-200 mg/dl HDL Cholesterol 44 mg/dl Cholesterol/HDL Ratio 3.5 LDL Cholesterol, Calculated 79 mg/dl Medical Emergencies . Who to Call and When: Medical Emergencies: If at any time you feel your situation is an emergency, please call 911 immediately. . Non-Emergent Contact Non-Emergency issues call your: Primary Care Provider . . "Provider Documentation" section prepared by Jenn Chau. Core Measure Problem Core Measures: None Additional Copies To Chu Feliciano MD
[2016-09-20] MEDS ORDERED: FAMOTIDINE 20 MG TAB PO SCH (21:00)
[2016-09-22 16:53] LABS: ALBUMIN 2.9 G/DL (3.8-4.8); FREE KAPPA 147.8 MG/L (3.3-19.4); FREE LAMBDA 164.9 MG/L (5.7-26.3); GAMMA GLOBULIN 0.8 G/DL (0.8-1.7); TOTAL PROTEIN 5.9 G/DL (6.2-8.3)
[2016-10-16] MEDS ORDERED: ATOR-26 PO (09:49)
[2016-10-16] MEDS ORDERED: WARF-237 PO (09:50)
[2016-10-16] MEDS ORDERED: INSDGI SC (09:52)
[2016-10-16] MEDS ORDERED: PRED10TA PO (09:56)
[2016-10-16] MEDS ORDERED: SPRIN/30 INH (09:57)
[2016-10-16] MEDS ORDERED: ADVIN25/60 INH (09:59)
[2016-10-16] MEDS ORDERED: BUME2TAB3 PO (10:01)
[2016-10-16] MEDS ORDERED: DOCU-94 PO (10:03)
[2016-10-16] MEDS ORDERED: lovenox SQ (10:04)
[2016-10-16] MEDS ORDERED: METO50TA16 PO (10:05)
[2016-10-16] MEDS ORDERED: saline nasal spray NAE (10:08)
[2016-10-16] MEDS ORDERED: IPRASOL4 INH (10:13)
[2016-10-16] MEDS ORDERED: ACET-1311 PO (10:15)
[2016-10-16] MEDS ORDERED: ZOLP10TA6 PO (10:20)
[2016-10-16] MEDS ORDERED: NTRGSL/4 UT (10:23)
[2016-10-16] MEDS ORDERED: OXYCODONE HCL PO (12:52)
== END 2016-09-20 15:19 | disposition short-term general hospital (02) | DRG 189 ==
LOC: ENRESERVTM → ENRESERVDT → EDBD 15:49 → C.EDB 15:50 → C.2T 18:55
PROVIDERS: ADMIT Internal Medicine; ATTEND Internal Medicine
DX: J96.21 Acute and chronic respiratory failure with hypoxia (principal); N18.6 End stage renal disease; J84.9 Interstitial pulmonary disease, unspecified; I12.0 Hypertensive chronic kidney disease with stage 5 chronic kidney disease or end stage renal disease; J96.22 Acute and chronic respiratory failure with hypercapnia; J44.9 Chronic obstructive pulmonary disease, unspecified; E83.52 Hypercalcemia; M10.9 Gout, unspecified; E66.9 Obesity, unspecified; E78.5 Hyperlipidemia, unspecified; I51.7 Cardiomegaly; F42.4 Excoriation (skin-picking) disorder; I95.9 Hypotension, unspecified; E87.5 Hyperkalemia; N40.0 Benign prostatic hyperplasia without lower urinary tract symptoms; I25.10 Atherosclerotic heart disease of native coronary artery without angina pectoris; R79.89 Other specified abnormal findings of blood chemistry; E11.22 Type 2 diabetes mellitus with diabetic chronic kidney disease; G25.81 Restless legs syndrome; M25.551 Pain in right hip; G47.00 Insomnia, unspecified; R94.31 Abnormal electrocardiogram [ECG] [EKG]; W19.XXXA Unspecified fall, initial encounter; E87.70 Fluid overload, unspecified; D63.1 Anemia in chronic kidney disease; Z87.891 Personal history of nicotine dependence; Z99.2 Dependence on renal dialysis; Z96.643 Presence of artificial hip joint, bilateral; Z86.19 Personal history of other infectious and parasitic diseases; Z79.82 Long term (current) use of aspirin; Z79.84 Long term (current) use of oral hypoglycemic drugs; Z79.52 Long term (current) use of systemic steroids; Z79.51 Long term (current) use of inhaled steroids; Z79.899 Other long term (current) drug therapy

== ENCOUNTER 2016-10-17 11:12 | Emergency (ER) | payer OTHER, BC ==
[~2016-10-17] VITALS: Ht 188 cm; Wt 103.9 kg
[~2016-10-17 11:12] MED LIST changes: -ALLO100T57 PO; -ENOX100I SC; -OXYC1TAB3 PO; -SALI1SPR3
[2016-10-17] MEDS ORDERED: ROCURONIUM BROMIDE 10 MG/ML 10 ML VIAL IV ONE (11:15)
[2016-10-17] MEDS ORDERED: ETOMIDATE 2 MG/ML 20 ML VIAL IV ONE (11:15)
[2016-10-17 11:20] VITALS: TEMP 36.5; Ht 188 cm; Wt 103.9 kg
[2016-10-17] MEDS ORDERED: DEXTROSE 50% 50 ML SYR ONE (11:21)
[2016-10-17 11:44] LABS: BASO % 0.3 %; BASO ABS # 0.05 K/uL (0-0.2); HEMATOCRIT 22.7 % (42-52); IG% 3.2 %; LYMPH % 9.3 %; LYMPH ABS # 1.38 K/uL (1.2-3.4); MEAN CELL VOLUME 95.8 fL (80-100); MEAN CORPUSCULAR HGB CONC 31.3 g/dl (32-36); MEAN PLATELET VOLUME 9.8 fL (7.4-10.4); MONO % 6.5 %; NEUT % 80.7 %; PLATELET COUNT 306 K/uL (130-400); RED BLOOD COUNT 2.37 M/uL (4.7-6.1); WHITE BLOOD COUNT 14.81 K/uL (4.8-10.8)
--- NOTE | 2016-10-17 11:50 | DIAGNOSTIC IMAGING REPORT ---
CHEST ONE VIEW PORTABLE HISTORY: Generalized abdominal pain. COMPARISON: Chest 09/17/2016. FINDINGS: Patient is rotated this study. The heart is mildly enlarged. Trace left pleural effusion. Diffuse interstitial and vascular thickening which has progressed. No pneumothorax. IMPRESSION: 1. Diffuse interstitial and vascular thickening which has progressed. This favors pulmonary edema. 2. Mild cardiomegaly and a trace left pleural effusion. Electronically signed by: Jeremias Umanzor M.D. 10/17/2016 11:49 AM Dictated Date/Time: 10/17/2016 11:48 AM
[2016-10-17 11:53] LABS: ISTAT CREATININE 7.7 mg/dl (0.6-1.3); ISTAT HEMOGLOBIN 6.8 g/dl (14.0-18.0); ISTAT IONIZED CALCIUM 1.14 mmol/l (1.12-1.32)
--- NOTE | 2016-10-17 12:01 | EMERGENCY ROOM VISIT NOTE ---
History Report prepared by Winston: Joceline Lovelace Under the Supervision of: Jackie DasO. First contact with patient: 11:21 Chief Complaint: LETHARGIC Stated Complaint: LETHARGIC Nursing Triage Summary: pt from [facility], lethargic; BSG 22 @ [facility], givenglucagon x2; BSG 83 for EMS; pt talking on arrival, then unresponsive; MD called to room; Dr Bryan at bedside. History of Present Illness The patient is a 61 year old male who presents to the Emergency Room with complaints of constant altered mental status. The patient has a history of end- stage renal disease. According to the jail staff the patient has not had dialysis the last 2 rounds. He recently had a transfusion for severe anemia. The patient is altered in his mentation and was found have a very low blood sugar. They were unable to obtain IV access prior to arrival. The patient had an IV placed in the emergency department and was given an amp of D50. His mentation started to improve. He was able to answer questions. The only pain the patient has is in his lower extremity's. The patient had a recent catheterization. The patient denies any chest pain or shortness of breath. He denies having any headaches nausea or vomiting. The patient states that he has had increased swelling in his legs and generalized weakness. He states that he has not been eating well but still continues to take his insulin. Additional history was obtained from the patient's family members when they arrived. Source of History: patient, family Onset: today Position: other (global) Quality: other (altered mental status) Timing: constant Associated Symptoms: No SOB, No chest pain Note: Patient has lower extremity pain and low blood sugar. Review of Systems See HPI for pertinent positives & negatives. A total of 10 systems reviewed and were otherwise negative. Past Medical & Surgical Medical Problems: (1) BPH (benign prostatic hyperplasia) (2) C. difficile colitis (3) Diabetes mellitus, type II (4) Dyslipidemia (5) ESRD (end stage renal disease) on dialysis (6) Gout (7) HTN (hypertension) (8) Obesity (BMI 30.0-34.9) (9) Restless leg syndrome Surgical Problems: (1) H/O cataract removal with insertion of prosthetic lens (2) H/O vasectomy (3) History of tonsillectomy and adenoidectomy (4) History of total hip arthroplasty Family History Asthma Hypertension FATHER MOTHER Social History Smoking Status: Former Smoker Alcohol Use: none Marital Status: Housing Status: lives with family Current/Historical Medications Scheduled Allopurinol (Zyloprim), 100 MG PO BID Aspirin (Aspirin), 81 MG PO QAM Atorvastatin (Lipitor), 80 MG PO DAILY Bumetanide (Bumex), 2 MG PO BID Docusate Sodium (Colace), 1 CAP PO BID Enoxaparin (Lovenox), 100 MG SC BID Famotidine (Famotidine), 20 MG PO HS Fluticasone Prop/Salmeterol (Advair Diskus 250/50 60 Dose), 1 PUFFS INH BID Heparin Sod (Porcine) (Heparin Sodium), 5,000 UNIT SQ Q8 Insulin Aspart (Novolog Flexpen), 0 UNITS SC ACHS Insulin Glargine (Lantus), 10 UNITS SC QPM Ipratropium-Albuterol (Duoneb), 1 TREATMENT INH Q6 Methylprednisolone Acetate (Methylprednisolone Acetat), 40 MG IV BID Metoprolol Tartrate (Lopressor) (Lopressor), 50 MG PO BID Multivitamin (Multivitamin), 1 TAB PO QAM Nitroglycerin (Nitrostat), 0.4 MG UT PRN Nutritional Supplements (Prosource No Carb), 30 ML PO BID Omeprazole (Prilosec), 20 MG PO QAM Prednisone Tab (Prednisone), 10 MG PO DAILY Sevelamer Carbonate (Renvela), 3 TAB PO BID Tiotropium Crossnore (Spiriva Handihaler), 1 CAP INH DAILY Warfarin Sod (Coumadin), 1 TAB PO DAILY Scheduled PRN Acetaminophen (Tylenol), 650 MG PO Q6 PRN for Pain Guaifenesin (Guaifenesin), 200 MG PO Q6H PRN for Cough Hydrocodone/Acetaminophen 5MG/325MG ([place] 5MG/325MG), 1 TAB PO Q6H PRN for Pain Naphazoline/Pheniramine (Naphcon-A), 1-2 DROPS OP QID PRN for Itching Ondansetron (Ondansetron Hcl), 4 MG IV Q6H PRN for Nausea Oxycodone Ir (Roxicodone Ir), 5 MG PO Q4H PRN for Severe Pain Zolpidem Tartrate (Zolpidem Tartrate), 1 TAB PO HS PRN for Insomnia Miscellaneous Medications Saline (Saline Nasal [place]) Allergies Coded Allergies: Chicken Feathers (Unverified Allergy, Intermediate, BREATHING PROBLEMS, ) Physical Exam Vital Signs Date Time Temp Pulse Resp B/P Pulse Ox O2 Delivery O2 Flow Rate FiO2 10/17/16 15:10/17/16 15:04 46 14 64/ 93 10/17/16 14:58 51/28 10/17/16 14:45 85/ 10/17/16 14:36 75/37 10/17/16 14:34 49 15 58/47 92 10/17/16 14:13 87/40 10/17/16 14:04 48 12 98 10/17/16 13:56 49 10/17/16 13:35 85/54 10/17/16 13:34 47 14 98 10/17/16 13:29 85/54 10/17/16 13:04 49 24 98 10/17/16 12:59 92/46 10/17/16 12:57 48 30 95 10/17/16 12:52 48 22 95 10/17/16 12:47 48 19 95 10/17/16 12:45 81/45 10/17/16 12:17 168 29 66 10/17/16 12:12 198 29 64 10/17/16 12:07 52 25 10/17/16 12:02 66 29 78 10/17/16 11:57 56 16 94 10/17/16 11:52 52 25 10/17/16 11:47 52 23 10/17/16 11:42 52 10/17/16 11:42 57 21 10/17/16 11:38 106/48 10/17/16 11:37 57 25 10/17/16 11:32 51 21 10/17/16 11:27 51 24 10/17/16 11:22 53 23 10/17/16 11:20 36.5 51 20 90/41 Nasal Cannula 3.5 10/17/16 11:14 90/41 Physical Exam GENERAL: Patient is initially listless and slow to respond to questioning. After he was given D50 he was starting to become more arousable. The patient did not complain of any pain. He was still listless but not anxious appearing and did not appear to be in pain. EYES: The conjunctivae are clear. The pupils are surgically altered bilaterally. EARS, NOSE, MOUTH AND THROAT: The nose is without any evidence of any deformity. Mucous membranes are dry. NECK: The neck is nontender and supple. RESPIRATORY: Shallow respirations were noted. There are scattered rales in all lung arnold. CARDIOVASCULAR: Regular rate and rhythm noted there no murmurs rubs or gallops normal S1 normal S2 GASTROINTESTINAL: The abdomen is soft. Bowel sounds are present in all quadrants. Abdomen is nontender. There is a surgical site in the left quadrant. There is no dehiscence drainage or erythema noted. MUSCULOSKELETAL/EXTREMITIES: There is no evidence of gross deformity full range of motion is noted in the hips and shoulders. There is ecchymosis over both upper thighs. There is also significant skin breakdown in the left upper thigh. Recent catheterization site in the right groin was noted. There is no swelling noted. SKIN: Skin is cool and pale. There is bilateral edema in both lower extremity. NEUROLOGIC: Patient is oriented to person place and situation. Strength is diminished but symmetric. Medical Decision & Procedures ER Provider Diagnostic Interpretation: Radiology results as stated below per my review and radiologist interpretation: ABDOMEN AND PELVIS CT WITHOUT CONTRAST CT DOSE: 998.31 mGycm HISTORY: Generalized abdominal pain. TECHNIQUE: Multiaxial CT images of the abdomen and pelvis were performed without contrast. COMPARISON STUDY: Abdomen and pelvis CT 08/08/2016. FINDINGS: Patchy groundglass and consolidative opacities within the lung bases with a small right pleural effusion. The heart is mildly enlarged. No pneumoperitoneum. No pneumatosis. Bilateral total hip arthroplasties. The spleen remains mildly enlarged measuring 15 cm in length. The unenhanced liver, adrenal glands, gallbladder, and pancreas are unremarkable. The [place] kidneys are markedly atrophic. No hydronephrosis. There are bilateral renal hypodense lesions, unchanged. Dominant right renal hypodense lesion measures 1.6 cm. These are incompletely characterize on this noncontrast study but favor cysts. Mild body wall edema. Right retroperitoneal and iliopsoas mixed density fluid collections. The intramuscular collection within the right iliopsoas muscle demonstrates a fluid fluid level with hyperdense layering fluid. Therefore, these likely represent hematomas. The small retroperitoneal hematoma measures up to 2 cm in thickness. The iliopsoas hematoma measures up to 6 cm in thickness. The pelvic structures are not well evaluated due to metallic artifact from the hip prostheses. Trace pelvic free fluid. Colonic diverticulosis. Suboptimal evaluation for bowel pathology due to the lack of intravenous and oral contrast. Mild pericolonic inflammatory change and bowel wall thickening involving the proximal sigmoid colon. This likely represents acute diverticulitis. This is partially obscured by the metallic artifact. No definite abscess identified. No evidence for bowel obstruction. There is question of mild thickening within the left iliacus muscle. This may also represent a small intramuscular hematoma. IMPRESSION: 1. Interval development of a right iliopsoas intramuscular hematoma and a small right retroperitoneal hematoma. There appears to be mild thickening of the left iliacus muscle which also likely represents a small intramuscular hematoma. 2. Acute sigmoid diverticulitis. 3. Patchy and groundglass densities within the lung bases and a small right pleural effusion. This favors pulmonary edema. However, a pneumonia could also have a similar appearance. Electronically signed by: Jeremias Umanzor M.D. 10/17/2016 12:55 PM Dictated Date/Time: 10/17/2016 12:[address] HEAD WITHOUT CONTRAST (CT) CLINICAL HISTORY: Acute change in mental status COMPARISON STUDY: 10/25/2014 TECHNIQUE: Axial CT of the brain is performed from the vertex to the skull base. IV contrast was not administered for this examination. CT DOSE: 1094.67 mGycm FINDINGS: There is a 4 mm left frontoparietal parafalcine hyperdense focus. This was not present on the preceding study. This may represent a tiny hemorrhagic focus although a calcific lesion could appear similar. A follow-up CT scan in 6 hours is recommended. There is no midline shift. There is no CT evidence of acute cortical infarction.. There are patchy white matter hypodensities likely on a small vessel basis. There is no evidence of pathologic ventricular dilatation. There are bilateral maxillary sinus air-fluid levels. There is opacification of multiple right-sided ethmoid air cells. There is significant mucosal disease within the frontal sinuses. IMPRESSION: 1. 4 mm hyperdense focus in the left frontoparietal parafalcine region. This was not present on the prior study. This may represent a tiny hemorrhagic focus. A follow up CT scan in 6 hours is recommended 2. Moderate paranasal sinus disease. Electronically signed by: Ever Zamarripa M.D. 10/17/2016 12:47 PM Dictated Date/Time: 10/17/2016 12:43 PM CHEST ONE VIEW PORTABLE HISTORY: Generalized abdominal pain. COMPARISON: Chest 09/17/2016. FINDINGS: Patient is rotated this study. The heart is mildly enlarged. Trace left pleural effusion. Diffuse interstitial and vascular thickening which has progressed. No pneumothorax. IMPRESSION: 1. Diffuse interstitial and vascular thickening which has progressed. This favors pulmonary edema. 2. Mild cardiomegaly and a trace left pleural effusion. Electronically signed by: Jeremias Umanzor M.D. 10/17/2016 11:49 AM Dictated Date/Time: 10/17/2016 11:48 AM Laboratory Results 10/17/16 11:30 Red Blood Count 2.37, Mean Corpuscular Volume 95.8, Mean Corpuscular Hemoglobin 30.0, Mean Corpuscular Hemoglobin Concent 31.3, Mean Platelet Volume 9.8, Neutrophils (%) (Auto) 80.7, Lymphocytes (%) (Auto) 9.3, Monocytes (%) (Auto) 6.5, Eosinophils (%) (Auto) 0.0, Basophils (%) (Auto) 0.3, Neutrophils # (Auto) 11.93, Lymphocytes # (Auto) 1.38, Monocytes # (Auto) 0.97, Eosinophils # (Auto) 0.00, Basophils # (Auto) 0.05 10/17/16 11:30 Test 10/17/16 11:30 10/17/16 11:33 10/17/16 11:36 10/17/16 12:00 White Blood Count 14.81 K/uL (4.8-10.8) Red Blood Count 2.37 M/uL (4.7-6.1) Hemoglobin 7.1 g/dL (14.0-18.0) Hematocrit 22.7 % (42-52) Mean Corpuscular Volume 95.8 fL (80-100) Mean Corpuscular Hemoglobin 30.0 pg (25-34) Mean Corpuscular Hemoglobin Concent 31.3 g/dl (32-36) Platelet Count 306 K/uL (130-400) Mean Platelet Volume 9.8 fL (7.4-10.4) Neutrophils (%) (Auto) 80.7 % Lymphocytes (%) (Auto) 9.3 % Monocytes (%) (Auto) 6.5 % Eosinophils (%) (Auto) 0.0 % Basophils (%) (Auto) 0.3 % Neutrophils # (Auto) 11.93 K/uL (1.4-6.5) Lymphocytes # (Auto) 1.38 K/uL (1.2-3.4) Monocytes # (Auto) 0.97 K/uL (0.11-0.59) Eosinophils # (Auto) 0.00 K/uL (0-0.5) Basophils # (Auto) 0.05 K/uL (0-0.2) RDW Standard Deviation 66.6 fL (36.4-46.3) RDW Coefficient of Variation 19.5 % (11.5-14.5) Immature Granulocyte % (Auto) 3.2 % Immature Granulocyte # (Auto) 0.48 K/uL (0.00-0.02) Nucleated RBC Absolute Count (auto) 0.32 K/uL (0-0) Nucleated Red Blood Cells % 2.2 % Polychromasia 1+ Hypochromasia PRESENT Basophilic Stippling 1+ Prothrombin Time 77.4 SECONDS (9.0-12.0) Prothromb Time International Ratio 6.7 (0.9-1.1) Activated Partial Thromboplast Time 47.2 SECONDS (21.0-31.0) Partial Thromboplastin Ratio 1.8 Est Creatinine Clear Calc Drug Dose 11.7 ml/min Estimated GFR () 7.1 Estimated GFR (Non- 6.1 BUN/Creatinine Ratio 5.7 (10-20) Calcium Level 9.6 mg/dl (8.5-10.1) Phosphorus Level 7.2 mg/dl (2.5-4.9) Magnesium Level 2.4 mg/dl (1.8-2.4) Total Bilirubin 1.3 mg/dl (0.2-1) Direct Bilirubin 0.8 mg/dl (0-0.2) Aspartate Amino Transf (AST/SGOT) 1588 U/L (15-37) Alanine Aminotransferase (ALT/SGPT) 867 U/L (12-78) Alkaline Phosphatase 144 U/L (45-117) Total Creatine Kinase 529 U/L (39-308) Creatine Kinase MB 4.9 ng/ml (0.5-3.6) Creatine Kinase MB Ratio 0.9 (0-3.0) Troponin I 0.607 ng/ml (0-0.045) Total Protein 6.2 gm/dl (6.4-8.2) Albumin 1.9 gm/dl (3.4-5.0) Amylase Level 35 U/L (25-115) Lipase 48 U/L (73-393) Random Cortisol 55.38 mcg/dl Bedside Lactic Acid Venous 9.83 mmol/L (0.90-1.70) Bedside Hemoglobin 6.8 g/dl (14.0-18.0) Bedside Hematocrit 20 % (42-52) Bedside Sodium 129 mEq/L (135-144) Bedside Potassium 6.6 mEq/L (3.3-5.0) Bedside Chloride 89 mEq/L (101-112) Bedside Total CO2 29 mEq/l (24-31) Anion Gap 19.0 mmol/L (16-25) Bedside Blood Urea Nitrogen 46 mg/dl (7-18) Bedside Creatinine 7.7 mg/dl (0.6-1.3) Bedside Glucose (other) 71 mg/dl (70-99) Bedside Ionized Calcium (Timur) 1.14 mmol/l (1.12-1.32) Venous Blood pH 7.34 (7.36-7.41) Venous Blood Partial Pressure CO2 51 mmHg (38.0-50.0) Venous Blood Partial Pressure O2 24 mmHg Venous Blood HCO3 27 mmol/L Venous Blood Oxygen Saturation < 60.0 % Venous Blood Base Excess 1.0 mmol/L Test 10/17/16 15:15 Bedside Glucose 124 mg/dl (70-99) Laboratory results per my review. Medications Administered Medications (Trade) Dose Ordered Sig/Daysi Route Start Time Stop Time Status Last Admin Dose Admin Dextrose (Dextrose 50% 50ML Syringe) 50 ml STK-MED ONCE .ROUTE 10/17/16 11:21 10/17/16 11:23 DC 10/17/16 11:27 50 ML Dextrose (Dextrose 50% 50ML Syringe) 50 ml NOW STAT IV 10/17/16 13:17 10/17/16 13:18 DC 10/17/16 14:32 50 ML Insulin Human Regular (novoLIN-R U-100 PER UNIT) 10 units NOW STAT IV 10/17/16 13:17 10/17/16 13:19 DC 10/17/16 13:48 10 UNITS Calcium Gluconate 1000 mg 1,000 mg NOW STAT IV 10/17/16 13:17 10/17/16 13:19 DC 10/17/16 14:39 1,000 MG Sodium Chloride 1,000 ml @ 999 mls/hr Q1H1M STAT IV 10/17/16 13:31 10/17/16 14:31 DC 10/17/16 14:40 999 MLS/HR Phytonadione 10 mg/Sodium Chloride 51 ml @ 102 mls/hr ONE ONCE IV 10/17/16 13:45 10/17/16 14:14 DC 10/17/16 14:43 102 MLS/HR Prothrombin Complex Concent (Human)/Syringe (Kcentra/Syringe) 200 ml @ 10 mls/min NOW STAT IV 10/17/16 13:40 10/17/16 13:59 DC 10/17/16 14:14 10 MLS/MIN Miscellaneous (Rapid Sequence Induction Bag) 1 ea STK-MED ONCE N/A 10/17/16 14:44 10/17/16 14:47 DC 10/17/16 15:05 1 EA Hydrocortisone Sodium Succinate (Solu-Cortef IV) 100 mg STK-MED ONCE .ROUTE 10/17/16 14:45 10/17/16 14:47 DC 10/17/16 15:05 100 MG Procedure Endotracheal Intubation Indication Respiratory failure and Hypoxia. The patient was on 100% oxygen via NRB prior to the procedure. Suction, airway equipment, RSI drugs, respiratory equipment, and appropriate personnel were prepared prior to the initiation of the procedure. A time out was taken. Induction was performed with 120 mg Rocuronium. After observing the clinical benefit of the medications, the airway was easily visualized utilizing a [place] Scope. A 8.0 size ETT tube was placed atraumatically to 23 cm at the teeth using standard technique. The cuff inflated without signs of malfunction. There were bilateral breath sounds, positive colormetric change, no gastric sounds, a good capnography waveform, and post procedure pulse oximetry was 84. There were no complications. Central Venous Catheter Indication: Sepsis Catheter type: Triple Lumen Location: Right internal jugular vein Verbal consent was obtained after the risks and benefits were explained, including but not limited to pneumothorax, hemothorax, vessel injury, bleeding, scarring, infection, pain, and bone/joint/nerve damage. At this time, the risks of the procedure are less than the risks of NOT performing the procedure. A time out was taken and the correct patient and site identified. The patient was placed in the supine position and the skin was prepped in the standard fashion with chlorhexidine and full sterile drapes applied. The proper landmarks were identified with ultrasound, anesthetized with 1% lidocaine without epinephrine, and the needle was inserted through the skin in the standard fashion. The needle was carefully advanced into blood vessel lumen under ultrasound guidance. The guidewire was placed uneventfully. The vessel is dilated and the catheter was placed. It was sutured into position. There was good blood return from all ports. The patient tolerated the procedure well and there were no complications. Post procedure x-ray was normal. ECG Indication: altered mental status Rate (beats per minute): 52 Rhythm: sinus bradycardia (conjugated) Findings: PVC (none), RBBB Change: Conjugate rhythm new from September 19, 2016. ED Course 1120: The patient was evaluated in room C9. A complete history and physical examination were performed. 1219: I discussed the results with the patient and his family. 1317: Zosyn Iv 4.5 gm IV, Calcium Gluconate 10% 1,000 mg IV, [id number] Per unit 10 units IV, Dextrose 50% 50 ml Syringe 50 ml IV. 1331: Sodium Chloride 1,000 ml @ 999 mls/hr IV. 1332: I discussed the patient's case with Dr. Ross Mcallister. The patient will be evaluated for further management. 1335: I discussed with about reversal of patient's Coumadin due to findings on CT scan. 1338: Vancomycin HCl 2,000 mg/ Sodium Chloride 540 ml @ 200 mls/hr IV, Prothrombin Complex Concent (Human) 5,000 unit/ Syringe 200 ml @ 10 mls/min Protocol IV. 1345: Phytonadione 10 mg/ Sodium Chloride 51 ml @ 102 mls/hr Protocol IV. 1456: See procedure note for Tracheal Intubation. 1502: See procedure note for Central Venous Catheter. 1512: Patient is being transferred to [facility] via helicopter. Medical Decision Differential diagnosis: Etiologies such as metabolic, infection, hypoglycemia, electrolyte abnormalities , cardiac sources, intracerebral event, toxicologic, neurologic, as well as others were entertained. Nursing notes reviewed. Additional history is obtained from the patient's family members. The patient is a 61-year-old male who presented to the emergency department for altered mental status. The patient was due for dialysis today and has not had dialysis since last Thursday. According to his family members he was recently [facility] a jail after being discharged from [facility]. He had a catheterization in the right groin. He is currently taking anticoagulation and his INR was very elevated. He was found have hypoglycemia in the emergency department. He had a line placed and was given dextrose and his mental status improved. He did not offer any complaints initially but started to complain of flank pain and back pain and became very uncomfortable. CT the head showed a questionable area of cerebral hemorrhage. It is unclear if this is spontaneous because the family do not relate a history of trauma. He was also found have signs of a hematoma over his so as which is likely secondary to the recent catheterization and his elevated INR. The patient was treated with Kcentra as well as vitamin K. He was treated with IV fluids as well as IV antibiotics for presumed sepsis. He continued to be hypotensive. The patient had multiple electrolyte abnormalities which were treated in the emergency department. He was given IV calcium IV dextrose and IV insulin for hyperkalemia. He continued to have a dysrhythmia of junctional bradycardia. I am unsure if this relates to his overall medical condition at this time or the hyperkalemia. It did not seem to improve. He started having signs of pulmonary edema and was intubated in the emergency Department for hypoxia. I discussed his case with the on-call [facility] hospitalist group. After evaluating the patient in the emergency department he discussed the case with the lot boss at [facility] but the patient was felt to be too critical for our facility. [facility] at [facility] they've agreed to accept the patient in transfer. The patient was transferred via helicopter to [facility]. A central line was placed prior to transfer. The patient was started on pressors. The patient was reevaluated multiple times. The patient was in very critical condition upon transfer. Consults Time Called: 1330 Consulting Physician: Dr. Ross Mcallister Returned Call: [phone] I discussed the patient's case with Dr. Ross Mcallister. The patient will be evaluated for further management. Additional Consults: Time Called: 1332 Consulted Physician: Dr. Norma Viveros [facility] Returned Call: [phone] Additional Comments: I discussed with about reversal of patient's Coumadin due to findings on CT scan. Impression Primary Impression: Pulmonary edema Additional Impressions: Anemia Respiratory failure Renal failure Hyperkalemia Junctional bradycardia Hypoxia Diverticulitis Lactic acidosis Sepsis Intracranial hemorrhage Critical Care I have personally spent greater than 120 minutes of critical care time in the direct management of this patient. This includes bedside care, interpretation of diagnostic studies, and testing, discussion with consultants, patient, and family members, and other required patient management activities. This 120 minutes is in excess of all separately billable procedures. Scribe Attestation The scribe's documentation has been prepared under my direction and personally reviewed by me in its entirety. I confirm that the note above accurately reflects all work, treatment, procedures, and medical decision making performed by me. Departure Information Dispostion Transfer Acute Care Facility Referrals Fidelia Perez (PCP) Problem Qualifiers Primary Impression: Pulmonary edema Chronicity: acute Qualified Codes: J81.0 - Acute pulmonary edema Additional Impressions: Anemia Anemia type: unspecified type Qualified Codes: D64.9 - Anemia, unspecified Respiratory failure Chronicity: acute Respiratory failure complication: hypoxia and hypercapnia Qualified Codes: J96.01 - Acute respiratory failure with hypoxia; J96.02 - Acute respiratory failure with hypercapnia Diverticulitis Diverticulitis site: large intestine Diverticulitis bleeding: without bleeding Diverticulitis complication: without perforation or abscess Qualified Codes: K57.32 - Diverticulitis of large intestine without perforation or abscess without bleeding Sepsis Sepsis type: sepsis due to unspecified organism Qualified Codes: A41.9 - Sepsis, unspecified organism
[2016-10-17 12:03] LABS: PARTIAL THROMBOPLASTIN RATIO 1.8; PROTHROMBIN TIME (PATIENT) 77.4 SECONDS (9.0-12.0)
[2016-10-17 12:05] LABS: COMPLETE YES; HYPOCHROMIA PRESENT; POLYCHROMASIA 1+
[2016-10-17 12:14] LABS: VEN BLD GAS O2 SATURATION < 60.0 %; VENOUS BLOOD GAS PCO2 51 mmHg (38.0-50.0); VENOUS BLOOD GAS PO2 24 mmHg
[2016-10-17 12:19] LABS: BUN/CREATININE RATIO 5.7 (10-20); CALCIUM 9.6 mg/dl (8.5-10.1); CKMB/CK RATIO 0.9 (0-3.0); CREATININE 8.5 mg/dl (0.60-1.40); MAGNESIUM 2.4 mg/dl (1.8-2.4); PHOSPHORUS 7.2 mg/dl (2.5-4.9); POTASSIUM 6.4 mmol/L (3.5-5.1)
[2016-10-17 12:25] LABS: INR 6.7 (0.9-1.1)
[2016-10-17] MEDS ORDERED: ALLO100T57 PO (12:36)
[2016-10-17] MEDS ORDERED: OXYC1TAB3 PO (12:38)
[2016-10-17] MEDS ORDERED: SALI1SPR3 (12:38)
[2016-10-17] MEDS ORDERED: ENOX100I SC (12:38)
--- NOTE | 2016-10-17 12:48 | DIAGNOSTIC IMAGING REPORT ---
CT HEAD WITHOUT CONTRAST (CT) CLINICAL HISTORY: Acute change in mental status COMPARISON STUDY: 10/25/2014 TECHNIQUE: Axial CT of the brain is performed from the vertex to the skull base. IV contrast was not administered for this examination. CT DOSE: 1094.67 mGycm FINDINGS: There is a 4 mm left frontoparietal parafalcine hyperdense focus. This was not present on the preceding study. This may represent a tiny hemorrhagic focus although a calcific lesion could appear similar. A follow-up CT scan in 6 hours is recommended. There is no midline shift. There is no CT evidence of acute cortical infarction.. There are patchy white matter hypodensities likely on a small vessel basis. There is no evidence of pathologic ventricular dilatation. There are bilateral maxillary sinus air-fluid levels. There is opacification of multiple right-sided ethmoid air cells. There is significant mucosal disease within the frontal sinuses. IMPRESSION: 1. 4 mm hyperdense focus in the left frontoparietal parafalcine region. This was not present on the prior study. This may represent a tiny hemorrhagic focus. A follow up CT scan in 6 hours is recommended 2. Moderate paranasal sinus disease. Electronically signed by: Ever Zamarripa M.D. 10/17/2016 12:47 PM Dictated Date/Time: 10/17/2016 12:43 PM
--- NOTE | 2016-10-17 12:56 | DIAGNOSTIC IMAGING REPORT ---
ABDOMEN AND PELVIS CT WITHOUT CONTRAST CT DOSE: 998.31 mGycm HISTORY: Generalized abdominal pain. TECHNIQUE: Multiaxial CT images of the abdomen and pelvis were performed without contrast. COMPARISON STUDY: Abdomen and pelvis CT 08/08/2016. FINDINGS: Patchy groundglass and consolidative opacities within the lung bases with a small right pleural effusion. The heart is mildly enlarged. No pneumoperitoneum. No pneumatosis. Bilateral total hip arthroplasties. The spleen remains mildly enlarged measuring 15 cm in length. The unenhanced liver, adrenal glands, gallbladder, and pancreas are unremarkable. The [place] kidneys are markedly atrophic. No hydronephrosis. There are bilateral renal hypodense lesions, unchanged. Dominant right renal hypodense lesion measures 1.6 cm. These are incompletely characterize on this noncontrast study but favor cysts. Mild body wall edema. Right retroperitoneal and iliopsoas mixed density fluid collections. The intramuscular collection within the right iliopsoas muscle demonstrates a fluid fluid level with hyperdense layering fluid. Therefore, these likely represent hematomas. The small retroperitoneal hematoma measures up to 2 cm in thickness. The iliopsoas hematoma measures up to 6 cm in thickness. The pelvic structures are not well evaluated due to metallic artifact from the hip prostheses. Trace pelvic free fluid. Colonic diverticulosis. Suboptimal evaluation for bowel pathology due to the lack of intravenous and oral contrast. Mild pericolonic inflammatory change and bowel wall thickening involving the proximal sigmoid colon. This likely represents acute diverticulitis. This is partially obscured by the metallic artifact. No definite abscess identified. No evidence for bowel obstruction. There is question of mild thickening within the left iliacus muscle. This may also represent a small intramuscular hematoma. IMPRESSION: 1. Interval development of a right iliopsoas intramuscular hematoma and a small right retroperitoneal hematoma. There appears to be mild thickening of the left iliacus muscle which also likely represents a small intramuscular hematoma. 2. Acute sigmoid diverticulitis. 3. Patchy and groundglass densities within the lung bases and a small right pleural effusion. This favors pulmonary edema. However, a pneumonia could also have a similar appearance. Electronically signed by: Jeremias Umanzor M.D. 10/17/2016 12:55 PM Dictated Date/Time: 10/17/2016 12:43 PM
[2016-10-17] MEDS ORDERED: NovoLIN-R INSULIN PER UNIT CHARGE IV STA (13:17)
[2016-10-17] MEDS ORDERED: CALCIUM GLUCONATE 10% 10 ML VIAL IV STA (13:17)
[2016-10-17] MEDS ORDERED: PIPERACILLIN/TAZOBACTAM 4.5 GM/100ML D5W IV STA (13:17)
[2016-10-17] MEDS ORDERED: DEXTROSE 50% 50 ML SYR IV STA (13:17)
[2016-10-17] MEDS ORDERED: SODIUM CHLORIDE 0.9% 1000ML 1,000 ML IV STA (13:31)
[2016-10-17] MEDS ORDERED: PROTHROMBIN COMP CONC- KCENTRA 5,000 UNIT in SYRINGE 0 ML IV STA ×2 (13:36→13:40)
[2016-10-17] MEDS ORDERED: VANCOMYCIN INJ 2,000 MG in SODIUM CHLORIDE 0.9% 500ML 500 ML IV STA (13:38)
[2016-10-17] MEDS ORDERED: PHYTONADIONE INJ 10 MG in SODIUM CHLORIDE 0.9% 50ML 50 ML IV ONE (13:45)
[2016-10-17] MEDS ORDERED: HYDROCORTISONE IV 100 MG in SYRINGE 0 ML IV ONE (14:15)
[2016-10-17] MEDS ORDERED: RAPID SEQUENCE INDUCTION BAG ONE (14:44)
[2016-10-17] MEDS ORDERED: HYDROCORTISONE SOD SUCCINATE 100 MG/2 ML VIAL ONE (14:45)
--- NOTE | 2016-10-17 14:57 | Medical Consult ---
Consultation Date of Consultation: Oct 17, 2016. Attending Physician: Dr. Bryan . Reason for Consultation: hypotension, bradycardia, hypoxia, coagulopathy . History of Present Illness 61 YO male followed by Dr. Feliciano. Complex PMH includes interstitial lung disease, CKD V on hemodialysis, interstitial lung disease, DM. Recently hospitalized at [facility] and transferred to [facility] due to worsening pulmonary status. Found to have Enterococcus infection of peritoneal dialysis catheter. Catheter removed. Treated with vancomycin. Developed atrial fibrillation while at [facility] and started on warfarin. Transferred to [facility] for skilled care. Sent to ED today due to altered mental status. Upon arrival he was bradycardic and hypotensive. WBC was elevated. Serum lactate was 9.8. Blood cultures were obtained and Zosyn ordered. Serum glucose was 39. Serum K 6.4. Received calcium, D50, insulin. INR 6.7. CT head showed suspected intracranial hemorrhage. CT of abdomen and pelvis demonstrated ileopsoas hematoma. Received K-Centra and vitamin K. Remained hypotensive in ED. Patient confused at time of my assessment. Denied headache, cough, nausea, vomiting, abdominal pain, diarrhea. . Past Medical/Surgical History Medical Problems: (1) BPH (benign prostatic hyperplasia) Permanent Comment: no obstruction Status: Chronic (2) C. difficile colitis Status: Resolved (3) Diabetes mellitus, type II Status: Chronic (4) Dyslipidemia Status: Chronic (5) ESRD (end stage renal disease) on dialysis Status: Chronic (6) Gout Status: Chronic (7) HTN (hypertension) Status: Chronic (8) Obesity (BMI 30.0-34.9) Status: Chronic (9) Restless leg syndrome Status: Chronic (10) Interstitial lung disease (11) Atrial fibrillation Surgical Problems: (1) H/O cataract removal with insertion of prosthetic lens Permanent Comment: R side; 1989 Status: Resolved (2) H/O vasectomy Status: Resolved (3) History of tonsillectomy and adenoidectomy Status: Resolved (4) History of total hip arthroplasty Permanent Comment: bilat; performed by Dr.Dean Torres in 2010 Status: Resolved . Family History Asthma Hypertension FATHER MOTHER Social History Smoking Status: Former Smoker Marital Status: Housing Status: lives with family Allergies Coded Allergies: Chicken Feathers (Unverified Allergy, Intermediate, BREATHING PROBLEMS, ) Current Inpatient Medications Current Inpatient Medications Medications (Trade) Dose Ordered Sig/Daysi Route Start Time Stop Time Status Last Admin Dose Admin Vancomycin HCl 2000 mg/Sodium Chloride 540 ml @ 200 mls/hr ONE STAT IV 10/17/16 13:38 10/17/16 16:19 Hydrocortisone Sodium Succinate/ Syringe (Solu-Cortef IV/ Syringe) 2 ml @ 4 mls/min NOW ONCE IV 10/17/16 14:15 10/17/16 14:16 UNV Review of Systems As noted above in HPI. Unable to obtain complete ROS due to patient's condition. . Physical Exam Date Time Temp Pulse Resp B/P Pulse Ox O2 Delivery O2 Flow Rate FiO2 10/17/16 13:56 49 10/17/16 12:59 92/46 10/17/16 12:57 48 30 95 10/17/16 12:52 48 22 95 10/17/16 12:47 48 19 95 10/17/16 12:45 81/45 10/17/16 12:17 168 29 66 10/17/16 12:12 198 29 64 10/17/16 12:07 52 25 10/17/16 12:02 66 29 78 10/17/16 11:57 56 16 94 10/17/16 11:52 52 25 10/17/16 11:47 52 23 10/17/16 11:42 52 10/17/16 11:42 57 21 10/17/16 11:38 106/48 10/17/16 11:37 57 25 10/17/16 11:32 51 21 10/17/16 11:27 51 24 10/17/16 11:22 53 23 10/17/16 11:20 36.5 51 20 90/41 Nasal Cannula 3.5 10/17/16 11:14 90/41 General Appearance: + moderate distress, + pertinent finding (chronically-ill appearing) Head: normocephalic, atraumatic Eyes: EOMI, sclerae normal, + pertinent finding (left pupil 5 mm, reactive; right pupil s/p iridectomy) Neck: supple, no adenopathy, trachea midline, + pertinent finding (left EJ IV catheter) Respiratory/Chest: + accessory muscle use, + pertinent finding (scattered rales ) Cardiovascular: + JVD, + irregularly irregular, + pertinent finding (no gallop appreciated, but exam limited; 2+ pretibial edema) Abdomen/GI: + pertinent finding (distended, soft, mild LLQ tenderness; no palpable masses) Extremities/Musculoskelatal: no calf tenderness Neurologic/Psych: + disoriented Skin: + pertinent finding (multiple ecchymoses; superficial ulcerations left thigh; ulcerations left fingers) Lymphatic: no adenopathy Laboratory Results Last 24 Hours Test 10/17/16 11:19 10/17/16 11:30 10/17/16 11:33 10/17/16 11:34 Bedside Glucose 39 mg/dl 158 mg/dl White Blood Count 14.81 K/uL Red Blood Count 2.37 M/uL Hemoglobin 7.1 g/dL Hematocrit 22.7 % Mean Corpuscular Volume 95.8 fL Mean Corpuscular Hemoglobin 30.0 pg Mean Corpuscular Hemoglobin Concent 31.3 g/dl Platelet Count 306 K/uL Mean Platelet Volume 9.8 fL Neutrophils (%) (Auto) 80.7 % Lymphocytes (%) (Auto) 9.3 % Monocytes (%) (Auto) 6.5 % Eosinophils (%) (Auto) 0.0 % Basophils (%) (Auto) 0.3 % Neutrophils # (Auto) 11.93 K/uL Lymphocytes # (Auto) 1.38 K/uL Monocytes # (Auto) 0.97 K/uL Eosinophils # (Auto) 0.00 K/uL Basophils # (Auto) 0.05 K/uL RDW Standard Deviation 66.6 fL RDW Coefficient of Variation 19.5 % Immature Granulocyte % (Auto) 3.2 % Immature Granulocyte # (Auto) 0.48 K/uL Nucleated RBC Absolute Count (auto) 0.32 K/uL Nucleated Red Blood Cells % 2.2 % Polychromasia 1+ Hypochromasia PRESENT Basophilic Stippling 1+ Prothrombin Time 77.4 SECONDS Prothromb Time International Ratio 6.7 Activated Partial Thromboplast Time 47.2 SECONDS Partial Thromboplastin Ratio 1.8 Sodium Level 129 mmol/L Potassium Level 6.4 mmol/L Chloride Level 87 mmol/L Carbon Dioxide Level 24 mmol/L Anion Gap 18.0 mmol/L Blood Urea Nitrogen 49 mg/dl Creatinine 8.50 mg/dl Est Creatinine Clear Calc Drug Dose 11.7 ml/min Estimated GFR () 7.1 Estimated GFR (Non- 6.1 BUN/Creatinine Ratio 5.7 Random Glucose 37 mg/dl Calcium Level 9.6 mg/dl Phosphorus Level 7.2 mg/dl Magnesium Level 2.4 mg/dl Total Bilirubin 1.3 mg/dl Direct Bilirubin 0.8 mg/dl Aspartate Amino Transf (AST/SGOT) 1588 U/L Alanine Aminotransferase (ALT/SGPT) 867 U/L Alkaline Phosphatase 144 U/L Total Creatine Kinase 529 U/L Creatine Kinase MB 4.9 ng/ml Creatine Kinase MB Ratio 0.9 Troponin I 0.607 ng/ml Total Protein 6.2 gm/dl Albumin 1.9 gm/dl Amylase Level 35 U/L Lipase 48 U/L Random Cortisol 55.38 mcg/dl Bedside Lactic Acid Venous 9.83 mmol/L Test 10/17/16 11:36 10/17/16 12:00 Bedside Hemoglobin 6.8 g/dl Bedside Hematocrit 20 % Bedside Sodium 129 mEq/L Bedside Potassium 6.6 mEq/L Bedside Chloride 89 mEq/L Bedside Total CO2 29 mEq/l Anion Gap 19.0 mmol/L Bedside Blood Urea Nitrogen 46 mg/dl Bedside Creatinine 7.7 mg/dl Bedside Glucose (other) 71 mg/dl Bedside Ionized Calcium (Timur) 1.14 mmol/l Venous Blood pH 7.34 Venous Blood Partial Pressure CO2 51 mmHg Venous Blood Partial Pressure O2 24 mmHg Venous Blood HCO3 27 mmol/L Venous Blood Oxygen Saturation < 60.0 % Venous Blood Base Excess 1.0 mmol/L CHEST ONE VIEW PORTABLE FINDINGS: Patient is rotated this study. The heart is mildly enlarged. Trace left pleural effusion. Diffuse interstitial and vascular thickening which has progressed. No pneumothorax. IMPRESSION: 1. Diffuse interstitial and vascular thickening which has progressed. This favors pulmonary edema. 2. Mild cardiomegaly and a trace left pleural effusion. Electronically signed by: Jeremias Umanzor M.D. 10/17/2016 11:[address] HEAD WITHOUT CONTRAST (CT) FINDINGS: There is a 4 mm left frontoparietal parafalcine hyperdense focus. This was not present on the preceding study. This may represent a tiny hemorrhagic focus although a calcific lesion could appear similar. A follow-up CT scan in 6 hours is recommended. There is no midline shift. There is no CT evidence of acute cortical infarction.. There are patchy white matter hypodensities likely on a small vessel basis. There is no evidence of pathologic ventricular dilatation. There are bilateral maxillary sinus air-fluid levels. There is opacification of multiple right-sided ethmoid air cells. There is significant mucosal disease within the frontal sinuses. IMPRESSION: 1. 4 mm hyperdense focus in the left frontoparietal parafalcine region. This was not present on the prior study. This may represent a tiny hemorrhagic focus. A follow up CT scan in 6 hours is recommended 2. Moderate paranasal sinus disease. Electronically signed by: Ever Zamarripa M.D. 10/17/2016 12:[address] PELVIS CT WITHOUT CONTRAST FINDINGS: Patchy groundglass and consolidative opacities within the lung bases with a small right pleural effusion. The heart is mildly enlarged. No pneumoperitoneum. No pneumatosis. Bilateral total hip arthroplasties. The spleen remains mildly enlarged measuring 15 cm in length. The unenhanced liver, adrenal glands, gallbladder, and pancreas are unremarkable. The [place] kidneys are markedly atrophic. No hydronephrosis. There are bilateral renal hypodense lesions, unchanged. Dominant right renal hypodense lesion measures 1.6 cm. These are incompletely characterize on this noncontrast study but favor cysts. Mild body wall edema. Right retroperitoneal and iliopsoas mixed density fluid collections. The intramuscular collection within the right iliopsoas muscle demonstrates a fluid fluid level with hyperdense layering fluid. Therefore, these likely represent hematomas. The small retroperitoneal hematoma measures up to 2 cm in thickness. The iliopsoas hematoma measures up to 6 cm in thickness. The pelvic structures are not well evaluated due to metallic artifact from the hip prostheses. Trace pelvic free fluid. Colonic diverticulosis. Suboptimal evaluation for bowel pathology due to the lack of intravenous and oral contrast. Mild pericolonic inflammatory change and bowel wall thickening involving the proximal sigmoid colon. This likely represents acute diverticulitis. This is partially obscured by the metallic artifact. No definite abscess identified. No evidence for bowel obstruction. There is question of mild thickening within the left iliacus muscle. This may also represent a small intramuscular hematoma. IMPRESSION: 1. Interval development of a right iliopsoas intramuscular hematoma and a small right retroperitoneal hematoma. There appears to be mild thickening of the left iliacus muscle which also likely represents a small intramuscular hematoma. 2. Acute sigmoid diverticulitis. 3. Patchy and groundglass densities within the lung bases and a small right pleural effusion. This favors pulmonary edema. However, a pneumonia could also have a similar appearance. Electronically signed by: Jeremias Umanzor M.D. 10/17/2016 12:55 PM EKG performed at 11:40 reviewed and demonstrated junctional rhythm at 52 / minute, RBB, [id number]'s. . Assessment & Plan Critically ill patient. Underlying CKD V, interstitial lung disease, AF, DM, and other problems. Presented to ED with confusion, hypotension, bradycardia. WBC and lactate elevated. Hyperkalemic. Severe hypoglycemia. Suspected intracranial hemorrhage. Ileopsoas hematoma and suspected diverticulitis without abscess or perforation on CT. Probable sepsis. Recent Enterococcus infection peritoneal dialysis catheter treated with vancomycin. Apparent diverticulitis. Cultures obtained. Received IV vancomycin and Zosyn in ED. IV fluids and IV hydrocortisone ordered for hypotension. Hyperkalemia treated with calcium and insulin / D50. K-centra and vitamin K ordered for elevated INR with suspected intracranial hemorrhage and ileopsoas hematoma. Chronic respiratory failure due to interstitial lung disease. ? superimposed pulmonary edema. Sats low upon presentation, then improved. Patient subsequently developed worsening dyspnea / orthopnea. ED provider to intubate prior to transfer. Needs dialysis, but hypotensive. May need CAVH which is not available at this facility. May need neurosurgery consultation regarding suspected intracranial hemorrhage. Neurosurgery services not available at this facility. Case discussed with Dr. Jiménez - [facility] at [facility]. Patient accepted for transfer via [facility]. Family at bedside and given update. .
[2016-10-17] MEDS ORDERED: DOPamine 400MG / 250ML D5W ONE (15:00)
[2016-10-17 15:04] VITALS: BP_SYST 64; PULSE 46; O2SAT 93
[2016-10-17 15:05] VITALS: BP_DIAS 19
[2016-10-17] MEDS ORDERED: NOREPINEPHRINE BITARTRATE 1 MG/ML 4 ML VIAL ONE (15:08)
--- NOTE | 2016-10-17 15:56 | DIAGNOSTIC IMAGING REPORT ---
CHEST ONE VIEW PORTABLE HISTORY: s/p intubation COMPARISON: Chest 10/17/2016. FINDINGS: The endotracheal tube terminates 2 cm from the brad. Nasogastric tube terminates in the stomach. Moderate pulmonary edema has progressed. The heart remains enlarged. Trace bilateral pleural effusions. Right jugular central venous catheter terminates in the SVC. No pneumothorax. IMPRESSION: 1. Satisfactory support line placement. 2. Progression of the moderate edema and trace bilateral pleural effusions. Electronically signed by: Jeremias Umanzor M.D. 10/17/2016 3:55 PM Dictated Date/Time: 10/17/2016 3:51 PM
[2016-10-20 16:25] LABS: ISTAT ARTERIAL BLOOD GAS HCO3 23 meq/L (19-24); ISTAT ARTERIAL BLOOD GAS PCO2 59 mmHg (35-46); ISTAT ARTERIAL BLOOD GAS PO2 124 mmHg (80-95); ISTAT CARBON DIOXIDE 25 mEq/l (24-31)
== END 2016-10-17 16:15 | disposition short-term general hospital (02) ==
LOC: EDBD 11:12 → C.EDC 11:14 → C.ED 16:15
DX: J84.9 Interstitial pulmonary disease, unspecified (principal); M79.81 Nontraumatic hematoma of soft tissue; R41.0 Disorientation, unspecified; N18.6 End stage renal disease; J96.10 Chronic respiratory failure, unspecified whether with hypoxia or hypercapnia; E87.5 Hyperkalemia; R00.1 Bradycardia, unspecified; E11.649 Type 2 diabetes mellitus with hypoglycemia without coma; R79.1 Abnormal coagulation profile; I95.9 Hypotension, unspecified; E11.22 Type 2 diabetes mellitus with diabetic chronic kidney disease; E78.5 Hyperlipidemia, unspecified; I12.0 Hypertensive chronic kidney disease with stage 5 chronic kidney disease or end stage renal disease; M10.9 Gout, unspecified; E66.9 Obesity, unspecified; Z87.891 Personal history of nicotine dependence; Z98.49 Cataract extraction status, unspecified eye; Z96.1 Presence of intraocular lens; Z98.52 Vasectomy status; Z90.89 Acquired absence of other organs; Z96.649 Presence of unspecified artificial hip joint; Z82.49 Family history of ischemic heart disease and other diseases of the circulatory system; Z82.5 Family history of asthma and other chronic lower respiratory diseases; Z79.01 Long term (current) use of anticoagulants; Z79.4 Long term (current) use of insulin; Z79.52 Long term (current) use of systemic steroids; Z79.82 Long term (current) use of aspirin; Z79.899 Other long term (current) drug therapy; I48.91 Unspecified atrial fibrillation

== ENCOUNTER → 2016-10-17 | Outpatient (CLI) | payer OTHER ==
[~2016-10-17] MED LIST changes: +ACET-1311 PO; +ADVIN25/60 INH; +ALLO100T57 PO; +ATOR-26 PO; +BUME2TAB3 PO; -CALC1CAP36 PO; +DOCU-94 PO; +ENOX100I SC; +FAMO20TA12 PO; -GLIM4TAB2 PO; -GUAI100S6 PO; +HPRIS5M SQ; +HYDR-5688 PO; +INSDGI SC; -LISI-729 PO; +NTRGSL/4 UT; +NUTR-1049 PO; +NVLGIPEN SC; +OXYC1TAB3 PO; +OXYCODONE HCL PO; +RBTUDL10 PO; +SALI1SPR3; +SPRIN/30 INH; -VNTHFA/IN INH; +WARF-237 PO; +ZFRI4 IV; -ZOLP10TA PO; +ZOLP10TA6 PO; +[UNRECOGNIZED DRUG - CODE] IV; +lovenox SQ; +saline nasal spray NAE
[2016-10-17 09:25] LABS: INR 4.2 (0.9-1.1); PROTHROMBIN TIME (PATIENT) 47.5 SECONDS (9.0-12.0)
== END ==
LOC: C.LABUPNIT 08:42 → EDSTATUS 10-23 11:24
PROVIDERS: ATTEND Family Medicine
DX: I48.91 Unspecified atrial fibrillation (principal)